=== PATIENT | female | born 1950 | race Caucasian/White ===

== ENCOUNTER 2017-02-16 19:56 | Inpatient (IN) | payer MEDICARE, OTHER, SELFPAY ==
[2017-02-16] MEDS ORDERED: Sodium Chloride 0.9% 10 ML Syringe FLUSH PRN (20:03)
[2017-02-16] MEDS ORDERED: Furosemide 40 MG/4 ML VIAL IVPUSH ONE (20:03)
[2017-02-16] MEDS ORDERED: Sodium Chloride 0.9% 2.5 ML Syringe FLUSH PRN (20:03)
[2017-02-16] MEDS ORDERED: Enoxaparin 100 MG/1 ML Syringe SUBCUT ONE (20:03)
[2017-02-16] MEDS ORDERED: Nitroglycerin 2% Oint 1 GM UD Packet TOP ONE (20:03)
[2017-02-16] MEDS ORDERED: Aspirin 81 MG Tab.Chew PO ONE (20:03)
--- NOTE | 2017-02-16 20:09 | EDM.PDOC ---
ED HPI GENERAL MEDICAL PROBLEM - General Chief Complaint: Respiratory Problem Stated Complaint: GENERAL WEAKNESS Time Seen by Provider: 02/16/17 20:01 - History of Present Illness INITIAL COMMENTS - FREE TEXT/NARRATIVE: HISTORY AND PHYSICAL: History of present illness: Patient 66-year-old female with an extensive past medical history is presents with shortness of breath she also had a fall at home when her wheelchair broke she was found to be hypoxemic and transported by paramedics per nonrebreather she denies chest pain nausea vomiting she does acknowledge shortness of breath and states she has been noncompliant with all of her medications for months she does acknowledge history of CHF and she also states she has had a history of blood clots patient somewhat poor historian patient doesn't now is increasing peripheral edema and shortness of breath has been worsening over weeks to months Review of systems: As per history of present illness and below otherwise all systems reviewed and negative. Past medical history: As per history of present illness and as reviewed below otherwise noncontributory. Surgical history: As per history of present illness and as reviewed below otherwise noncontributory. Social history: No reported history of drug or alcohol abuse. Family history: As per history of present illness and as reviewed below otherwise noncontributory. Physical exam: HEENT: Atraumatic, normocephalic, pupils reactive, negative for conjunctival pallor or scleral icterus, mucous membranes moist, throat clear, neck supple, nontender, trachea midline. Lungs: Coarse bilaterally diminished bibasilar crackles noted breath sounds equal bilaterally, chest nontender. Heart: S1S2, regular, negative for clicks, rubs, or JVD. Abdomen: Soft, nondistended, nontender. Negative for masses or hepatosplenomegaly. Negative for costovertebral tenderness. Pelvis: Stable nontender. Genitourinary: Deferred. Rectal: Deferred. Extremities: Atraumatic, negative for cords or calf pain. Neurovascular unremarkable. 3-4+ pitting edema inferior extremities Neuro: Awake, alert, oriented. Follows commands and moves all extremities limited grossly nonfocal exam Diagnostics: CBC CMP troponin PT/INR UA urine culture blood culture 2 lactic acid BNP chest x-ray EKG Therapeutics: IV O2 monitor Nitropaste 1 inch to chest wall Lasix 40 mg IV aspirin 324 mg by mouth Impression: #1 hypoxemia #2 congestive heart failure #3 medical noncompliance Definitive disposition and diagnosis as appropriate pending reevaluation and review of above. - Related Data Allergies Allergy/AdvReac Type Severity Reaction Status Date / Time aspartame Allergy Other Verified 02/16/17 20:20 [From Nutrasweet Aspartame] banana Allergy Other Verified 02/16/17 20:20 egg Allergy Other Verified 02/16/17 20:20 fluconazole Allergy Burning Verified 02/16/17 20:20 formaldehyde Allergy Other Verified 02/16/17 20:20 gluten Allergy Other Verified 02/16/17 20:20 latex Allergy Other Verified 02/16/17 20:20 levofloxacin [From Levaquin] Allergy Other Verified 02/16/17 20:20 lisinopril Allergy Other Verified 02/16/17 20:20 morphine Allergy Other Verified 02/16/17 20:20 perfume Allergy Cough Verified 02/16/17 20:20 petrolatum,white Allergy Other Verified 02/16/17 20:20 [From Petroleum Jelly] propoxyphene HCl Allergy Other Verified 02/16/17 20:20 [From Darvon] soy Allergy Other Verified 02/16/17 20:20 spironolactone Allergy Chest Verified 02/16/17 20:20 Presssure Sulfa (Sulfonamide Allergy Other Verified 02/16/17 20:20 Antibiotics) Home Meds: Home Meds Losartan [Cozaar] 100 mg PO DAILY #30 09/29/14 [Rx] Baclofen 20 mg PO TID 02/13/16 [History] oxyCODONE HCl [Oxycodone HCl] 10 mg PO BEDTIME 02/13/16 [History] Past Medical History Cardiovascular History: Reports: Heart Failure, Hypertension Respiratory History: Reports: Bronchitis, Recurrent [employer] 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[employer]IC History: Reports: Musculoskeletal History: Reports: Back Pain, Chronic Psychiatric History: Reports: Depression Endocrine/Metabolic History: Reports: Diabetes, Type II - Past Surgical History Female Surgical History: Reports: Section Musculoskeletal Surgical History: Reports: Other (See Below) Social & Family History - Family History Family Medical History: Noncontributory - Tobacco Use Smoking Status *Q: Current Every Day Smoker Years of Tobacco use: 40 Packs/Tins Daily: 1 Used Tobacco, but Quit: No Second Hand Smoke Exposure: Yes - Alcohol Use Days Per Week of Alcohol Use: 0 - Recreational Drug Use Recreational Drug Use: No ED ROS GENERAL - Review of Systems Review Of Systems: ROS reveals no pertinent complaints other than HPI. ED EXAM, GENERAL - Physical Exam Exam: See Below (See dictation) Course - Vital Signs Last Recorded V/S: Last Vital Signs Temp 36.1 C 02/16/17 20:00 Pulse 72 02/16/17 22:16 Resp 19 02/16/17 22:16 BP 143/76 H 02/16/17 22:16 Pulse Ox 93 L 02/16/17 22:18 - Orders/Labs/Meds Orders: Active Orders 24 hr Category Date Time Status Cardiac Monitoring [RC] . DIRECTED Care 02/16/17 20:02 Active EKG 12 Lead [EKG Documentation Completion] [RC] STAT Care 02/16/17 19:57 Active Oxygen Therapy, ED [RC] ASDIRECTED Care 02/16/17 20:02 Active Pulse Oximetry [RC] ASDIRECTED Care 02/16/17 20:02 Active Chest 1V Frontal [CR] Stat Exams 02/16/17 20:03 Taken Pelvis 1V or 2V [CR] Stat Exams 02/16/17 20:05 Taken CULTURE BLOOD [BC] Stat Lab 02/16/17 20:20 Received CULTURE BLOOD [BC] Stat Lab 02/16/17 20:37 Received CULTURE URINE [RM] Stat Lab 02/16/17 21:04 Received Sodium Chloride 0.9% [Saline Flush] Med 02/16/17 20:03 Active 10 ml FLUSH ASDIRECTED PRN Sodium Chloride 0.9% [Saline Flush] Med 02/16/17 20:03 Active 2.5 ml FLUSH ASDIRECTED PRN Blood Culture x2 Reflex Set [OM.PC] Stat Oth 02/16/17 20:03 Ordered Saline Lock Insert [OM.PC] Stat Oth 02/16/17 20:02 Ordered Medication Orders Sodium Chloride (Saline Flush) 10 ml FLUSH ASDIRECTED PRN PRN Reason: Keep Vein Open Last Admin: 02/16/17 20:29 Dose: 10 ml Sodium Chloride (Saline Flush) 2.5 ml FLUSH ASDIRECTED PRN PRN Reason: Keep Vein Open Last Admin: 02/16/17 20:28 Dose: 2.5 ml Labs: Laboratory Tests 10/18/17 10/18/17 10/18/17 Range/Units 20:20 20:20 20:20 WBC 7.21 (4.0-11.0) K/uL RBC 5.27 (4.30-5.90) M/uL Hgb 16.5 H (12.0-16.0) g/dL Hct 51.0 H (36.0-46.0) % MCV 96.8 (80.0-98.0) fL MCH 31.3 (27.0-32.0) pg MCHC 32.4 (31.0-37.0) g/dL RDW Std Deviation 52.5 (28.0-62.0) fl RDW Coeff of Robert 15 (11.0-15.0) % Plt Count 174 (150-400) K/uL MPV 10.20 (7.40-12.00) fL Neut % (Auto) 63.5 (48.0-80.0) % Lymph % (Auto) 20.9 (16.0-40.0) % [place] % (Auto) 14.0 (0.0-15.0) % Eos % (Auto) 1.2 (0.0-7.0) % Baso % (Auto) 0.4 (0.0-1.5) % Neut # (Auto) 4.6 (1.4-5.7) K/uL Lymph # (Auto) 1.5 (0.6-2.4) K/uL [place] # (Auto) 1.0 H (0.0-0.8) K/uL Eos # (Auto) 0.1 (0.0-0.7) K/uL Baso # (Auto) 0.0 (0.0-0.1) K/uL Nucleated RBC % 0.0 /100WBC Nucleated RBCs # 0 K/uL INR 1.26 H (0.86-1.11) Lactate 1.2 (0.20-2.00) mmol/L Sodium (136-146) mmol/L Potassium (3.5-5.1) mmol/L Chloride (98-110) mmol/L Carbon Dioxide (21-31) mmol/L BUN (6.0-23.0) mg/dL Creatinine (0.6-1.5) mg/dL Est Cr Clr Drug Dosing Estimated GFR (MDRD) ml/min Glucose (60-110) mg/dL Calcium (8.8-10.8) mg/dL Total Bilirubin (0.1-1.5) mg/dL AST (5-40) IU/L ALT (8-54) IU/L Alkaline Phosphatase (40-150) Ammonia (14-68) UG/DL Troponin I (0.0-0.29) NG/ML B-Natriuretic Peptide (<100) PG/ML Total Protein (6.0-8.0) g/dL Albumin (3.4-4.8) g/dL Globulin (2.0-3.5) g/dL Albumin/Globulin Ratio (1.3-2.8) Urine Color Urine Appearance Urine pH (5.0-8.0) Ur Specific [place] (1.001-1.035) Urine Protein (NEGATIVE) mg/dL Urine Glucose (UA) (NEGATIVE) mg/dL Urine Ketones (NEGATIVE) mg/dL Urine Occult Blood (NEGATIVE) Urine Nitrite (NEGATIVE) Urine Bilirubin (NEGATIVE) Urine Urobilinogen (<2.0) EU/dL Ur Leukocyte Esterase (NEGATIVE) Urine RBC (0-2/HPF) Urine WBC (0-5/HPF) Ur Epithelial Cells (NONE-FEW) Urine Bacteria (NEGATIVE) 02/16/17 02/16/17 02/16/17 Range/Units 20:20 20:20 20:20 WBC (4.0-11.0) K/uL RBC (4.30-5.90) M/uL Hgb (12.0-16.0) g/dL Hct (36.0-46.0) % MCV (80.0-98.0) fL MCH (27.0-32.0) pg MCHC (31.0-37.0) g/dL RDW Std Deviation (28.0-62.0) fl RDW Coeff of Robert (11.0-15.0) % Plt Count (150-400) K/uL MPV (7.40-12.00) fL Neut % (Auto) (48.0-80.0) % Lymph % (Auto) (16.0-40.0) % [place] % (Auto) (0.0-15.0) % Eos % (Auto) (0.0-7.0) % Baso % (Auto) (0.0-1.5) % Neut # (Auto) (1.4-5.7) K/uL Lymph # (Auto) (0.6-2.4) K/uL [place] # (Auto) (0.0-0.8) K/uL Eos # (Auto) (0.0-0.7) K/uL Baso # (Auto) (0.0-0.1) K/uL Nucleated RBC % /100WBC Nucleated RBCs # K/uL INR (0.86-1.11) Lactate (0.20-2.00) mmol/L Sodium 143 (136-146) mmol/L Potassium 3.8 (3.5-5.1) mmol/L Chloride 106 (98-110) mmol/L Carbon Dioxide 27 (21-31) mmol/L BUN 22 (6.0-23.0) mg/dL Creatinine 0.9 (0.6-1.5) mg/dL Est Cr Clr Drug Dosing TNP Estimated GFR (MDRD) > 60.0 ml/min Glucose 112 H (60-110) mg/dL Calcium 8.9 (8.8-10.8) mg/dL Total Bilirubin 0.8 (0.1-1.5) mg/dL AST 19 (5-40) IU/L ALT 18 (8-54) IU/L Alkaline Phosphatase 124 (40-150) Ammonia 53 (14-68) UG/DL Troponin I < 0.10 (0.0-0.29) NG/ML B-Natriuretic Peptide 2294 H (<100) PG/ML Total Protein 7.3 (6.0-8.0) g/dL Albumin 3.4 (3.4-4.8) g/dL Globulin 3.9 H (2.0-3.5) g/dL Albumin/Globulin Ratio 0.9 L (1.3-2.8) Urine Color Urine Appearance Urine pH (5.0-8.0) Ur Specific [place] (1.001-1.035) Urine Protein (NEGATIVE) mg/dL Urine Glucose (UA) (NEGATIVE) mg/dL Urine Ketones (NEGATIVE) mg/dL Urine Occult Blood (NEGATIVE) Urine Nitrite (NEGATIVE) Urine Bilirubin (NEGATIVE) Urine Urobilinogen (<2.0) EU/dL Ur Leukocyte Esterase (NEGATIVE) Urine RBC (0-2/HPF) Urine WBC (0-5/HPF) Ur Epithelial Cells (NONE-FEW) Urine Bacteria (NEGATIVE) 02/16/17 Range/Units 21:04 WBC (4.0-11.0) K/uL RBC (4.30-5.90) M/uL Hgb (12.0-16.0) g/dL Hct (36.0-46.0) % MCV (80.0-98.0) fL MCH (27.0-32.0) pg MCHC (31.0-37.0) g/dL RDW Std Deviation (28.0-62.0) fl RDW Coeff of Robert (11.0-15.0) % Plt Count (150-400) K/uL MPV (7.40-12.00) fL Neut % (Auto) (48.0-80.0) % Lymph % (Auto) (16.0-40.0) % [place] % (Auto) (0.0-15.0) % Eos % (Auto) (0.0-7.0) % Baso % (Auto) (0.0-1.5) % Neut # (Auto) (1.4-5.7) K/uL Lymph # (Auto) (0.6-2.4) K/uL [place] # (Auto) (0.0-0.8) K/uL Eos # (Auto) (0.0-0.7) K/uL Baso # (Auto) (0.0-0.1) K/uL Nucleated RBC % /100WBC Nucleated RBCs # K/uL INR (0.86-1.11) Lactate (0.20-2.00) mmol/L Sodium (136-146) mmol/L Potassium (3.5-5.1) mmol/L Chloride (98-110) mmol/L Carbon Dioxide (21-31) mmol/L BUN (6.0-23.0) mg/dL Creatinine (0.6-1.5) mg/dL Est Cr Clr Drug Dosing Estimated GFR (MDRD) ml/min Glucose (60-110) mg/dL Calcium (8.8-10.8) mg/dL Total Bilirubin (0.1-1.5) mg/dL AST (5-40) IU/L ALT (8-54) IU/L Alkaline Phosphatase (40-150) Ammonia (14-68) UG/DL Troponin I (0.0-0.29) NG/ML B-Natriuretic Peptide (<100) PG/ML Total Protein (6.0-8.0) g/dL Albumin (3.4-4.8) g/dL Globulin (2.0-3.5) g/dL Albumin/Globulin Ratio (1.3-2.8) Urine Color YELLOW Urine Appearance CLEAR Urine pH 5.5 (5.0-8.0) Ur Specific [place] 1.010 (1.001-1.035) Urine Protein 30 (NEGATIVE) mg/dL Urine Glucose (UA) NEGATIVE (NEGATIVE) mg/dL Urine Ketones NEGATIVE (NEGATIVE) mg/dL Urine Occult Blood TRACE-LYSED (NEGATIVE) Urine Nitrite NEGATIVE (NEGATIVE) Urine Bilirubin NEGATIVE (NEGATIVE) Urine Urobilinogen 0.2 (<2.0) EU/dL Ur Leukocyte Esterase NEGATIVE (NEGATIVE) Urine RBC 0-1 (0-2/HPF) Urine WBC 1-2 (0-5/HPF) Ur Epithelial Cells FEW (NONE-FEW) Urine Bacteria FEW (NEGATIVE) Meds: Medications Generic Name Dose Route Start Last Admin Trade Name Freq PRN Reason Stop Dose Admin Sodium Chloride 10 ml 02/16/17 20:03 02/16/17 20:29 Saline Flush FLUSH 10 ml ASDIRECTED PRN Administration Keep Vein Open Sodium Chloride 2.5 ml 02/16/17 20:03 02/16/17 20:28 Saline Flush FLUSH 2.5 ml ASDIRECTED PRN Administration Keep Vein Open Discontinued Medications Generic Name Dose Route Start Last Admin Trade Name Freq PRN Reason Stop Dose Admin Aspirin 324 mg 02/16/17 20:03 02/16/17 20:24 Aspirin PO 02/16/17 20:04 324 mg ONETIME ONE Administration Enoxaparin Sodium 120 mg 02/16/17 20:03 02/16/17 20:25 Lovenox SUBCUT 02/16/17 20:04 Not Given ONETIME ONE Furosemide 40 mg 02/16/17 20:03 02/16/17 20:29 Lasix IVPUSH 02/16/17 20:04 40 mg NOW ONE Administration Nitroglycerin 1 gm 02/16/17 20:03 02/16/17 20:26 Nitro-Bid 2% TOP 02/16/17 20:04 1 gm ONETIME ONE Administration Departure - Departure Time of Disposition: 22:20 Disposition: Admitted As Inpatient 68 Condition: Fair Clinical Impression: Hypoxemia, Congestive heart failure, Medical non-compliance - Discharge Information Forms: ED Department Discharge - My Orders Last 24 Hours: My Active Orders 02/16/17 19:57 EKG 12 Lead [EKG Documentation Completion] [RC] STAT 02/16/17 20:02 Cardiac Monitoring [RC] . DIRECTED Oxygen Therapy, ED [RC] ASDIRECTED Pulse Oximetry [RC] ASDIRECTED Saline Lock Insert [OM.PC] Stat 02/16/17 20:03 Chest 1V Frontal [CR] Stat Sodium Chloride 0.9% [Saline Flush] 10 ml FLUSH ASDIRECTED PRN Sodium Chloride 0.9% [Saline Flush] 2.5 ml FLUSH ASDIRECTED PRN Blood Culture x2 Reflex Set [OM.PC] Stat 02/16/17 20:05 Pelvis 1V or 2V [CR] Stat 02/16/17 20:20 CULTURE BLOOD [BC] Stat 02/16/17 20:37 CULTURE BLOOD [BC] Stat 02/16/17 21:04 CULTURE URINE [RM] Stat - Assessment/Plan Last 24 Hours: My Active Orders 02/16/17 19:57 EKG 12 Lead [EKG Documentation Completion] [RC] STAT 02/16/17 20:02 Cardiac Monitoring [RC] . DIRECTED Oxygen Therapy, ED [RC] ASDIRECTED Pulse Oximetry [RC] ASDIRECTED Saline Lock Insert [OM.PC] Stat 02/16/17 20:03 Chest 1V Frontal [CR] Stat Sodium Chloride 0.9% [Saline Flush] 10 ml FLUSH ASDIRECTED PRN Sodium Chloride 0.9% [Saline Flush] 2.5 ml FLUSH ASDIRECTED PRN Blood Culture x2 Reflex Set [OM.PC] Stat 02/16/17 20:05 Pelvis 1V or 2V [CR] Stat 02/16/17 20:20 CULTURE BLOOD [BC] Stat 02/16/17 20:37 CULTURE BLOOD [BC] Stat 02/16/17 21:04 CULTURE URINE [RM] Stat
[2017-02-16 20:51] LABS: CHLORIDE,CL 106 mmol/L (98-110); SODIUM,NA 143 mmol/L (136-146)
--- NOTE | 2017-02-16 23:25 | PCM.HP ---
H&P History of Present Illness - General Admit Problem/Dx: Admission Diagnosis/Problem Admission Diagnosis/Problem Congestive heart failure - History of Present Illness Initial Comments - Free Text/Narative: 66 yo female with pmh of CHF who presents with hypoxia. She was at home and fell while getting up from chair. She called the police to help her up from the floor. EMT noted her to be satting low 80s on RA and convinced her to come to the ED. She reports increased in shortness of breath and cough. She reports orthopnea and increase in lower leg swelling. She reports a gain in 20 lbs. In the ED she received lasix and nitro paste. She refused anticoagulation as she she said she is done with treating DVTs. She reports prolonged hospitalizations with surgical treatment of leg clots. She has stopped taking any medications except for garlic and states that has kept her out of the hospital for over a year. In her last hospitalization here in [place] according to chart it appears she refused to be treated for diabetes and denied the diagnosis. left hip Pain Score (Numeric/FACES): 5 - Related Data Allergies/Adverse Reactions: Allergies Allergy/AdvReac Type Severity Reaction Status Date / Time aspartame Allergy Other Verified 02/16/17 20:20 [From Nutrasweet Aspartame] banana Allergy Other Verified 02/16/17 20:20 egg Allergy Other Verified 02/16/17 20:20 fluconazole Allergy Burning Verified 02/16/17 20:20 formaldehyde Allergy Other Verified 02/16/17 20:20 gluten Allergy Other Verified 02/16/17 20:20 latex Allergy Other Verified 02/16/17 20:20 levofloxacin [From Levaquin] Allergy Other Verified 02/16/17 20:20 lisinopril Allergy Other Verified 02/16/17 20:20 morphine Allergy Other Verified 02/16/17 20:20 perfume Allergy Cough Verified 02/16/17 20:20 petrolatum,white Allergy Other Verified 02/16/17 20:20 [From Petroleum Jelly] propoxyphene HCl Allergy Other Verified 02/16/17 20:20 [From Darvon] soy Allergy Other Verified 02/16/17 20:20 spironolactone Allergy Chest Verified 02/16/17 20:20 Presssure Sulfa (Sulfonamide Allergy Other Verified 02/16/17 20:20 Antibiotics) Home Medications: Home Meds Losartan [Cozaar] 100 mg PO DAILY #30 09/29/14 [Rx] Baclofen 20 mg PO TID 02/13/16 [History] oxyCODONE HCl [Oxycodone HCl] 10 mg PO BEDTIME 02/13/16 [History] Past Medical History Cardiovascular History: Reports: Heart Failure, Hypertension Respiratory History: Reports: Bronchitis, Recurrent [employer] 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: Musculoskeletal History: Reports: Back Pain, Chronic Psychiatric History: Reports: Depression Endocrine/Metabolic History: Reports: Diabetes, Type II - Infectious Disease History Infectious Disease History: Reports: None - Past Surgical History Female Surgical History: Reports: Section Musculoskeletal Surgical History: Reports: Other (See Below) Social & Family History - Family History Family Medical History: Noncontributory - Tobacco Use Smoking Status *Q: Current Every Day Smoker Years of Tobacco use: 40 Packs/Tins Daily: 1 Used Tobacco, but Quit: No Second Hand Smoke Exposure: Yes - Caffeine Use Caffeine Use: Reports: Soda - Alcohol Use Days Per Week of Alcohol Use: 0 - Recreational Drug Use Recreational Drug Use: No H&P Review of Systems - Review of Systems: Review Of Systems: See Below General: Reports: No Symptoms HEENT: Reports: No Symptoms Pulmonary: Reports: No Symptoms Cardiovascular: Reports: No Symptoms Gastrointestinal: Reports: No Symptoms Genitourinary: Reports: No Symptoms Musculoskeletal: Reports: No Symptoms Skin: Reports: No Symptoms Psychiatric: Reports: No Symptoms Neurological: Reports: No Symptoms Hematologic/Lymphatic: Reports: No Symptoms Immunologic: Reports: No Symptoms Exam - Exam Exam: See Below - Vital Signs Vital Signs: Last Vital Signs Temp 36.1 C 02/16/17 20:00 Pulse 72 02/16/17 22:53 Resp 19 02/16/17 22:53 BP 163/84 H 02/16/17 22:53 Pulse Ox 94 L 02/16/17 22:53 Weight: 117.1 kg - Exam General: Alert, Oriented, Cooperative. No: Mild Distress Lungs: Normal Respiratory Effort, Decreased Breath Sounds, Crackles (at bases) Cardiovascular: Regular Rate, Regular Rhythm GI/Abdominal Exam: Soft, Non-Tender, No Distention Extremities: Pedal Edema (+3 leg edema) Skin: Warm, Dry, Intact Neurological: No: Focal Deficit - Patient Data Result Diagrams: 02/17/17 05:13 02/17/17 05:13 *Q Meaningful Use (ADM) - VTE *Q VTE Criteria *Q: - Stroke *Q Stroke Criteria *Q: - AMI *Q AMI Criteria *Q: Problem List Initiated/Reviewed/Updated: Yes Orders Last 24hrs: Active Orders 24 hr Category Date Time Status Antiembolic Devices [RC] PER UNIT ROUTINE Care 02/16/17 23:17 Ordered Oxygen Therapy [RC] PRN Care 02/16/17 23:16 Ordered VTE/DVT Education [RC] PER UNIT ROUTINE Care 02/16/17 23:16 Ordered Vital Signs [RC] Q4H Care 02/16/17 23:16 Ordered PT Evaluation and Treatment [CONS] Routine Cons 02/16/17 23:16 Ordered 2 Gram Sodium Diet [DIET] Diet 02/16/17 Breakfast Ordered Echo 2D wo Cont [US] Routine Exams 02/16/17 23:18 Ordered BASIC METABOLIC PANEL,BMP [CHEM] AM Lab 02/17/17 05:11 Ordered CBC WITH AUTO DIFF [HEME] AM Lab 02/17/17 05:11 Ordered INFLUENZA A+B AG SCREEN [RM] Routine Lab 02/16/17 23:19 Uncollected Enoxaparin [Lovenox] Med 02/17/17 09:00 Ordered 40 mg SUBCUT DAILY Furosemide [Lasix] Med 02/17/17 09:00 Ordered 40 mg IVPUSH BID Obtain Past Medical Record [OM.PC] Routine Oth 02/16/17 23:18 Ordered Sequential Compression Device [OM.PC] Per Unit Routine Oth 02/16/17 23:16 Ordered Resuscitation Status Routine Resus Stat 02/16/17 23:16 Ordered Medication Orders Enoxaparin Sodium (Lovenox) 40 mg SUBCUT DAILY JESSEE Furosemide (Lasix) 40 mg IVPUSH BID JESSEE Sodium Chloride (Saline Flush) 10 ml FLUSH ASDIRECTED PRN PRN Reason: Keep Vein Open Last Admin: 02/16/17 20:29 Dose: 10 ml Sodium Chloride (Saline Flush) 2.5 ml FLUSH ASDIRECTED PRN PRN Reason: Keep Vein Open Last Admin: 02/16/17 20:28 Dose: 2.5 ml Assessment/Plan Comment:: 66 yo female admitted for CHF exacerbation. We will treat with IV lasix. Will obtain echocardiogram. Will consider PAM or ARB. Will consult PT regarding fall. I spent time advising patient on starting pharmacological DVT prophylaxis considering her history but patient currently is refusing and believes she won't stay in the hospital for long.
[2017-02-17] MEDS ORDERED: guaiFENesin/Dextromethorphan 100-10 MG/5 ML Soln 10 ML Cup PO PRN (01:28)
[2017-02-17] MEDS: Benzocaine/Cetylpyridinium/Menthol Lozenge MUCMEM PRN ×2 (02:01→11:30)
[2017-02-17] MEDS ORDERED: oxyCODONE 5 MG Tab PO ONE (02:39)
[2017-02-17] MEDS: Furosemide 40 MG/4 ML VIAL IVPUSH SCH ×2 (06:11→12:59)
[2017-02-17 06:12] LABS: CHLORIDE,CL 106 mmol/L (98-110); SODIUM,NA 144 mmol/L (136-146)
[2017-02-17] MEDS: Losartan 50 MG Tab PO SCH (06:19)
[2017-02-17] MEDS: Enoxaparin 40 MG/0.4 ML Syringe SUBCUT SCH (08:54)
[2017-02-17] MEDS ORDERED: Acetaminophen 325 MG Tab PO PRN (08:57)
[2017-02-17] MEDS ORDERED: Furosemide 40 MG/4 ML VIAL IVPUSH SCH (09:00)
[2017-02-17] MEDS: Aspirin 81 MG Tab.Chew PO SCH (10:01)
--- NOTE | 2017-02-17 10:47 | CR ---
EXAM DATE: 02/16/17 PATIENT'S AGE: 66 Patient: ASHLEY YUAN Facility: [place], [place] Site . Site : 1950 Study: XRay Chest [id number] 9:36:24 PM Ordering Physician: Miles Wise Final Report: INDICATION: weakness TECHNIQUE: Chest 1 view. COMPARISON: 09/27/14 FINDINGS: Cardiovascular and mediastinum: Heart size and vasculature are normal in caliber and appearance. Mediastinum is within normal limits. Lungs and pleural space: Lungs are clear. No sign of infiltrate or mass. No sign of pleural effusion. No pneumothorax. Bones and soft tissues: No significant findings. IMPRESSION: Unremarkable chest. Dictated by: Danial Xie MD @ 02/16/2017 22:12:11 (Electronic Signature) Report Signed by Proxy. [facility]
--- NOTE | 2017-02-17 10:49 | CR ---
EXAM DATE: 02/16/17 PATIENT'S AGE: 66 Patient: ASHLEY YUAN Facility: [place], [place] Site . Site : 1950 Study: XRay Pelvis [id number]/[id number] 9:36:45 PM Ordering Physician: Miles Wise Final Report: INDICATION: left side hip pain INDICATION: Left-sided hip pain TECHNIQUE: AP pelvis COMPARISON: None FINDINGS: Bones: Alignment is normal. No fractures or bone lesions. Joint spaces: Unremarkable. Soft tissues: Unremarkable. IMPRESSION: No evidence of acute trauma. Dictated by Danial Xie MD @ 02/16/2017 10:10:34 PM Dictated by: Danial Xie MD @ 02/16/2017 22:10:50 (Electronic Signature) Report Signed by Proxy. [facility]
[2017-02-17] MEDS: oxyCODONE 5 MG Tab PO PRN (11:11)
--- NOTE | 2017-02-17 11:39 | PCM.PN ---
- Review of Systems Systems Review Comment:: breathing has improved. - Patient Data Vitals - Most Recent: Last Vital Signs Temp 36.7 C 02/17/17 08:00 Pulse 72 02/16/17 22:53 Resp 22 H 02/17/17 10:54 BP 171/120 H 02/17/17 10:54 Pulse Ox 92 L 02/17/17 10:54 Weight - Most Recent: 117.1 kg I&O - Last 24 Hours: Intake & Output 02/16/17 02/17/17 02/17/17 22:59 06:59 14:59 Intake Total 200 Output Total 900 Balance -700 Lab Results Last 24 Hours: Laboratory Results - last 24 hr 02/17/17 02/17/17 Range/Units 05:13 05:13 WBC 7.37 (4.0-11.0) K/uL RBC 4.90 (4.30-5.90) M/uL Hgb 15.1 (12.0-16.0) g/dL Hct 47.9 H (36.0-46.0) % MCV 97.8 (80.0-98.0) fL MCH 30.8 (27.0-32.0) pg MCHC 31.5 (31.0-37.0) g/dL RDW Std Deviation 53.8 (28.0-62.0) fl RDW Coeff of Robert 15 (11.0-15.0) % Plt Count 202 (150-400) K/uL MPV 10.20 (7.40-12.00) fL Neut % (Auto) 65.0 (48.0-80.0) % Lymph % (Auto) 19.3 (16.0-40.0) % [place] % (Auto) 13.8 (0.0-15.0) % Eos % (Auto) 1.6 (0.0-7.0) % Baso % (Auto) 0.3 (0.0-1.5) % Neut # (Auto) 4.8 (1.4-5.7) K/uL Lymph # (Auto) 1.4 (0.6-2.4) K/uL [place] # (Auto) 1.0 H (0.0-0.8) K/uL Eos # (Auto) 0.1 (0.0-0.7) K/uL Baso # (Auto) 0.0 (0.0-0.1) K/uL Nucleated RBC % 0.0 /100WBC Nucleated RBCs # 0 K/uL Sodium 144 (136-146) mmol/L Potassium 3.9 (3.5-5.1) mmol/L Chloride 106 (98-110) mmol/L Carbon Dioxide 30 (21-31) mmol/L BUN 19 (6.0-23.0) mg/dL Creatinine 0.8 (0.6-1.5) mg/dL Est Cr Clr Drug Dosing 69.09 mL/min Estimated GFR (MDRD) > 60.0 ml/min Glucose 110 (60-110) mg/dL Calcium 8.3 L (8.8-10.8) mg/dL Samuel Results Last 24 Hours: Microbiology 02/16/17 23:57 Influenza Type A Antigen Screen - Final Nasopharyngeal Swab - Nare, Left NEGATIVE INFLUENZA A VIRUS AG Influenza Type B Antigen Screen - Final NEGATIVE INFLUENZA B VIRUS AG Med Orders - Current: Current Medications Acetaminophen (Tylenol) 325 mg PO Q4H PRN PRN Reason: headache or other pain Aspirin (Aspirin) 81 mg PO DAILY [facility] Last Admin: 02/17/17 10:01 Dose: 81 mg Benzocaine/Menthol (Cepacol Sore Throat) 1 lozenge MUCMEM 6XDAY PRN PRN Reason: Cough Last Admin: 02/17/17 11:30 Dose: 1 lozenge Enoxaparin Sodium (Lovenox) 40 mg SUBCUT DAILY [facility] Last Admin: 02/17/17 08:54 Dose: Not Given Furosemide (Lasix) 40 mg IVPUSH 0600,1400 [facility] Last Admin: 02/17/17 06:11 Dose: 40 mg Guaifenesin/Dextromethorphan (Robitussin Dm) 10 ml PO Q4H PRN PRN Reason: Cough Last Admin: 02/17/17 11:10 Dose: 10 ml Losartan Potassium (Cozaar) 50 mg PO DAILY [facility] Last Admin: 02/17/17 06:19 Dose: 50 mg Oxycodone HCl (Oxycodone) 5 mg PO Q6H PRN PRN Reason: Pain Last Admin: 02/17/17 11:11 Dose: 5 mg Sodium Chloride (Saline Flush) 10 ml FLUSH ASDIRECTED PRN PRN Reason: Keep Vein Open Last Admin: 02/16/17 20:29 Dose: 10 ml Sodium Chloride (Saline Flush) 2.5 ml FLUSH ASDIRECTED PRN PRN Reason: Keep Vein Open Last Admin: 02/16/17 20:28 Dose: 2.5 ml Discontinued Medications Aspirin (Aspirin) 324 mg PO ONETIME ONE Stop: 02/16/17 20:04 Last Admin: 02/16/17 20:24 Dose: 324 mg Enoxaparin Sodium (Lovenox) 120 mg SUBCUT ONETIME ONE Stop: 02/16/17 20:04 Last Admin: 02/16/17 20:25 Dose: Not Given Furosemide (Lasix) 40 mg IVPUSH NOW ONE Stop: 02/16/17 20:04 Last Admin: 02/16/17 20:29 Dose: 40 mg Furosemide (Lasix) 40 mg IVPUSH BID [facility] Nitroglycerin (Nitro-Bid 2%) 1 gm TOP ONETIME ONE Stop: 02/16/17 20:04 Last Admin: 02/16/17 20:26 Dose: 1 gm Oxycodone HCl (Oxycodone) 5 mg PO ONETIME ONE Stop: 02/17/17 02:40 Last Admin: 02/17/17 02:56 Dose: 5 mg - Exam General: Alert, Oriented Lungs: Normal Respiratory Effort, Decreased Breath Sounds Cardiovascular: Regular Rate, Regular Rhythm Extremities: Other (+3 leg edema) Skin: Warm, Dry, Intact Neurological: No New Focal Deficit - Problem List Review Problem List Initiated/Reviewed/Updated: Yes - My Orders Last 24 Hours: My Active Orders 02/16/17 23:16 Oxygen Therapy [RC] PRN Vital Signs [RC] Q1H PT Evaluation and Treatment [CONS] Routine Sequential Compression Device [OM.PC] Per Unit Routine Resuscitation Status Routine 02/16/17 23:17 Antiembolic Devices [RC] Q12H 02/16/17 23:18 Obtain Past Medical Record [OM.PC] Routine 02/17/17 06:00 Furosemide [Lasix] 40 mg IVPUSH 0600,1400 02/17/17 09:00 Enoxaparin [Lovenox] 40 mg SUBCUT DAILY 02/17/17 09:45 Aspirin 81 mg PO DAILY 02/17/17 10:19 oxyCODONE 5 mg PO Q6H PRN 10/19/17 23:18 Echo Comp wo Cont [US] Routine - Plan Plan:: 66 yo female admitted for CHF exacerbation. Will continue lasix, echocardiogram pending PT consulted
[2017-02-17] MEDS ORDERED: hydrALAZINE 20 MG/ML SDV IVPUSH PRN (22:16)
[2017-02-18] MEDS: oxyCODONE 5 MG Tab PO PRN ×4 (02:42→22:07)
[2017-02-18] MEDS: Furosemide 40 MG/4 ML VIAL IVPUSH SCH ×2 (05:48→13:47)
[2017-02-18 08:54] LABS: CHLORIDE,CL 99 mmol/L (98-110); SODIUM,NA 145 mmol/L (136-146)
[2017-02-18] MEDS: cefTRIAXone 1 GM in Premix Bag 1 BAG IV SCH (08:54)
[2017-02-18] MEDS: Aspirin 81 MG Tab.Chew PO SCH (08:55)
[2017-02-18] MEDS: Nicotine 21 MG/24 Hr Patch TRDERM SCH (09:05)
[2017-02-18] MEDS: Enoxaparin 40 MG/0.4 ML Syringe SUBCUT SCH (09:16)
[2017-02-18] MEDS: Losartan 50 MG Tab PO SCH (09:17)
--- NOTE | 2017-02-18 11:57 | PCM.PN ---
- General Info Date of Service: 02/18/17 - Review of Systems Systems Review Comment:: shortness of breath improving. - Patient Data Vitals - Most Recent: Last Vital Signs Temp 37.6 C 02/18/17 08:00 Pulse 67 02/18/17 09:00 Resp 12 02/18/17 11:00 BP 138/41 L 02/18/17 11:00 Pulse Ox 87 L 02/18/17 11:00 Weight - Most Recent: 114 kg I&O - Last 24 Hours: Intake & Output 02/17/17 02/18/17 02/18/17 22:59 06:59 14:59 Intake Total 450 500 Output Total 2200 500 Balance -1750 0 Lab Results Last 24 Hours: Laboratory Results - last 24 hr 02/17/17 02/17/17 02/18/17 Range/Units 05:13 16:45 08:06 WBC 8.27 (4.0-11.0) K/uL RBC 4.93 (4.30-5.90) M/uL Hgb 15.1 (12.0-16.0) g/dL Hct 48.4 H (36.0-46.0) % MCV 98.2 H (80.0-98.0) fL MCH 30.6 (27.0-32.0) pg MCHC 31.2 (31.0-37.0) g/dL RDW Std Deviation 53.3 (28.0-62.0) fl RDW Coeff of Robert 15 (11.0-15.0) % Plt Count 207 (150-400) K/uL MPV 10.30 (7.40-12.00) fL Neut % (Auto) 61.1 (48.0-80.0) % Lymph % (Auto) 23.1 (16.0-40.0) % [place] % (Auto) 14.5 (0.0-15.0) % Eos % (Auto) 1.1 (0.0-7.0) % Baso % (Auto) 0.2 (0.0-1.5) % Neut # (Auto) 5.1 (1.4-5.7) K/uL Lymph # (Auto) 1.9 (0.6-2.4) K/uL [place] # (Auto) 1.2 H (0.0-0.8) K/uL Eos # (Auto) 0.1 (0.0-0.7) K/uL Baso # (Auto) 0.0 (0.0-0.1) K/uL Nucleated RBC % 0.0 /100WBC Nucleated RBCs # 0 K/uL Sodium (136-146) mmol/L Potassium (3.5-5.1) mmol/L Chloride (98-110) mmol/L Carbon Dioxide (21-31) mmol/L BUN (6.0-23.0) mg/dL Creatinine (0.6-1.5) mg/dL Est Cr Clr Drug Dosing mL/min Estimated GFR (MDRD) ml/min Glucose (60-110) mg/dL Calcium (8.8-10.8) mg/dL Magnesium 1.4 L 1.3 L (1.5-2.3) mEq/L 02/18/17 Range/Units 08:06 WBC (4.0-11.0) K/uL RBC (4.30-5.90) M/uL Hgb (12.0-16.0) g/dL Hct (36.0-46.0) % MCV (80.0-98.0) fL MCH (27.0-32.0) pg MCHC (31.0-37.0) g/dL RDW Std Deviation (28.0-62.0) fl RDW Coeff of Robert (11.0-15.0) % Plt Count (150-400) K/uL MPV (7.40-12.00) fL Neut % (Auto) (48.0-80.0) % Lymph % (Auto) (16.0-40.0) % [place] % (Auto) (0.0-15.0) % Eos % (Auto) (0.0-7.0) % Baso % (Auto) (0.0-1.5) % Neut # (Auto) (1.4-5.7) K/uL Lymph # (Auto) (0.6-2.4) K/uL [place] # (Auto) (0.0-0.8) K/uL Eos # (Auto) (0.0-0.7) K/uL Baso # (Auto) (0.0-0.1) K/uL Nucleated RBC % /100WBC Nucleated RBCs # K/uL Sodium 145 (136-146) mmol/L Potassium 3.9 (3.5-5.1) mmol/L Chloride 99 (98-110) mmol/L Carbon Dioxide 36 H (21-31) mmol/L BUN 18 (6.0-23.0) mg/dL Creatinine 0.9 (0.6-1.5) mg/dL Est Cr Clr Drug Dosing 61.25 mL/min Estimated GFR (MDRD) > 60.0 ml/min Glucose 83 (60-110) mg/dL Calcium 8.6 L (8.8-10.8) mg/dL Magnesium (1.5-2.3) mEq/L Med Orders - Current: Current Medications Acetaminophen (Tylenol) 325 mg PO Q4H PRN PRN Reason: headache or other pain Aspirin (Aspirin) 81 mg PO DAILY [facility] Last Admin: 02/18/17 08:55 Dose: 81 mg Benzocaine/Menthol (Cepacol Sore Throat) 1 lozenge MUCMEM 6XDAY PRN PRN Reason: Cough Last Admin: 02/17/17 11:30 Dose: 1 lozenge Enoxaparin Sodium (Lovenox) 40 mg SUBCUT DAILY [facility] Last Admin: 02/18/17 09:16 Dose: Not Given Furosemide (Lasix) 40 mg IVPUSH 0600,1400 [facility] Last Admin: 02/18/17 05:48 Dose: 40 mg Guaifenesin/Dextromethorphan (Robitussin Dm) 10 ml PO Q4H PRN PRN Reason: Cough Last Admin: 02/17/17 11:10 Dose: 10 ml Hydralazine HCl (Apresoline) 10 mg IVPUSH Q6H PRN PRN Reason: SBP > 170 or DBP > 105 Ceftriaxone Sodium/Dextrose 1 (gm/ Premix) 50 mls @ 100 mls/hr IV Q24H [facility] Last Admin: 02/18/17 08:54 Dose: 100 mls/hr Losartan Potassium (Cozaar) 50 mg PO DAILY [facility] Last Admin: 02/18/17 09:17 Dose: Not Given Nicotine (Habitrol) 21 mg TRDERM Q24H [facility] Last Admin: 02/18/17 09:05 Dose: Not Given Oxycodone HCl (Oxycodone) 5 mg PO Q6H PRN PRN Reason: Pain Last Admin: 02/18/17 09:03 Dose: 5 mg Sodium Chloride (Saline Flush) 10 ml FLUSH ASDIRECTED PRN PRN Reason: Keep Vein Open Last Admin: 02/16/17 20:29 Dose: 10 ml Sodium Chloride (Saline Flush) 2.5 ml FLUSH ASDIRECTED PRN PRN Reason: Keep Vein Open Last Admin: 02/16/17 20:28 Dose: 2.5 ml Discontinued Medications Aspirin (Aspirin) 324 mg PO ONETIME ONE Stop: 02/16/17 20:04 Last Admin: 02/16/17 20:24 Dose: 324 mg Enoxaparin Sodium (Lovenox) 120 mg SUBCUT ONETIME ONE Stop: 02/16/17 20:04 Last Admin: 02/16/17 20:25 Dose: Not Given Furosemide (Lasix) 40 mg IVPUSH NOW ONE Stop: 02/16/17 20:04 Last Admin: 02/16/17 20:29 Dose: 40 mg Furosemide (Lasix) 40 mg IVPUSH BID [facility] Nitroglycerin (Nitro-Bid 2%) 1 gm TOP ONETIME ONE Stop: 02/16/17 20:04 Last Admin: 02/16/17 20:26 Dose: 1 gm Oxycodone HCl (Oxycodone) 5 mg PO ONETIME ONE Stop: 02/17/17 02:40 Last Admin: 02/17/17 02:56 Dose: 5 mg - Exam General: Alert, Oriented Lungs: Normal Respiratory Effort, Decreased Breath Sounds Cardiovascular: Regular Rate, Regular Rhythm Extremities: Pedal Edema (+3 edema) Skin: Warm, Dry, Intact - Problem List Review Problem List Initiated/Reviewed/Updated: Yes - My Orders Last 24 Hours: My Active Orders 02/17/17 23:18 Echo Comp wo Cont [US] Routine - Plan Plan:: 66 yo female admitted for CHF exacerbation. We will continue lasix, echocardiogram report pending PT consulted, patient able to climb 8 steps dispo: will likely need several more days of diuresis but patient may not agree to stay that long.
[2017-02-18] MEDS ORDERED: Ibuprofen 400 MG Tab PO PRN (13:05)
[2017-02-18] MEDS: Benzocaine/Cetylpyridinium/Menthol Lozenge MUCMEM PRN ×2 (22:31→22:52)
[2017-02-19] MEDS: oxyCODONE 5 MG Tab PO PRN ×3 (05:43→19:28)
[2017-02-19] MEDS: Furosemide 40 MG/4 ML VIAL IVPUSH SCH ×2 (05:44→14:02)
--- NOTE | 2017-02-19 06:19 | PCM.PN ---
- Review of Systems Systems Review Comment:: breathing is improved. - Patient Data Vitals - Most Recent: Last Vital Signs Temp 36.7 C 02/19/17 04:00 Pulse 72 02/16/17 22:53 Resp 19 02/19/17 05:00 BP 154/75 H 02/19/17 05:00 Pulse Ox 90 L 02/19/17 05:00 Weight - Most Recent: 114 kg I&O - Last 24 Hours: Intake & Output 02/18/17 02/18/17 02/19/17 14:59 22:59 06:59 Intake Total 50 650 350 Output Total 1300 250 Balance 50 -650 100 Lab Results Last 24 Hours: Laboratory Results - last 24 hr 02/18/17 02/18/17 Range/Units 08:06 08:06 WBC 8.27 (4.0-11.0) K/uL RBC 4.93 (4.30-5.90) M/uL Hgb 15.1 (12.0-16.0) g/dL Hct 48.4 H (36.0-46.0) % MCV 98.2 H (80.0-98.0) fL MCH 30.6 (27.0-32.0) pg MCHC 31.2 (31.0-37.0) g/dL RDW Std Deviation 53.3 (28.0-62.0) fl RDW Coeff of Robert 15 (11.0-15.0) % Plt Count 207 (150-400) K/uL MPV 10.30 (7.40-12.00) fL Neut % (Auto) 61.1 (48.0-80.0) % Lymph % (Auto) 23.1 (16.0-40.0) % [place] % (Auto) 14.5 (0.0-15.0) % Eos % (Auto) 1.1 (0.0-7.0) % Baso % (Auto) 0.2 (0.0-1.5) % Neut # (Auto) 5.1 (1.4-5.7) K/uL Lymph # (Auto) 1.9 (0.6-2.4) K/uL [place] # (Auto) 1.2 H (0.0-0.8) K/uL Eos # (Auto) 0.1 (0.0-0.7) K/uL Baso # (Auto) 0.0 (0.0-0.1) K/uL Nucleated RBC % 0.0 /100WBC Nucleated RBCs # 0 K/uL Sodium 145 (136-146) mmol/L Potassium 3.9 (3.5-5.1) mmol/L Chloride 99 (98-110) mmol/L Carbon Dioxide 36 H (21-31) mmol/L BUN 18 (6.0-23.0) mg/dL Creatinine 0.9 (0.6-1.5) mg/dL Est Cr Clr Drug Dosing 61.25 mL/min Estimated GFR (MDRD) > 60.0 ml/min Glucose 83 (60-110) mg/dL Calcium 8.6 L (8.8-10.8) mg/dL Med Orders - Current: Current Medications Acetaminophen (Tylenol) 325 mg PO Q4H PRN PRN Reason: headache or other pain Aspirin (Aspirin) 81 mg PO DAILY [facility] Last Admin: 02/18/17 08:55 Dose: 81 mg Benzocaine/Menthol (Cepacol Sore Throat) 1 lozenge MUCMEM 6XDAY PRN PRN Reason: Cough Last Admin: 02/18/17 22:52 Dose: 1 lozenge Enoxaparin Sodium (Lovenox) 40 mg SUBCUT DAILY [facility] Last Admin: 02/18/17 09:16 Dose: Not Given Furosemide (Lasix) 40 mg IVPUSH 0600,1400 [facility] Last Admin: 02/19/17 05:44 Dose: 40 mg Guaifenesin/Dextromethorphan (Robitussin Dm) 10 ml PO Q4H PRN PRN Reason: Cough Last Admin: 02/17/17 11:10 Dose: 10 ml Hydralazine HCl (Apresoline) 10 mg IVPUSH Q6H PRN PRN Reason: SBP > 170 or DBP > 105 Ceftriaxone Sodium/Dextrose 1 (gm/ Premix) 50 mls @ 100 mls/hr IV Q24H [facility] Last Admin: 02/18/17 08:54 Dose: 100 mls/hr Ibuprofen (Motrin) 400 mg PO Q6H PRN PRN Reason: Pain Last Admin: 02/18/17 13:30 Dose: 400 mg Losartan Potassium (Cozaar) 50 mg PO DAILY [facility] Last Admin: 02/18/17 09:17 Dose: Not Given Nicotine (Habitrol) 21 mg TRDERM Q24H [facility] Last Admin: 02/18/17 09:05 Dose: Not Given Oxycodone HCl (Oxycodone) 5 mg PO Q6H PRN PRN Reason: Pain Last Admin: 02/19/17 05:43 Dose: 5 mg Sodium Chloride (Saline Flush) 10 ml FLUSH ASDIRECTED PRN PRN Reason: Keep Vein Open Last Admin: 02/16/17 20:29 Dose: 10 ml Sodium Chloride (Saline Flush) 2.5 ml FLUSH ASDIRECTED PRN PRN Reason: Keep Vein Open Last Admin: 02/16/17 20:28 Dose: 2.5 ml Discontinued Medications Aspirin (Aspirin) 324 mg PO ONETIME ONE Stop: 02/16/17 20:04 Last Admin: 02/16/17 20:24 Dose: 324 mg Enoxaparin Sodium (Lovenox) 120 mg SUBCUT ONETIME ONE Stop: 02/16/17 20:04 Last Admin: 02/16/17 20:25 Dose: Not Given Furosemide (Lasix) 40 mg IVPUSH NOW ONE Stop: 02/16/17 20:04 Last Admin: 02/16/17 20:29 Dose: 40 mg Furosemide (Lasix) 40 mg IVPUSH BID [facility] Nitroglycerin (Nitro-Bid 2%) 1 gm TOP ONETIME ONE Stop: 02/16/17 20:04 Last Admin: 02/16/17 20:26 Dose: 1 gm Oxycodone HCl (Oxycodone) 5 mg PO ONETIME ONE Stop: 02/17/17 02:40 Last Admin: 02/17/17 02:56 Dose: 5 mg - Exam General: Alert, Oriented Lungs: Normal Respiratory Effort, Decreased Breath Sounds Cardiovascular: Regular Rate, Regular Rhythm GI/Abdominal Exam: Soft, Non-Tender, No Distention Extremities: Pedal Edema (+3 edema) Skin: Warm, Dry, Intact - Problem List Review Problem List Initiated/Reviewed/Updated: Yes - My Orders Last 24 Hours: My Active Orders 02/19/17 05:11 BASIC METABOLIC PANEL,BMP [CHEM] AM CBC WITH AUTO DIFF [HEME] AM 02/20/17 05:11 BASIC METABOLIC PANEL,BMP [CHEM] AM CBC WITH AUTO DIFF [HEME] AM 02/21/17 05:11 BASIC METABOLIC PANEL,BMP [CHEM] AM CBC WITH AUTO DIFF [HEME] AM - Plan Plan:: 66 yo female admitted for CHF exacerbation. We will continue IV lasix, echocardiogram report pending [place] UTI: on rocephin PT consulted dispo: will likely need several more days of diuresis especially considering patient will likely be noncompliant with follow up once discharged.
[2017-02-19] MEDS: cefTRIAXone 1 GM in Premix Bag 1 BAG IV SCH (07:02)
[2017-02-19] MEDS: Enoxaparin 40 MG/0.4 ML Syringe SUBCUT SCH (08:29)
[2017-02-19] MEDS: Nicotine 21 MG/24 Hr Patch TRDERM SCH (08:29)
[2017-02-19] MEDS: Losartan 50 MG Tab PO SCH (08:35)
[2017-02-19] MEDS: Aspirin 81 MG Tab.Chew PO SCH (08:35)
[2017-02-20] MEDS: oxyCODONE 5 MG Tab PO PRN ×4 (02:05→20:40)
[2017-02-20 06:27] LABS: CHLORIDE,CL 95 mmol/L (98-110); SODIUM,NA 140 mmol/L (136-146)
[2017-02-20] MEDS: Furosemide 40 MG/4 ML VIAL IVPUSH SCH ×2 (06:33→14:06)
[2017-02-20] MEDS: cefTRIAXone 1 GM in Premix Bag 1 BAG IV SCH (06:44)
[2017-02-20] MEDS: Aspirin 81 MG Tab.Chew PO SCH (08:10)
[2017-02-20] MEDS: Nicotine 21 MG/24 Hr Patch TRDERM SCH (08:10)
--- NOTE | 2017-02-20 08:15 | PCM.PN ---
- Review of Systems Systems Review Comment:: breathing is improving, - Patient Data Vitals - Most Recent: Last Vital Signs Temp 36.2 C 02/20/17 04:00 Pulse 72 02/16/17 22:53 Resp 17 02/20/17 07:00 BP 148/73 H 02/20/17 07:00 Pulse Ox 95 02/20/17 07:00 Weight - Most Recent: 108 kg I&O - Last 24 Hours: Intake & Output 02/19/17 02/20/17 02/20/17 22:59 06:59 14:59 Intake Total 240 400 Output Total 950 450 Balance -710 -50 Lab Results Last 24 Hours: Laboratory Results - last 24 hr 02/20/17 02/20/17 Range/Units 05:35 05:35 WBC 8.10 (4.0-11.0) K/uL RBC 4.53 (4.30-5.90) M/uL Hgb 14.0 (12.0-16.0) g/dL Hct 44.5 (36.0-46.0) % MCV 98.2 H (80.0-98.0) fL MCH 30.9 (27.0-32.0) pg MCHC 31.5 (31.0-37.0) g/dL RDW Std Deviation 52.0 (28.0-62.0) fl RDW Coeff of Robert 14 (11.0-15.0) % Plt Count 185 (150-400) K/uL MPV 10.10 (7.40-12.00) fL Neut % (Auto) 61.6 (48.0-80.0) % Lymph % (Auto) 22.3 (16.0-40.0) % [place] % (Auto) 14.4 (0.0-15.0) % Eos % (Auto) 1.5 (0.0-7.0) % Baso % (Auto) 0.2 (0.0-1.5) % Neut # (Auto) 5.0 (1.4-5.7) K/uL Lymph # (Auto) 1.8 (0.6-2.4) K/uL [place] # (Auto) 1.2 H (0.0-0.8) K/uL Eos # (Auto) 0.1 (0.0-0.7) K/uL Baso # (Auto) 0.0 (0.0-0.1) K/uL Nucleated RBC % 0.0 /100WBC Nucleated RBCs # 0 K/uL Sodium 140 (136-146) mmol/L Potassium 3.6 (3.5-5.1) mmol/L Chloride 95 L (98-110) mmol/L Carbon Dioxide 37 H (21-31) mmol/L BUN 21 (6.0-23.0) mg/dL Creatinine 0.8 (0.6-1.5) mg/dL Est Cr Clr Drug Dosing 68.90 mL/min Estimated GFR (MDRD) > 60.0 ml/min Glucose 87 (60-110) mg/dL Calcium 8.2 L (8.8-10.8) mg/dL Med Orders - Current: Current Medications Acetaminophen (Tylenol) 325 mg PO Q4H PRN PRN Reason: headache or other pain Aspirin (Aspirin) 81 mg PO DAILY [facility] Last Admin: 02/19/17 08:35 Dose: 81 mg Benzocaine/Menthol (Cepacol Sore Throat) 1 lozenge MUCMEM 6XDAY PRN PRN Reason: Cough Last Admin: 02/18/17 22:52 Dose: 1 lozenge Enoxaparin Sodium (Lovenox) 40 mg SUBCUT DAILY [facility] Last Admin: 02/19/17 08:29 Dose: Not Given Furosemide (Lasix) 40 mg IVPUSH 0600,1400 [facility] Last Admin: 02/20/17 06:33 Dose: 40 mg Guaifenesin/Dextromethorphan (Robitussin Dm) 10 ml PO Q4H PRN PRN Reason: Cough Last Admin: 02/17/17 11:10 Dose: 10 ml Hydralazine HCl (Apresoline) 10 mg IVPUSH Q6H PRN PRN Reason: SBP > 170 or DBP > 105 Ceftriaxone Sodium/Dextrose 1 (gm/ Premix) 50 mls @ 100 mls/hr IV Q24H [facility] Last Admin: 02/20/17 06:44 Dose: 100 mls/hr Pantoprazole Sodium 40 mg/ (Sodium Chloride) 10 mls @ 300 mls/hr IVPUSH DAILY [facility] Ibuprofen (Motrin) 400 mg PO Q6H PRN PRN Reason: Pain Last Admin: 02/18/17 13:30 Dose: 400 mg Losartan Potassium (Cozaar) 50 mg PO DAILY [facility] Last Admin: 02/19/17 08:35 Dose: Not Given Nicotine (Habitrol) 21 mg TRDERM Q24H [facility] Last Admin: 02/19/17 08:29 Dose: Not Given Oxycodone HCl (Oxycodone) 5 mg PO Q6H PRN PRN Reason: Pain Last Admin: 02/20/17 02:05 Dose: 5 mg Sodium Chloride (Saline Flush) 10 ml FLUSH ASDIRECTED PRN PRN Reason: Keep Vein Open Last Admin: 02/16/17 20:29 Dose: 10 ml Sodium Chloride (Saline Flush) 2.5 ml FLUSH ASDIRECTED PRN PRN Reason: Keep Vein Open Last Admin: 02/16/17 20:28 Dose: 2.5 ml Discontinued Medications Aspirin (Aspirin) 324 mg PO ONETIME ONE Stop: 02/16/17 20:04 Last Admin: 02/16/17 20:24 Dose: 324 mg Enoxaparin Sodium (Lovenox) 120 mg SUBCUT ONETIME ONE Stop: 02/16/17 20:04 Last Admin: 02/16/17 20:25 Dose: Not Given Furosemide (Lasix) 40 mg IVPUSH NOW ONE Stop: 02/16/17 20:04 Last Admin: 02/16/17 20:29 Dose: 40 mg Furosemide (Lasix) 40 mg IVPUSH BID [facility] Nitroglycerin (Nitro-Bid 2%) 1 gm TOP ONETIME ONE Stop: 02/16/17 20:04 Last Admin: 02/16/17 20:26 Dose: 1 gm Oxycodone HCl (Oxycodone) 5 mg PO ONETIME ONE Stop: 02/17/17 02:40 Last Admin: 02/17/17 02:56 Dose: 5 mg - Exam Lungs: Clear to Auscultation, Normal Respiratory Effort Cardiovascular: Regular Rate, Regular Rhythm GI/Abdominal Exam: Soft, Non-Tender, No Distention Extremities: Pedal Edema (+3) Skin: Warm, Dry, Intact - Problem List Review Problem List Initiated/Reviewed/Updated: Yes - My Orders Last 24 Hours: My Active Orders 02/20/17 08:15 acetaZOLAMIDE [Diamox] 250 mg PO DAILY 02/21/17 05:11 BASIC METABOLIC PANEL,BMP [CHEM] AM CBC WITH AUTO DIFF [HEME] AM - Plan Plan:: 66 yo female admitted for CHF exacerbation. We will continue IV lasix, echocardiogram reports EF of 35%. losartan and acetazolamide have been ordered but patient is refusing medications except for lasix. [place] UTI: on rocephin PT consulted dispo: will likely need several more days of diuresis especially considering patient will likely be noncompliant with follow up once discharged.
[2017-02-20] MEDS: acetaZOLAMIDE 250 MG Tab PO SCH (08:21)
[2017-02-20] MEDS: Enoxaparin 40 MG/0.4 ML Syringe SUBCUT SCH (09:12)
[2017-02-20] MEDS: Losartan 50 MG Tab PO SCH (09:13)
[2017-02-20] MEDS: Pantoprazole 40 MG in Sodium Chloride 0.9% 10 ML IVPUSH SCH (09:13)
[2017-02-21] MEDS: oxyCODONE 5 MG Tab PO PRN ×3 (01:11→13:04)
[2017-02-21] MEDS: Furosemide 40 MG/4 ML VIAL IVPUSH SCH ×2 (05:36→13:32)
[2017-02-21 06:38] LABS: CHLORIDE,CL 97 mmol/L (98-110); SODIUM,NA 139 mmol/L (136-146)
[2017-02-21] MEDS: cefTRIAXone 1 GM in Premix Bag 1 BAG IV SCH (06:53)
[2017-02-21] MEDS: Aspirin 81 MG Tab.Chew PO SCH (08:21)
[2017-02-21] MEDS: acetaZOLAMIDE 250 MG Tab PO SCH (08:21)
[2017-02-21] MEDS: Pantoprazole 40 MG in Sodium Chloride 0.9% 10 ML IVPUSH SCH (08:25)
[2017-02-21] MEDS: Nicotine 21 MG/24 Hr Patch TRDERM SCH (09:19)
[2017-02-21] MEDS: Losartan 50 MG Tab PO SCH (09:19)
[2017-02-21] MEDS: Enoxaparin 40 MG/0.4 ML Syringe SUBCUT SCH (09:20)
--- NOTE | 2017-02-21 12:30 | PCM.PN ---
- General Info Date of Service: 02/21/17 Subjective Update: 66F hx of CHF, HTN admitted to the service now day 6 for CHF exacerabation. Patient continues to complain of shortness of breath which she says however is improving. Also complains of bilateral leg pain that has been persistent. Denies chest pain, nausea, vomiting. Has been able to ambulate with PT around her room. Has been able to urinate. Has no other complaints. - Review of Systems General: Denies: Fever, Weakness, Fatigue Pulmonary: Reports: Shortness of Breath. Denies: Pleuritic Chest Pain, Cough Cardiovascular: Reports: Dyspnea on Exertion, Edema. Denies: Chest Pain, Palpitations Gastrointestinal: Reports: Constipation. Denies: Abdominal Pain Musculoskeletal: Reports: Leg Pain Neurological: Denies: Confusion, Dizziness, Headache - Patient Data Vitals - Most Recent: Last Vital Signs Temp 35.7 C 02/21/17 11:56 Pulse 52 L 02/21/17 11:56 Resp 22 H 02/21/17 11:56 BP 142/64 H 02/21/17 11:56 Pulse Ox 100 02/21/17 11:56 Weight - Most Recent: 109.633 kg I&O - Last 24 Hours: Intake & Output 02/20/17 02/21/17 02/21/17 22:59 06:59 14:59 Intake Total 690 300 50 Output Total 650 650 Balance 40 -350 50 Lab Results Last 24 Hours: Laboratory Results - last 24 hr 02/21/17 02/21/17 Range/Units 05:35 05:35 WBC 8.47 (4.0-11.0) K/uL RBC 4.57 (4.30-5.90) M/uL Hgb 14.0 (12.0-16.0) g/dL Hct 45.0 (36.0-46.0) % MCV 98.5 H (80.0-98.0) fL MCH 30.6 (27.0-32.0) pg MCHC 31.1 (31.0-37.0) g/dL RDW Std Deviation 51.3 (28.0-62.0) fl RDW Coeff of Robetr 14 (11.0-15.0) % Plt Count 202 (150-400) K/uL MPV 10.00 (7.40-12.00) fL Neut % (Auto) 57.0 (48.0-80.0) % Lymph % (Auto) 24.7 (16.0-40.0) % Saunders % (Auto) 15.5 H (0.0-15.0) % Eos % (Auto) 2.6 (0.0-7.0) % Baso % (Auto) 0.2 (0.0-1.5) % Neut # (Auto) 4.8 (1.4-5.7) K/uL Lymph # (Auto) 2.1 (0.6-2.4) K/uL Saunders # (Auto) 1.3 H (0.0-0.8) K/uL Eos # (Auto) 0.2 (0.0-0.7) K/uL Baso # (Auto) 0.0 (0.0-0.1) K/uL Nucleated RBC % 0.0 /100WBC Nucleated RBCs # 0 K/uL Sodium 139 (136-146) mmol/L Potassium 3.6 (3.5-5.1) mmol/L Chloride 97 L (98-110) mmol/L Carbon Dioxide 35 H (21-31) mmol/L BUN 21 (6.0-23.0) mg/dL Creatinine 0.8 (0.6-1.5) mg/dL Est Cr Clr Drug Dosing 68.90 mL/min Estimated GFR (MDRD) > 60.0 ml/min Glucose 91 (60-110) mg/dL Calcium 8.3 L (8.8-10.8) mg/dL Med Orders - Current: Current Medications Acetaminophen (Tylenol) 325 mg PO Q4H PRN PRN Reason: headache or other pain Acetazolamide (Diamox) 250 mg PO DAILY [facility] Last Admin: 02/21/17 08:21 Dose: 250 mg Aspirin (Aspirin) 81 mg PO DAILY [facility] Last Admin: 02/21/17 08:21 Dose: 81 mg Benzocaine/Menthol (Cepacol Sore Throat) 1 lozenge MUCMEM 6XDAY PRN PRN Reason: Cough Last Admin: 02/18/17 22:52 Dose: 1 lozenge Enoxaparin Sodium (Lovenox) 40 mg SUBCUT DAILY [facility] Last Admin: 02/21/17 09:20 Dose: Not Given Furosemide (Lasix) 40 mg IVPUSH 0600,1400 [facility] Last Admin: 02/21/17 05:36 Dose: 40 mg Guaifenesin/Dextromethorphan (Robitussin Dm) 10 ml PO Q4H PRN PRN Reason: Cough Last Admin: 02/17/17 11:10 Dose: 10 ml Hydralazine HCl (Apresoline) 10 mg IVPUSH Q6H PRN PRN Reason: SBP > 170 or DBP > 105 Ceftriaxone Sodium/Dextrose 1 (gm/ Premix) 50 mls @ 100 mls/hr IV Q24H [facility] Last Admin: 02/21/17 06:53 Dose: 100 mls/hr Pantoprazole Sodium 40 mg/ (Sodium Chloride) 10 mls @ 300 mls/hr IVPUSH DAILY [facility] Last Admin: 02/21/17 08:25 Dose: 300 mls/hr Ibuprofen (Motrin) 400 mg PO Q6H PRN PRN Reason: Pain Last Admin: 02/18/17 13:30 Dose: 400 mg Lisinopril (Prinivil) 20 mg PO DAILY [facility] Nicotine (Habitrol) 21 mg TRDERM Q24H [facility] Last Admin: 02/21/17 09:19 Dose: Not Given Oxycodone HCl (Oxycodone) 5 mg PO Q4H PRN PRN Reason: Pain Last Admin: 02/21/17 05:35 Dose: 5 mg Polyethylene Glycol (Miralax) 17 gm PO BID [facility] Sodium Chloride (Saline Flush) 10 ml FLUSH ASDIRECTED PRN PRN Reason: Keep Vein Open Last Admin: 02/16/17 20:29 Dose: 10 ml Sodium Chloride (Saline Flush) 2.5 ml FLUSH ASDIRECTED PRN PRN Reason: Keep Vein Open Last Admin: 02/16/17 20:28 Dose: 2.5 ml Discontinued Medications Aspirin (Aspirin) 324 mg PO ONETIME ONE Stop: 02/16/17 20:04 Last Admin: 02/16/17 20:24 Dose: 324 mg Enoxaparin Sodium (Lovenox) 120 mg SUBCUT ONETIME ONE Stop: 02/16/17 20:04 Last Admin: 02/16/17 20:25 Dose: Not Given Furosemide (Lasix) 40 mg IVPUSH NOW ONE Stop: 02/16/17 20:04 Last Admin: 02/16/17 20:29 Dose: 40 mg Furosemide (Lasix) 40 mg IVPUSH BID [facility] Losartan Potassium (Cozaar) 50 mg PO DAILY [facility] Last Admin: 02/21/17 09:19 Dose: Not Given Nitroglycerin (Nitro-Bid 2%) 1 gm TOP ONETIME ONE Stop: 02/16/17 20:04 Last Admin: 02/16/17 20:26 Dose: 1 gm Oxycodone HCl (Oxycodone) 5 mg PO ONETIME ONE Stop: 02/17/17 02:40 Last Admin: 02/17/17 02:56 Dose: 5 mg Oxycodone HCl (Oxycodone) 5 mg PO Q6H PRN PRN Reason: Pain Last Admin: 02/20/17 20:40 Dose: 5 mg - Exam Quality Assessment: Supplemental Oxygen (6L via NC) General: Alert, Oriented, Cooperative, No Acute Distress HEENT: Pupils Equal, Pupils Reactive, EOMI Neck: Supple Lungs: Other (Decreased breath sounds over the left lung. R lung CTA, no crackles. ) Cardiovascular: Regular Rate, Regular Rhythm, No Murmurs GI/Abdominal Exam: Normal Bowel Sounds, Soft, Non-Tender Back Exam: Normal Inspection Extremities: Pedal Edema (+3 pedal edema), Other Skin: Warm, Dry, Intact - Problem List Review Problem List Initiated/Reviewed/Updated: Yes - My Orders Last 24 Hours: My Active Orders 02/21/17 12:30 Polyethylene Glycol 3350 [MiraLAX] 17 gm PO BID 02/22/17 05:11 BASIC METABOLIC PANEL,BMP [CHEM] AM CBC WITH AUTO DIFF [HEME] AM MAGNESIUM [CHEM] AM 02/23/17 05:11 BASIC METABOLIC PANEL,BMP [CHEM] AM CBC WITH AUTO DIFF [HEME] AM - Assessment Assessment:: 1. CHF exacerbation 2. Shortness of breath +hypoxia resulting in requiring O2 via nasal cannula secondary to #1 3. Bilateral pedal edema secondary to #1 4. UTI with culture + for Klebsiella 5. Constipation 6. Hx of HTN - Plan Plan:: Patient encouraged to participate with PT. Patient encouraged to continue taking medications. CBC, BMP, Magnesium level ordered for AM. Miralax for constipation Lisinopril 20mg PO daily started. Will continue on Rocephin for UTI.
[2017-02-21] MEDS: Lisinopril 10 MG Tab PO SCH (12:56)
[2017-02-21] MEDS: Polyethylene Glycol 3350 Powder 17 GM Packet PO SCH ×2 (12:56→20:11)
--- NOTE | 2017-02-21 20:10 | ECHO ---
The echocardiogram report can be seen in this patient's EMR (electronic medical records) in the Report section . This report has also been scanned into PACS. MELODY
[2017-02-21] MEDS: Nystatin Crm 30 GM Tube TOP SCH (22:37)
[2017-02-22] MEDS: Nystatin Crm 30 GM Tube TOP SCH ×3 (03:09→20:32)
[2017-02-22] MEDS: oxyCODONE 5 MG Tab PO PRN ×5 (03:10→20:34)
[2017-02-22] MEDS: Benzocaine/Cetylpyridinium/Menthol Lozenge MUCMEM PRN (03:37)
[2017-02-22 06:10] LABS: CHLORIDE,CL 96 mmol/L (98-110); SODIUM,NA 140 mmol/L (136-146)
[2017-02-22] MEDS: Furosemide 40 MG/4 ML VIAL IVPUSH SCH (06:41)
[2017-02-22] MEDS: cefTRIAXone 1 GM in Premix Bag 1 BAG IV SCH (06:45)
[2017-02-22] MEDS: Nicotine 21 MG/24 Hr Patch TRDERM SCH (11:20)
[2017-02-22] MEDS: acetaZOLAMIDE 250 MG Tab PO SCH (11:21)
[2017-02-22] MEDS: Aspirin 81 MG Tab.Chew PO SCH (11:21)
[2017-02-22] MEDS: Polyethylene Glycol 3350 Powder 17 GM Packet PO SCH ×2 (11:24→20:31)
[2017-02-22] MEDS: Enoxaparin 40 MG/0.4 ML Syringe SUBCUT SCH (11:24)
[2017-02-22] MEDS: Lisinopril 10 MG Tab PO SCH (11:25)
[2017-02-22] MEDS ORDERED: Magnesium Citrate Solution 296 ML Bottle PO ONE (11:26)
--- NOTE | 2017-02-22 11:42 | PCM.PN ---
- General Info Date of Service: 02/22/17 Subjective Update: she complains of no BM since admission. - Patient Data Vitals - Most Recent: Last Vital Signs Temp 98.5 F 02/22/17 10:45 Pulse 52 L 02/22/17 10:45 Resp 20 02/22/17 10:45 BP 128/72 02/22/17 11:25 Pulse Ox 90 L 02/22/17 10:45 Weight - Most Recent: 112.037 kg I&O - Last 24 Hours: Intake & Output 02/21/17 02/22/17 02/22/17 22:59 06:59 14:59 Intake Total 660 300 Output Total 900 500 Balance -240 -200 Lab Results Last 24 Hours: Laboratory Results - last 24 hr 02/22/17 02/22/17 Range/Units 04:49 04:49 WBC 7.67 (4.0-11.0) K/uL RBC 4.66 (4.30-5.90) M/uL Hgb 14.0 (12.0-16.0) g/dL Hct 45.4 (36.0-46.0) % MCV 97.4 (80.0-98.0) fL MCH 30.0 (27.0-32.0) pg MCHC 30.8 L (31.0-37.0) g/dL RDW Std Deviation 51.1 (28.0-62.0) fl RDW Coeff of Robert 14 (11.0-15.0) % Plt Count 217 (150-400) K/uL MPV 10.40 (7.40-12.00) fL Neut % (Auto) 65.0 (48.0-80.0) % Lymph % (Auto) 18.4 (16.0-40.0) % Warrick % (Auto) 14.5 (0.0-15.0) % Eos % (Auto) 2.0 (0.0-7.0) % Baso % (Auto) 0.1 (0.0-1.5) % Neut # (Auto) 5.0 (1.4-5.7) K/uL Lymph # (Auto) 1.4 (0.6-2.4) K/uL Warrick # (Auto) 1.1 H (0.0-0.8) K/uL Eos # (Auto) 0.2 (0.0-0.7) K/uL Baso # (Auto) 0.0 (0.0-0.1) K/uL Nucleated RBC % 0.0 /100WBC Nucleated RBCs # 0 K/uL Sodium 140 (136-146) mmol/L Potassium 3.7 (3.5-5.1) mmol/L Chloride 96 L (98-110) mmol/L Carbon Dioxide 36 H (21-31) mmol/L BUN 24 H (6.0-23.0) mg/dL Creatinine 0.8 (0.6-1.5) mg/dL Est Cr Clr Drug Dosing 68.90 mL/min Estimated GFR (MDRD) > 60.0 ml/min Glucose 103 (60-110) mg/dL Calcium 8.3 L (8.8-10.8) mg/dL Magnesium 1.5 (1.5-2.3) mEq/L Med Orders - Current: Current Medications Acetaminophen (Tylenol) 325 mg PO Q4H PRN PRN Reason: headache or other pain Acetazolamide (Diamox) 250 mg PO DAILY [facility] Last Admin: 02/22/17 11:21 Dose: 250 mg Aspirin (Aspirin) 81 mg PO DAILY [facility] Last Admin: 02/22/17 11:21 Dose: 81 mg Benzocaine/Menthol (Cepacol Sore Throat) 1 lozenge MUCMEM 6XDAY PRN PRN Reason: Cough Last Admin: 02/22/17 03:37 Dose: 1 lozenge Cephalexin (Keflex) 500 mg PO Q6HR [facility] Enoxaparin Sodium (Lovenox) 40 mg SUBCUT DAILY [facility] Last Admin: 02/22/17 11:24 Dose: Not Given Furosemide (Lasix) 40 mg PO BIDDIURETIC [facility] Guaifenesin/Dextromethorphan (Robitussin Dm) 10 ml PO Q4H PRN PRN Reason: Cough Last Admin: 02/17/17 11:10 Dose: 10 ml Hydralazine HCl (Apresoline) 10 mg IVPUSH Q6H PRN PRN Reason: SBP > 170 or DBP > 105 Lisinopril (Prinivil) 20 mg PO DAILY [facility] Last Admin: 02/22/17 11:25 Dose: 20 mg Nicotine (Habitrol) 21 mg TRDERM Q24H [facility] Last Admin: 02/22/17 11:20 Dose: Not Given Nystatin (Nystatin Crm) 1 gm TOP BID [facility] Last Admin: 02/22/17 03:09 Dose: 1 applic Oxycodone HCl (Oxycodone) 5 mg PO Q4H PRN PRN Reason: Pain Last Admin: 02/22/17 07:12 Dose: 5 mg Polyethylene Glycol (Miralax) 17 gm PO BID [facility] Last Admin: 02/22/17 11:24 Dose: 17 gm Potassium Chloride (Klor-Con M20) 20 meq PO DAILY [facility] Sodium Chloride (Saline Flush) 10 ml FLUSH ASDIRECTED PRN PRN Reason: Keep Vein Open Last Admin: 02/16/17 20:29 Dose: 10 ml Sodium Chloride (Saline Flush) 2.5 ml FLUSH ASDIRECTED PRN PRN Reason: Keep Vein Open Last Admin: 02/16/17 20:28 Dose: 2.5 ml Discontinued Medications Aspirin (Aspirin) 324 mg PO ONETIME ONE Stop: 02/16/17 20:04 Last Admin: 02/16/17 20:24 Dose: 324 mg Enoxaparin Sodium (Lovenox) 120 mg SUBCUT ONETIME ONE Stop: 02/16/17 20:04 Last Admin: 02/16/17 20:25 Dose: Not Given Furosemide (Lasix) 40 mg IVPUSH NOW ONE Stop: 02/16/17 20:04 Last Admin: 02/16/17 20:29 Dose: 40 mg Furosemide (Lasix) 40 mg IVPUSH BID [facility] Furosemide (Lasix) 40 mg IVPUSH 0600,1400 [facility] Last Admin: 02/22/17 06:41 Dose: 40 mg Ceftriaxone Sodium/Dextrose 1 (gm/ Premix) 50 mls @ 100 mls/hr IV Q24H [facility] Last Admin: 02/22/17 06:45 Dose: 100 mls/hr Pantoprazole Sodium 40 mg/ (Sodium Chloride) 10 mls @ 300 mls/hr IVPUSH DAILY [facility] Last Admin: 02/21/17 08:25 Dose: 300 mls/hr Ibuprofen (Motrin) 400 mg PO Q6H PRN PRN Reason: Pain Last Admin: 02/18/17 13:30 Dose: 400 mg Losartan Potassium (Cozaar) 50 mg PO DAILY [facility] Last Admin: 02/21/17 09:19 Dose: Not Given Magnesium Citrate (Citrate Of Magnesia) 296 ml PO ONETIME ONE Stop: 02/22/17 11:27 Nitroglycerin (Nitro-Bid 2%) 1 gm TOP ONETIME ONE Stop: 02/16/17 20:04 Last Admin: 02/16/17 20:26 Dose: 1 gm Oxycodone HCl (Oxycodone) 5 mg PO ONETIME ONE Stop: 02/17/17 02:40 Last Admin: 02/17/17 02:56 Dose: 5 mg Oxycodone HCl (Oxycodone) 5 mg PO Q6H PRN PRN Reason: Pain Last Admin: 02/20/17 20:40 Dose: 5 mg - Exam General: Alert, Oriented, Cooperative Lungs: Clear to Auscultation Cardiovascular: Regular Rate, Regular Rhythm GI/Abdominal Exam: Soft, Non-Tender Extremities: Other (2-3 plus pedal edema) Neurological: Normal Speech - Problem List & Annotations (1) CHF (congestive heart failure) SNOMED Code(s): 27745354 Code(s): I50.9 - HEART FAILURE, UNSPECIFIED Status: Acute Current Visit: Yes (2) Hypoxemia SNOMED Code(s): 052089931 Code(s): R09.02 - HYPOXEMIA Status: Acute Current Visit: Yes (3) Medical non-compliance SNOMED Code(s): 478322313 Code(s): Z91.19 - PATIENT'S NONCOMPLIANCE W OTH MEDICAL TREATMENT AND REGIMEN Status: Acute Current Visit: Yes (4) Hypertension SNOMED Code(s): 33835236 Code(s): I10 - ESSENTIAL (PRIMARY) HYPERTENSION Status: Acute Current Visit: No Qualifiers: Hypertension type: unspecified secondary hypertension Qualified Code(s): I15.9 - Secondary hypertension, unspecified; I15 - Secondary hypertension (5) Refuses treatment SNOMED Code(s): 046365424 Code(s): Z53.20 - PROC/TRTMT NOT CRD OUT BEC PT DECISION FOR UNSP REASONS Status: Acute Current Visit: No - Problem List Review Problem List Initiated/Reviewed/Updated: Yes - My Orders Last 24 Hours: My Active Orders 02/22/17 11:30 Furosemide [Lasix] 40 mg PO BIDDIURETIC 02/22/17 12:00 Cephalexin [Keflex] 500 mg PO Q6HR 02/23/17 05:11 B-TYPE NATRIURETIC PEPTIDE,BNP [CHEM] AM MAGNESIUM [CHEM] AM 02/23/17 07:00 CXR [Chest 1V Frontal] [CR] Routine 02/23/17 09:00 Potassium Chloride [Klor-Con M20] 20 meq PO DAILY - Assessment Assessment:: 1. CHF exacerbation 2. Shortness of breath +hypoxia resulting in requiring O2 via nasal cannula secondary to #1 3. Bilateral pedal edema secondary to #1 4. UTI with culture + for Klebsiella 5. Constipation 6. Hx of HTN - Plan Plan:: Patient encouraged to participate with PT. Patient encouraged to continue taking medications. CBC, BMP, Magnesium level ordered for AM. Miralax for constipation Lisinopril 20mg PO daily started. Will continue on Rocephin for UTI. 02/22/2017 I advised that she would need home oxygen. She expresses disbelief stating that she was fine before she came to the hospital. magnesium citrate change to po antibiotics change to po lasix has refused medications intermittently CXR in am BNP in am Mg in am Nolan Balderas MD
[2017-02-22] MEDS: Cephalexin 500 MG Cap PO SCH ×2 (12:10→18:15)
[2017-02-22] MEDS: Furosemide 40 MG Tab PO SCH ×2 (12:10→14:20)
[2017-02-22] MEDS: Pantoprazole 40 MG in Sodium Chloride 0.9% 10 ML IVPUSH SCH (12:13)
[2017-02-23] MEDS: Cephalexin 500 MG Cap PO SCH ×3 (00:38→12:46)
[2017-02-23] MEDS: oxyCODONE 5 MG Tab PO PRN ×4 (00:45→21:12)
[2017-02-23 05:29] LABS: CHLORIDE,CL 96 mmol/L (98-110); SODIUM,NA 137 mmol/L (136-146)
[2017-02-23] MEDS ORDERED: oxyCODONE 5 MG Tab PO PRN (07:47)
--- NOTE | 2017-02-23 09:26 | PCM.PN ---
- General Info Date of Service: 02/23/17 Subjective Update: Complains of leg spasm after walking to the bathroom last night. She tells me that she needs oxycodone for the leg pain in order to fall asleep. Otherwise says she'll be up all night. Denies SOB/nausea/fever. Continues to be on lasix for diuresis. Nurses state that she had an episode of incontinence. Denies any other issues. No shortness of breath/chest pain. - Review of Systems General: Denies: Fever, Fatigue, Chills, Appetite Pulmonary: Denies: Shortness of Breath, Pleuritic Chest Pain, Cough Cardiovascular: Reports: Dyspnea on Exertion. Denies: Chest Pain, Palpitations Genitourinary: Reports: No Symptoms Skin: Reports: Rash Neurological: Reports: No Symptoms Psychiatric: Reports: No Symptoms - Patient Data Vitals - Most Recent: Last Vital Signs Temp 36.7 C 02/23/17 08:00 Pulse 58 L 02/23/17 08:00 Resp 20 02/23/17 08:00 BP 126/52 L 02/23/17 08:00 Pulse Ox 90 L 02/23/17 08:00 Weight - Most Recent: 112.491 kg I&O - Last 24 Hours: Intake & Output 02/22/17 02/23/17 02/23/17 22:59 06:59 14:59 Intake Total 700 300 Output Total 370 650 Balance 330 -350 Lab Results Last 24 Hours: Laboratory Results - last 24 hr 02/23/17 02/23/17 02/23/17 Range/Units 04:45 04:45 04:45 WBC 7.00 (4.0-11.0) K/uL RBC 4.59 (4.30-5.90) M/uL Hgb 13.8 (12.0-16.0) g/dL Hct 44.6 (36.0-46.0) % MCV 97.2 (80.0-98.0) fL MCH 30.1 (27.0-32.0) pg MCHC 30.9 L (31.0-37.0) g/dL RDW Std Deviation 50.6 (28.0-62.0) fl RDW Coeff of Robert 14 (11.0-15.0) % Plt Count 217 (150-400) K/uL MPV 10.00 (7.40-12.00) fL Add Manual Diff YES Neutrophils % (Manual) 60 (48.0-80.0) % Lymphocytes % (Manual) 34 (16.0-40.0) % Monocytes % (Manual) 6 (0.0-15.0) % Nucleated RBC % 0.0 /100WBC Absolute Seg Neuts 4.2 (1.4-5.7) Lymphocytes # (Manual) 2.4 (0.6-2.4) Monocytes # (Manual) 0.4 (0.0-0.8) Nucleated RBCs # 0 K/uL Sodium 137 (136-146) mmol/L Potassium 3.9 (3.5-5.1) mmol/L Chloride 96 L (98-110) mmol/L Carbon Dioxide 35 H (21-31) mmol/L BUN 22 (6.0-23.0) mg/dL Creatinine 0.9 (0.6-1.5) mg/dL Est Cr Clr Drug Dosing 61.25 mL/min Estimated GFR (MDRD) > 60.0 ml/min Glucose 115 H (60-110) mg/dL Calcium 8.6 L (8.8-10.8) mg/dL Magnesium 1.7 (1.5-2.3) mEq/L B-Natriuretic Peptide 712 H (<100) PG/ML Med Orders - Current: Current Medications Acetaminophen (Tylenol) 325 mg PO Q4H PRN PRN Reason: headache or other pain Acetazolamide (Diamox) 250 mg PO DAILY [facility] Last Admin: 02/22/17 11:21 Dose: 250 mg Aspirin (Aspirin) 81 mg PO DAILY [facility] Last Admin: 02/22/17 11:21 Dose: 81 mg Benzocaine/Menthol (Cepacol Sore Throat) 1 lozenge MUCMEM 6XDAY PRN PRN Reason: Cough Last Admin: 02/22/17 03:37 Dose: 1 lozenge Cephalexin (Keflex) 500 mg PO Q6HR [facility] Last Admin: 02/23/17 05:32 Dose: 500 mg Enoxaparin Sodium (Lovenox) 40 mg SUBCUT DAILY [facility] Last Admin: 02/22/17 11:24 Dose: Not Given Furosemide (Lasix) 40 mg PO BIDDIURETIC [facility] Last Admin: 02/22/17 14:20 Dose: Not Given Guaifenesin/Dextromethorphan (Robitussin Dm) 10 ml PO Q4H PRN PRN Reason: Cough Last Admin: 02/17/17 11:10 Dose: 10 ml Hydralazine HCl (Apresoline) 10 mg IVPUSH Q6H PRN PRN Reason: SBP > 170 or DBP > 105 Lisinopril (Prinivil) 20 mg PO DAILY [facility] Last Admin: 02/22/17 11:25 Dose: 20 mg Nicotine (Habitrol) 21 mg TRDERM Q24H [facility] Last Admin: 02/22/17 11:20 Dose: Not Given Nystatin (Nystatin Crm) 1 gm TOP BID [facility] Last Admin: 02/22/17 20:32 Dose: 1 applic Oxycodone HCl (Oxycodone) 5 mg PO Q6H PRN PRN Reason: Pain Polyethylene Glycol (Miralax) 17 gm PO BID [facility] Last Admin: 02/22/17 20:31 Dose: 17 gm Potassium Chloride (Klor-Con M20) 20 meq PO DAILY [facility] Sodium Chloride (Saline Flush) 10 ml FLUSH ASDIRECTED PRN PRN Reason: Keep Vein Open Last Admin: 02/16/17 20:29 Dose: 10 ml Sodium Chloride (Saline Flush) 2.5 ml FLUSH ASDIRECTED PRN PRN Reason: Keep Vein Open Last Admin: 02/16/17 20:28 Dose: 2.5 ml Discontinued Medications Aspirin (Aspirin) 324 mg PO ONETIME ONE Stop: 02/16/17 20:04 Last Admin: 02/16/17 20:24 Dose: 324 mg Enoxaparin Sodium (Lovenox) 120 mg SUBCUT ONETIME ONE Stop: 02/16/17 20:04 Last Admin: 02/16/17 20:25 Dose: Not Given Furosemide (Lasix) 40 mg IVPUSH NOW ONE Stop: 02/16/17 20:04 Last Admin: 02/16/17 20:29 Dose: 40 mg Furosemide (Lasix) 40 mg IVPUSH BID [facility] Furosemide (Lasix) 40 mg IVPUSH 0600,1400 [facility] Last Admin: 02/22/17 06:41 Dose: 40 mg Ceftriaxone Sodium/Dextrose 1 (gm/ Premix) 50 mls @ 100 mls/hr IV Q24H [facility] Last Admin: 02/22/17 06:45 Dose: 100 mls/hr Pantoprazole Sodium 40 mg/ (Sodium Chloride) 10 mls @ 300 mls/hr IVPUSH DAILY [facility] Last Admin: 02/22/17 12:13 Dose: Not Given Ibuprofen (Motrin) 400 mg PO Q6H PRN PRN Reason: Pain Last Admin: 02/18/17 13:30 Dose: 400 mg Losartan Potassium (Cozaar) 50 mg PO DAILY [facility] Last Admin: 02/21/17 09:19 Dose: Not Given Magnesium Citrate (Citrate Of Magnesia) 296 ml PO ONETIME ONE Stop: 02/22/17 11:27 Last Admin: 02/22/17 12:10 Dose: 296 ml Nitroglycerin (Nitro-Bid 2%) 1 gm TOP ONETIME ONE Stop: 02/16/17 20:04 Last Admin: 02/16/17 20:26 Dose: 1 gm Oxycodone HCl (Oxycodone) 5 mg PO ONETIME ONE Stop: 02/17/17 02:40 Last Admin: 02/17/17 02:56 Dose: 5 mg Oxycodone HCl (Oxycodone) 5 mg PO Q6H PRN PRN Reason: Pain Last Admin: 02/20/17 20:40 Dose: 5 mg Oxycodone HCl (Oxycodone) 5 mg PO Q4H PRN PRN Reason: Pain Last Admin: 02/23/17 05:31 Dose: 5 mg - Exam General: Alert, Oriented, No Acute Distress Lungs: Clear to Auscultation, Normal Respiratory Effort Cardiovascular: Regular Rate, Regular Rhythm GI/Abdominal Exam: Normal Bowel Sounds Back Exam: Normal Inspection Extremities: Non-Tender, Pedal Edema Skin: Warm, Intact, Moist Neurological: No New Focal Deficit Psy/Mental Status: Alert, Normal Affect, Normal Mood - Problem List Review Problem List Initiated/Reviewed/Updated: Yes - My Orders Last 24 Hours: My Active Orders 02/23/17 07:47 oxyCODONE 5 mg PO Q6H PRN - Assessment Assessment:: 1. CHF exacerbation 2. CXR indicates a R lower lobe pneumonia. 3. Shortness of breath +hypoxia resulting in requiring O2 via nasal cannula secondary to #1 4. Bilateral pedal edema secondary to #1 5. UTI with culture + for Klebsiella 6. Constipation 7. Hx of HTN - Plan Plan:: 1. Hospital acquired pneumonia - begin Vancomycin, levaquin, zosyn 2. CHF - continue lasix, diamox. Continue to work with PT. Strict I's and O's. 3. Constipation - PRN milk of magnesia, miralax ordered 4. Leg pain - likely secondary to deconditioning and fluid retention. Patient had been requested oxycodone 10mg PO q4hrs PRN essentially as if it was scheduled, so I spaced this out to q6hrs PRN. Counselled patient to get out of bed as much as possible.
[2017-02-23] MEDS ORDERED: Magnesium Hydroxide 400 MG/5 ML Susp 30 ML Cup PO PRN (09:34)
[2017-02-23] MEDS: acetaZOLAMIDE 250 MG Tab PO SCH ×2 (09:39→12:54)
[2017-02-23] MEDS: Aspirin 81 MG Tab.Chew PO SCH (09:39)
[2017-02-23] MEDS: Furosemide 40 MG Tab PO SCH ×2 (09:39→14:52)
[2017-02-23] MEDS: Potassium Chloride 20 MEQ Tab.ER PO SCH ×2 (09:39→12:57)
[2017-02-23] MEDS: Lisinopril 10 MG Tab PO SCH ×2 (09:40→12:54)
[2017-02-23] MEDS: Polyethylene Glycol 3350 Powder 17 GM Packet PO SCH ×3 (09:46→21:11)
[2017-02-23] MEDS: Nicotine 21 MG/24 Hr Patch TRDERM SCH (09:46)
[2017-02-23] MEDS: Enoxaparin 40 MG/0.4 ML Syringe SUBCUT SCH (09:46)
[2017-02-23] MEDS: Nystatin Crm 30 GM Tube TOP SCH ×2 (09:51→21:20)
[2017-02-23] MEDS ORDERED: Levofloxacin/Dextrose 5%-Water 250 MG in Premix Bag 1 BAG IV SCH ×2 (11:00→12:30)
--- NOTE | 2017-02-23 11:29 | CR ---
EXAMINATION: Portable chest radiograph. HISTORY: CHF. FINDINGS: The trachea is midline. The heart is borderline in size. The cardiomediastinal silhouette is within n ormal limits. Mild bibasilar atelectasis and/or infiltrate. No pleural effusion or pneumothorax. Osseous structures appear unremarkable. IMPRESSION: 1. Cardiomegaly with mild bibasilar prominence, correlate for heart failure.
[2017-02-23] MEDS ORDERED: Piperacillin/Tazobactam 4.5 GM in Sodium Chloride 0.9% 100 ML IV SCH (12:00)
[2017-02-23] MEDS ORDERED: Levofloxacin/Dextrose 5%-Water 750 MG in Premix Bag 1 BAG IV SCH (12:30)
--- NOTE | 2017-02-23 13:31 | US ---
ULTRASOUND EXAMINATION OF the left lower extremity WITH DOPPLER HISTORY: Pain FINDINGS: Examination of the left leg was performed from the groin to the calf region. All visualized segments including common femoral, proximal greater saphenous, superficial femoral, popliteal and calf veins appear patent with good compressibility and augmentation. There is no evidence of deep vein thrombos is. IMPRESSION: No evidence of a DVT.
[2017-02-23] MEDS: Piperacillin/Tazobactam 4.5 GM in Sodium Chloride 0.9% 100 ML IV SCH ×2 (14:53→21:12)
[2017-02-23] MEDS: Doxycycline 100 MG in Sodium Chloride 0.9% 100 ML IV SCH (15:54)
[2017-02-24] MEDS: oxyCODONE 5 MG Tab PO PRN ×4 (01:39→19:47)
[2017-02-24] MEDS: Piperacillin/Tazobactam 4.5 GM in Sodium Chloride 0.9% 100 ML IV SCH ×4 (01:41→22:01)
[2017-02-24] MEDS: Doxycycline 100 MG in Sodium Chloride 0.9% 100 ML IV SCH (03:37)
[2017-02-24 05:56] LABS: CHLORIDE,CL 101 mmol/L (98-110); SODIUM,NA 140 mmol/L (136-146)
[2017-02-24] MEDS: Polyethylene Glycol 3350 Powder 17 GM Packet PO SCH ×2 (10:20→22:19)
[2017-02-24] MEDS: Furosemide 40 MG Tab PO SCH ×2 (10:21→13:55)
[2017-02-24] MEDS: Nicotine 21 MG/24 Hr Patch TRDERM SCH (10:21)
[2017-02-24] MEDS: Potassium Chloride 20 MEQ Tab.ER PO SCH (10:22)
[2017-02-24] MEDS: Aspirin 81 MG Tab.Chew PO SCH (10:22)
[2017-02-24] MEDS: Nystatin Crm 30 GM Tube TOP SCH ×2 (10:23→21:58)
[2017-02-24] MEDS: Enoxaparin 40 MG/0.4 ML Syringe SUBCUT SCH (10:23)
[2017-02-24] MEDS: acetaZOLAMIDE 250 MG Tab PO SCH ×2 (10:26→10:35)
--- NOTE | 2017-02-24 10:55 | PCM.PN ---
- General Info Date of Service: 02/24/17 Admission Dx/Problem (Free Text): Admission Diagnosis/Problem Admission Diagnosis/Problem Congestive heart failure Subjective Update: 66F with CHF exacerbation found to have a hospital acquired pneumonia started on Vancomycin, Zosyn, Levofloxacin yesterday. Patient appears to be doing well today as she has no complaints. No longer complaining of leg pain which we did a US for that showed no DVT. Also denies any worsening SOB, no chest pain, or fevers/nausea. She had a sore throat yesterday which she says has resolved. - Review of Systems General: Reports: No Symptoms HEENT: Reports: No Symptoms Pulmonary: Reports: No Symptoms Cardiovascular: Reports: No Symptoms Gastrointestinal: Reports: No Symptoms Genitourinary: Reports: No Symptoms Musculoskeletal: Reports: No Symptoms Skin: Reports: No Symptoms Neurological: Reports: No Symptoms Psychiatric: Reports: No Symptoms - Patient Data Vitals - Most Recent: Last Vital Signs Temp 36.6 C 02/24/17 07:59 Pulse 54 L 02/24/17 07:59 Resp 20 02/24/17 07:59 BP 159/50 H 02/24/17 07:59 Pulse Ox 93 L 02/24/17 07:59 Weight - Most Recent: 110.268 kg I&O - Last 24 Hours: Intake & Output 02/23/17 02/24/17 02/24/17 22:59 06:59 14:59 Intake Total 1120 1100 Output Total 600 800 Balance 520 300 Lab Results Last 24 Hours: Laboratory Results - last 24 hr 02/24/17 02/24/17 Range/Units 04:57 04:57 WBC 5.24 (4.0-11.0) K/uL RBC 4.54 (4.30-5.90) M/uL Hgb 13.8 (12.0-16.0) g/dL Hct 43.7 (36.0-46.0) % MCV 96.3 (80.0-98.0) fL MCH 30.4 (27.0-32.0) pg MCHC 31.6 (31.0-37.0) g/dL RDW Std Deviation 50.5 (28.0-62.0) fl RDW Coeff of Robert 14 (11.0-15.0) % Plt Count 205 (150-400) K/uL MPV 10.10 (7.40-12.00) fL Add Manual Diff YES Neutrophils % (Manual) 58 (48.0-80.0) % Band Neutrophils % 2 % Lymphocytes % (Manual) 21 (16.0-40.0) % Monocytes % (Manual) 17 H (0.0-15.0) % Eosinophils % (Manual) 2 (0.0-7.0) % Nucleated RBC % 0.0 /100WBC Absolute Seg Neuts 3.0 (1.4-5.7) Band Neutrophils # 0.1 Lymphocytes # (Manual) 1.1 (0.6-2.4) Monocytes # (Manual) 0.9 H (0.0-0.8) Eosinophils # (Manual) 0.1 (0.0-0.7) Nucleated RBCs # 0 K/uL Sodium 140 (136-146) mmol/L Potassium 3.7 (3.5-5.1) mmol/L Chloride 101 (98-110) mmol/L Carbon Dioxide 32 H (21-31) mmol/L BUN 19 (6.0-23.0) mg/dL Creatinine 0.8 (0.6-1.5) mg/dL Est Cr Clr Drug Dosing 68.90 mL/min Estimated GFR (MDRD) > 60.0 ml/min Glucose 85 (60-110) mg/dL Calcium 8.2 L (8.8-10.8) mg/dL Med Orders - Current: Current Medications Acetaminophen (Tylenol) 325 mg PO Q4H PRN PRN Reason: headache or other pain Acetazolamide (Diamox) 250 mg PO DAILY [facility] Last Admin: 02/24/17 10:35 Dose: Not Given Aspirin (Aspirin) 81 mg PO DAILY [facility] Last Admin: 02/24/17 10:22 Dose: 81 mg Benzocaine/Menthol (Cepacol Sore Throat) 1 lozenge MUCMEM 6XDAY PRN PRN Reason: Cough Last Admin: 02/22/17 03:37 Dose: 1 lozenge Enoxaparin Sodium (Lovenox) 40 mg SUBCUT DAILY [facility] Last Admin: 02/24/17 10:23 Dose: Not Given Furosemide (Lasix) 40 mg PO BIDDIURETIC [facility] Last Admin: 02/24/17 10:21 Dose: 40 mg Guaifenesin/Dextromethorphan (Robitussin Dm) 10 ml PO Q4H PRN PRN Reason: Cough Last Admin: 02/17/17 11:10 Dose: 10 ml Hydralazine HCl (Apresoline) 10 mg IVPUSH Q6H PRN PRN Reason: SBP > 170 or DBP > 105 Vancomycin HCl 1,500 mg/ (Sodium Chloride) 500 mls @ 250 mls/hr IV Q12H [facility] Last Admin: 02/23/17 23:37 Dose: 250 mls/hr Piperacillin Sod/Tazobactam (Sod 4.5 gm/ Sodium Chloride) 100 mls @ 200 mls/hr IV Q6H [facility] Last Admin: 02/24/17 10:21 Dose: 200 mls/hr Doxycycline Hyclate 100 mg/ (Sodium Chloride) 100 mls @ 100 mls/hr IV Q12H [facility] Last Admin: 02/24/17 03:37 Dose: 100 mls/hr Magnesium Hydroxide (Milk Of Magnesia) 30 ml PO DAILY PRN PRN Reason: Constipation Nicotine (Habitrol) 21 mg TRDERM Q24H [facility] Last Admin: 02/24/17 10:21 Dose: Not Given Nystatin (Nystatin Crm) 1 gm TOP BID [facility] Last Admin: 02/24/17 10:23 Dose: 1 applic Oxycodone HCl (Oxycodone) 5 mg PO Q4H PRN PRN Reason: Pain Last Admin: 02/24/17 06:43 Dose: 5 mg Polyethylene Glycol (Miralax) 17 gm PO BID [facility] Last Admin: 02/24/17 10:20 Dose: 17 gm Potassium Chloride (Klor-Con M20) 20 meq PO DAILY [facility] Last Admin: 02/24/17 10:22 Dose: 20 meq Sodium Chloride (Saline Flush) 10 ml FLUSH ASDIRECTED PRN PRN Reason: Keep Vein Open Last Admin: 02/16/17 20:29 Dose: 10 ml Sodium Chloride (Saline Flush) 2.5 ml FLUSH ASDIRECTED PRN PRN Reason: Keep Vein Open Last Admin: 02/16/17 20:28 Dose: 2.5 ml Vancomycin HCl (Pharmacy To Dose - Vancomycin) 1 dose .XX ASDIRECTED [facility] Discontinued Medications Aspirin (Aspirin) 324 mg PO ONETIME ONE Stop: 02/16/17 20:04 Last Admin: 02/16/17 20:24 Dose: 324 mg Cephalexin (Keflex) 500 mg PO Q6HR [facility] Last Admin: 02/23/17 12:46 Dose: 500 mg Enoxaparin Sodium (Lovenox) 120 mg SUBCUT ONETIME ONE Stop: 02/16/17 20:04 Last Admin: 02/16/17 20:25 Dose: Not Given Furosemide (Lasix) 40 mg IVPUSH NOW ONE Stop: 02/16/17 20:04 Last Admin: 02/16/17 20:29 Dose: 40 mg Furosemide (Lasix) 40 mg IVPUSH BID [facility] Furosemide (Lasix) 40 mg IVPUSH 0600,1400 [facility] Last Admin: 02/22/17 06:41 Dose: 40 mg Ceftriaxone Sodium/Dextrose 1 (gm/ Premix) 50 mls @ 100 mls/hr IV Q24H [facility] Last Admin: 02/22/17 06:45 Dose: 100 mls/hr Pantoprazole Sodium 40 mg/ (Sodium Chloride) 10 mls @ 300 mls/hr IVPUSH DAILY [facility] Last Admin: 02/22/17 12:13 Dose: Not Given Levofloxacin/Dextrose 250 mg/ (Premix) 50 mls @ 50 mls/hr IV Q24H [facility] Stop: 03/01/17 11:59 Last Admin: 02/23/17 16:00 Dose: Not Given Piperacillin Sod/Tazobactam (Sod 4.5 gm/ Sodium Chloride) 100 mls @ 200 mls/hr IV Q6H [facility] Last Admin: 02/23/17 16:01 Dose: Not Given Levofloxacin/Dextrose 250 mg/ (Premix) 50 mls @ 50 mls/hr IV Q24H [facility] Stop: 03/01/17 13:29 Levofloxacin/Dextrose 750 mg/ (Premix) 150 mls @ 150 mls/hr IV Q24H [facility] Stop: 03/01/17 13:29 Last Admin: 02/23/17 12:38 Dose: 150 mls/hr Ibuprofen (Motrin) 400 mg PO Q6H PRN PRN Reason: Pain Last Admin: 02/18/17 13:30 Dose: 400 mg Lisinopril (Prinivil) 20 mg PO DAILY [facility] Last Admin: 02/23/17 12:54 Dose: Not Given Losartan Potassium (Cozaar) 50 mg PO DAILY [facility] Last Admin: 02/21/17 09:19 Dose: Not Given Magnesium Citrate (Citrate Of Magnesia) 296 ml PO ONETIME ONE Stop: 02/22/17 11:27 Last Admin: 02/22/17 12:10 Dose: 296 ml Nitroglycerin (Nitro-Bid 2%) 1 gm TOP ONETIME ONE Stop: 02/16/17 20:04 Last Admin: 02/16/17 20:26 Dose: 1 gm Oxycodone HCl (Oxycodone) 5 mg PO ONETIME ONE Stop: 02/17/17 02:40 Last Admin: 02/17/17 02:56 Dose: 5 mg Oxycodone HCl (Oxycodone) 5 mg PO Q6H PRN PRN Reason: Pain Last Admin: 02/20/17 20:40 Dose: 5 mg Oxycodone HCl (Oxycodone) 5 mg PO Q4H PRN PRN Reason: Pain Last Admin: 02/23/17 05:31 Dose: 5 mg Oxycodone HCl (Oxycodone) 5 mg PO Q6H PRN PRN Reason: Pain Last Admin: 02/23/17 12:46 Dose: 5 mg - Exam Quality Assessment: Supplemental Oxygen General: Alert, Oriented, Cooperative HEENT: Pupils Equal Neck: Supple Lungs: Clear to Auscultation, Normal Respiratory Effort Cardiovascular: Regular Rate, Regular Rhythm, No Murmurs GI/Abdominal Exam: Normal Bowel Sounds, Soft, Non-Tender Back Exam: Normal Inspection Extremities: Pedal Edema Skin: Warm, Intact Psy/Mental Status: Alert, Labile Mood - Problem List Review Problem List Initiated/Reviewed/Updated: Yes - My Orders Last 24 Hours: My Active Orders 02/23/17 11:30 Vancomycin Pharmacy to Dose [Pharmacy to Dose - Vancomycin] 1 dose .XX ASDIRECTED 02/23/17 12:30 Vancomycin 1,500 mg Sodium Chloride 0.9% [Normal Saline] 500 ml IV Q12H 02/23/17 14:30 Piperacillin/Tazobactam [Piperacil-Tazobact] 4.5 gm Sodium Chloride 0.9% [ Normal Saline] 100 ml IV Q6H - Assessment Assessment:: 1. CHF exacerbation 2. CXR indicates a R lower lobe pneumonia. 3. Shortness of breath +hypoxia resulting in requiring O2 via nasal cannula secondary to #1 4. Bilateral pedal edema secondary to #1 6. Constipation - had a bowel movement - Plan Plan:: 1. Hospital acquired pneumonia - begin Vancomycin, levaquin, zosyn. Will continue to monitor the response to this. Will try to wean off the oxygen as she wasn't on oxygen on admission and she doesn't want to go home on it. 2. CHF - continue lasix, diamox. Continue to work with PT. Strict I's and O's. 3. Constipation - PRN milk of magnesia, miralax ordered. She has had a bowel movement. 4. Leg pain -resolved 5. HTN - continue to manage as is.
[2017-02-24] MEDS ORDERED: Levofloxacin/Dextrose 5%-Water 750 MG in Premix Bag 1 BAG IV SCH (14:15)
[2017-02-24] MEDS: Levofloxacin/Dextrose 5%-Water 750 MG in Premix Bag 1 BAG IV SCH (16:56)
[2017-02-25] MEDS: Piperacillin/Tazobactam 4.5 GM in Sodium Chloride 0.9% 100 ML IV SCH ×4 (02:27→20:14)
[2017-02-25 05:38] LABS: CHLORIDE,CL 104 mmol/L (98-110); SODIUM,NA 141 mmol/L (136-146)
[2017-02-25] MEDS: Aspirin 81 MG Tab.Chew PO SCH (08:08)
[2017-02-25] MEDS: Furosemide 40 MG Tab PO SCH ×2 (08:08→13:52)
[2017-02-25] MEDS: Potassium Chloride 20 MEQ Tab.ER PO SCH (08:08)
[2017-02-25] MEDS: Polyethylene Glycol 3350 Powder 17 GM Packet PO SCH ×2 (08:09→20:23)
[2017-02-25] MEDS: Nystatin Crm 30 GM Tube TOP SCH ×2 (08:12→20:24)
[2017-02-25] MEDS: acetaZOLAMIDE 250 MG Tab PO SCH (08:20)
[2017-02-25] MEDS: Enoxaparin 40 MG/0.4 ML Syringe SUBCUT SCH (08:20)
[2017-02-25] MEDS: Nicotine 21 MG/24 Hr Patch TRDERM SCH (08:20)
[2017-02-25] MEDS ORDERED: Furosemide 40 MG/4 ML VIAL IVPUSH ONE (11:26)
--- NOTE | 2017-02-25 13:22 | PCM.PN ---
- General Info Date of Service: 02/25/17 Subjective Update: 66F currently on service with a CHF exacerbation complicated by hospital- acquired pneumonia. Patient was attempted to wean off the oxygen yesterday but that didn't work. She fell into the 70s on oxygen saturation while walking to the bathroom and was thereby placed back onto oxygen. Talking to her this morning, he tells me that her shortness of breath appears to be worsening. Specifically, she tells me that she is unable to lie down. However denies any fevers, chills nausea or vomiting. Denies any cough. - Review of Systems General: Reports: Other (History of present illness) - Patient Data Vitals - Most Recent: Last Vital Signs Temp 36.1 C 02/25/17 11:46 Pulse 57 L 02/25/17 11:46 Resp 20 02/25/17 11:46 BP 148/83 H 02/25/17 11:46 Pulse Ox 95 02/25/17 11:46 Weight - Most Recent: 111.357 kg I&O - Last 24 Hours: Intake & Output 02/24/17 02/25/17 02/25/17 22:59 06:59 14:59 Intake Total 1210 750 100 Output Total 1200 600 Balance 10 150 100 Lab Results Last 24 Hours: Laboratory Results - last 24 hr 02/25/17 02/25/17 Range/Units 04:44 04:44 WBC 6.29 (4.0-11.0) K/uL RBC 4.56 (4.30-5.90) M/uL Hgb 13.8 (12.0-16.0) g/dL Hct 43.8 (36.0-46.0) % MCV 96.1 (80.0-98.0) fL MCH 30.3 (27.0-32.0) pg MCHC 31.5 (31.0-37.0) g/dL RDW Std Deviation 50.0 (28.0-62.0) fl RDW Coeff of Robert 14 (11.0-15.0) % Plt Count 196 (150-400) K/uL MPV 10.10 (7.40-12.00) fL Add Manual Diff YES Neutrophils % (Manual) 59 (48.0-80.0) % Band Neutrophils % 1 % Lymphocytes % (Manual) 30 (16.0-40.0) % Monocytes % (Manual) 7 (0.0-15.0) % Eosinophils % (Manual) 3 (0.0-7.0) % Nucleated RBC % 0.0 /100WBC Absolute Seg Neuts 3.7 (1.4-5.7) Band Neutrophils # 0.1 Lymphocytes # (Manual) 1.9 (0.6-2.4) Monocytes # (Manual) 0.4 (0.0-0.8) Eosinophils # (Manual) 0.2 (0.0-0.7) Nucleated RBCs # 0 K/uL Sodium 141 (136-146) mmol/L Potassium 3.9 (3.5-5.1) mmol/L Chloride 104 (98-110) mmol/L Carbon Dioxide 28 (21-31) mmol/L BUN 14 (6.0-23.0) mg/dL Creatinine 0.8 (0.6-1.5) mg/dL Est Cr Clr Drug Dosing 68.90 mL/min Estimated GFR (MDRD) > 60.0 ml/min Glucose 92 (60-110) mg/dL Calcium 8.3 L (8.8-10.8) mg/dL Med Orders - Current: Current Medications Acetaminophen (Tylenol) 325 mg PO Q4H PRN PRN Reason: headache or other pain Acetazolamide (Diamox) 250 mg PO DAILY [facility] Last Admin: 02/25/17 08:20 Dose: Not Given Aspirin (Aspirin) 81 mg PO DAILY [facility] Last Admin: 02/25/17 08:08 Dose: 81 mg Benzocaine/Menthol (Cepacol Sore Throat) 1 lozenge MUCMEM 6XDAY PRN PRN Reason: Cough Last Admin: 02/22/17 03:37 Dose: 1 lozenge Enoxaparin Sodium (Lovenox) 40 mg SUBCUT DAILY [facility] Last Admin: 02/25/17 08:20 Dose: Not Given Furosemide (Lasix) 40 mg PO BIDDIURETIC [facility] Last Admin: 02/25/17 08:08 Dose: 40 mg Guaifenesin/Dextromethorphan (Robitussin Dm) 10 ml PO Q4H PRN PRN Reason: Cough Last Admin: 02/17/17 11:10 Dose: 10 ml Hydralazine HCl (Apresoline) 10 mg IVPUSH Q6H PRN PRN Reason: SBP > 170 or DBP > 105 Vancomycin HCl 1,500 mg/ (Sodium Chloride) 500 mls @ 250 mls/hr IV Q12H [facility] Last Admin: 02/25/17 00:21 Dose: 250 mls/hr Piperacillin Sod/Tazobactam (Sod 4.5 gm/ Sodium Chloride) 100 mls @ 200 mls/hr IV Q6H [facility] Last Admin: 02/25/17 07:55 Dose: 200 mls/hr Levofloxacin/Dextrose 750 mg/ (Premix) 150 mls @ 100 mls/hr IV Q24H [facility] Last Admin: 02/24/17 16:56 Dose: 100 mls/hr Magnesium Hydroxide (Milk Of Magnesia) 30 ml PO DAILY PRN PRN Reason: Constipation Nicotine (Habitrol) 21 mg TRDERM Q24H [facility] Last Admin: 02/25/17 08:20 Dose: Not Given Nystatin (Nystatin Crm) 1 gm TOP BID [facility] Last Admin: 02/25/17 08:12 Dose: 1 applic Oxycodone HCl (Oxycodone) 5 mg PO Q4H PRN PRN Reason: Pain Last Admin: 02/24/17 19:47 Dose: 5 mg Polyethylene Glycol (Miralax) 17 gm PO BID [facility] Last Admin: 02/25/17 08:09 Dose: 17 gm Potassium Chloride (Klor-Con M20) 20 meq PO DAILY [facility] Last Admin: 02/25/17 08:08 Dose: 20 meq Sodium Chloride (Saline Flush) 10 ml FLUSH ASDIRECTED PRN PRN Reason: Keep Vein Open Last Admin: 02/16/17 20:29 Dose: 10 ml Sodium Chloride (Saline Flush) 2.5 ml FLUSH ASDIRECTED PRN PRN Reason: Keep Vein Open Last Admin: 02/16/17 20:28 Dose: 2.5 ml Vancomycin HCl (Pharmacy To Dose - Vancomycin) 1 dose .XX ASDIRECTED [facility] Discontinued Medications Aspirin (Aspirin) 324 mg PO ONETIME ONE Stop: 02/16/17 20:04 Last Admin: 02/16/17 20:24 Dose: 324 mg Cephalexin (Keflex) 500 mg PO Q6HR [facility] Last Admin: 02/23/17 12:46 Dose: 500 mg Enoxaparin Sodium (Lovenox) 120 mg SUBCUT ONETIME ONE Stop: 02/16/17 20:04 Last Admin: 02/16/17 20:25 Dose: Not Given Furosemide (Lasix) 40 mg IVPUSH NOW ONE Stop: 02/16/17 20:04 Last Admin: 02/16/17 20:29 Dose: 40 mg Furosemide (Lasix) 40 mg IVPUSH BID [facility] Furosemide (Lasix) 40 mg IVPUSH 0600,1400 [facility] Last Admin: 02/22/17 06:41 Dose: 40 mg Furosemide (Lasix) 60 mg IVPUSH NOW ONE Stop: 02/25/17 11:27 Last Admin: 02/25/17 11:58 Dose: 60 mg Ceftriaxone Sodium/Dextrose 1 (gm/ Premix) 50 mls @ 100 mls/hr IV Q24H [facility] Last Admin: 02/22/17 06:45 Dose: 100 mls/hr Pantoprazole Sodium 40 mg/ (Sodium Chloride) 10 mls @ 300 mls/hr IVPUSH DAILY [facility] Last Admin: 02/22/17 12:13 Dose: Not Given Levofloxacin/Dextrose 250 mg/ (Premix) 50 mls @ 50 mls/hr IV Q24H [facility] Stop: 03/01/17 11:59 Last Admin: 02/23/17 16:00 Dose: Not Given Piperacillin Sod/Tazobactam (Sod 4.5 gm/ Sodium Chloride) 100 mls @ 200 mls/hr IV Q6H [facility] Last Admin: 02/23/17 16:01 Dose: Not Given Levofloxacin/Dextrose 250 mg/ (Premix) 50 mls @ 50 mls/hr IV Q24H [facility] Stop: 03/01/17 13:29 Levofloxacin/Dextrose 750 mg/ (Premix) 150 mls @ 150 mls/hr IV Q24H [facility] Stop: 03/01/17 13:29 Last Admin: 02/23/17 12:38 Dose: 150 mls/hr Doxycycline Hyclate 100 mg/ (Sodium Chloride) 100 mls @ 100 mls/hr IV Q12H [facility] Last Admin: 02/24/17 03:37 Dose: 100 mls/hr Levofloxacin/Dextrose 750 mg/ (Premix) 150 mls @ 100 mls/hr IV Q24H [facility] Last Admin: 02/24/17 16:23 Dose: Not Given Ibuprofen (Motrin) 400 mg PO Q6H PRN PRN Reason: Pain Last Admin: 02/18/17 13:30 Dose: 400 mg Lisinopril (Prinivil) 20 mg PO DAILY [facility] Last Admin: 02/23/17 12:54 Dose: Not Given Losartan Potassium (Cozaar) 50 mg PO DAILY [facility] Last Admin: 02/21/17 09:19 Dose: Not Given Magnesium Citrate (Citrate Of Magnesia) 296 ml PO ONETIME ONE Stop: 02/22/17 11:27 Last Admin: 02/22/17 12:10 Dose: 296 ml Nitroglycerin (Nitro-Bid 2%) 1 gm TOP ONETIME ONE Stop: 02/16/17 20:04 Last Admin: 02/16/17 20:26 Dose: 1 gm Oxycodone HCl (Oxycodone) 5 mg PO ONETIME ONE Stop: 02/17/17 02:40 Last Admin: 02/17/17 02:56 Dose: 5 mg Oxycodone HCl (Oxycodone) 5 mg PO Q6H PRN PRN Reason: Pain Last Admin: 02/20/17 20:40 Dose: 5 mg Oxycodone HCl (Oxycodone) 5 mg PO Q4H PRN PRN Reason: Pain Last Admin: 02/23/17 05:31 Dose: 5 mg Oxycodone HCl (Oxycodone) 5 mg PO Q6H PRN PRN Reason: Pain Last Admin: 02/23/17 12:46 Dose: 5 mg - Exam Quality Assessment: Supplemental Oxygen General: Alert, Oriented, No Acute Distress HEENT: Pupils Equal, Pupils Reactive Neck: Supple, Trachea Midline, No JVD Lungs: Other (Crackles appreciated over the right lower lobe. Good air entry bilaterally without any wheezing.) Cardiovascular: Regular Rate, Regular Rhythm, No Murmurs GI/Abdominal Exam: Normal Bowel Sounds, Soft Extremities: Pedal Edema Skin: Warm, Intact Neurological: No New Focal Deficit Psy/Mental Status: Alert, Labile Mood - Problem List Review Problem List Initiated/Reviewed/Updated: Yes - My Orders Last 24 Hours: My Active Orders 02/24/17 16:00 Levofloxacin/Dextrose 5%-Water [Levaquin in D5W 750 MG/150 ML] 750 mg Premix Bag 1 bag IV Q24H 02/26/17 05:11 Chest 1V Frontal [CR] AM BASIC METABOLIC PANEL,BMP [CHEM] AM 02/27/17 05:11 Chest 1V Frontal [CR] AM - Assessment Assessment:: 1. CHF exacerbation with worsening orthopnea 2. CXR indicates a R lower lobe pneumonia. 3. Shortness of breath +hypoxia resulting in requiring O2 via nasal cannula secondary to #1 4. Bilateral pedal edema secondary to #1 - Plan Plan:: Regards to her hospital-acquired pneumonia, we'll continue to treat with IV antibiotics as is. For her worsening orthopnea, give her a one-time dose of 60 mg IV Lasix which she will take on top of her 40 mg by mouth twice a day that she has been taking. We'll see how she responds to this. We'll keep her over the weekend and see if we're able to get her off of the oxygen. Given the pneumonia, and ongoing hypoxia, we'll continue to monitor her respiratory status. Encouraged to get out of bed and work with PT. Patient is adamant that she will does not want to go home on oxygen.
[2017-02-25] MEDS: Levofloxacin/Dextrose 5%-Water 750 MG in Premix Bag 1 BAG IV SCH (17:01)
[2017-02-25] MEDS: oxyCODONE 5 MG Tab PO PRN (18:53)
[2017-02-26] MEDS: Piperacillin/Tazobactam 4.5 GM in Sodium Chloride 0.9% 100 ML IV SCH ×3 (02:38→19:28)
[2017-02-26] MEDS: oxyCODONE 5 MG Tab PO PRN ×2 (03:07→22:31)
[2017-02-26] MEDS: Furosemide 40 MG Tab PO SCH ×2 (08:38→14:42)
[2017-02-26] MEDS: Potassium Chloride 20 MEQ Tab.ER PO SCH (08:38)
[2017-02-26] MEDS: Aspirin 81 MG Tab.Chew PO SCH (08:38)
[2017-02-26] MEDS: acetaZOLAMIDE 250 MG Tab PO SCH (08:43)
[2017-02-26] MEDS: Nicotine 21 MG/24 Hr Patch TRDERM SCH (08:43)
[2017-02-26] MEDS: Polyethylene Glycol 3350 Powder 17 GM Packet PO SCH ×2 (08:43→21:17)
[2017-02-26] MEDS: Enoxaparin 40 MG/0.4 ML Syringe SUBCUT SCH (08:43)
[2017-02-26] MEDS: Nystatin Crm 30 GM Tube TOP SCH ×2 (08:44→21:19)
--- NOTE | 2017-02-26 14:47 | PCM.PN ---
- General Info Date of Service: 02/26/17 Subjective Update: she if feeling improvement. - Patient Data Vitals - Most Recent: Last Vital Signs Temp 97.2 F 02/26/17 12:00 Pulse 51 L 02/26/17 12:00 Resp 20 02/26/17 12:00 BP 150/63 H 02/26/17 12:00 Pulse Ox 97 02/26/17 12:00 Weight - Most Recent: 110 kg I&O - Last 24 Hours: Intake & Output 02/25/17 02/26/17 02/26/17 22:59 06:59 14:59 Intake Total 912 1100 Output Total 2550 1800 Balance -1638 -700 Lab Results Last 24 Hours: Laboratory Results - last 24 hr 02/26/17 Range/Units 05:53 Sodium 141 (136-146) mmol/L Potassium 3.6 (3.5-5.1) mmol/L Chloride 104 (98-110) mmol/L Carbon Dioxide 28 (21-31) mmol/L BUN 14 (6.0-23.0) mg/dL Creatinine 1.0 (0.6-1.5) mg/dL Est Cr Clr Drug Dosing 55.12 mL/min Estimated GFR (MDRD) 55.8 ml/min Glucose 123 H (60-110) mg/dL Calcium 8.7 L (8.8-10.8) mg/dL Med Orders - Current: Current Medications Acetaminophen (Tylenol) 325 mg PO Q4H PRN PRN Reason: headache or other pain Acetazolamide (Diamox) 250 mg PO DAILY [facility] Last Admin: 02/26/17 08:43 Dose: Not Given Aspirin (Aspirin) 81 mg PO DAILY [facility] Last Admin: 02/26/17 08:38 Dose: 81 mg Benzocaine/Menthol (Cepacol Sore Throat) 1 lozenge MUCMEM 6XDAY PRN PRN Reason: Cough Last Admin: 02/22/17 03:37 Dose: 1 lozenge Enoxaparin Sodium (Lovenox) 40 mg SUBCUT DAILY [facility] Last Admin: 02/26/17 08:43 Dose: Not Given Furosemide (Lasix) 40 mg PO BIDDIURETIC [facility] Last Admin: 02/26/17 08:38 Dose: 40 mg Guaifenesin/Dextromethorphan (Robitussin Dm) 10 ml PO Q4H PRN PRN Reason: Cough Last Admin: 02/17/17 11:10 Dose: 10 ml Hydralazine HCl (Apresoline) 10 mg IVPUSH Q6H PRN PRN Reason: SBP > 170 or DBP > 105 Vancomycin HCl 1,500 mg/ (Sodium Chloride) 500 mls @ 250 mls/hr IV Q12H [facility] Last Admin: 02/26/17 12:56 Dose: 250 mls/hr Piperacillin Sod/Tazobactam (Sod 4.5 gm/ Sodium Chloride) 100 mls @ 200 mls/hr IV Q6H [facility] Last Admin: 02/26/17 08:38 Dose: 200 mls/hr Levofloxacin/Dextrose 750 mg/ (Premix) 150 mls @ 100 mls/hr IV Q24H [facility] Last Admin: 02/25/17 17:01 Dose: 100 mls/hr Magnesium Hydroxide (Milk Of Magnesia) 30 ml PO DAILY PRN PRN Reason: Constipation Nicotine (Habitrol) 21 mg TRDERM Q24H [facility] Last Admin: 02/26/17 08:43 Dose: Not Given Nystatin (Nystatin Crm) 1 gm TOP BID [facility] Last Admin: 02/26/17 08:44 Dose: 1 applic Oxycodone HCl (Oxycodone) 5 mg PO Q4H PRN PRN Reason: Pain Last Admin: 02/26/17 03:07 Dose: 5 mg Polyethylene Glycol (Miralax) 17 gm PO BID [facility] Last Admin: 02/26/17 08:43 Dose: Not Given Potassium Chloride (Klor-Con M20) 20 meq PO DAILY [facility] Last Admin: 02/26/17 08:38 Dose: 20 meq Sodium Chloride (Saline Flush) 10 ml FLUSH ASDIRECTED PRN PRN Reason: Keep Vein Open Last Admin: 02/16/17 20:29 Dose: 10 ml Sodium Chloride (Saline Flush) 2.5 ml FLUSH ASDIRECTED PRN PRN Reason: Keep Vein Open Last Admin: 02/16/17 20:28 Dose: 2.5 ml Vancomycin HCl (Pharmacy To Dose - Vancomycin) 1 dose .XX ASDIRECTED [facility] Discontinued Medications Aspirin (Aspirin) 324 mg PO ONETIME ONE Stop: 02/16/17 20:04 Last Admin: 02/16/17 20:24 Dose: 324 mg Cephalexin (Keflex) 500 mg PO Q6HR [facility] Last Admin: 02/23/17 12:46 Dose: 500 mg Enoxaparin Sodium (Lovenox) 120 mg SUBCUT ONETIME ONE Stop: 02/16/17 20:04 Last Admin: 02/16/17 20:25 Dose: Not Given Furosemide (Lasix) 40 mg IVPUSH NOW ONE Stop: 02/16/17 20:04 Last Admin: 02/16/17 20:29 Dose: 40 mg Furosemide (Lasix) 40 mg IVPUSH BID [facility] Furosemide (Lasix) 40 mg IVPUSH 0600,1400 [facility] Last Admin: 02/22/17 06:41 Dose: 40 mg Furosemide (Lasix) 60 mg IVPUSH NOW ONE Stop: 02/25/17 11:27 Last Admin: 02/25/17 11:58 Dose: 60 mg Ceftriaxone Sodium/Dextrose 1 (gm/ Premix) 50 mls @ 100 mls/hr IV Q24H [facility] Last Admin: 02/22/17 06:45 Dose: 100 mls/hr Pantoprazole Sodium 40 mg/ (Sodium Chloride) 10 mls @ 300 mls/hr IVPUSH DAILY [facility] Last Admin: 02/22/17 12:13 Dose: Not Given Levofloxacin/Dextrose 250 mg/ (Premix) 50 mls @ 50 mls/hr IV Q24H [facility] Stop: 03/01/17 11:59 Last Admin: 02/23/17 16:00 Dose: Not Given Piperacillin Sod/Tazobactam (Sod 4.5 gm/ Sodium Chloride) 100 mls @ 200 mls/hr IV Q6H [facility] Last Admin: 02/23/17 16:01 Dose: Not Given Levofloxacin/Dextrose 250 mg/ (Premix) 50 mls @ 50 mls/hr IV Q24H [facility] Stop: 03/01/17 13:29 Levofloxacin/Dextrose 750 mg/ (Premix) 150 mls @ 150 mls/hr IV Q24H [facility] Stop: 03/01/17 13:29 Last Admin: 02/23/17 12:38 Dose: 150 mls/hr Doxycycline Hyclate 100 mg/ (Sodium Chloride) 100 mls @ 100 mls/hr IV Q12H [facility] Last Admin: 02/24/17 03:37 Dose: 100 mls/hr Levofloxacin/Dextrose 750 mg/ (Premix) 150 mls @ 100 mls/hr IV Q24H [facility] Last Admin: 02/24/17 16:23 Dose: Not Given Ibuprofen (Motrin) 400 mg PO Q6H PRN PRN Reason: Pain Last Admin: 02/18/17 13:30 Dose: 400 mg Lisinopril (Prinivil) 20 mg PO DAILY [facility] Last Admin: 02/23/17 12:54 Dose: Not Given Losartan Potassium (Cozaar) 50 mg PO DAILY [facility] Last Admin: 02/21/17 09:19 Dose: Not Given Magnesium Citrate (Citrate Of Magnesia) 296 ml PO ONETIME ONE Stop: 02/22/17 11:27 Last Admin: 02/22/17 12:10 Dose: 296 ml Nitroglycerin (Nitro-Bid 2%) 1 gm TOP ONETIME ONE Stop: 02/16/17 20:04 Last Admin: 02/16/17 20:26 Dose: 1 gm Oxycodone HCl (Oxycodone) 5 mg PO ONETIME ONE Stop: 02/17/17 02:40 Last Admin: 02/17/17 02:56 Dose: 5 mg Oxycodone HCl (Oxycodone) 5 mg PO Q6H PRN PRN Reason: Pain Last Admin: 02/20/17 20:40 Dose: 5 mg Oxycodone HCl (Oxycodone) 5 mg PO Q4H PRN PRN Reason: Pain Last Admin: 02/23/17 05:31 Dose: 5 mg Oxycodone HCl (Oxycodone) 5 mg PO Q6H PRN PRN Reason: Pain Last Admin: 02/23/17 12:46 Dose: 5 mg - Exam General: Alert, Oriented, Cooperative Neck: Supple, Trachea Midline Lungs: Clear to Auscultation, Normal Respiratory Effort Cardiovascular: Regular Rate, Regular Rhythm. No: Murmurs GI/Abdominal Exam: Non-Tender - Problem List & Annotations (1) CHF (congestive heart failure) SNOMED Code(s): 98733847 Code(s): I50.9 - HEART FAILURE, UNSPECIFIED Status: Acute Current Visit: Yes (2) Hypoxemia SNOMED Code(s): 924474665 Code(s): R09.02 - HYPOXEMIA Status: Acute Current Visit: Yes (3) Medical non-compliance SNOMED Code(s): 458311481 Code(s): Z91.19 - PATIENT'S NONCOMPLIANCE W OTH MEDICAL TREATMENT AND REGIMEN Status: Acute Current Visit: Yes (4) Hypertension SNOMED Code(s): 70176950 Code(s): I10 - ESSENTIAL (PRIMARY) HYPERTENSION Status: Acute Current Visit: No Qualifiers: Hypertension type: unspecified secondary hypertension Qualified Code(s): I15.9 - Secondary hypertension, unspecified; I15 - Secondary hypertension (5) Refuses treatment SNOMED Code(s): 717599724 Code(s): Z53.20 - PROC/TRTMT NOT CRD OUT BEC PT DECISION FOR UNSP REASONS Status: Acute Current Visit: No (6) Ejection fraction < 50% SNOMED Code(s): 13970187 Code(s): R09.89 - OTH SYMPTOMS AND SIGNS INVOLVING THE CIRC AND RESP SYSTEMS Status: Acute Current Visit: Yes (7) Moderate aortic stenosis SNOMED Code(s): 21851178 Code(s): I35.0 - NONRHEUMATIC AORTIC (VALVE) STENOSIS Status: Acute Current Visit: Yes (8) Hospital-acquired pneumonia SNOMED Code(s): 695300224 Code(s): J18.9 - PNEUMONIA, UNSPECIFIED ORGANISM Status: Acute Current Visit: Yes (9) Diabetes mellitus SNOMED Code(s): 29947393 Code(s): E11.9 - TYPE 2 DIABETES MELLITUS WITHOUT COMPLICATIONS Status: Acute Current Visit: No - Problem List Review Problem List Initiated/Reviewed/Updated: Yes - Plan Plan:: will continue to monitor I/O's adjust vancomycin dosing possible discharge on Tuesday discontinue telemetry CXR am on Tuesday hypoxia is improved Nolan Balderas MD
[2017-02-26] MEDS: Piperacillin/Tazobactam 3.375 GM in Sodium Chloride 0.9% 50 ML IV SCH ×2 (16:16→21:18)
[2017-02-26] MEDS: Levofloxacin/Dextrose 5%-Water 750 MG in Premix Bag 1 BAG IV SCH (16:50)
[2017-02-27] MEDS: Piperacillin/Tazobactam 3.375 GM in Sodium Chloride 0.9% 50 ML IV SCH ×4 (03:23→20:28)
[2017-02-27] MEDS: Potassium Chloride 20 MEQ Tab.ER PO SCH (08:52)
[2017-02-27] MEDS: Furosemide 40 MG Tab PO SCH ×2 (08:52→14:52)
[2017-02-27] MEDS: Aspirin 81 MG Tab.Chew PO SCH (08:52)
[2017-02-27] MEDS: oxyCODONE 5 MG Tab PO PRN (09:11)
[2017-02-27] MEDS: acetaZOLAMIDE 250 MG Tab PO SCH (09:27)
[2017-02-27] MEDS: Polyethylene Glycol 3350 Powder 17 GM Packet PO SCH ×2 (09:27→20:27)
[2017-02-27] MEDS: Enoxaparin 40 MG/0.4 ML Syringe SUBCUT SCH (09:27)
[2017-02-27] MEDS: Nicotine 21 MG/24 Hr Patch TRDERM SCH (09:27)
[2017-02-27] MEDS: Nystatin Crm 30 GM Tube TOP SCH ×2 (09:30→20:29)
[2017-02-27] MEDS ORDERED: Magnesium Sulfate/Water 2 GM in Premix Bag 1 BAG IV ONE (14:34)
--- NOTE | 2017-02-27 15:47 | PCM.PN ---
- General Info Date of Service: 02/27/17 Subjective Update: she is feeling much better. - Patient Data Vitals - Most Recent: Last Vital Signs Temp 98.5 F 02/27/17 03:20 Pulse 56 L 02/27/17 03:20 Resp 18 02/27/17 03:20 BP 180/89 H 02/27/17 03:20 Pulse Ox 98 02/27/17 03:20 Weight - Most Recent: 110 kg I&O - Last 24 Hours: Intake & Output 02/27/17 02/27/17 02/27/17 06:59 14:59 22:59 Intake Total 650 550 Output Total 1200 Balance -550 550 Lab Results Last 24 Hours: Laboratory Results - last 24 hr 02/27/17 02/27/17 02/27/17 Range/Units 05:51 05:51 05:51 WBC 7.59 (4.0-11.0) K/uL RBC 4.69 (4.30-5.90) M/uL Hgb 14.2 (12.0-16.0) g/dL Hct 44.5 (36.0-46.0) % MCV 94.9 (80.0-98.0) fL MCH 30.3 (27.0-32.0) pg MCHC 31.9 (31.0-37.0) g/dL RDW Std Deviation 50.0 (28.0-62.0) fl RDW Coeff of Robert 14 (11.0-15.0) % Plt Count 212 (150-400) K/uL MPV 9.90 (7.40-12.00) fL Neut % (Auto) 61.8 (48.0-80.0) % Lymph % (Auto) 21.3 (16.0-40.0) % [place] % (Auto) 14.4 (0.0-15.0) % Eos % (Auto) 2.1 (0.0-7.0) % Baso % (Auto) 0.4 (0.0-1.5) % Neut # (Auto) 4.7 (1.4-5.7) K/uL Lymph # (Auto) 1.6 (0.6-2.4) K/uL [place] # (Auto) 1.1 H (0.0-0.8) K/uL Eos # (Auto) 0.2 (0.0-0.7) K/uL Baso # (Auto) 0.0 (0.0-0.1) K/uL Nucleated RBC % 0.0 /100WBC Nucleated RBCs # 0 K/uL Magnesium 1.4 L (1.5-2.3) mEq/L B-Natriuretic Peptide > 3306 H (<100) PG/ML Vancomycin Trough (5-15) ug/mL 02/27/17 Range/Units 11:38 WBC (4.0-11.0) K/uL RBC (4.30-5.90) M/uL Hgb (12.0-16.0) g/dL Hct (36.0-46.0) % MCV (80.0-98.0) fL MCH (27.0-32.0) pg MCHC (31.0-37.0) g/dL RDW Std Deviation (28.0-62.0) fl RDW Coeff of Robert (11.0-15.0) % Plt Count (150-400) K/uL MPV (7.40-12.00) fL Neut % (Auto) (48.0-80.0) % Lymph % (Auto) (16.0-40.0) % [place] % (Auto) (0.0-15.0) % Eos % (Auto) (0.0-7.0) % Baso % (Auto) (0.0-1.5) % Neut # (Auto) (1.4-5.7) K/uL Lymph # (Auto) (0.6-2.4) K/uL [place] # (Auto) (0.0-0.8) K/uL Eos # (Auto) (0.0-0.7) K/uL Baso # (Auto) (0.0-0.1) K/uL Nucleated RBC % /100WBC Nucleated RBCs # K/uL Magnesium (1.5-2.3) mEq/L B-Natriuretic Peptide (<100) PG/ML Vancomycin Trough 18.1 H (5-15) ug/mL Med Orders - Current: Current Medications Acetaminophen (Tylenol) 325 mg PO Q4H PRN PRN Reason: headache or other pain Acetazolamide (Diamox) 250 mg PO DAILY [facility] Last Admin: 02/27/17 09:27 Dose: Not Given Aspirin (Aspirin) 81 mg PO DAILY [facility] Last Admin: 02/27/17 08:52 Dose: 81 mg Benzocaine/Menthol (Cepacol Sore Throat) 1 lozenge MUCMEM 6XDAY PRN PRN Reason: Cough Last Admin: 02/22/17 03:37 Dose: 1 lozenge Enoxaparin Sodium (Lovenox) 40 mg SUBCUT DAILY [facility] Last Admin: 02/27/17 09:27 Dose: Not Given Furosemide (Lasix) 40 mg PO BIDDIURETIC [facility] Last Admin: 02/27/17 14:52 Dose: 40 mg Guaifenesin/Dextromethorphan (Robitussin Dm) 10 ml PO Q4H PRN PRN Reason: Cough Last Admin: 02/17/17 11:10 Dose: 10 ml Hydralazine HCl (Apresoline) 10 mg IVPUSH Q6H PRN PRN Reason: SBP > 170 or DBP > 105 Levofloxacin/Dextrose 750 mg/ (Premix) 150 mls @ 100 mls/hr IV Q24H [facility] Last Admin: 02/26/17 16:50 Dose: 100 mls/hr Vancomycin HCl 1,500 mg/ (Sodium Chloride) 500 mls @ 250 mls/hr IV Q24H [facility] Last Admin: 02/27/17 12:39 Dose: 250 mls/hr Piperacillin Sod/Tazobactam (Sod 3.375 gm/ Sodium Chloride) 50 mls @ 100 mls/ hr IV Q6H [facility] Last Admin: 02/27/17 15:40 Dose: 100 mls/hr Magnesium Hydroxide (Milk Of Magnesia) 30 ml PO DAILY PRN PRN Reason: Constipation Nicotine (Habitrol) 21 mg TRDERM Q24H [facility] Last Admin: 02/27/17 09:27 Dose: Not Given Nystatin (Nystatin Crm) 1 gm TOP BID [facility] Last Admin: 02/27/17 09:30 Dose: 1 applic Oxycodone HCl (Oxycodone) 5 mg PO Q4H PRN PRN Reason: Pain Last Admin: 02/27/17 09:11 Dose: 5 mg Polyethylene Glycol (Miralax) 17 gm PO BID [facility] Last Admin: 02/27/17 09:27 Dose: Not Given Potassium Chloride (Klor-Con M20) 20 meq PO DAILY [facility] Last Admin: 02/27/17 08:52 Dose: 20 meq Sodium Chloride (Saline Flush) 10 ml FLUSH ASDIRECTED PRN PRN Reason: Keep Vein Open Last Admin: 02/16/17 20:29 Dose: 10 ml Sodium Chloride (Saline Flush) 2.5 ml FLUSH ASDIRECTED PRN PRN Reason: Keep Vein Open Last Admin: 02/16/17 20:28 Dose: 2.5 ml Vancomycin HCl (Pharmacy To Dose - Vancomycin) 1 dose .XX ASDIRECTED [facility] Discontinued Medications Aspirin (Aspirin) 324 mg PO ONETIME ONE Stop: 02/16/17 20:04 Last Admin: 02/16/17 20:24 Dose: 324 mg Cephalexin (Keflex) 500 mg PO Q6HR [facility] Last Admin: 02/23/17 12:46 Dose: 500 mg Enoxaparin Sodium (Lovenox) 120 mg SUBCUT ONETIME ONE Stop: 02/16/17 20:04 Last Admin: 02/16/17 20:25 Dose: Not Given Furosemide (Lasix) 40 mg IVPUSH NOW ONE Stop: 02/16/17 20:04 Last Admin: 02/16/17 20:29 Dose: 40 mg Furosemide (Lasix) 40 mg IVPUSH BID [facility] Furosemide (Lasix) 40 mg IVPUSH 0600,1400 [facility] Last Admin: 02/22/17 06:41 Dose: 40 mg Furosemide (Lasix) 60 mg IVPUSH NOW ONE Stop: 02/25/17 11:27 Last Admin: 02/25/17 11:58 Dose: 60 mg Ceftriaxone Sodium/Dextrose 1 (gm/ Premix) 50 mls @ 100 mls/hr IV Q24H [facility] Last Admin: 02/22/17 06:45 Dose: 100 mls/hr Pantoprazole Sodium 40 mg/ (Sodium Chloride) 10 mls @ 300 mls/hr IVPUSH DAILY [facility] Last Admin: 02/22/17 12:13 Dose: Not Given Levofloxacin/Dextrose 250 mg/ (Premix) 50 mls @ 50 mls/hr IV Q24H [facility] Stop: 03/01/17 11:59 Last Admin: 02/23/17 16:00 Dose: Not Given Piperacillin Sod/Tazobactam (Sod 4.5 gm/ Sodium Chloride) 100 mls @ 200 mls/hr IV Q6H [facility] Last Admin: 02/23/17 16:01 Dose: Not Given Vancomycin HCl 1,500 mg/ (Sodium Chloride) 500 mls @ 250 mls/hr IV Q12H [facility] Last Admin: 02/26/17 12:56 Dose: 250 mls/hr Levofloxacin/Dextrose 250 mg/ (Premix) 50 mls @ 50 mls/hr IV Q24H [facility] Stop: 03/01/17 13:29 Piperacillin Sod/Tazobactam (Sod 4.5 gm/ Sodium Chloride) 100 mls @ 200 mls/hr IV Q6H [facility] Last Admin: 02/26/17 19:28 Dose: Not Given Levofloxacin/Dextrose 750 mg/ (Premix) 150 mls @ 150 mls/hr IV Q24H [facility] Stop: 03/01/17 13:29 Last Admin: 02/23/17 12:38 Dose: 150 mls/hr Doxycycline Hyclate 100 mg/ (Sodium Chloride) 100 mls @ 100 mls/hr IV Q12H [facility] Last Admin: 02/24/17 03:37 Dose: 100 mls/hr Levofloxacin/Dextrose 750 mg/ (Premix) 150 mls @ 100 mls/hr IV Q24H [facility] Last Admin: 02/24/17 16:23 Dose: Not Given Magnesium Sulfate 2 gm/ Premix 50 mls @ 50 mls/hr IV ONETIME ONE Stop: 02/27/17 15:33 Ibuprofen (Motrin) 400 mg PO Q6H PRN PRN Reason: Pain Last Admin: 02/18/17 13:30 Dose: 400 mg Lisinopril (Prinivil) 20 mg PO DAILY [facility] Last Admin: 02/23/17 12:54 Dose: Not Given Losartan Potassium (Cozaar) 50 mg PO DAILY [facility] Last Admin: 02/21/17 09:19 Dose: Not Given Magnesium Citrate (Citrate Of Magnesia) 296 ml PO ONETIME ONE Stop: 02/22/17 11:27 Last Admin: 02/22/17 12:10 Dose: 296 ml Nitroglycerin (Nitro-Bid 2%) 1 gm TOP ONETIME ONE Stop: 02/16/17 20:04 Last Admin: 02/16/17 20:26 Dose: 1 gm Oxycodone HCl (Oxycodone) 5 mg PO ONETIME ONE Stop: 02/17/17 02:40 Last Admin: 02/17/17 02:56 Dose: 5 mg Oxycodone HCl (Oxycodone) 5 mg PO Q6H PRN PRN Reason: Pain Last Admin: 02/20/17 20:40 Dose: 5 mg Oxycodone HCl (Oxycodone) 5 mg PO Q4H PRN PRN Reason: Pain Last Admin: 02/23/17 05:31 Dose: 5 mg Oxycodone HCl (Oxycodone) 5 mg PO Q6H PRN PRN Reason: Pain Last Admin: 02/23/17 12:46 Dose: 5 mg - Exam General: Alert, Oriented, Cooperative Neck: Supple, Trachea Midline Lungs: Clear to Auscultation, Normal Respiratory Effort Cardiovascular: Regular Rate, Regular Rhythm Extremities: Other (trace to one plus distal LE edema) - Problem List & Annotations (1) CHF (congestive heart failure) SNOMED Code(s): 11119197 Code(s): I50.9 - HEART FAILURE, UNSPECIFIED Status: Acute Current Visit: Yes (2) Hypoxemia SNOMED Code(s): 412060895 Code(s): R09.02 - HYPOXEMIA Status: Acute Current Visit: Yes (3) Medical non-compliance SNOMED Code(s): 450376934 Code(s): Z91.19 - PATIENT'S NONCOMPLIANCE W OTH MEDICAL TREATMENT AND REGIMEN Status: Acute Current Visit: Yes (4) Hypertension SNOMED Code(s): 12008046 Code(s): I10 - ESSENTIAL (PRIMARY) HYPERTENSION Status: Acute Current Visit: No Qualifiers: Hypertension type: unspecified secondary hypertension Qualified Code(s): I15.9 - Secondary hypertension, unspecified; I15 - Secondary hypertension (5) Refuses treatment SNOMED Code(s): 202297320 Code(s): Z53.20 - PROC/TRTMT NOT CRD OUT BEC PT DECISION FOR UNSP REASONS Status: Acute Current Visit: No (6) Ejection fraction < 50% SNOMED Code(s): 81599105 Code(s): R09.89 - OTH SYMPTOMS AND SIGNS INVOLVING THE CIRC AND RESP SYSTEMS Status: Acute Current Visit: Yes (7) Moderate aortic stenosis SNOMED Code(s): 74399961 Code(s): I35.0 - NONRHEUMATIC AORTIC (VALVE) STENOSIS Status: Acute Current Visit: Yes (8) Hospital-acquired pneumonia SNOMED Code(s): 596741494 Code(s): J18.9 - PNEUMONIA, UNSPECIFIED ORGANISM Status: Acute Current Visit: Yes (9) Diabetes mellitus SNOMED Code(s): 41990743 Code(s): E11.9 - TYPE 2 DIABETES MELLITUS WITHOUT COMPLICATIONS Status: Acute Current Visit: No - Problem List Review Problem List Initiated/Reviewed/Updated: Yes - My Orders Last 24 Hours: My Active Orders 02/26/17 15:00 Piperacillin/Tazobactam [Piperacil-Tazobact] 3.375 gm Sodium Chloride 0.9% [ Normal Saline] 50 ml IV Q6H 02/26/17 18:00 Discontinue Telemetry Monitoring [Cardiac Monitoring Discontinue] [RC] Click to Edit 02/27/17 12:00 Vancomycin 1,500 mg Sodium Chloride 0.9% [Normal Saline] 500 ml IV Q24H 02/28/17 05:11 B-TYPE NATRIURETIC PEPTIDE,BNP [CHEM] AM BASIC METABOLIC PANEL,BMP [CHEM] AM CBC WITH AUTO DIFF [HEME] AM MAGNESIUM [CHEM] AM 03/01/17 05:11 BASIC METABOLIC PANEL,BMP [CHEM] AM 03/01/17 07:00 CXR [Chest 2V] [CR] 0700 - Assessment Assessment:: 1. CHF exacerbation with worsening orthopnea 2. CXR indicates a R lower lobe pneumonia. 3. Shortness of breath +hypoxia resulting in requiring O2 via nasal cannula secondary to #1 4. Bilateral pedal edema secondary to #1 - Plan Plan:: will continue to monitor I/O's adjust vancomycin dosing possible discharge on Tuesday discontinue telemetry CXR am on Tuesday hypoxia is improved Nolan Balderas MD 02/27/2017 CXR in am possible discharge in am on po antibiotics. check room air oxygen saturation before discharge. It is likely she will not need home oxygen. Her oxygen saturation on room air today went to a low of 88% after walking. Nolan Balderas MD
--- NOTE | 2017-02-27 16:07 | PCM.SN ---
- Free Text/Narrative Note: We discussed further pharmacologic antihypertensive interventions. She is very resistent to trying any other medicines in an attempt to improve her blood pressure. She specifically declines lisinopril and losartin stating that she had a bad reaction to these medicines although she cannot remember what the reaction was.
[2017-02-27] MEDS: Levofloxacin/Dextrose 5%-Water 750 MG in Premix Bag 1 BAG IV SCH (17:19)
[2017-02-28] MEDS: oxyCODONE 5 MG Tab PO PRN ×2 (00:44→13:02)
[2017-02-28] MEDS: Piperacillin/Tazobactam 3.375 GM in Sodium Chloride 0.9% 50 ML IV SCH ×2 (03:15→08:15)
[2017-02-28] MEDS: Aspirin 81 MG Tab.Chew PO SCH (08:02)
[2017-02-28] MEDS: Potassium Chloride 20 MEQ Tab.ER PO SCH (08:02)
[2017-02-28] MEDS: Furosemide 40 MG Tab PO SCH (08:02)
[2017-02-28] MEDS: acetaZOLAMIDE 250 MG Tab PO SCH (08:02)
[2017-02-28] MEDS: Polyethylene Glycol 3350 Powder 17 GM Packet PO SCH (08:05)
[2017-02-28] MEDS: Nystatin Crm 30 GM Tube TOP SCH (08:06)
[2017-02-28] MEDS: Enoxaparin 40 MG/0.4 ML Syringe SUBCUT SCH (08:06)
[2017-02-28] MEDS: Nicotine 21 MG/24 Hr Patch TRDERM SCH (08:06)
--- NOTE | 2017-02-28 13:14 | CR ---
EXAM DATE: 02/16/17 PATIENT'S AGE: 66 Patient: ASHLEY YUAN Facility: [place], [place] Site . Site : 1950 Study: XRay Chest [id number]/28/2017 9:15:08 AM Ordering Physician: Abhi Pope Final Report: Pain shortness of breath Portable chest Comparison: chest x-ray 02/23/2017 Findings: Stable enlargement of the cardiac silhouette. Lungs are clear of an acute airspace or interstitial process. No effusion or pneumothorax. Impression: 1. Stable cardiomegaly. Dictated by Fang Mabry MD @ Feb 26 2017 9:20AM (Electronic Signature) Report Signed by Proxy. MELODY
[2017-02-28 13:41] VITALS: BP 181/79
--- NOTE | 2017-02-28 17:04 | PCM.DCSUM1 ---
<Faisal Ramirez - Last Filed: 02/28/17 16:56> Discharge Summary - Hospital Course Free Text/Narrative:: Admission date: February 16, 2017 Discharge date February 28, 2017 Admission diagnosis: #1. CHF exacerbation #2. History of CHF #3. Shortness of breath secondary to #1 #4. Hypoxia secondary to #1 #5. History of type 2 diabetes Discharge diagnosis: #1. CHF exacerbation that has improved #2. Hypoxia that has resolved and saturating on room air back to baseline #3. Shortness of breath that has resolved #4. Hospital-acquired pneumonia - clinically improving #5. Urinary tract infection -resolved Hospital course: This is a 66-year-old female with a past medical history significant for CHF that was brought in to the ER secondary to shortness of breath and hypoxia. Patient was admitted for observation and CHF exacerbation management. Her stay was complicated with a hospital-acquired pneumonia resulting in the need for IV antibiotics. She also had an episode of UTI, the Klebsiella. This patient was adamant about refusing medication secondary to belief of allergic reaction. For example, the patient was initially declining to take any sort of lisinopril secondary to believing it causes blood clots. She also had episodes where she denied Lovenox secondary to believing that it caused blood clots. Patient also had an episode of leg pain which an ultrasound was completed and ruled out a DVT. Patient was then ultimately treated for her CHF with Lasix, treated her pneumonia with vancomycin, Zosyn and Levaquin. She responded well to. The patient's hypoxia also improved, as she was able to be weaned down to room air. At the time of discharge, this patient denied having any sort of chest pain, shortness of breath, fevers or chills. She had no complaints. Patient also will be followed up with home health care as she lives alone. Patient is homebound secondary to her CHF resulting in ambulatory dysfunction. Follow-up instructions: Patient is advised to follow-up with her new primary care provider, Dr. Ramirez, within 1 week. She is also counseled on the importance of taking her medications as prescribed below. Return precautions: Patient is advised to return to seek further medical attention if she really experiences similar symptoms or anything new that including shortness of breath, chest pain, worsening leg swelling, nausea or vomiting or fevers or cough. - Discharge Data Discharge Date: 02/28/17 Discharge Disposition: Home, W Home Health Agency 06 Condition: Fair - Patient Summary/Data Consults: Consultations 02/16/17 23:16 PT Evaluation and Treatment [CONS] Routine - Patient Instructions Diet: Heart Healthy Diet Fluid Restriction: 1500 mL Driving: [address] Drive Today Showering/Bathing: August Shower Notify Provider of: Fever, Increased Pain, Swelling and Redness, Nausea and/or Vomiting - Discharge Plan Prescriptions/Med Rec: Furosemide [Lasix] 40 mg PO BIDDIURETIC 30 Days #60 tablet Levofloxacin [Levaquin] 750 mg PO DAILY 3 Days #3 tablet Lisinopril 10 mg PO DAILY 30 Days #30 tablet Potassium Chloride [Klor-Con M20] 20 meq PO DAILY 30 Days #30 tab.er Home Medications: Home Meds Furosemide [Lasix] 40 mg PO BIDDIURETIC 30 Days #60 tablet 02/28/17 [Rx] Levofloxacin [Levaquin] 750 mg PO DAILY 3 Days #3 tablet 02/28/17 [Rx] Lisinopril 10 mg PO DAILY 30 Days #30 tablet 02/28/17 [Rx] Potassium Chloride [Klor-Con M20] 20 meq PO DAILY 30 Days #30 tab.er 02/28/17 [ Rx] Patient Handouts: Furosemide tablets, Lisinopril tablets, Levofloxacin tablets , Heart Failure, [id number] Referrals: Faisal Ramirez MD [Resident] - 03/04/17 3:15 pm - Discharge Summary/Plan Comment DC Time >30 min.: No Discharge Summary/Plan Comment: Admission date: February 16, 2017 Discharge date February 28, 2017 Admission diagnosis: #1. CHF exacerbation #2. History of CHF #3. Shortness of breath secondary to #1 #4. Hypoxia secondary to #1 #5. History of type 2 diabetes Discharge diagnosis: #1. CHF exacerbation that has improved #2. Hypoxia that has resolved and saturating on room air back to baseline #3. Shortness of breath that has resolved #4. Hospital-acquired pneumonia - clinically improving #5. Urinary tract infection -resolved Hospital course: This is a 66-year-old female with a past medical history significant for CHF that was brought in to the ER secondary to shortness of breath and hypoxia. Patient was admitted for observation and CHF exacerbation management. Her stay was complicated with a hospital-acquired pneumonia resulting in the need for IV antibiotics. She also had an episode of UTI, the Klebsiella. This patient was adamant about refusing medication secondary to belief of allergic reaction. For example, the patient was initially declining to take any sort of lisinopril secondary to believing it causes blood clots. She also had episodes where she denied Lovenox secondary to believing that it caused blood clots. Patient also had an episode of leg pain which an ultrasound was completed and ruled out a DVT. Patient was then ultimately treated for her CHF with Lasix, treated her pneumonia with vancomycin, Zosyn and Levaquin. She responded well to. The patient's hypoxia also improved, as she was able to be weaned down to room air. At the time of discharge, this patient denied having any sort of chest pain, shortness of breath, fevers or chills. She had no complaints. Patient also will be followed up with home health care as she lives alone. Patient is homebound secondary to her CHF resulting in ambulatory dysfunction. Follow-up instructions: Patient is advised to follow-up with her new primary care provider, Dr. Ramirez, within 1 week. She is also counseled on the importance of taking her medications as prescribed below. Return precautions: Patient is advised to return to seek further medical attention if she really experiences similar symptoms or anything new that including shortness of breath, chest pain, worsening leg swelling, nausea or vomiting or fevers or cough. - Patient Data Vitals - Most Recent: Last Vital Signs Temp 36.6 C 02/28/17 12:00 Pulse 46 L 02/28/17 12:00 Resp 20 02/28/17 12:00 BP 181/79 H 02/28/17 12:00 Pulse Ox 96 02/28/17 12:00 Weight - Most Recent: 110 kg I&O - Last 24 hours: Intake & Output 02/28/17 02/28/17 02/28/17 06:59 14:59 22:59 Intake Total 450 1250 Output Total 780 1600 Balance -330 -350 Lab Results - Last 24 hrs: Laboratory Results - last 24 hr 02/28/17 02/28/17 02/28/17 Range/Units 05:50 05:50 05:50 WBC 8.13 (4.0-11.0) K/uL RBC 4.72 (4.30-5.90) M/uL Hgb 14.3 (12.0-16.0) g/dL Hct 44.5 (36.0-46.0) % MCV 94.3 (80.0-98.0) fL MCH 30.3 (27.0-32.0) pg MCHC 32.1 (31.0-37.0) g/dL RDW Std Deviation 49.2 (28.0-62.0) fl RDW Coeff of Robert 14 (11.0-15.0) % Plt Count 204 (150-400) K/uL MPV 10.30 (7.40-12.00) fL Neut % (Auto) 63.6 (48.0-80.0) % Lymph % (Auto) 18.6 (16.0-40.0) % [place] % (Auto) 15.6 H (0.0-15.0) % Eos % (Auto) 2.0 (0.0-7.0) % Baso % (Auto) 0.2 (0.0-1.5) % Neut # (Auto) 5.2 (1.4-5.7) K/uL Lymph # (Auto) 1.5 (0.6-2.4) K/uL [place] # (Auto) 1.3 H (0.0-0.8) K/uL Eos # (Auto) 0.2 (0.0-0.7) K/uL Baso # (Auto) 0.0 (0.0-0.1) K/uL Nucleated RBC % 0.0 /100WBC Nucleated RBCs # 0 K/uL Sodium 141 (136-146) mmol/L Potassium 3.7 (3.5-5.1) mmol/L Chloride 103 (98-110) mmol/L Carbon Dioxide 28 (21-31) mmol/L BUN 19 (6.0-23.0) mg/dL Creatinine 1.2 (0.6-1.5) mg/dL Est Cr Clr Drug Dosing 45.93 mL/min Estimated GFR (MDRD) 45.2 ml/min Glucose 120 H (60-110) mg/dL Calcium 8.4 L (8.8-10.8) mg/dL Magnesium 1.5 (1.5-2.3) mEq/L B-Natriuretic Peptide > 3306 H (<100) PG/ML Med Orders - Current: Current Medications Discontinued Medications Acetaminophen (Tylenol) 325 mg PO Q4H PRN PRN Reason: headache or other pain Acetazolamide (Diamox) 250 mg PO DAILY [facility] Last Admin: 02/28/17 08:02 Dose: 250 mg Aspirin (Aspirin) 324 mg PO ONETIME ONE Stop: 02/16/17 20:04 Last Admin: 02/16/17 20:24 Dose: 324 mg Aspirin (Aspirin) 81 mg PO DAILY [facility] Last Admin: 02/28/17 08:02 Dose: 81 mg Benzocaine/Menthol (Cepacol Sore Throat) 1 lozenge MUCMEM 6XDAY PRN PRN Reason: Cough Last Admin: 02/22/17 03:37 Dose: 1 lozenge Cephalexin (Keflex) 500 mg PO Q6HR [facility] Last Admin: 02/23/17 12:46 Dose: 500 mg Enoxaparin Sodium (Lovenox) 120 mg SUBCUT ONETIME ONE Stop: 02/16/17 20:04 Last Admin: 02/16/17 20:25 Dose: Not Given Enoxaparin Sodium (Lovenox) 40 mg SUBCUT DAILY [facility] Last Admin: 02/28/17 08:06 Dose: Not Given Furosemide (Lasix) 40 mg IVPUSH NOW ONE Stop: 02/16/17 20:04 Last Admin: 02/16/17 20:29 Dose: 40 mg Furosemide (Lasix) 40 mg IVPUSH BID JESSEE Furosemide (Lasix) 40 mg IVPUSH 0600,1400 [facility] Last Admin: 02/22/17 06:41 Dose: 40 mg Furosemide (Lasix) 40 mg PO BIDDIURETIC JESSEE Last Admin: 02/28/17 08:02 Dose: 40 mg Furosemide (Lasix) 60 mg IVPUSH NOW ONE Stop: 02/25/17 11:27 Last Admin: 02/25/17 11:58 Dose: 60 mg Guaifenesin/Dextromethorphan (Robitussin Dm) 10 ml PO Q4H PRN PRN Reason: Cough Last Admin: 02/17/17 11:10 Dose: 10 ml Hydralazine HCl (Apresoline) 10 mg IVPUSH Q6H PRN PRN Reason: SBP > 170 or DBP > 105 Ceftriaxone Sodium/Dextrose 1 (gm/ Premix) 50 mls @ 100 mls/hr IV Q24H [facility] Last Admin: 02/22/17 06:45 Dose: 100 mls/hr Pantoprazole Sodium 40 mg/ (Sodium Chloride) 10 mls @ 300 mls/hr IVPUSH DAILY [facility] Last Admin: 02/22/17 12:13 Dose: Not Given Levofloxacin/Dextrose 250 mg/ (Premix) 50 mls @ 50 mls/hr IV Q24H [facility] Stop: 03/01/17 11:59 Last Admin: 02/23/17 16:00 Dose: Not Given Piperacillin Sod/Tazobactam (Sod 4.5 gm/ Sodium Chloride) 100 mls @ 200 mls/hr IV Q6H [facility] Last Admin: 02/23/17 16:01 Dose: Not Given Vancomycin HCl 1,500 mg/ (Sodium Chloride) 500 mls @ 250 mls/hr IV Q12H [facility] Last Admin: 02/26/17 12:56 Dose: 250 mls/hr Levofloxacin/Dextrose 250 mg/ (Premix) 50 mls @ 50 mls/hr IV Q24H [facility] Stop: 03/01/17 13:29 Piperacillin Sod/Tazobactam (Sod 4.5 gm/ Sodium Chloride) 100 mls @ 200 mls/hr IV Q6H [facility] Last Admin: 02/26/17 19:28 Dose: Not Given Levofloxacin/Dextrose 750 mg/ (Premix) 150 mls @ 150 mls/hr IV Q24H [facility] Stop: 03/01/17 13:29 Last Admin: 02/23/17 12:38 Dose: 150 mls/hr Doxycycline Hyclate 100 mg/ (Sodium Chloride) 100 mls @ 100 mls/hr IV Q12H [facility] Last Admin: 02/24/17 03:37 Dose: 100 mls/hr Levofloxacin/Dextrose 750 mg/ (Premix) 150 mls @ 100 mls/hr IV Q24H [facility] Last Admin: 02/24/17 16:23 Dose: Not Given Levofloxacin/Dextrose 750 mg/ (Premix) 150 mls @ 100 mls/hr IV Q24H [facility] Last Admin: 02/27/17 17:19 Dose: 100 mls/hr Vancomycin HCl 1,500 mg/ (Sodium Chloride) 500 mls @ 250 mls/hr IV Q24H [facility] Last Admin: 02/28/17 11:31 Dose: 250 mls/hr Piperacillin Sod/Tazobactam (Sod 3.375 gm/ Sodium Chloride) 50 mls @ 100 mls/ hr IV Q6H [facility] Last Admin: 02/28/17 08:15 Dose: 100 mls/hr Magnesium Sulfate 2 gm/ Premix 50 mls @ 50 mls/hr IV ONETIME ONE Stop: 02/27/17 15:33 Last Admin: 02/27/17 16:02 Dose: 50 mls/hr Ibuprofen (Motrin) 400 mg PO Q6H PRN PRN Reason: Pain Last Admin: 02/18/17 13:30 Dose: 400 mg Lisinopril (Prinivil) 20 mg PO DAILY [facility] Last Admin: 02/23/17 12:54 Dose: Not Given Losartan Potassium (Cozaar) 50 mg PO DAILY [facility] Last Admin: 02/21/17 09:19 Dose: Not Given Magnesium Citrate (Citrate Of Magnesia) 296 ml PO ONETIME ONE Stop: 02/22/17 11:27 Last Admin: 02/22/17 12:10 Dose: 296 ml Magnesium Hydroxide (Milk Of Magnesia) 30 ml PO DAILY PRN PRN Reason: Constipation Nicotine (Habitrol) 21 mg TRDERM Q24H [facility] Last Admin: 02/28/17 08:06 Dose: Not Given Nitroglycerin (Nitro-Bid 2%) 1 gm TOP ONETIME ONE Stop: 02/16/17 20:04 Last Admin: 02/16/17 20:26 Dose: 1 gm Nystatin (Nystatin Crm) 1 gm TOP BID [facility] Last Admin: 02/28/17 08:06 Dose: 1 applic Oxycodone HCl (Oxycodone) 5 mg PO ONETIME ONE Stop: 02/17/17 02:40 Last Admin: 02/17/17 02:56 Dose: 5 mg Oxycodone HCl (Oxycodone) 5 mg PO Q6H PRN PRN Reason: Pain Last Admin: 02/20/17 20:40 Dose: 5 mg Oxycodone HCl (Oxycodone) 5 mg PO Q4H PRN PRN Reason: Pain Last Admin: 02/23/17 05:31 Dose: 5 mg Oxycodone HCl (Oxycodone) 5 mg PO Q6H PRN PRN Reason: Pain Last Admin: 02/23/17 12:46 Dose: 5 mg Oxycodone HCl (Oxycodone) 5 mg PO Q4H PRN PRN Reason: Pain Last Admin: 02/28/17 13:02 Dose: 5 mg Polyethylene Glycol (Miralax) 17 gm PO BID JESSEE Last Admin: 02/28/17 08:05 Dose: Not Given Potassium Chloride (Klor-Con M20) 20 meq PO DAILY JESSEE Last Admin: 02/28/17 08:02 Dose: 20 meq Sodium Chloride (Saline Flush) 10 ml FLUSH ASDIRECTED PRN PRN Reason: Keep Vein Open Last Admin: 02/16/17 20:29 Dose: 10 ml Sodium Chloride (Saline Flush) 2.5 ml FLUSH ASDIRECTED PRN PRN Reason: Keep Vein Open Last Admin: 02/16/17 20:28 Dose: 2.5 ml Vancomycin HCl (Pharmacy To Dose - Vancomycin) 1 dose .XX ASDIRECTED JESSEE *Q Meaningful Use (DIS) - VTE *Q VTE Criteria *Q: - Stroke *Q Stroke Criteria *Q: - AMI *Q AMI Criteria *Q: <Niko Moe - Last Filed: 02/28/17 19:30> Discharge Summary - Patient Summary/Data Consults: Consultations 02/16/17 23:16 PT Evaluation and Treatment [CONS] Routine - Patient Data Vitals - Most Recent: Last Vital Signs Temp 36.6 C 02/28/17 12:00 Pulse 46 L 02/28/17 12:00 Resp 20 02/28/17 12:00 BP 181/79 H 02/28/17 12:00 Pulse Ox 96 02/28/17 12:00 I&O - Last 24 hours: Intake & Output 02/28/17 02/28/17 02/28/17 06:59 14:59 22:59 Intake Total 450 1250 Output Total 780 1600 Balance -330 -350 Lab Results - Last 24 hrs: Laboratory Results - last 24 hr 02/28/17 02/28/17 02/28/17 Range/Units 05:50 05:50 05:50 WBC 8.13 (4.0-11.0) K/uL RBC 4.72 (4.30-5.90) M/uL Hgb 14.3 (12.0-16.0) g/dL Hct 44.5 (36.0-46.0) % MCV 94.3 (80.0-98.0) fL MCH 30.3 (27.0-32.0) pg MCHC 32.1 (31.0-37.0) g/dL RDW Std Deviation 49.2 (28.0-62.0) fl RDW Coeff of Robert 14 (11.0-15.0) % Plt Count 204 (150-400) K/uL MPV 10.30 (7.40-12.00) fL Neut % (Auto) 63.6 (48.0-80.0) % Lymph % (Auto) 18.6 (16.0-40.0) % [place] % (Auto) 15.6 H (0.0-15.0) % Eos % (Auto) 2.0 (0.0-7.0) % Baso % (Auto) 0.2 (0.0-1.5) % Neut # (Auto) 5.2 (1.4-5.7) K/uL Lymph # (Auto) 1.5 (0.6-2.4) K/uL [place] # (Auto) 1.3 H (0.0-0.8) K/uL Eos # (Auto) 0.2 (0.0-0.7) K/uL Baso # (Auto) 0.0 (0.0-0.1) K/uL Nucleated RBC % 0.0 /100WBC Nucleated RBCs # 0 K/uL Sodium 141 (136-146) mmol/L Potassium 3.7 (3.5-5.1) mmol/L Chloride 103 (98-110) mmol/L Carbon Dioxide 28 (21-31) mmol/L BUN 19 (6.0-23.0) mg/dL Creatinine 1.2 (0.6-1.5) mg/dL Est Cr Clr Drug Dosing 45.93 mL/min Estimated GFR (MDRD) 45.2 ml/min Glucose 120 H (60-110) mg/dL Calcium 8.4 L (8.8-10.8) mg/dL Magnesium 1.5 (1.5-2.3) mEq/L B-Natriuretic Peptide > 3306 H (<100) PG/ML Med Orders - Current: Current Medications Discontinued Medications Acetaminophen (Tylenol) 325 mg PO Q4H PRN PRN Reason: headache or other pain Acetazolamide (Diamox) 250 mg PO DAILY [facility] Last Admin: 02/28/17 08:02 Dose: 250 mg Aspirin (Aspirin) 324 mg PO ONETIME ONE Stop: 02/16/17 20:04 Last Admin: 02/16/17 20:24 Dose: 324 mg Aspirin (Aspirin) 81 mg PO DAILY [facility] Last Admin: 02/28/17 08:02 Dose: 81 mg Benzocaine/Menthol (Cepacol Sore Throat) 1 lozenge MUCMEM 6XDAY PRN PRN Reason: Cough Last Admin: 02/22/17 03:37 Dose: 1 lozenge Cephalexin (Keflex) 500 mg PO Q6HR [facility] Last Admin: 02/23/17 12:46 Dose: 500 mg Enoxaparin Sodium (Lovenox) 120 mg SUBCUT ONETIME ONE Stop: 02/16/17 20:04 Last Admin: 02/16/17 20:25 Dose: Not Given Enoxaparin Sodium (Lovenox) 40 mg SUBCUT DAILY [facility] Last Admin: 02/28/17 08:06 Dose: Not Given Furosemide (Lasix) 40 mg IVPUSH NOW ONE Stop: 02/16/17 20:04 Last Admin: 02/16/17 20:29 Dose: 40 mg Furosemide (Lasix) 40 mg IVPUSH BID JESSEE Furosemide (Lasix) 40 mg IVPUSH 0600,1400 [facility] Last Admin: 02/22/17 06:41 Dose: 40 mg Furosemide (Lasix) 40 mg PO BIDDIURETIC [facility] Last Admin: 02/28/17 08:02 Dose: 40 mg Furosemide (Lasix) 60 mg IVPUSH NOW ONE Stop: 02/25/17 11:27 Last Admin: 02/25/17 11:58 Dose: 60 mg Guaifenesin/Dextromethorphan (Robitussin Dm) 10 ml PO Q4H PRN PRN Reason: Cough Last Admin: 02/17/17 11:10 Dose: 10 ml Hydralazine HCl (Apresoline) 10 mg IVPUSH Q6H PRN PRN Reason: SBP > 170 or DBP > 105 Ceftriaxone Sodium/Dextrose 1 (gm/ Premix) 50 mls @ 100 mls/hr IV Q24H [facility] Last Admin: 02/22/17 06:45 Dose: 100 mls/hr Pantoprazole Sodium 40 mg/ (Sodium Chloride) 10 mls @ 300 mls/hr IVPUSH DAILY [facility] Last Admin: 02/22/17 12:13 Dose: Not Given Levofloxacin/Dextrose 250 mg/ (Premix) 50 mls @ 50 mls/hr IV Q24H [facility] Stop: 03/01/17 11:59 Last Admin: 02/23/17 16:00 Dose: Not Given Piperacillin Sod/Tazobactam (Sod 4.5 gm/ Sodium Chloride) 100 mls @ 200 mls/hr IV Q6H [facility] Last Admin: 02/23/17 16:01 Dose: Not Given Vancomycin HCl 1,500 mg/ (Sodium Chloride) 500 mls @ 250 mls/hr IV Q12H [facility] Last Admin: 02/26/17 12:56 Dose: 250 mls/hr Levofloxacin/Dextrose 250 mg/ (Premix) 50 mls @ 50 mls/hr IV Q24H [facility] Stop: 03/01/17 13:29 Piperacillin Sod/Tazobactam (Sod 4.5 gm/ Sodium Chloride) 100 mls @ 200 mls/hr IV Q6H [facility] Last Admin: 02/26/17 19:28 Dose: Not Given Levofloxacin/Dextrose 750 mg/ (Premix) 150 mls @ 150 mls/hr IV Q24H [facility] Stop: 03/01/17 13:29 Last Admin: 02/23/17 12:38 Dose: 150 mls/hr Doxycycline Hyclate 100 mg/ (Sodium Chloride) 100 mls @ 100 mls/hr IV Q12H [facility] Last Admin: 02/24/17 03:37 Dose: 100 mls/hr Levofloxacin/Dextrose 750 mg/ (Premix) 150 mls @ 100 mls/hr IV Q24H [facility] Last Admin: 02/24/17 16:23 Dose: Not Given Levofloxacin/Dextrose 750 mg/ (Premix) 150 mls @ 100 mls/hr IV Q24H [facility] Last Admin: 02/27/17 17:19 Dose: 100 mls/hr Vancomycin HCl 1,500 mg/ (Sodium Chloride) 500 mls @ 250 mls/hr IV Q24H [facility] Last Admin: 02/28/17 11:31 Dose: 250 mls/hr Piperacillin Sod/Tazobactam (Sod 3.375 gm/ Sodium Chloride) 50 mls @ 100 mls/ hr IV Q6H [facility] Last Admin: 02/28/17 08:15 Dose: 100 mls/hr Magnesium Sulfate 2 gm/ Premix 50 mls @ 50 mls/hr IV ONETIME ONE Stop: 02/27/17 15:33 Last Admin: 02/27/17 16:02 Dose: 50 mls/hr Ibuprofen (Motrin) 400 mg PO Q6H PRN PRN Reason: Pain Last Admin: 02/18/17 13:30 Dose: 400 mg Lisinopril (Prinivil) 20 mg PO DAILY [facility] Last Admin: 02/23/17 12:54 Dose: Not Given Losartan Potassium (Cozaar) 50 mg PO DAILY [facility] Last Admin: 02/21/17 09:19 Dose: Not Given Magnesium Citrate (Citrate Of Magnesia) 296 ml PO ONETIME ONE Stop: 02/22/17 11:27 Last Admin: 02/22/17 12:10 Dose: 296 ml Magnesium Hydroxide (Milk Of Magnesia) 30 ml PO DAILY PRN PRN Reason: Constipation Nicotine (Habitrol) 21 mg TRDERM Q24H [facility] Last Admin: 02/28/17 08:06 Dose: Not Given Nitroglycerin (Nitro-Bid 2%) 1 gm TOP ONETIME ONE Stop: 02/16/17 20:04 Last Admin: 02/16/17 20:26 Dose: 1 gm Nystatin (Nystatin Crm) 1 gm TOP BID [facility] Last Admin: 02/28/17 08:06 Dose: 1 applic Oxycodone HCl (Oxycodone) 5 mg PO ONETIME ONE Stop: 02/17/17 02:40 Last Admin: 02/17/17 02:56 Dose: 5 mg Oxycodone HCl (Oxycodone) 5 mg PO Q6H PRN PRN Reason: Pain Last Admin: 02/20/17 20:40 Dose: 5 mg Oxycodone HCl (Oxycodone) 5 mg PO Q4H PRN PRN Reason: Pain Last Admin: 02/23/17 05:31 Dose: 5 mg Oxycodone HCl (Oxycodone) 5 mg PO Q6H PRN PRN Reason: Pain Last Admin: 02/23/17 12:46 Dose: 5 mg Oxycodone HCl (Oxycodone) 5 mg PO Q4H PRN PRN Reason: Pain Last Admin: 02/28/17 13:02 Dose: 5 mg Polyethylene Glycol (Miralax) 17 gm PO BID JESSEE Last Admin: 02/28/17 08:05 Dose: Not Given Potassium Chloride (Klor-Con M20) 20 meq PO DAILY JESSEE Last Admin: 02/28/17 08:02 Dose: 20 meq Sodium Chloride (Saline Flush) 10 ml FLUSH ASDIRECTED PRN PRN Reason: Keep Vein Open Last Admin: 02/16/17 20:29 Dose: 10 ml Sodium Chloride (Saline Flush) 2.5 ml FLUSH ASDIRECTED PRN PRN Reason: Keep Vein Open Last Admin: 02/16/17 20:28 Dose: 2.5 ml Vancomycin HCl (Pharmacy To Dose - Vancomycin) 1 dose .XX ASDIRECTED JESSEE *Q Meaningful Use (DIS) - VTE *Q VTE Criteria *Q: - Stroke *Q Stroke Criteria *Q: - AMI *Q AMI Criteria *Q: - Free Text/Narrative Note: I have examined the patient. I have discussed findings and treatment plan with resident. I agree with the assessment and plan outlined in the following resident's note.
--- NOTE | 2017-03-01 10:45 | PCM.SN ---
- Free Text/Narrative Note: This is an addendum to the discharge summary dictated by myself for Kristin Watson This patient requires home health care secondary to being homebound as she is able to ambulate less than 20 feet before becoming short of breath and needing to stop for a rest break. She is unsteady when walking and a fall risk, needing to utilize a walker/cane to ambulate safely. She is also in need for a skilled service. Should monitor medication compliance secondary to new/changed medications and assessment of effectiveness. The patient also requested physical therapy due to weakness from her recent hospitalization, deconditioning secondary to the disease process. She also requires an occupational therapy evaluation for functional safety at home, assess/initiate plan for improvement of cognition issues. Dr. Ramirez will be the primary M.D. who will continue to follow the patient once discharged from the hospital.
== END 2017-02-28 14:15 | disposition home health service (06) | DRG 291 ==
LOC: MW.ED 19:56 → MW.ICU 22:21 → MW.MS 02-20 10:01
PROVIDERS: ADMIT Internal Medicine; ATTEND Internal Medicine
DX: I50.20 Unspecified systolic (congestive) heart failure (principal); I50.9 Heart failure, unspecified; J18.9 Pneumonia, unspecified organism; N39.0 Urinary tract infection, site not specified; Y95 Nosocomial condition; B96.1 Klebsiella pneumoniae [K. pneumoniae] as the cause of diseases classified elsewhere; Z91.14 Patient's other noncompliance with medication regimen; R09.02 Hypoxemia; E11.9 Type 2 diabetes mellitus without complications; I10 Essential (primary) hypertension; M79.606 Pain in leg, unspecified; W05.0XXA Fall from non-moving wheelchair, initial encounter; Y92.019 Unspecified place in single-family (private) house as the place of occurrence of the external cause; F32.9 Major depressive disorder, single episode, unspecified; F17.200 Nicotine dependence, unspecified, uncomplicated; Z79.899 Other long term (current) drug therapy; Z88.8 Allergy status to other drugs, medicaments and biological substances; R51 Headache; Z91.81 History of falling; R26.81 Unsteadiness on feet; R53.1 Weakness; Z53.20 Procedure and treatment not carried out because of patient's decision for unspecified reasons; I35.0 Nonrheumatic aortic (valve) stenosis; R60.9 Edema, unspecified; K59.00 Constipation, unspecified
CPT/HCPCS: 36415; 71010; 72170; 80053; 81001; 82140; 83605; 83880; 84484; 85025; 85610; 87040 ×2; 87086; 87186; 93005; 96374; 99285; A9270 ×2; J1940; 80048; 80202; 83735; 87804; 93306; 93971-26-LT; 93971-LT; 97161-GP; 97530-GP; 99283; C9113; J0696; J1956; J2543; J3370; J3475; J7030; J7040; J7050

== ENCOUNTER 2019-06-11 14:30 | Inpatient (IN) | payer MEDICARE ==
--- NOTE | 2019-06-11 14:33 | EDM.PDOC ---
ED HPI GENERAL MEDICAL PROBLEM - General Stated Complaint: SOB Time Seen by Provider: 06/11/19 14:33 Source of Information: Reports: Patient History Limitations: Reports: No Limitations - History of Present Illness INITIAL COMMENTS - FREE TEXT/NARRATIVE: Patient is a 68-year-old female who is complaining of having severe dyspnea on exertion that is been ongoing for the last 4 weeks and worse for the last 2 weeks. Patient states she is not able to get out of bed without severe dyspnea and hypoxia. She does have a cough that is occasionally productive of sputum. Patient has a known history of COPD and CHF. Patient has been somewhat noncompliant with her medications recently. When I inquired why she did not come in 2 weeks ago she states she had no way to get here in her house was not ready for her to leave it at that time. Patient is complaining of having pain and swelling and redness to both lower extremities worse on the left than on the right. She denies any nausea or vomiting. She states she has had chronic pelvic infection for which she is on chronic antibiotics. Denies any dysuria. Duration: Getting Worse Location: Reports: Lower Extremity, Left, Lower Extremity, Right Quality: Reports: Ache Severity: Moderate Improves with: Reports: None Worsens with: Reports: Movement Associated Symptoms: Reports: cough w sputum. Denies: Chest Pain, Fever/Chills , Nausea/Vomiting Bilateral Leg Pain Score (Numeric/FACES): 8 - Related Data Allergies Allergy/AdvReac Type Severity Reaction Status Date / Time aspartame Allergy Other Verified 02/16/17 20:20 [From Nutrasweet Aspartame] banana Allergy Other Verified 02/19/17 12:02 egg Allergy Other Verified 02/16/17 20:20 fluconazole Allergy Burning Verified 02/16/17 20:20 formaldehyde Allergy Other Verified 02/16/17 20:20 latex Allergy Other Verified 02/16/17 20:20 levofloxacin [From Levaquin] Allergy Other Verified 02/16/17 20:20 lisinopril Allergy Other Verified 02/16/17 20:20 losartan Allergy Anaphylactic Verified 04/25/18 22:10 Shock morphine Allergy Other Verified 02/16/17 20:20 perfume Allergy Cough Verified 02/16/17 20:20 petrolatum,white Allergy Other Verified 02/16/17 20:20 [From Petroleum Jelly] petrolatum,white Allergy Other Verified 04/26/18 01:35 propoxyphene Allergy Other Verified 04/26/18 01:37 propoxyphene HCl Allergy Other Verified 02/16/17 20:20 [From Darvon] soy Allergy Other Verified 02/16/17 20:20 spironolactone Allergy Chest Verified 02/16/17 20:20 Presssure Sulfa (Sulfonamide Allergy Other Verified 02/16/17 20:20 Antibiotics) Home Meds: Home Meds Furosemide [Lasix] 40 mg PO BIDDIURETIC 30 Days #60 tablet 02/28/17 [Rx] Doxycycline [Vibramycin] 100 mg PO BID 04/25/18 [History] oxyCODONE 10 mg PO BID PRN 04/25/18 [History] Fexofenadine [Diamond] 180 mg PO DAILY 06/11/19 [History] Past Medical History HEENT History: Reports: None Cardiovascular History: Reports: Heart Failure, Hypertension Respiratory History: Reports: Bronchitis, Recurrent Gastrointestinal History: Reports: None Genitourinary History: Reports: Urinary Incontinence [employer] History: Reports: Musculoskeletal History: Reports: Back Pain, Chronic Other Musculoskeletal History: Had Lumbar surgery Neurological History: Reports: None Psychiatric History: Reports: Depression Endocrine/Metabolic History: Reports: Diabetes, Type II, Other (See Below) Other Endocrine/Metabolic History: per prior record has DM II, patient denies that she is diabetic - Infectious Disease History Infectious Disease History: Reports: None - Past Surgical History Cardiovascular Surgical History: Reports: Other (See Below), Vascular Surgery Female Surgical History: Reports: Section, Hysterectomy Social & Family History - Family History Family Medical History: Noncontributory - Caffeine Use Caffeine Use: Reports: None, Soda ED ROS GENERAL - Review of Systems Review Of Systems: Comprehensive ROS is negative, except as noted in HPI. ED EXAM, GENERAL - Physical Exam Exam: See Below Exam Limited By: No Limitations General Appearance: Moderate Distress Head: Atraumatic Neck: Normal Inspection, Supple Respiratory/Chest: Respiratory Distress, Decreased Breath Sounds. No: No Respiratory Distress, Rales, Wheezing Cardiovascular: Regular Rate, Rhythm, No Edema, No JVD GI/Abdominal: Soft, Non-Tender Back Exam: Normal Inspection Extremities: Leg Pain, Increased Warmth, Redness Neurological: Alert Psychiatric: Normal Affect Course - Vital Signs Text/Narrative:: Patient was given some vancomycin for her lower extremity infections. She is still struggling to breathe at rest. I feel she needs to be admitted to the hospital at this time for additional treatment. Patient will most likely need to go to rehab when she is ready for discharge. Last Recorded V/S: Last Vital Signs Temp 36.3 C 06/13/19 03:00 Pulse 76 06/13/19 03:00 Resp 21 H 06/13/19 03:00 BP 185/76 H 06/13/19 03:00 Pulse Ox 92 L 06/13/19 03:00 - Orders/Labs/Meds Orders: Medication Orders Acetaminophen (Tylenol) 650 mg PO Q4H PRN PRN Reason: Pain (Mild 1-3)/fever Albuterol/Ipratropium (Duoneb 3.0-0.5 Mg/3 Ml) 3 ml NEB Q4HRRT PRN PRN Reason: Shortness Of Breath/wheezing Last Admin: 06/13/19 04:45 Dose: 3 ml Admin: 06/12/19 21:34 Dose: 3 ml Admin: 06/12/19 12:54 Dose: 3 ml Doxycycline Hyclate (Vibramycin) 100 mg PO BID JESSEE Last Admin: 06/12/19 20:12 Dose: 100 mg Admin: 06/12/19 08:55 Dose: 100 mg Admin: 06/11/19 20:51 Dose: 100 mg Enoxaparin Sodium (Lovenox) 40 mg SUBCUT Q24H JESSEE Last Admin: 06/12/19 17:04 Dose: Not Given Admin: 06/11/19 18:18 Dose: Not Given Fexofenadine HCl (Diamond) 60 mg PO TID PRN PRN Reason: Allergies Last Admin: 06/13/19 04:49 Dose: 60 mg Admin: 06/12/19 19:42 Dose: 60 mg Furosemide (Lasix) 40 mg PO BIDDIURETIC JESSEE Last Admin: 06/12/19 13:51 Dose: 40 mg Vancomycin HCl 1.5 gm/ Premix 300 mls @ 150 mls/hr IV Q12H JESSEE Last Admin: 06/12/19 19:43 Dose: 150 mls/hr Insulin Aspart (Novolog) 0 unit SUBCUT TIDAC [facility]; Protocol Last Admin: 06/13/19 06:40 Dose: Not Given Admin: 06/12/19 17:21 Dose: Not Given Admin: 06/12/19 12:57 Dose: Not Given Admin: 06/12/19 08:38 Dose: Not Given Labetalol HCl (Normodyne) 10 mg IVPUSH Q6H PRN; Protocol PRN Reason: Hypertension Metoprolol Succinate (Toprol Xl) 50 mg PO DAILY JESSEE Last Admin: 06/13/19 00:45 Dose: Not Given Ondansetron HCl (Zofran Odt) 4 mg PO Q4H PRN PRN Reason: nausea, able to take PO Ondansetron HCl (Zofran) 4 mg IVPUSH Q4H PRN PRN Reason: Nausea Oxycodone HCl (Oxycodone) 5 mg PO Q4H PRN PRN Reason: Pain Last Admin: 06/13/19 04:19 Dose: 5 mg Admin: 06/13/19 00:12 Dose: 5 mg Admin: 06/12/19 19:44 Dose: 5 mg Admin: 06/12/19 13:51 Dose: 5 mg Admin: 06/12/19 08:53 Dose: 5 mg Admin: 06/12/19 03:24 Dose: 5 mg Polyethylene Glycol (Miralax) 17 gm PO DAILY PRN PRN Reason: Constipation Labs: Laboratory Tests 06/11/19 06/11/19 06/11/19 Range/Units 14:30 14:30 14:30 WBC 10.27 (4.0-11.0) K/uL RBC 4.66 (4.30-5.90) M/uL Hgb 14.7 (12.0-16.0) g/dL Hct 46.3 H (36.0-46.0) % MCV 99.4 H (80.0-98.0) fL MCH 31.5 (27.0-32.0) pg MCHC 31.7 (31.0-37.0) g/dL RDW Std Deviation 50.3 (28.0-62.0) fl RDW Coeff of Robert 14 (11.0-15.0) % Plt Count 239 (150-400) K/uL MPV 10.70 (7.40-12.00) fL Neut % (Auto) 70.3 (48.0-80.0) % Lymph % (Auto) 20.2 (16.0-40.0) % [place] % (Auto) 8.3 (0.0-15.0) % Eos % (Auto) 1.0 (0.0-7.0) % Baso % (Auto) 0.2 (0.0-1.5) % Neut # (Auto) 7.2 H (1.4-5.7) K/uL Lymph # (Auto) 2.1 (0.6-2.4) K/uL [place] # (Auto) 0.9 H (0.0-0.8) K/uL Eos # (Auto) 0.1 (0.0-0.7) K/uL Baso # (Auto) 0.0 (0.0-0.1) K/uL Nucleated RBC % 0.0 /100WBC Nucleated RBCs # 0 K/uL Lactate 0.9 (0.20-2.00) mmol/L Sodium 141 (136-145) mmol/L Potassium 4.0 (3.5-5.1) mmol/L Chloride 102 (98-107) mmol/L Carbon Dioxide 35.6 H (21.0-32.0) mmol/L BUN 17 (7.0-18.0) mg/dL Creatinine 1.0 (0.6-1.0) mg/dL Est Cr Clr Drug Dosing 53.81 mL/min Estimated GFR (MDRD) 55.5 ml/min Glucose 152 H (74-106) mg/dL Calcium 8.9 (8.5-10.1) mg/dL Total Bilirubin 0.5 (0.2-1.0) mg/dL AST 14 L (15-37) IU/L ALT 16 (14-63) IU/L Alkaline Phosphatase 105 (46-116) U/L Troponin I (0.000-0.056) ng/mL B-Natriuretic Peptide (<100) PG/ML Total Protein 7.5 (6.4-8.2) g/dL Albumin 3.1 L (3.4-5.0) g/dL Globulin 4.4 H (2.6-4.0) g/dL Albumin/Globulin Ratio 0.7 L (0.9-1.6) TSH 3rd Generation (0.36-3.74) uIU/mL Urine Color Urine Appearance Urine pH (5.0-8.0) Ur Specific [place] (1.001-1.035) Urine Protein (NEGATIVE) mg/dL Urine Glucose (UA) (NEGATIVE) mg/dL Urine Ketones (NEGATIVE) mg/dL Urine Occult Blood (NEGATIVE) Urine Nitrite (NEGATIVE) Urine Bilirubin (NEGATIVE) Urine Urobilinogen (<2.0) EU/dL Ur Leukocyte Esterase (NEGATIVE) Urine RBC (0-2/HPF) Urine WBC (0-5/HPF) Ur Epithelial Cells (NONE-FEW) Urine Bacteria (NEGATIVE) Urine Yeast 06/11/19 06/11/19 06/11/19 Range/Units 14:30 14:30 16:13 WBC (4.0-11.0) K/uL RBC (4.30-5.90) M/uL Hgb (12.0-16.0) g/dL Hct (36.0-46.0) % MCV (80.0-98.0) fL MCH (27.0-32.0) pg MCHC (31.0-37.0) g/dL RDW Std Deviation (28.0-62.0) fl RDW Coeff of Robert (11.0-15.0) % Plt Count (150-400) K/uL MPV (7.40-12.00) fL Neut % (Auto) (48.0-80.0) % Lymph % (Auto) (16.0-40.0) % [place] % (Auto) (0.0-15.0) % Eos % (Auto) (0.0-7.0) % Baso % (Auto) (0.0-1.5) % Neut # (Auto) (1.4-5.7) K/uL Lymph # (Auto) (0.6-2.4) K/uL [place] # (Auto) (0.0-0.8) K/uL Eos # (Auto) (0.0-0.7) K/uL Baso # (Auto) (0.0-0.1) K/uL Nucleated RBC % /100WBC Nucleated RBCs # K/uL Lactate (0.20-2.00) mmol/L Sodium (136-145) mmol/L Potassium (3.5-5.1) mmol/L Chloride (98-107) mmol/L Carbon Dioxide (21.0-32.0) mmol/L BUN (7.0-18.0) mg/dL Creatinine (0.6-1.0) mg/dL Est Cr Clr Drug Dosing mL/min Estimated GFR (MDRD) ml/min Glucose (74-106) mg/dL Calcium (8.5-10.1) mg/dL Total Bilirubin (0.2-1.0) mg/dL AST (15-37) IU/L ALT (14-63) IU/L Alkaline Phosphatase (46-116) U/L Troponin I < 0.050 (0.000-0.056) ng/mL B-Natriuretic Peptide 447 H (<100) PG/ML Total Protein (6.4-8.2) g/dL Albumin (3.4-5.0) g/dL Globulin (2.6-4.0) g/dL Albumin/Globulin Ratio (0.9-1.6) TSH 3rd Generation 1.05 (0.36-3.74) uIU/mL Urine Color YELLOW Urine Appearance CLEAR Urine pH 5.0 (5.0-8.0) Ur Specific [place] >= 1.030 (1.001-1.035) Urine Protein 100 H (NEGATIVE) mg/dL Urine Glucose (UA) NEGATIVE (NEGATIVE) mg/dL Urine Ketones NEGATIVE (NEGATIVE) mg/dL Urine Occult Blood TRACE-INTACT H (NEGATIVE) Urine Nitrite NEGATIVE (NEGATIVE) Urine Bilirubin NEGATIVE (NEGATIVE) Urine Urobilinogen 1.0 (<2.0) EU/dL Ur Leukocyte Esterase NEGATIVE (NEGATIVE) Urine RBC 0-2 (0-2/HPF) Urine WBC 1-3 (0-5/HPF) Ur Epithelial Cells FEW (NONE-FEW) Urine Bacteria FEW (NEGATIVE) Urine Yeast FEW Meds: Medications Generic Name Dose Route Start Last Admin Trade Name Freq PRN Reason Stop Dose Admin Acetaminophen 650 mg 06/11/19 16:46 Tylenol PO Q4H PRN Pain (Mild 1-3)/fever Albuterol/Ipratropium 3 ml 06/11/19 16:46 06/13/19 04:45 Duoneb 3.0-0.5 Mg/3 Ml NEB 3 ml Q4HRRT PRN Administration Shortness Of Breath/wheezing Doxycycline Hyclate 100 mg 06/11/19 21:00 06/12/19 20:12 Vibramycin PO 100 mg BID JESSEE Administration Enoxaparin Sodium 40 mg 06/11/19 17:00 06/12/19 17:04 Lovenox SUBCUT Not Given Q24H JESSEE Fexofenadine HCl 60 mg 06/12/19 09:23 06/13/19 04:49 Diamond PO 60 mg TID PRN Administration Allergies Furosemide 40 mg 06/12/19 14:00 06/12/19 13:51 Lasix PO 40 mg BIDDIURETIC JESSEE Administration Vancomycin HCl 1.5 gm/ Premix 300 mls @ 150 mls/hr 06/12/19 20:00 06/12/19 19 :43 IV 150 mls/hr Q12H JESSEE Administration Insulin Aspart 0 unit 06/12/19 07:30 06/13/19 06:40 Novolog SUBCUT Not Given TIDAC JESSEE Protocol Labetalol HCl 10 mg 06/11/19 22:29 Normodyne IVPUSH Q6H PRN Hypertension Protocol Metoprolol Succinate 50 mg 06/12/19 23:15 06/13/19 00:45 Toprol Xl PO Not Given DAILY JESSEE Ondansetron HCl 4 mg 06/11/19 16:46 Zofran Odt PO Q4H PRN nausea, able to take PO Ondansetron HCl 4 mg 06/11/19 16:46 Zofran IVPUSH Q4H PRN Nausea Oxycodone HCl 5 mg 06/12/19 04:00 06/13/19 04:19 Oxycodone PO 5 mg Q4H PRN Administration Pain Polyethylene Glycol 17 gm 06/11/19 16:46 Miralax PO DAILY PRN Constipation Discontinued Medications Generic Name Dose Route Start Last Admin Trade Name Freq PRN Reason Stop Dose Admin Albuterol/Ipratropium 3 ml 06/11/19 14:37 06/11/19 14:43 Duoneb 3.0-0.5 Mg/3 Ml NEB 06/11/19 14:38 3 ml ONETIME ONE Administration Albuterol/Ipratropium 3 ml 06/11/19 14:45 06/11/19 14:50 Duoneb 3.0-0.5 Mg/3 Ml NEB 06/11/19 14:46 Not Given ONETIME ONE Fentanyl 50 mcg 06/11/19 15:44 06/11/19 15:52 Fentanyl IVPUSH 06/11/19 15:45 Not Given ONETIME ONE Fentanyl Confirm 06/11/19 15:48 06/11/19 15:52 Sublimaze Administered 06/11/19 15:49 50 mcg Dose Administration 100 mcg .ROUTE .STK-MED ONE Fexofenadine HCl 180 mg 06/12/19 09:00 06/12/19 08:55 Diamond PO 180 mg DAILY JESSEE Administration Furosemide 40 mg 06/11/19 17:25 06/11/19 18:13 Lasix IVPUSH 06/11/19 17:26 40 mg NOW ONE Administration Vancomycin HCl 1 gm/ Sodium 250 mls @ 166 mls/hr 06/11/19 16:08 06/11/19 16: 42 Chloride IV 06/11/19 17:38 166 mls/hr ONETIME ONE Administration Vancomycin HCl 1 gm/ Sodium 250 mls @ 166.667 mls/hr 06/12/19 05:00 06/12/19 04:41 Chloride IV 166.667 mls/hr Q12H JESSEE Administration Vancomycin HCl 1 gm/ Sodium 250 mls @ 250 mls/hr 06/12/19 08:00 06/12/19 08: 49 Chloride IV 06/12/19 08:59 250 mls/hr 06/12/19@0800 JESSEE Administration Magnesium Sulfate 2 gm/ Premix 50 mls @ 50 mls/hr 06/13/19 00:46 06/13/19 01: 24 IV 06/13/19 01:45 50 mls/hr ONETIME ONE Administration Ibuprofen 600 mg 06/11/19 16:46 Motrin PO Q6H PRN Pain (mild 1-3) Labetalol HCl 100 mg 06/11/19 18:53 06/11/19 22:46 Normodyne PO 06/11/19 18:54 Not Given ONETIME ONE Lisinopril 10 mg 06/11/19 19:00 Prinivil PO DAILY JESSEE Methylprednisolone Sodium Succinate 125 mg 06/11/19 15:00 06/11/19 15:08 Solu-Medrol IV 06/11/19 15:01 125 mg ONETIME ONE Administration Oxycodone HCl 10 mg 06/11/19 17:26 Oxycodone PO BID PRN Pain Oxycodone HCl 10 mg 06/11/19 18:10 06/11/19 20:46 Oxycodone PO 10 mg Q8H PRN Administration Pain Departure - Departure Time of Disposition: 16:26 Disposition: Refer to Observation Condition: Good Clinical Impression: Cellulitis of lower leg, Dyspnea on minimal exertion - Discharge Information Sepsis Event Note - Focused Exam Date Exam was Performed: 06/13/19 Time Exam was Performed: 08:00
[2019-06-11] MEDS ORDERED: Albuterol/Ipratropium 3.0-0.5 MG/3 ML Neb Soln NEB ONE ×2 (14:37→14:45)
[2019-06-11] MEDS ORDERED: methylPREDNISolone Sodium Succinate 125 MG/2 ML SDV IV ONE (15:00)
[2019-06-11 15:10] LABS: CARBON DIOXIDE,CO2 35.6 mmol/L (21.0-32.0)
[2019-06-11] MEDS ORDERED: fentaNYL 50 MCG/ML SDV IVPUSH ONE (15:44)
[2019-06-11] MEDS ORDERED: fentaNYL 100 MCG/2 ML SDV ONE (15:48)
[2019-06-11] MEDS ORDERED: Ondansetron 4 MG/2 ML SDV IVPUSH PRN (16:46)
[2019-06-11] MEDS ORDERED: Acetaminophen 325 MG Tab PO PRN (16:46)
[2019-06-11] MEDS ORDERED: Ondansetron 4 MG Tab.DIS PO PRN (16:46)
[2019-06-11] MEDS ORDERED: Polyethylene Glycol 3350 Powder 17 GM Packet PO PRN (16:46)
[2019-06-11] MEDS ORDERED: Ibuprofen 600 MG Tab PO PRN (16:46)
--- NOTE | 2019-06-11 16:55 | CR ---
Chest: Portable view of the chest was obtained. Comparison: Previous chest x-ray of 04/29/18. Heart is enlarged. Pulmonary vessels are congested. Uncertain if findings are acute or represent chronic CHF. There is slight density within the right lung base. Bony structures are grossly intact. Impression: 1. Findings compatible with CHF. Uncertain if findings are chronic or acute on chronic. 2. Mild right basilar atelectasis or small area of pneumonia Diagnostic code #3 This report was dictated in [place] Standard Time
--- NOTE | 2019-06-11 17:22 | PCM.HP.2 ---
<Michele Hammer - Last Filed: 06/11/19 18:14> H&P History of Present Illness - General Date of Service: 06/11/19 Admit Problem/Dx: Admission Diagnosis/Problem Admission Diagnosis/Problem Dyspnea on exertion - History of Present Illness Initial Comments - Free Text/Narative: 68 y/o female with complex medical history which includes CHF, COPD, DM2, Hypertension, Morbid obesity presenting today to the ER complaining of bilateral lower leg swelling, pain, worse on left leg. Patient states that for the past 1 month her lower legs have been getting more swollen, red and tender. Have started weeping and some depended superficial ulceration since she has not been able to get out of bed and walk around due to pain. Has not been compliant with her medications at home. She has home O2 at 4 L which is her baseline. States she has white sputum. No fever. No chest pain. Endorses dyspnea with exertion. No abdominal pain, dysuria, diarrhea. - Related Data Allergies/Adverse Reactions: Allergies Allergy/AdvReac Type Severity Reaction Status Date / Time aspartame Allergy Other Verified 02/16/17 20:20 [From Nutrasweet Aspartame] banana Allergy Other Verified 02/19/17 12:02 egg Allergy Other Verified 02/16/17 20:20 fluconazole Allergy Burning Verified 02/16/17 20:20 formaldehyde Allergy Other Verified 02/16/17 20:20 latex Allergy Other Verified 02/16/17 20:20 levofloxacin [From Levaquin] Allergy Other Verified 02/16/17 20:20 lisinopril Allergy Other Verified 02/16/17 20:20 losartan Allergy Anaphylactic Verified 04/25/18 22:10 Shock morphine Allergy Other Verified 02/16/17 20:20 perfume Allergy Cough Verified 02/16/17 20:20 petrolatum,white Allergy Other Verified 02/16/17 20:20 [From Petroleum Jelly] petrolatum,white Allergy Other Verified 04/26/18 01:35 propoxyphene Allergy Other Verified 04/26/18 01:37 propoxyphene HCl Allergy Other Verified 02/16/17 20:20 [From Darvon] soy Allergy Other Verified 02/16/17 20:20 spironolactone Allergy Chest Verified 02/16/17 20:20 Presssure Sulfa (Sulfonamide Allergy Other Verified 02/16/17 20:20 Antibiotics) Home Medications: Home Meds RX: Furosemide [Lasix] 40 mg PO BIDDIURETIC 30 Days #60 tablet 02/28/17 [Rx] RX: Doxycycline [Vibramycin] 100 mg PO BID 04/25/18 [History] RX: oxyCODONE 10 mg PO BID PRN 04/25/18 [History] RX: Fexofenadine [Diamond] 180 mg PO DAILY 06/11/19 [History] Past Medical History HEENT History: Reports: None Cardiovascular History: Reports: Heart Failure, Hypertension Respiratory History: Reports: Bronchitis, Recurrent Gastrointestinal History: Reports: None Genitourinary History: Reports: Urinary Incontinence 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: Musculoskeletal History: Reports: Back Pain, Chronic Other Musculoskeletal History: Had Lumbar surgery Neurological History: Reports: None Psychiatric History: Reports: Depression Endocrine/Metabolic History: Reports: Diabetes, Type II, Other (See Below) Other Endocrine/Metabolic History: per prior record has DM II, patient denies that she is diabetic - Infectious Disease History Infectious Disease History: Reports: None - Past Surgical History Cardiovascular Surgical History: Reports: Other (See Below), Vascular Surgery Female Surgical History: Reports: Section, Hysterectomy Social & Family History - Family History Family Medical History: Noncontributory - Tobacco Use Smoking Status *Q: Current Every Day Smoker Years of Tobacco use: 50 Packs/Tins Daily: 0.3 - Caffeine Use Caffeine Use: Reports: None, Soda - Recreational Drug Use Recreational Drug Use: No H&P Review of Systems - Review of Systems: Review Of Systems: Comprehensive ROS is negative, except as noted in HPI. Exam - Exam Exam: See Below - Vital Signs Vital Signs: Last Vital Signs Temp 36.3 C 06/11/19 14:33 Pulse 81 06/11/19 16:14 Resp 28 H 06/11/19 16:14 BP 184/79 H 06/11/19 16:14 Pulse Ox 91 L 06/11/19 16:14 Weight: 136.078 kg - Exam Quality Assessment: Supplemental Oxygen General: Alert, Oriented, Cooperative HEENT: Conjunctiva Clear, Pupils Equal, Pupils Reactive. No: Mucosa Moist & [place] Lungs: Clear to Auscultation. No: Crackles, Rhonchi, Wheezing Cardiovascular: Regular Rate, Regular Rhythm, Systolic Murmur GI/Abdominal Exam: Normal Bowel Sounds, Soft, Non-Tender, Other (large habitus) Extremities: Other (2+ pitting edema up to knees. Erythema, warm and ternde bilaterally up to knees with some dependent ulceration on left leg with serous drainage.) Skin: Warm Neuro Extensive - Mental Status: Alert, Oriented x3 - Patient Data Lab Results Last 24 hrs: Laboratory Results - last 24 hr 06/11/19 06/11/19 06/11/19 Range/Units 14:30 14:30 14:30 WBC 10.27 (4.0-11.0) K/uL RBC 4.66 (4.30-5.90) M/uL Hgb 14.7 (12.0-16.0) g/dL Hct 46.3 H (36.0-46.0) % MCV 99.4 H (80.0-98.0) fL MCH 31.5 (27.0-32.0) pg MCHC 31.7 (31.0-37.0) g/dL RDW Std Deviation 50.3 (28.0-62.0) fl RDW Coeff of Robert 14 (11.0-15.0) % Plt Count 239 (150-400) K/uL MPV 10.70 (7.40-12.00) fL Neut % (Auto) 70.3 (48.0-80.0) % Lymph % (Auto) 20.2 (16.0-40.0) % [place] % (Auto) 8.3 (0.0-15.0) % Eos % (Auto) 1.0 (0.0-7.0) % Baso % (Auto) 0.2 (0.0-1.5) % Neut # (Auto) 7.2 H (1.4-5.7) K/uL Lymph # (Auto) 2.1 (0.6-2.4) K/uL [place] # (Auto) 0.9 H (0.0-0.8) K/uL Eos # (Auto) 0.1 (0.0-0.7) K/uL Baso # (Auto) 0.0 (0.0-0.1) K/uL Nucleated RBC % 0.0 /100WBC Nucleated RBCs # 0 K/uL Lactate 0.9 (0.20-2.00) mmol/L Sodium 141 (136-145) mmol/L Potassium 4.0 (3.5-5.1) mmol/L Chloride 102 (98-107) mmol/L Carbon Dioxide 35.6 H (21.0-32.0) mmol/L BUN 17 (7.0-18.0) mg/dL Creatinine 1.0 (0.6-1.0) mg/dL Est Cr Clr Drug Dosing 53.81 mL/min Estimated GFR (MDRD) 55.5 ml/min Glucose 152 H (74-106) mg/dL Calcium 8.9 (8.5-10.1) mg/dL Total Bilirubin 0.5 (0.2-1.0) mg/dL AST 14 L (15-37) IU/L ALT 16 (14-63) IU/L Alkaline Phosphatase 105 (46-116) U/L B-Natriuretic Peptide (<100) PG/ML Total Protein 7.5 (6.4-8.2) g/dL Albumin 3.1 L (3.4-5.0) g/dL Globulin 4.4 H (2.6-4.0) g/dL Albumin/Globulin Ratio 0.7 L (0.9-1.6) Urine Color Urine Appearance Urine pH (5.0-8.0) Ur Specific [place] (1.001-1.035) Urine Protein (NEGATIVE) mg/dL Urine Glucose (UA) (NEGATIVE) mg/dL Urine Ketones (NEGATIVE) mg/dL Urine Occult Blood (NEGATIVE) Urine Nitrite (NEGATIVE) Urine Bilirubin (NEGATIVE) Urine Urobilinogen (<2.0) EU/dL Ur Leukocyte Esterase (NEGATIVE) Urine RBC (0-2/HPF) Urine WBC (0-5/HPF) Ur Epithelial Cells (NONE-FEW) Urine Bacteria (NEGATIVE) Urine Yeast 06/11/19 06/11/19 Range/Units 14:30 16:13 WBC (4.0-11.0) K/uL RBC (4.30-5.90) M/uL Hgb (12.0-16.0) g/dL Hct (36.0-46.0) % MCV (80.0-98.0) fL MCH (27.0-32.0) pg MCHC (31.0-37.0) g/dL RDW Std Deviation (28.0-62.0) fl RDW Coeff of Robert (11.0-15.0) % Plt Count (150-400) K/uL MPV (7.40-12.00) fL Neut % (Auto) (48.0-80.0) % Lymph % (Auto) (16.0-40.0) % [place] % (Auto) (0.0-15.0) % Eos % (Auto) (0.0-7.0) % Baso % (Auto) (0.0-1.5) % Neut # (Auto) (1.4-5.7) K/uL Lymph # (Auto) (0.6-2.4) K/uL [place] # (Auto) (0.0-0.8) K/uL Eos # (Auto) (0.0-0.7) K/uL Baso # (Auto) (0.0-0.1) K/uL Nucleated RBC % /100WBC Nucleated RBCs # K/uL Lactate (0.20-2.00) mmol/L Sodium (136-145) mmol/L Potassium (3.5-5.1) mmol/L Chloride (98-107) mmol/L Carbon Dioxide (21.0-32.0) mmol/L BUN (7.0-18.0) mg/dL Creatinine (0.6-1.0) mg/dL Est Cr Clr Drug Dosing mL/min Estimated GFR (MDRD) ml/min Glucose (74-106) mg/dL Calcium (8.5-10.1) mg/dL Total Bilirubin (0.2-1.0) mg/dL AST (15-37) IU/L ALT (14-63) IU/L Alkaline Phosphatase (46-116) U/L B-Natriuretic Peptide 447 H (<100) PG/ML Total Protein (6.4-8.2) g/dL Albumin (3.4-5.0) g/dL Globulin (2.6-4.0) g/dL Albumin/Globulin Ratio (0.9-1.6) Urine Color YELLOW Urine Appearance CLEAR Urine pH 5.0 (5.0-8.0) Ur Specific [place] >= 1.030 (1.001-1.035) Urine Protein 100 H (NEGATIVE) mg/dL Urine Glucose (UA) NEGATIVE (NEGATIVE) mg/dL Urine Ketones NEGATIVE (NEGATIVE) mg/dL Urine Occult Blood TRACE-INTACT H (NEGATIVE) Urine Nitrite NEGATIVE (NEGATIVE) Urine Bilirubin NEGATIVE (NEGATIVE) Urine Urobilinogen 1.0 (<2.0) EU/dL Ur Leukocyte Esterase NEGATIVE (NEGATIVE) Urine RBC 0-2 (0-2/HPF) Urine WBC 1-3 (0-5/HPF) Ur Epithelial Cells FEW (NONE-FEW) Urine Bacteria FEW (NEGATIVE) Urine Yeast FEW Result Diagrams: 06/11/19 14:30 06/11/19 14:30 Samuel Results Last 24 hrs: Microbiology 06/11/19 15:12 Influenza Type A Antigen Screen - Final Nasopharyngeal Swab NEGATIVE INFLUENZA A VIRUS AG REFERENCE RANGE: NEGATIVE Influenza Type B Antigen Screen - Final NEGATIVE INFLUENZA B VIRUS AG REFERENCE RANGE: NEGATIVE Sepsis Event Note - Evaluation Sepsis Screening Result: No Definite Risk - Focused Exam Vital Signs: Vital Signs Temp Pulse Resp BP Pulse Ox 06/11/19 16:14 81 28 H 184/79 H 91 L 06/11/19 14:33 36.3 C 81 20 227/88 H 96 Date Exam was Performed: 06/11/19 Time Exam was Performed: 18:14 Problem List Initiated/Reviewed/Updated: Yes Orders Last 24hrs: Active Orders 24 hr Category Date Time Status Patient Status [ADT] Routine ADT 06/11/19 16:46 Active Blood Glucose Check, Bedside [RC] QIDACANDBED Care 06/11/19 16:46 Active Cardiac Monitoring [RC] CONTINUOUS Care 06/11/19 16:48 Active Daily Weight [Height and Weight] [RC] DAILY Care 06/11/19 17:10 Active EKG 12 Lead [EKG Documentation Completion] [RC] STAT Care 06/11/19 15:43 Active Intake and Output Strict [RC] ASDIRECTED Care 06/11/19 17:09 Active Intake and Output [RC] QSHIFT Care 06/11/19 16:48 Active Oxygen Therapy [RC] PRN Care 06/11/19 16:46 Active RT Aerosol Therapy [RC] ASDIRECTED Care 06/11/19 14:38 Active RT Aerosol Therapy [RC] ASDIRECTED Care 06/11/19 14:46 Active RT Aerosol Therapy [RC] ASDIRECTED Care 06/11/19 16:50 Active Up With Assistance [RC] ASDIRECTED Care 06/11/19 16:46 Active VTE/DVT Education [RC] PER UNIT ROUTINE Care 06/11/19 16:46 Active Vital Signs [RC] Q4H Care 06/11/19 16:46 Active Consult to Wound Care Services [CONS] Stat Cons 06/11/19 16:52 Active PT Evaluation and Treatment [CONS] Routine Cons 06/11/19 16:46 Active [employer] Diet [DIET] Diet 06/11/19 Dinner Active Fluid Restriction [DIET] Diet 06/11/19 Breakfast Active Echo Comp wo Cont [US] Stat Exams 06/11/19 17:02 Ordered CBC WITH AUTO DIFF [HEME] AM Lab 06/12/19 05:11 Ordered CBC WITH AUTO DIFF [HEME] AM Lab 06/13/19 05:11 Ordered CBC WITH AUTO DIFF [HEME] AM Lab 06/14/19 05:11 Ordered COMPREHENSIVE METABOLIC PN,CMP [CHEM] AM Lab 06/12/19 05:11 Ordered COMPREHENSIVE METABOLIC PN,CMP [CHEM] AM Lab 06/13/19 05:11 Ordered COMPREHENSIVE METABOLIC PN,CMP [CHEM] AM Lab 06/14/19 05:11 Ordered CULTURE BLOOD [BC] Stat Lab 06/11/19 14:30 Received CULTURE BLOOD [BC] Stat Lab 06/11/19 14:52 Received GLYCOSYLATED HEMOGLOBIN,HGBA1C [CHEM] Stat Lab 06/11/19 16:58 Ordered LIPID PANEL [CHEM] AM Lab 06/12/19 05:11 Ordered TROPONIN I [CHEM] Q8H Lab 06/11/19 14:30 Received TROPONIN I [CHEM] Q8H Lab 06/12/19 00:55 Ordered TROPONIN I [CHEM] Q8H Lab 06/12/19 08:55 Ordered TSH [CHEM] Stat Lab 06/11/19 14:30 Received Acetaminophen [Tylenol] Med 06/11/19 16:46 Active 650 mg PO Q4H PRN Albuterol/Ipratropium [DuoNeb 3.0-0.5 MG/3 ML] Med 06/11/19 16:46 Active 3 ml NEB Q4HRRT PRN Enoxaparin [Lovenox] Med 06/11/19 17:00 Active 40 mg SUBCUT Q24H Ibuprofen [Motrin] Med 06/11/19 16:46 Active 600 mg PO Q6H PRN Insulin Aspart [NovoLOG] Med 06/12/19 07:30 Active See Protocol SUBCUT TIDAC Ondansetron [Zofran ODT] Med 06/11/19 16:46 Active 4 mg PO Q4H PRN Ondansetron [Zofran] Med 06/11/19 16:46 Active 4 mg IVPUSH Q4H PRN Vancomycin 1 gm Med 06/11/19 17:15 Ordered Sodium Chloride 0.9% [Normal Saline (AdvBag)] 250 ml IV Q12H polyethylene glycoL 3350 [MiraLAX] Med 06/11/19 16:46 Active 17 gm PO DAILY PRN Blood Culture x2 Reflex Set [OM.PC] Stat Oth 06/11/19 14:45 Ordered Resuscitation Status Routine Resus Stat 06/11/19 16:46 Ordered Medication Orders Acetaminophen (Tylenol) 650 mg PO Q4H PRN PRN Reason: Pain (Mild 1-3)/fever Albuterol/Ipratropium (Duoneb 3.0-0.5 Mg/3 Ml) 3 ml NEB Q4HRRT PRN PRN Reason: Shortness Of Breath/wheezing Enoxaparin Sodium (Lovenox) 40 mg SUBCUT Q24H JESSEE Vancomycin HCl 1 gm/ Sodium (Chloride) 250 mls @ 166 mls/hr IV Q12H JESSEE Ibuprofen (Motrin) 600 mg PO Q6H PRN PRN Reason: Pain (mild 1-3) Insulin Aspart (Novolog) 0 unit SUBCUT TIDAC JESSEE; Protocol Ondansetron HCl (Zofran Odt) 4 mg PO Q4H PRN PRN Reason: nausea, able to take PO Ondansetron HCl (Zofran) 4 mg IVPUSH Q4H PRN PRN Reason: Nausea Polyethylene Glycol (Miralax) 17 gm PO DAILY PRN PRN Reason: Constipation Assessment/Plan Comment:: A: 1. Acute on chronic CHF exacerbation 2. Cellulitis lower extremities 3. COPD 4. DM2 5. Hypertension 6. Morbid obesity 7. Tobacco abuse 8. Medical non-compliance P: 1. Acute on chronic CHF exacerbation. Will give lasix 40 mg IV once. Monitor I/ O. Fluid restriction 2 L/day. Daily weights. Ordered Echo. Patient refused CT Angio Chest since she states she is allergic to contrast. Will hold off on CT chest for now. Placed on Telemetry. 2. Cellulitis- mixed component with some venous insufficiency and cellulitis with depended ulceration. Will start Vancomycin 1 g IV Q12H. Monitor renal function. In addition, placed consult to PT and wound care. 3. DM2- ISS, diabetic diet. Recheck A1c. Resume home medications. 4. COPD- Duoneb PRN, resume home medications. Dispo: 2-3 days. <Irineo Hemphill - Last Filed: 06/12/19 20:14> H&P History of Present Illness - General Admit Problem/Dx: Admission Diagnosis/Problem Admission Diagnosis/Problem Dyspnea on exertion Exam - Vital Signs Vital Signs: Last Vital Signs Temp 36.6 C 06/12/19 16:00 Pulse 72 06/12/19 16:00 Resp 16 06/12/19 16:00 BP 171/66 H 06/12/19 16:00 Pulse Ox 91 L 06/12/19 17:00 - Patient Data Lab Results Last 24 hrs: Laboratory Results - last 24 hr 06/11/19 06/12/19 06/12/19 Range/Units 20:52 05:33 05:33 WBC (4.0-11.0) K/uL RBC (4.30-5.90) M/uL Hgb (12.0-16.0) g/dL Hct (36.0-46.0) % MCV (80.0-98.0) fL MCH (27.0-32.0) pg MCHC (31.0-37.0) g/dL RDW Std Deviation (28.0-62.0) fl RDW Coeff of Robert (11.0-15.0) % Plt Count (150-400) K/uL MPV (7.40-12.00) fL Neut % (Auto) (48.0-80.0) % Lymph % (Auto) (16.0-40.0) % [place] % (Auto) (0.0-15.0) % Eos % (Auto) (0.0-7.0) % Baso % (Auto) (0.0-1.5) % Neut # (Auto) (1.4-5.7) K/uL Lymph # (Auto) (0.6-2.4) K/uL [place] # (Auto) (0.0-0.8) K/uL Eos # (Auto) (0.0-0.7) K/uL Baso # (Auto) (0.0-0.1) K/uL Nucleated RBC % /100WBC Nucleated RBCs # K/uL Sodium 146 H (136-145) mmol/L Potassium 4.8 (3.5-5.1) mmol/L Chloride 106 (98-107) mmol/L Carbon Dioxide 33.6 H (21.0-32.0) mmol/L BUN 24 H (7.0-18.0) mg/dL Creatinine 1.2 H (0.6-1.0) mg/dL Est Cr Clr Drug Dosing 44.85 mL/min Estimated GFR (MDRD) 44.9 ml/min Glucose 187 H (74-106) mg/dL POC Glucose 240 H (60-110) mg/dL Hemoglobin A1c 6.8 H (4.5-6.2) % Calcium 8.7 (8.5-10.1) mg/dL Total Bilirubin 0.5 (0.2-1.0) mg/dL AST 12 L (15-37) IU/L ALT 16 (14-63) IU/L Alkaline Phosphatase 93 (46-116) U/L Total Protein 7.1 (6.4-8.2) g/dL Albumin 2.8 L (3.4-5.0) g/dL Globulin 4.3 H (2.6-4.0) g/dL Albumin/Globulin Ratio 0.7 L (0.9-1.6) Triglycerides 42 (0-200) mg/dL Cholesterol 194 (50-200) mg/dL LDL Cholesterol, Calc 122 (60-180) mg/dL VLDL Cholesterol 8 (5-55) mg/dL HDL Cholesterol 64 H (40-60) mg/dL Cholesterol/HDL Ratio 3.0 L (3.3-6.0) 06/12/19 06/12/19 06/12/19 Range/Units 05:33 08:35 12:44 WBC 10.35 (4.0-11.0) K/uL RBC 4.65 (4.30-5.90) M/uL Hgb 14.5 (12.0-16.0) g/dL Hct 45.2 (36.0-46.0) % MCV 97.2 (80.0-98.0) fL MCH 31.2 (27.0-32.0) pg MCHC 32.1 (31.0-37.0) g/dL RDW Std Deviation 48.6 (28.0-62.0) fl RDW Coeff of Robert 14 (11.0-15.0) % Plt Count 244 (150-400) K/uL MPV 10.40 (7.40-12.00) fL Neut % (Auto) 88.8 H (48.0-80.0) % Lymph % (Auto) 7.8 L (16.0-40.0) % [place] % (Auto) 3.4 (0.0-15.0) % Eos % (Auto) 0.0 (0.0-7.0) % Baso % (Auto) 0.0 (0.0-1.5) % Neut # (Auto) 9.2 H (1.4-5.7) K/uL Lymph # (Auto) 0.8 (0.6-2.4) K/uL [place] # (Auto) 0.4 (0.0-0.8) K/uL Eos # (Auto) 0.0 (0.0-0.7) K/uL Baso # (Auto) 0.0 (0.0-0.1) K/uL Nucleated RBC % 0.0 /100WBC Nucleated RBCs # 0 K/uL Sodium (136-145) mmol/L Potassium (3.5-5.1) mmol/L Chloride (98-107) mmol/L Carbon Dioxide (21.0-32.0) mmol/L BUN (7.0-18.0) mg/dL Creatinine (0.6-1.0) mg/dL Est Cr Clr Drug Dosing mL/min Estimated GFR (MDRD) ml/min Glucose (74-106) mg/dL POC Glucose 136 H 155 H (60-110) mg/dL Hemoglobin A1c (4.5-6.2) % Calcium (8.5-10.1) mg/dL Total Bilirubin (0.2-1.0) mg/dL AST (15-37) IU/L ALT (14-63) IU/L Alkaline Phosphatase (46-116) U/L Total Protein (6.4-8.2) g/dL Albumin (3.4-5.0) g/dL Globulin (2.6-4.0) g/dL Albumin/Globulin Ratio (0.9-1.6) Triglycerides (0-200) mg/dL Cholesterol (50-200) mg/dL LDL Cholesterol, Calc (60-180) mg/dL VLDL Cholesterol (5-55) mg/dL HDL Cholesterol (40-60) mg/dL Cholesterol/HDL Ratio (3.3-6.0) 06/12/19 Range/Units 17:09 WBC (4.0-11.0) K/uL RBC (4.30-5.90) M/uL Hgb (12.0-16.0) g/dL Hct (36.0-46.0) % MCV (80.0-98.0) fL MCH (27.0-32.0) pg MCHC (31.0-37.0) g/dL RDW Std Deviation (28.0-62.0) fl RDW Coeff of Robert (11.0-15.0) % Plt Count (150-400) K/uL MPV (7.40-12.00) fL Neut % (Auto) (48.0-80.0) % Lymph % (Auto) (16.0-40.0) % [place] % (Auto) (0.0-15.0) % Eos % (Auto) (0.0-7.0) % Baso % (Auto) (0.0-1.5) % Neut # (Auto) (1.4-5.7) K/uL Lymph # (Auto) (0.6-2.4) K/uL [place] # (Auto) (0.0-0.8) K/uL Eos # (Auto) (0.0-0.7) K/uL Baso # (Auto) (0.0-0.1) K/uL Nucleated RBC % /100WBC Nucleated RBCs # K/uL Sodium (136-145) mmol/L Potassium (3.5-5.1) mmol/L Chloride (98-107) mmol/L Carbon Dioxide (21.0-32.0) mmol/L BUN (7.0-18.0) mg/dL Creatinine (0.6-1.0) mg/dL Est Cr Clr Drug Dosing mL/min Estimated GFR (MDRD) ml/min Glucose (74-106) mg/dL POC Glucose 187 H (60-110) mg/dL Hemoglobin A1c (4.5-6.2) % Calcium (8.5-10.1) mg/dL Total Bilirubin (0.2-1.0) mg/dL AST (15-37) IU/L ALT (14-63) IU/L Alkaline Phosphatase (46-116) U/L Total Protein (6.4-8.2) g/dL Albumin (3.4-5.0) g/dL Globulin (2.6-4.0) g/dL Albumin/Globulin Ratio (0.9-1.6) Triglycerides (0-200) mg/dL Cholesterol (50-200) mg/dL LDL Cholesterol, Calc (60-180) mg/dL VLDL Cholesterol (5-55) mg/dL HDL Cholesterol (40-60) mg/dL Cholesterol/HDL Ratio (3.3-6.0) Result Diagrams: 06/12/19 05:33 06/12/19 05:33 Samuel Results Last 24 hrs: Microbiology 06/11/19 14:52 Aerobic Blood Culture - Preliminary Blood - Venous - Lab Draw NO GROWTH AFTER 1 DAY Anaerobic Blood Culture - Preliminary NO GROWTH AFTER 1 DAY 06/11/19 14:30 Aerobic Blood Culture - Preliminary Blood - Venous NO GROWTH AFTER 1 DAY Anaerobic Blood Culture - Preliminary NO GROWTH AFTER 1 DAY 06/11/19 15:12 Influenza Type A Antigen Screen - Final Nasopharyngeal Swab NEGATIVE INFLUENZA A VIRUS AG REFERENCE RANGE: NEGATIVE Influenza Type B Antigen Screen - Final NEGATIVE INFLUENZA B VIRUS AG REFERENCE RANGE: NEGATIVE Sepsis Event Note - Focused Exam Vital Signs: Vital Signs Temp Pulse Resp BP BP Pulse Ox Pulse Ox 06/12/19 17:00 91 L 06/12/19 16:00 36.6 C 72 16 171/66 H 91 L 06/12/19 12:00 36.6 C 79 16 181/81 H 91 L 06/12/19 08:30 36.8 C 92 17 183/81 H 93 L Date Exam was Performed: 06/12/19 Time Exam was Performed: 20:13 Orders Last 24hrs: Active Orders 24 hr Category Date Time Status Echo Comp wo Cont [US] Stat Exams 06/12/19 17:02 Taken CBC WITH AUTO DIFF [HEME] AM Lab 06/13/19 05:11 Ordered CBC WITH AUTO DIFF [HEME] AM Lab 06/14/19 05:11 Ordered COMPREHENSIVE METABOLIC PN,CMP [CHEM] AM Lab 06/13/19 05:11 Ordered COMPREHENSIVE METABOLIC PN,CMP [CHEM] AM Lab 06/14/19 05:11 Ordered VANCOMYCIN TROUGH [CHEM] Timed Lab 06/14/19 07:30 Ordered Doxycycline [Vibramycin] Med 06/11/19 21:00 Active 100 mg PO BID Fexofenadine [Diamond] Med 06/12/19 09:23 Active 60 mg PO TID PRN Furosemide [Lasix] Med 06/12/19 14:00 Active 40 mg PO BIDDIURETIC Insulin Aspart [NovoLOG] Med 06/12/19 07:30 Active See Protocol SUBCUT TIDAC Labetalol [Normodyne] Med 06/11/19 22:29 Active 10 mg IVPUSH Q6H PRN VANCOmycin/Water for INJ (PEG) [VANCOmycin 1.5 GM/300 Med 06/12/19 20:00 Active ML Premix] 1.5 gm Premix Bag 1 bag IV Q12H oxyCODONE Med 06/12/19 04:00 Active 5 mg PO Q4H PRN Medication Orders Acetaminophen (Tylenol) 650 mg PO Q4H PRN PRN Reason: Pain (Mild 1-3)/fever Albuterol/Ipratropium (Duoneb 3.0-0.5 Mg/3 Ml) 3 ml NEB Q4HRRT PRN PRN Reason: Shortness Of Breath/wheezing Last Admin: 06/12/19 12:54 Dose: 3 ml Doxycycline Hyclate (Vibramycin) 100 mg PO BID [facility] Last Admin: 06/12/19 08:55 Dose: 100 mg Admin: 06/11/19 20:51 Dose: 100 mg Enoxaparin Sodium (Lovenox) 40 mg SUBCUT Q24H JESSEE Last Admin: 06/12/19 17:04 Dose: Not Given Admin: 06/11/19 18:18 Dose: Not Given Fexofenadine HCl (Diamond) 60 mg PO TID PRN PRN Reason: Allergies Last Admin: 02/11/20 19:42 Dose: 60 mg Furosemide (Lasix) 40 mg PO BIDDIURETIC JESSEE Last Admin: 06/12/19 13:51 Dose: 40 mg Vancomycin HCl 1.5 gm/ Premix 300 mls @ 150 mls/hr IV Q12H JESSEE Last Admin: 06/12/19 19:43 Dose: 150 mls/hr Insulin Aspart (Novolog) 0 unit SUBCUT TIDAC JESSEE; Protocol Last Admin: 06/12/19 17:21 Dose: Not Given Admin: 06/12/19 12:57 Dose: Not Given Admin: 06/12/19 08:38 Dose: Not Given Labetalol HCl (Normodyne) 10 mg IVPUSH Q6H PRN; Protocol PRN Reason: Hypertension Ondansetron HCl (Zofran Odt) 4 mg PO Q4H PRN PRN Reason: nausea, able to take PO Ondansetron HCl (Zofran) 4 mg IVPUSH Q4H PRN PRN Reason: Nausea Oxycodone HCl (Oxycodone) 5 mg PO Q4H PRN PRN Reason: Pain Last Admin: 06/12/19 19:44 Dose: 5 mg Admin: 06/12/19 13:51 Dose: 5 mg Admin: 06/12/19 08:53 Dose: 5 mg Admin: 06/12/19 03:24 Dose: 5 mg Polyethylene Glycol (Miralax) 17 gm PO DAILY PRN PRN Reason: Constipation Assessment/Plan Comment:: I have performed history and physical of this patient, physical exam was limited due to patient being non-cooperative during encounter. I agree with the residents note unless specified in my note
[2019-06-11] MEDS ORDERED: Furosemide 40 MG/4 ML VIAL IVPUSH ONE (17:25)
[2019-06-11] MEDS ORDERED: oxyCODONE 5 MG Tab PO PRN ×2 (17:26→18:10)
[2019-06-11] MEDS: Enoxaparin 40 MG/0.4 ML Syringe SUBCUT SCH ×2 (18:12→18:18)
[2019-06-11] MEDS ORDERED: Labetalol 100 MG Tab PO ONE (18:53)
[2019-06-11] MEDS ORDERED: Lisinopril 10 MG Tab PO SCH (19:00)
[2019-06-11] MEDS: Doxycycline 100 MG Cap PO SCH (20:51)
[2019-06-11] MEDS ORDERED: Labetalol 100 MG/20 ML MDV IVPUSH PRN (22:29)
[2019-06-12] MEDS: oxyCODONE 5 MG Tab PO PRN ×4 (03:24→19:44)
[2019-06-12 05:53] LABS: HEMOGLOBIN A1C 6.8 % (4.5-6.2)
[2019-06-12 06:00] LABS: CARBON DIOXIDE,CO2 33.6 mmol/L (21.0-32.0); POTASSIUM,K 4.8 mmol/L (3.5-5.1)
[2019-06-12] MEDS: Insulin Aspart 100 Units/ML 3 ML Pen SUBCUT SCH ×3 (08:38→17:21)
--- NOTE | 2019-06-12 08:38 | PCM.PN ---
<Michele Hammer - Last Filed: 06/12/19 11:07> - General Info Date of Service: 06/12/19 Subjective Update: Doing well this morning. Patient apologized about yesterday when she was irritable. States she can lift her legs now. took a shower and feels better. No chest pain, dyspnea, abdominal pain. No diarrhea. Pain in lower extremities is better now. - Patient Data Vitals - Most Recent: Last Vital Signs Temp 36.8 C 06/12/19 03:26 Pulse 91 06/12/19 03:26 Resp 19 06/12/19 03:26 BP 189/77 H 06/12/19 03:26 Pulse Ox 91 L 06/12/19 03:26 Weight - Most Recent: 129.6 kg I&O - Last 24 Hours: Intake & Output 06/11/19 06/12/19 06/12/19 22:59 06:59 14:59 Intake Total 1240 Output Total 1100 Balance 140 Lab Results Last 24 Hours: Laboratory Results - last 24 hr 06/11/19 06/11/19 06/11/19 Range/Units 14:30 14:30 14:30 WBC 10.27 (4.0-11.0) K/uL RBC 4.66 (4.30-5.90) M/uL Hgb 14.7 (12.0-16.0) g/dL Hct 46.3 H (36.0-46.0) % MCV 99.4 H (80.0-98.0) fL MCH 31.5 (27.0-32.0) pg MCHC 31.7 (31.0-37.0) g/dL RDW Std Deviation 50.3 (28.0-62.0) fl RDW Coeff of Robert 14 (11.0-15.0) % Plt Count 239 (150-400) K/uL MPV 10.70 (7.40-12.00) fL Neut % (Auto) 70.3 (48.0-80.0) % Lymph % (Auto) 20.2 (16.0-40.0) % [place] % (Auto) 8.3 (0.0-15.0) % Eos % (Auto) 1.0 (0.0-7.0) % Baso % (Auto) 0.2 (0.0-1.5) % Neut # (Auto) 7.2 H (1.4-5.7) K/uL Lymph # (Auto) 2.1 (0.6-2.4) K/uL [place] # (Auto) 0.9 H (0.0-0.8) K/uL Eos # (Auto) 0.1 (0.0-0.7) K/uL Baso # (Auto) 0.0 (0.0-0.1) K/uL Nucleated RBC % 0.0 /100WBC Nucleated RBCs # 0 K/uL Lactate 0.9 (0.20-2.00) mmol/L Sodium 141 (136-145) mmol/L Potassium 4.0 (3.5-5.1) mmol/L Chloride 102 (98-107) mmol/L Carbon Dioxide 35.6 H (21.0-32.0) mmol/L BUN 17 (7.0-18.0) mg/dL Creatinine 1.0 (0.6-1.0) mg/dL Est Cr Clr Drug Dosing 53.81 mL/min Estimated GFR (MDRD) 55.5 ml/min Glucose 152 H (74-106) mg/dL POC Glucose (60-110) mg/dL Hemoglobin A1c (4.5-6.2) % Calcium 8.9 (8.5-10.1) mg/dL Total Bilirubin 0.5 (0.2-1.0) mg/dL AST 14 L (15-37) IU/L ALT 16 (14-63) IU/L Alkaline Phosphatase 105 (46-116) U/L Troponin I (0.000-0.056) ng/mL B-Natriuretic Peptide (<100) PG/ML Total Protein 7.5 (6.4-8.2) g/dL Albumin 3.1 L (3.4-5.0) g/dL Globulin 4.4 H (2.6-4.0) g/dL Albumin/Globulin Ratio 0.7 L (0.9-1.6) Triglycerides (0-200) mg/dL Cholesterol (50-200) mg/dL LDL Cholesterol, Calc (60-180) mg/dL VLDL Cholesterol (5-55) mg/dL HDL Cholesterol (40-60) mg/dL Cholesterol/HDL Ratio (3.3-6.0) TSH 3rd Generation (0.36-3.74) uIU/mL Urine Color Urine Appearance Urine pH (5.0-8.0) Ur Specific [place] (1.001-1.035) Urine Protein (NEGATIVE) mg/dL Urine Glucose (UA) (NEGATIVE) mg/dL Urine Ketones (NEGATIVE) mg/dL Urine Occult Blood (NEGATIVE) Urine Nitrite (NEGATIVE) Urine Bilirubin (NEGATIVE) Urine Urobilinogen (<2.0) EU/dL Ur Leukocyte Esterase (NEGATIVE) Urine RBC (0-2/HPF) Urine WBC (0-5/HPF) Ur Epithelial Cells (NONE-FEW) Urine Bacteria (NEGATIVE) Urine Yeast 06/11/19 06/11/19 06/11/19 Range/Units 14:30 14:30 16:13 WBC (4.0-11.0) K/uL RBC (4.30-5.90) M/uL Hgb (12.0-16.0) g/dL Hct (36.0-46.0) % MCV (80.0-98.0) fL MCH (27.0-32.0) pg MCHC (31.0-37.0) g/dL RDW Std Deviation (28.0-62.0) fl RDW Coeff of Robert (11.0-15.0) % Plt Count (150-400) K/uL MPV (7.40-12.00) fL Neut % (Auto) (48.0-80.0) % Lymph % (Auto) (16.0-40.0) % [place] % (Auto) (0.0-15.0) % Eos % (Auto) (0.0-7.0) % Baso % (Auto) (0.0-1.5) % Neut # (Auto) (1.4-5.7) K/uL Lymph # (Auto) (0.6-2.4) K/uL [place] # (Auto) (0.0-0.8) K/uL Eos # (Auto) (0.0-0.7) K/uL Baso # (Auto) (0.0-0.1) K/uL Nucleated RBC % /100WBC Nucleated RBCs # K/uL Lactate (0.20-2.00) mmol/L Sodium (136-145) mmol/L Potassium (3.5-5.1) mmol/L Chloride (98-107) mmol/L Carbon Dioxide (21.0-32.0) mmol/L BUN (7.0-18.0) mg/dL Creatinine (0.6-1.0) mg/dL Est Cr Clr Drug Dosing mL/min Estimated GFR (MDRD) ml/min Glucose (74-106) mg/dL POC Glucose (60-110) mg/dL Hemoglobin A1c (4.5-6.2) % Calcium (8.5-10.1) mg/dL Total Bilirubin (0.2-1.0) mg/dL AST (15-37) IU/L ALT (14-63) IU/L Alkaline Phosphatase (46-116) U/L Troponin I < 0.050 (0.000-0.056) ng/mL B-Natriuretic Peptide 447 H (<100) PG/ML Total Protein (6.4-8.2) g/dL Albumin (3.4-5.0) g/dL Globulin (2.6-4.0) g/dL Albumin/Globulin Ratio (0.9-1.6) Triglycerides (0-200) mg/dL Cholesterol (50-200) mg/dL LDL Cholesterol, Calc (60-180) mg/dL VLDL Cholesterol (5-55) mg/dL HDL Cholesterol (40-60) mg/dL Cholesterol/HDL Ratio (3.3-6.0) TSH 3rd Generation 1.05 (0.36-3.74) uIU/mL Urine Color YELLOW Urine Appearance CLEAR Urine pH 5.0 (5.0-8.0) Ur Specific [place] >= 1.030 (1.001-1.035) Urine Protein 100 H (NEGATIVE) mg/dL Urine Glucose (UA) NEGATIVE (NEGATIVE) mg/dL Urine Ketones NEGATIVE (NEGATIVE) mg/dL Urine Occult Blood TRACE-INTACT H (NEGATIVE) Urine Nitrite NEGATIVE (NEGATIVE) Urine Bilirubin NEGATIVE (NEGATIVE) Urine Urobilinogen 1.0 (<2.0) EU/dL Ur Leukocyte Esterase NEGATIVE (NEGATIVE) Urine RBC 0-2 (0-2/HPF) Urine WBC 1-3 (0-5/HPF) Ur Epithelial Cells FEW (NONE-FEW) Urine Bacteria FEW (NEGATIVE) Urine Yeast FEW 02/10/20 02/10/20 02/11/20 Range/Units 18:01 20:52 05:33 WBC (4.0-11.0) K/uL RBC (4.30-5.90) M/uL Hgb (12.0-16.0) g/dL Hct (36.0-46.0) % MCV (80.0-98.0) fL MCH (27.0-32.0) pg MCHC (31.0-37.0) g/dL RDW Std Deviation (28.0-62.0) fl RDW Coeff of Robert (11.0-15.0) % Plt Count (150-400) K/uL MPV (7.40-12.00) fL Neut % (Auto) (48.0-80.0) % Lymph % (Auto) (16.0-40.0) % [place] % (Auto) (0.0-15.0) % Eos % (Auto) (0.0-7.0) % Baso % (Auto) (0.0-1.5) % Neut # (Auto) (1.4-5.7) K/uL Lymph # (Auto) (0.6-2.4) K/uL [place] # (Auto) (0.0-0.8) K/uL Eos # (Auto) (0.0-0.7) K/uL Baso # (Auto) (0.0-0.1) K/uL Nucleated RBC % /100WBC Nucleated RBCs # K/uL Lactate (0.20-2.00) mmol/L Sodium (136-145) mmol/L Potassium (3.5-5.1) mmol/L Chloride (98-107) mmol/L Carbon Dioxide (21.0-32.0) mmol/L BUN (7.0-18.0) mg/dL Creatinine (0.6-1.0) mg/dL Est Cr Clr Drug Dosing mL/min Estimated GFR (MDRD) ml/min Glucose (74-106) mg/dL POC Glucose 144 H 240 H (60-110) mg/dL Hemoglobin A1c 6.8 H (4.5-6.2) % Calcium (8.5-10.1) mg/dL Total Bilirubin (0.2-1.0) mg/dL AST (15-37) IU/L ALT (14-63) IU/L Alkaline Phosphatase (46-116) U/L Troponin I (0.000-0.056) ng/mL B-Natriuretic Peptide (<100) PG/ML Total Protein (6.4-8.2) g/dL Albumin (3.4-5.0) g/dL Globulin (2.6-4.0) g/dL Albumin/Globulin Ratio (0.9-1.6) Triglycerides (0-200) mg/dL Cholesterol (50-200) mg/dL LDL Cholesterol, Calc (60-180) mg/dL VLDL Cholesterol (5-55) mg/dL HDL Cholesterol (40-60) mg/dL Cholesterol/HDL Ratio (3.3-6.0) TSH 3rd Generation (0.36-3.74) uIU/mL Urine Color Urine Appearance Urine pH (5.0-8.0) Ur Specific [place] (1.001-1.035) Urine Protein (NEGATIVE) mg/dL Urine Glucose (UA) (NEGATIVE) mg/dL Urine Ketones (NEGATIVE) mg/dL Urine Occult Blood (NEGATIVE) Urine Nitrite (NEGATIVE) Urine Bilirubin (NEGATIVE) Urine Urobilinogen (<2.0) EU/dL Ur Leukocyte Esterase (NEGATIVE) Urine RBC (0-2/HPF) Urine WBC (0-5/HPF) Ur Epithelial Cells (NONE-FEW) Urine Bacteria (NEGATIVE) Urine Yeast 06/12/19 06/12/19 Range/Units 05:33 05:33 WBC 10.35 (4.0-11.0) K/uL RBC 4.65 (4.30-5.90) M/uL Hgb 14.5 (12.0-16.0) g/dL Hct 45.2 (36.0-46.0) % MCV 97.2 (80.0-98.0) fL MCH 31.2 (27.0-32.0) pg MCHC 32.1 (31.0-37.0) g/dL RDW Std Deviation 48.6 (28.0-62.0) fl RDW Coeff of Robert 14 (11.0-15.0) % Plt Count 244 (150-400) K/uL MPV 10.40 (7.40-12.00) fL Neut % (Auto) 88.8 H (48.0-80.0) % Lymph % (Auto) 7.8 L (16.0-40.0) % [place] % (Auto) 3.4 (0.0-15.0) % Eos % (Auto) 0.0 (0.0-7.0) % Baso % (Auto) 0.0 (0.0-1.5) % Neut # (Auto) 9.2 H (1.4-5.7) K/uL Lymph # (Auto) 0.8 (0.6-2.4) K/uL [place] # (Auto) 0.4 (0.0-0.8) K/uL Eos # (Auto) 0.0 (0.0-0.7) K/uL Baso # (Auto) 0.0 (0.0-0.1) K/uL Nucleated RBC % 0.0 /100WBC Nucleated RBCs # 0 K/uL Lactate (0.20-2.00) mmol/L Sodium 146 H (136-145) mmol/L Potassium 4.8 (3.5-5.1) mmol/L Chloride 106 (98-107) mmol/L Carbon Dioxide 33.6 H (21.0-32.0) mmol/L BUN 24 H (7.0-18.0) mg/dL Creatinine 1.2 H (0.6-1.0) mg/dL Est Cr Clr Drug Dosing 44.85 mL/min Estimated GFR (MDRD) 44.9 ml/min Glucose 187 H (74-106) mg/dL POC Glucose (60-110) mg/dL Hemoglobin A1c (4.5-6.2) % Calcium 8.7 (8.5-10.1) mg/dL Total Bilirubin 0.5 (0.2-1.0) mg/dL AST 12 L (15-37) IU/L ALT 16 (14-63) IU/L Alkaline Phosphatase 93 (46-116) U/L Troponin I (0.000-0.056) ng/mL B-Natriuretic Peptide (<100) PG/ML Total Protein 7.1 (6.4-8.2) g/dL Albumin 2.8 L (3.4-5.0) g/dL Globulin 4.3 H (2.6-4.0) g/dL Albumin/Globulin Ratio 0.7 L (0.9-1.6) Triglycerides 42 (0-200) mg/dL Cholesterol 194 (50-200) mg/dL LDL Cholesterol, Calc 122 (60-180) mg/dL VLDL Cholesterol 8 (5-55) mg/dL HDL Cholesterol 64 H (40-60) mg/dL Cholesterol/HDL Ratio 3.0 L (3.3-6.0) TSH 3rd Generation (0.36-3.74) uIU/mL Urine Color Urine Appearance Urine pH (5.0-8.0) Ur Specific [place] (1.001-1.035) Urine Protein (NEGATIVE) mg/dL Urine Glucose (UA) (NEGATIVE) mg/dL Urine Ketones (NEGATIVE) mg/dL Urine Occult Blood (NEGATIVE) Urine Nitrite (NEGATIVE) Urine Bilirubin (NEGATIVE) Urine Urobilinogen (<2.0) EU/dL Ur Leukocyte Esterase (NEGATIVE) Urine RBC (0-2/HPF) Urine WBC (0-5/HPF) Ur Epithelial Cells (NONE-FEW) Urine Bacteria (NEGATIVE) Urine Yeast Samuel Results Last 24 Hours: Microbiology 06/11/19 15:12 Influenza Type A Antigen Screen - Final Nasopharyngeal Swab NEGATIVE INFLUENZA A VIRUS AG REFERENCE RANGE: NEGATIVE Influenza Type B Antigen Screen - Final NEGATIVE INFLUENZA B VIRUS AG REFERENCE RANGE: NEGATIVE Med Orders - Current: Current Medications Acetaminophen (Tylenol) 650 mg PO Q4H PRN PRN Reason: Pain (Mild 1-3)/fever Albuterol/Ipratropium (Duoneb 3.0-0.5 Mg/3 Ml) 3 ml NEB Q4HRRT PRN PRN Reason: Shortness Of Breath/wheezing Doxycycline Hyclate (Vibramycin) 100 mg PO BID [facility] Last Admin: 06/11/19 20:51 Dose: 100 mg Enoxaparin Sodium (Lovenox) 40 mg SUBCUT Q24H [facility] Last Admin: 06/11/19 18:18 Dose: Not Given Fexofenadine HCl (Diamond) 180 mg PO DAILY [facility] Vancomycin HCl 1 gm/ Sodium (Chloride) 250 mls @ 250 mls/hr IV 06/12/19@0800 [facility] Stop: 06/12/19 08:59 Vancomycin HCl 1.5 gm/ Premix 300 mls @ 150 mls/hr IV Q12H [facility] Ibuprofen (Motrin) 600 mg PO Q6H PRN PRN Reason: Pain (mild 1-3) Insulin Aspart (Novolog) 0 unit SUBCUT TIDAC [facility]; Protocol Labetalol HCl (Normodyne) 10 mg IVPUSH Q6H PRN; Protocol PRN Reason: Hypertension Ondansetron HCl (Zofran Odt) 4 mg PO Q4H PRN PRN Reason: nausea, able to take PO Ondansetron HCl (Zofran) 4 mg IVPUSH Q4H PRN PRN Reason: Nausea Oxycodone HCl (Oxycodone) 5 mg PO Q4H PRN PRN Reason: Pain Last Admin: 06/12/19 03:24 Dose: 5 mg Polyethylene Glycol (Miralax) 17 gm PO DAILY PRN PRN Reason: Constipation Discontinued Medications Albuterol/Ipratropium (Duoneb 3.0-0.5 Mg/3 Ml) 3 ml NEB ONETIME ONE Stop: 06/11/19 14:38 Last Admin: 06/11/19 14:43 Dose: 3 ml Albuterol/Ipratropium (Duoneb 3.0-0.5 Mg/3 Ml) 3 ml NEB ONETIME ONE Stop: 06/11/19 14:46 Last Admin: 06/11/19 14:50 Dose: Not Given Fentanyl (Fentanyl) 50 mcg IVPUSH ONETIME ONE Stop: 06/11/19 15:45 Last Admin: 06/11/19 15:52 Dose: Not Given Fentanyl (Sublimaze) Confirm Administered Dose 100 mcg .ROUTE .STK-MED ONE Stop: 06/11/19 15:49 Last Admin: 06/11/19 15:52 Dose: 50 mcg Furosemide (Lasix) 40 mg IVPUSH NOW ONE Stop: 06/11/19 17:26 Last Admin: 06/11/19 18:13 Dose: 40 mg Vancomycin HCl 1 gm/ Sodium (Chloride) 250 mls @ 166 mls/hr IV ONETIME ONE Stop: 06/11/19 17:38 Last Admin: 06/11/19 16:42 Dose: 166 mls/hr Vancomycin HCl 1 gm/ Sodium (Chloride) 250 mls @ 166.667 mls/hr IV Q12H [facility] Last Admin: 06/12/19 04:41 Dose: 166.667 mls/hr Labetalol HCl (Normodyne) 100 mg PO ONETIME ONE Stop: 06/11/19 18:54 Last Admin: 06/11/19 22:46 Dose: Not Given Lisinopril (Prinivil) 10 mg PO DAILY [facility] Methylprednisolone Sodium Succinate (Solu-Medrol) 125 mg IV ONETIME ONE Stop: 06/11/19 15:01 Last Admin: 06/11/19 15:08 Dose: 125 mg Oxycodone HCl (Oxycodone) 10 mg PO BID PRN PRN Reason: Pain Oxycodone HCl (Oxycodone) 10 mg PO Q8H PRN PRN Reason: Pain Last Admin: 06/11/19 20:46 Dose: 10 mg - Exam General: Alert, Oriented, Cooperative, No Acute Distress Lungs: Clear to Auscultation. No: Crackles, Wheezing Cardiovascular: Regular Rate, Regular Rhythm GI/Abdominal Exam: Normal Bowel Sounds, Soft, Non-Tender Extremities: Other (severe pedal edema, venous insufficiency with some superficial ulcerations.) Skin: Warm Sepsis Event Note - Evaluation Sepsis Screening Result: No Definite Risk - Focused Exam Vital Signs: Vital Signs Temp Pulse Pulse Resp BP BP Pulse Ox 06/12/19 03:26 36.8 C 91 19 189/77 H 91 L 06/11/19 23:16 36.6 C 91 22 H 177/73 H 90 L 06/11/19 22:46 83 191/83 H 06/11/19 20:53 36.8 C 18 191/83 H 93 L Date Exam was Performed: 06/12/19 Time Exam was Performed: 11:07 - Problem List Review Problem List Initiated/Reviewed/Updated: Yes - My Orders Last 24 Hours: My Active Orders 06/11/19 16:46 Patient Status [ADT] Routine Blood Glucose Check, Bedside [RC] QIDACANDBED Oxygen Therapy [RC] PRN Up With Assistance [RC] ASDIRECTED VTE/DVT Education [RC] PER UNIT ROUTINE Vital Signs [RC] Q4H PT Evaluation and Treatment [CONS] Routine Acetaminophen [Tylenol] 650 mg PO Q4H PRN Albuterol/Ipratropium [DuoNeb 3.0-0.5 MG/3 ML] 3 ml NEB Q4HRRT PRN Ibuprofen [Motrin] 600 mg PO Q6H PRN Ondansetron [Zofran ODT] 4 mg PO Q4H PRN Ondansetron [Zofran] 4 mg IVPUSH Q4H PRN polyethylene glycoL 3350 [MiraLAX] 17 gm PO DAILY PRN Resuscitation Status Routine 06/11/19 16:48 Telemetry Monitoring [Cardiac Monitoring] [RC] Q8H 06/11/19 16:50 RT Aerosol Therapy [RC] ASDIRECTED 06/11/19 16:52 Consult to Wound Care Services [CONS] Stat 06/11/19 17:00 Enoxaparin [Lovenox] 40 mg SUBCUT Q24H 06/11/19 17:09 Intake and Output Strict [RC] ASDIRECTED 06/11/19 17:10 Daily Weight [Height and Weight] [] DAILY 06/11/19 21:00 Doxycycline [Vibramycin] 100 mg PO BID 06/11/19 Dinner [employer] Diet [DIET] 06/12/19 07:30 Insulin Aspart [NovoLOG] See Protocol SUBCUT TIDAC 06/12/19 09:00 Fexofenadine [Diamond] 180 mg PO DAILY 06/12/19 17:02 Echo Comp wo Cont [US] Stat 06/13/19 05:11 CBC WITH AUTO DIFF [HEME] AM COMPREHENSIVE METABOLIC PN,CMP [CHEM] AM 06/14/19 05:11 CBC WITH AUTO DIFF [HEME] AM COMPREHENSIVE METABOLIC PN,CMP [CHEM] AM - Plan Plan:: A: 1. Acute on chronic CHF exacerbation 2. Cellulitis lower extremities, improving 3. Acute kidney injury due to above 4. COPD 5. DM2 6. Hypertension 7. Morbid obesity 8. Tobacco abuse 9. Medical non-compliance P: Doing better this morning. Will switch to PO lasix and continue to monitor her I /O. Will keep fluid restriction today and see how she does. In regards to her lower extremity cellulitis. Her pain is much improved with pain medication and vancomycin. Will get wound care involved. Suspect that severe venous insufficiency, venous stasis due to limited mobility is a major reason for this. Patient has been refusing Lovenox and other medications since she states she has allergies, reactions to them. Will continue to monitor her kidney function. Will continue to monitor her BP. If increasing will consider starting oral medication like labetalol 100 mg PO BID. Suspect she will be ready for discharge in the next 1-2 days. Dispo: 1-2 days. <Irineo Hemphill - Last Filed: 06/12/19 20:13> - Patient Data Vitals - Most Recent: Last Vital Signs Temp 36.6 C 06/12/19 16:00 Pulse 72 06/12/19 16:00 Resp 16 06/12/19 16:00 BP 171/66 H 06/12/19 16:00 Pulse Ox 91 L 06/12/19 17:00 I&O - Last 24 Hours: Intake & Output 06/12/19 06/12/19 06/12/19 06:59 14:59 22:59 Intake Total 1240 483 Output Total 1100 200 Balance 140 283 Lab Results Last 24 Hours: Laboratory Results - last 24 hr 06/11/19 06/12/19 06/12/19 Range/Units 20:52 05:33 05:33 WBC (4.0-11.0) K/uL RBC (4.30-5.90) M/uL Hgb (12.0-16.0) g/dL Hct (36.0-46.0) % MCV (80.0-98.0) fL MCH (27.0-32.0) pg MCHC (31.0-37.0) g/dL RDW Std Deviation (28.0-62.0) fl RDW Coeff of Robert (11.0-15.0) % Plt Count (150-400) K/uL MPV (7.40-12.00) fL Neut % (Auto) (48.0-80.0) % Lymph % (Auto) (16.0-40.0) % [place] % (Auto) (0.0-15.0) % Eos % (Auto) (0.0-7.0) % Baso % (Auto) (0.0-1.5) % Neut # (Auto) (1.4-5.7) K/uL Lymph # (Auto) (0.6-2.4) K/uL [place] # (Auto) (0.0-0.8) K/uL Eos # (Auto) (0.0-0.7) K/uL Baso # (Auto) (0.0-0.1) K/uL Nucleated RBC % /100WBC Nucleated RBCs # K/uL Sodium 146 H (136-145) mmol/L Potassium 4.8 (3.5-5.1) mmol/L Chloride 106 (98-107) mmol/L Carbon Dioxide 33.6 H (21.0-32.0) mmol/L BUN 24 H (7.0-18.0) mg/dL Creatinine 1.2 H (0.6-1.0) mg/dL Est Cr Clr Drug Dosing 44.85 mL/min Estimated GFR (MDRD) 44.9 ml/min Glucose 187 H (74-106) mg/dL POC Glucose 240 H (60-110) mg/dL Hemoglobin A1c 6.8 H (4.5-6.2) % Calcium 8.7 (8.5-10.1) mg/dL Total Bilirubin 0.5 (0.2-1.0) mg/dL AST 12 L (15-37) IU/L ALT 16 (14-63) IU/L Alkaline Phosphatase 93 (46-116) U/L Total Protein 7.1 (6.4-8.2) g/dL Albumin 2.8 L (3.4-5.0) g/dL Globulin 4.3 H (2.6-4.0) g/dL Albumin/Globulin Ratio 0.7 L (0.9-1.6) Triglycerides 42 (0-200) mg/dL Cholesterol 194 (50-200) mg/dL LDL Cholesterol, Calc 122 (60-180) mg/dL VLDL Cholesterol 8 (5-55) mg/dL HDL Cholesterol 64 H (40-60) mg/dL Cholesterol/HDL Ratio 3.0 L (3.3-6.0) 06/12/19 06/12/19 06/12/19 Range/Units 05:33 08:35 12:44 WBC 10.35 (4.0-11.0) K/uL RBC 4.65 (4.30-5.90) M/uL Hgb 14.5 (12.0-16.0) g/dL Hct 45.2 (36.0-46.0) % MCV 97.2 (80.0-98.0) fL MCH 31.2 (27.0-32.0) pg MCHC 32.1 (31.0-37.0) g/dL RDW Std Deviation 48.6 (28.0-62.0) fl RDW Coeff of Robert 14 (11.0-15.0) % Plt Count 244 (150-400) K/uL MPV 10.40 (7.40-12.00) fL Neut % (Auto) 88.8 H (48.0-80.0) % Lymph % (Auto) 7.8 L (16.0-40.0) % [place] % (Auto) 3.4 (0.0-15.0) % Eos % (Auto) 0.0 (0.0-7.0) % Baso % (Auto) 0.0 (0.0-1.5) % Neut # (Auto) 9.2 H (1.4-5.7) K/uL Lymph # (Auto) 0.8 (0.6-2.4) K/uL [place] # (Auto) 0.4 (0.0-0.8) K/uL Eos # (Auto) 0.0 (0.0-0.7) K/uL Baso # (Auto) 0.0 (0.0-0.1) K/uL Nucleated RBC % 0.0 /100WBC Nucleated RBCs # 0 K/uL Sodium (136-145) mmol/L Potassium (3.5-5.1) mmol/L Chloride (98-107) mmol/L Carbon Dioxide (21.0-32.0) mmol/L BUN (7.0-18.0) mg/dL Creatinine (0.6-1.0) mg/dL Est Cr Clr Drug Dosing mL/min Estimated GFR (MDRD) ml/min Glucose (74-106) mg/dL POC Glucose 136 H 155 H (60-110) mg/dL Hemoglobin A1c (4.5-6.2) % Calcium (8.5-10.1) mg/dL Total Bilirubin (0.2-1.0) mg/dL AST (15-37) IU/L ALT (14-63) IU/L Alkaline Phosphatase (46-116) U/L Total Protein (6.4-8.2) g/dL Albumin (3.4-5.0) g/dL Globulin (2.6-4.0) g/dL Albumin/Globulin Ratio (0.9-1.6) Triglycerides (0-200) mg/dL Cholesterol (50-200) mg/dL LDL Cholesterol, Calc (60-180) mg/dL VLDL Cholesterol (5-55) mg/dL HDL Cholesterol (40-60) mg/dL Cholesterol/HDL Ratio (3.3-6.0) 06/12/19 Range/Units 17:09 WBC (4.0-11.0) K/uL RBC (4.30-5.90) M/uL Hgb (12.0-16.0) g/dL Hct (36.0-46.0) % MCV (80.0-98.0) fL MCH (27.0-32.0) pg MCHC (31.0-37.0) g/dL RDW Std Deviation (28.0-62.0) fl RDW Coeff of Robert (11.0-15.0) % Plt Count (150-400) K/uL MPV (7.40-12.00) fL Neut % (Auto) (48.0-80.0) % Lymph % (Auto) (16.0-40.0) % [place] % (Auto) (0.0-15.0) % Eos % (Auto) (0.0-7.0) % Baso % (Auto) (0.0-1.5) % Neut # (Auto) (1.4-5.7) K/uL Lymph # (Auto) (0.6-2.4) K/uL [place] # (Auto) (0.0-0.8) K/uL Eos # (Auto) (0.0-0.7) K/uL Baso # (Auto) (0.0-0.1) K/uL Nucleated RBC % /100WBC Nucleated RBCs # K/uL Sodium (136-145) mmol/L Potassium (3.5-5.1) mmol/L Chloride (98-107) mmol/L Carbon Dioxide (21.0-32.0) mmol/L BUN (7.0-18.0) mg/dL Creatinine (0.6-1.0) mg/dL Est Cr Clr Drug Dosing mL/min Estimated GFR (MDRD) ml/min Glucose (74-106) mg/dL POC Glucose 187 H (60-110) mg/dL Hemoglobin A1c (4.5-6.2) % Calcium (8.5-10.1) mg/dL Total Bilirubin (0.2-1.0) mg/dL AST (15-37) IU/L ALT (14-63) IU/L Alkaline Phosphatase (46-116) U/L Total Protein (6.4-8.2) g/dL Albumin (3.4-5.0) g/dL Globulin (2.6-4.0) g/dL Albumin/Globulin Ratio (0.9-1.6) Triglycerides (0-200) mg/dL Cholesterol (50-200) mg/dL LDL Cholesterol, Calc (60-180) mg/dL VLDL Cholesterol (5-55) mg/dL HDL Cholesterol (40-60) mg/dL Cholesterol/HDL Ratio (3.3-6.0) Samuel Results Last 24 Hours: Microbiology 06/11/19 14:52 Aerobic Blood Culture - Preliminary Blood - Venous - Lab Draw NO GROWTH AFTER 1 DAY Anaerobic Blood Culture - Preliminary NO GROWTH AFTER 1 DAY 06/11/19 14:30 Aerobic Blood Culture - Preliminary Blood - Venous NO GROWTH AFTER 1 DAY Anaerobic Blood Culture - Preliminary NO GROWTH AFTER 1 DAY 06/11/19 15:12 Influenza Type A Antigen Screen - Final Nasopharyngeal Swab NEGATIVE INFLUENZA A VIRUS AG REFERENCE RANGE: NEGATIVE Influenza Type B Antigen Screen - Final NEGATIVE INFLUENZA B VIRUS AG REFERENCE RANGE: NEGATIVE Med Orders - Current: Current Medications Acetaminophen (Tylenol) 650 mg PO Q4H PRN PRN Reason: Pain (Mild 1-3)/fever Albuterol/Ipratropium (Duoneb 3.0-0.5 Mg/3 Ml) 3 ml NEB Q4HRRT PRN PRN Reason: Shortness Of Breath/wheezing Last Admin: 06/12/19 12:54 Dose: 3 ml Doxycycline Hyclate (Vibramycin) 100 mg PO BID [facility] Last Admin: 06/12/19 08:55 Dose: 100 mg Enoxaparin Sodium (Lovenox) 40 mg SUBCUT Q24H [facility] Last Admin: 06/12/19 17:04 Dose: Not Given Fexofenadine HCl (Diamond) 60 mg PO TID PRN PRN Reason: Allergies Last Admin: 06/12/19 19:42 Dose: 60 mg Furosemide (Lasix) 40 mg PO BIDDIURETIC JESSEE Last Admin: 06/12/19 13:51 Dose: 40 mg Vancomycin HCl 1.5 gm/ Premix 300 mls @ 150 mls/hr IV Q12H JESSEE Last Admin: 06/12/19 19:43 Dose: 150 mls/hr Insulin Aspart (Novolog) 0 unit SUBCUT TIDAC JESSEE; Protocol Last Admin: 06/12/19 17:21 Dose: Not Given Labetalol HCl (Normodyne) 10 mg IVPUSH Q6H PRN; Protocol PRN Reason: Hypertension Ondansetron HCl (Zofran Odt) 4 mg PO Q4H PRN PRN Reason: nausea, able to take PO Ondansetron HCl (Zofran) 4 mg IVPUSH Q4H PRN PRN Reason: Nausea Oxycodone HCl (Oxycodone) 5 mg PO Q4H PRN PRN Reason: Pain Last Admin: 06/12/19 19:44 Dose: 5 mg Polyethylene Glycol (Miralax) 17 gm PO DAILY PRN PRN Reason: Constipation Discontinued Medications Albuterol/Ipratropium (Duoneb 3.0-0.5 Mg/3 Ml) 3 ml NEB ONETIME ONE Stop: 06/11/19 14:38 Last Admin: 06/11/19 14:43 Dose: 3 ml Albuterol/Ipratropium (Duoneb 3.0-0.5 Mg/3 Ml) 3 ml NEB ONETIME ONE Stop: 06/11/19 14:46 Last Admin: 06/11/19 14:50 Dose: Not Given Fentanyl (Fentanyl) 50 mcg IVPUSH ONETIME ONE Stop: 06/11/19 15:45 Last Admin: 06/11/19 15:52 Dose: Not Given Fentanyl (Sublimaze) Confirm Administered Dose 100 mcg .ROUTE .STK-MED ONE Stop: 06/11/19 15:49 Last Admin: 06/11/19 15:52 Dose: 50 mcg Fexofenadine HCl (Diamond) 180 mg PO DAILY [facility] Last Admin: 06/12/19 08:55 Dose: 180 mg Furosemide (Lasix) 40 mg IVPUSH NOW ONE Stop: 06/11/19 17:26 Last Admin: 06/11/19 18:13 Dose: 40 mg Vancomycin HCl 1 gm/ Sodium (Chloride) 250 mls @ 166 mls/hr IV ONETIME ONE Stop: 06/11/19 17:38 Last Admin: 06/11/19 16:42 Dose: 166 mls/hr Vancomycin HCl 1 gm/ Sodium (Chloride) 250 mls @ 166.667 mls/hr IV Q12H [facility] Last Admin: 06/12/19 04:41 Dose: 166.667 mls/hr Vancomycin HCl 1 gm/ Sodium (Chloride) 250 mls @ 250 mls/hr IV 06/12/19@0800 [facility] Stop: 06/12/19 08:59 Last Admin: 06/12/19 08:49 Dose: 250 mls/hr Ibuprofen (Motrin) 600 mg PO Q6H PRN PRN Reason: Pain (mild 1-3) Labetalol HCl (Normodyne) 100 mg PO ONETIME ONE Stop: 06/11/19 18:54 Last Admin: 06/11/19 22:46 Dose: Not Given Lisinopril (Prinivil) 10 mg PO DAILY [facility] Methylprednisolone Sodium Succinate (Solu-Medrol) 125 mg IV ONETIME ONE Stop: 06/11/19 15:01 Last Admin: 06/11/19 15:08 Dose: 125 mg Oxycodone HCl (Oxycodone) 10 mg PO BID PRN PRN Reason: Pain Oxycodone HCl (Oxycodone) 10 mg PO Q8H PRN PRN Reason: Pain Last Admin: 06/11/19 20:46 Dose: 10 mg Sepsis Event Note - Focused Exam Vital Signs: Vital Signs Temp Pulse Resp BP BP Pulse Ox Pulse Ox 06/12/19 17:00 91 L 06/12/19 16:00 36.6 C 72 16 171/66 H 91 L 06/12/19 12:00 36.6 C 79 16 181/81 H 91 L 06/12/19 08:30 36.8 C 92 17 183/81 H 93 L Date Exam was Performed: 06/12/19 Time Exam was Performed: 20:12 - My Orders Last 24 Hours: My Active Orders 06/11/19 22:29 Labetalol [Normodyne] 10 mg IVPUSH Q6H PRN 06/12/19 04:00 oxyCODONE 5 mg PO Q4H PRN 06/12/19 20:00 VANCOmycin/Water for INJ (PEG) [VANCOmycin 1.5 GM/300 ML Premix] 1.5 gm Premix Bag 1 bag IV Q12H 06/14/19 07:30 VANCOMYCIN TROUGH [CHEM] Timed - Plan Plan:: I have seen and evaluated the patient and agree with the residents note unless specified in my note
[2019-06-12] MEDS: Doxycycline 100 MG Cap PO SCH ×2 (08:55→20:12)
[2019-06-12] MEDS: Albuterol/Ipratropium 3.0-0.5 MG/3 ML Neb Soln NEB PRN ×2 (12:54→21:34)
[2019-06-12] MEDS: Furosemide 40 MG Tab PO SCH (13:51)
[2019-06-12] MEDS: Enoxaparin 40 MG/0.4 ML Syringe SUBCUT SCH (17:04)
[2019-06-12] MEDS: Metoprolol Succinate 50 MG Tab.ER PO SCH (23:37)
[2019-06-13] MEDS: oxyCODONE 5 MG Tab PO PRN ×5 (00:12→17:37)
[2019-06-13] MEDS: Metoprolol Succinate 50 MG Tab.ER PO SCH ×2 (00:45→10:44)
[2019-06-13] MEDS ORDERED: Magnesium Sulfate/Water 2 GM in Premix Bag 1 BAG IV ONE (00:46)
[2019-06-13] MEDS: Albuterol/Ipratropium 3.0-0.5 MG/3 ML Neb Soln NEB PRN ×2 (04:45→14:07)
[2019-06-13 06:39] LABS: CARBON DIOXIDE,CO2 32.9 mmol/L (21.0-32.0); POTASSIUM,K 3.9 mmol/L (3.5-5.1)
[2019-06-13] MEDS: Insulin Aspart 100 Units/ML 3 ML Pen SUBCUT SCH ×3 (06:40→20:30)
[2019-06-13] MEDS: Doxycycline 100 MG Cap PO SCH ×2 (08:23→20:35)
[2019-06-13] MEDS: Furosemide 40 MG Tab PO SCH ×2 (08:23→13:34)
--- NOTE | 2019-06-13 11:14 | PCM.PN ---
<Michele Hammer - Last Filed: 06/13/19 13:35> - General Info Date of Service: 06/13/19 Subjective Update: No acute events overnight. Patient feeling better. Lower extremity pain improving. No chest pain, dyspnea, abdominal pain. - Patient Data Vitals - Most Recent: Last Vital Signs Temp 36.2 C 06/13/19 07:45 Pulse 82 06/13/19 10:25 Resp 20 06/13/19 10:25 BP 142/63 H 06/13/19 07:45 Pulse Ox 93 L 06/13/19 10:25 Weight - Most Recent: 132.7 kg I&O - Last 24 Hours: Intake & Output 06/12/19 06/13/19 06/13/19 22:59 06:59 14:59 Intake Total 483 1087 300 Output Total 200 650 Balance 283 437 300 Lab Results Last 24 Hours: Laboratory Results - last 24 hr 06/12/19 06/12/19 06/12/19 Range/Units 05:58 12:44 17:09 WBC (4.0-11.0) K/uL RBC (4.30-5.90) M/uL Hgb (12.0-16.0) g/dL Hct (36.0-46.0) % MCV (80.0-98.0) fL MCH (27.0-32.0) pg MCHC (31.0-37.0) g/dL RDW Std Deviation (28.0-62.0) fl RDW Coeff of Robert (11.0-15.0) % Plt Count (150-400) K/uL MPV (7.40-12.00) fL Neut % (Auto) (48.0-80.0) % Lymph % (Auto) (16.0-40.0) % Motley % (Auto) (0.0-15.0) % Eos % (Auto) (0.0-7.0) % Baso % (Auto) (0.0-1.5) % Neut # (Auto) (1.4-5.7) K/uL Lymph # (Auto) (0.6-2.4) K/uL Motley # (Auto) (0.0-0.8) K/uL Eos # (Auto) (0.0-0.7) K/uL Baso # (Auto) (0.0-0.1) K/uL Nucleated RBC % /100WBC Nucleated RBCs # K/uL Sodium (136-145) mmol/L Potassium (3.5-5.1) mmol/L Chloride (98-107) mmol/L Carbon Dioxide (21.0-32.0) mmol/L BUN (7.0-18.0) mg/dL Creatinine (0.6-1.0) mg/dL Est Cr Clr Drug Dosing mL/min Estimated GFR (MDRD) ml/min Glucose (74-106) mg/dL POC Glucose 155 H 187 H (60-110) mg/dL Calcium (8.5-10.1) mg/dL Magnesium 1.7 L (1.8-2.4) mg/dL Total Bilirubin (0.2-1.0) mg/dL AST (15-37) IU/L ALT (14-63) IU/L Alkaline Phosphatase (46-116) U/L Total Protein (6.4-8.2) g/dL Albumin (3.4-5.0) g/dL Globulin (2.6-4.0) g/dL Albumin/Globulin Ratio (0.9-1.6) 06/12/19 06/13/19 06/13/19 Range/Units 20:56 06:08 06:08 WBC 10.55 (4.0-11.0) K/uL RBC 4.12 L (4.30-5.90) M/uL Hgb 12.8 (12.0-16.0) g/dL Hct 41.0 (36.0-46.0) % MCV 99.5 H (80.0-98.0) fL MCH 31.1 (27.0-32.0) pg MCHC 31.2 (31.0-37.0) g/dL RDW Std Deviation 50.5 (28.0-62.0) fl RDW Coeff of Robert 14 (11.0-15.0) % Plt Count 193 (150-400) K/uL MPV 10.70 (7.40-12.00) fL Neut % (Auto) 68.6 (48.0-80.0) % Lymph % (Auto) 18.0 (16.0-40.0) % Motley % (Auto) 11.8 (0.0-15.0) % Eos % (Auto) 1.4 (0.0-7.0) % Baso % (Auto) 0.2 (0.0-1.5) % Neut # (Auto) 7.2 H (1.4-5.7) K/uL Lymph # (Auto) 1.9 (0.6-2.4) K/uL Motley # (Auto) 1.3 H (0.0-0.8) K/uL Eos # (Auto) 0.2 (0.0-0.7) K/uL Baso # (Auto) 0.0 (0.0-0.1) K/uL Nucleated RBC % 0.0 /100WBC Nucleated RBCs # 0 K/uL Sodium 147 H (136-145) mmol/L Potassium 3.9 (3.5-5.1) mmol/L Chloride 109 H (98-107) mmol/L Carbon Dioxide 32.9 H (21.0-32.0) mmol/L BUN 29 H (7.0-18.0) mg/dL Creatinine 1.1 H (0.6-1.0) mg/dL Est Cr Clr Drug Dosing 48.92 mL/min Estimated GFR (MDRD) 49.7 ml/min Glucose 158 H (74-106) mg/dL POC Glucose 152 H (60-110) mg/dL Calcium 8.2 L (8.5-10.1) mg/dL Magnesium (1.8-2.4) mg/dL Total Bilirubin 0.4 (0.2-1.0) mg/dL AST 13 L (15-37) IU/L ALT 16 (14-63) IU/L Alkaline Phosphatase 71 (46-116) U/L Total Protein 6.1 L (6.4-8.2) g/dL Albumin 2.5 L (3.4-5.0) g/dL Globulin 3.6 (2.6-4.0) g/dL Albumin/Globulin Ratio 0.7 L (0.9-1.6) Samuel Results Last 24 Hours: Microbiology 06/11/19 14:52 Aerobic Blood Culture - Preliminary Blood - Venous - Lab Draw NO GROWTH AFTER 1 DAY Anaerobic Blood Culture - Preliminary NO GROWTH AFTER 1 DAY 02/10/20 14:30 Aerobic Blood Culture - Preliminary Blood - Venous NO GROWTH AFTER 1 DAY Anaerobic Blood Culture - Preliminary NO GROWTH AFTER 1 DAY Med Orders - Current: Current Medications Acetaminophen (Tylenol) 650 mg PO Q4H PRN PRN Reason: Pain (Mild 1-3)/fever Albuterol/Ipratropium (Duoneb 3.0-0.5 Mg/3 Ml) 3 ml NEB Q4HRRT PRN PRN Reason: Shortness Of Breath/wheezing Last Admin: 06/13/19 04:45 Dose: 3 ml Aspirin (Aspirin) 81 mg PO DAILY [facility] Doxycycline Hyclate (Vibramycin) 100 mg PO BID [facility] Last Admin: 06/13/19 08:23 Dose: 100 mg Enoxaparin Sodium (Lovenox) 40 mg SUBCUT Q24H [facility] Last Admin: 06/12/19 17:04 Dose: Not Given Fexofenadine HCl (Diamond) 60 mg PO TID PRN PRN Reason: Allergies Last Admin: 06/13/19 04:49 Dose: 60 mg Furosemide (Lasix) 40 mg PO BIDDIURETIC [facility] Last Admin: 06/13/19 08:23 Dose: 40 mg Vancomycin HCl 1.5 gm/ Premix 300 mls @ 150 mls/hr IV Q12H [facility] Last Admin: 06/13/19 08:27 Dose: 150 mls/hr Insulin Aspart (Novolog) 0 unit SUBCUT TIDAC [facility]; Protocol Last Admin: 06/13/19 06:40 Dose: Not Given Labetalol HCl (Normodyne) 10 mg IVPUSH Q6H PRN; Protocol PRN Reason: Hypertension Metoprolol Succinate (Toprol Xl) 50 mg PO DAILY [facility] Last Admin: 06/13/19 10:44 Dose: Not Given Ondansetron HCl (Zofran Odt) 4 mg PO Q4H PRN PRN Reason: nausea, able to take PO Ondansetron HCl (Zofran) 4 mg IVPUSH Q4H PRN PRN Reason: Nausea Oxycodone HCl (Oxycodone) 5 mg PO Q4H PRN PRN Reason: Pain Last Admin: 06/13/19 08:23 Dose: 5 mg Polyethylene Glycol (Miralax) 17 gm PO DAILY PRN PRN Reason: Constipation Discontinued Medications Albuterol/Ipratropium (Duoneb 3.0-0.5 Mg/3 Ml) 3 ml NEB ONETIME ONE Stop: 06/11/19 14:38 Last Admin: 06/11/19 14:43 Dose: 3 ml Albuterol/Ipratropium (Duoneb 3.0-0.5 Mg/3 Ml) 3 ml NEB ONETIME ONE Stop: 06/11/19 14:46 Last Admin: 06/11/19 14:50 Dose: Not Given Fentanyl (Fentanyl) 50 mcg IVPUSH ONETIME ONE Stop: 06/11/19 15:45 Last Admin: 06/11/19 15:52 Dose: Not Given Fentanyl (Sublimaze) Confirm Administered Dose 100 mcg .ROUTE .STK-MED ONE Stop: 06/11/19 15:49 Last Admin: 06/11/19 15:52 Dose: 50 mcg Fexofenadine HCl (Diamond) 180 mg PO DAILY [facility] Last Admin: 06/12/19 08:55 Dose: 180 mg Furosemide (Lasix) 40 mg IVPUSH NOW ONE Stop: 06/11/19 17:26 Last Admin: 06/11/19 18:13 Dose: 40 mg Vancomycin HCl 1 gm/ Sodium (Chloride) 250 mls @ 166 mls/hr IV ONETIME ONE Stop: 06/11/19 17:38 Last Admin: 06/11/19 16:42 Dose: 166 mls/hr Vancomycin HCl 1 gm/ Sodium (Chloride) 250 mls @ 166.667 mls/hr IV Q12H [facility] Last Admin: 06/12/19 04:41 Dose: 166.667 mls/hr Vancomycin HCl 1 gm/ Sodium (Chloride) 250 mls @ 250 mls/hr IV 06/12/19@0800 [facility] Stop: 06/12/19 08:59 Last Admin: 06/12/19 08:49 Dose: 250 mls/hr Magnesium Sulfate 2 gm/ Premix 50 mls @ 50 mls/hr IV ONETIME ONE Stop: 06/13/19 01:45 Last Admin: 06/13/19 01:24 Dose: 50 mls/hr Ibuprofen (Motrin) 600 mg PO Q6H PRN PRN Reason: Pain (mild 1-3) Labetalol HCl (Normodyne) 100 mg PO ONETIME ONE Stop: 06/11/19 18:54 Last Admin: 06/11/19 22:46 Dose: Not Given Lisinopril (Prinivil) 10 mg PO DAILY [facility] Methylprednisolone Sodium Succinate (Solu-Medrol) 125 mg IV ONETIME ONE Stop: 06/11/19 15:01 Last Admin: 06/11/19 15:08 Dose: 125 mg Oxycodone HCl (Oxycodone) 10 mg PO BID PRN PRN Reason: Pain Oxycodone HCl (Oxycodone) 10 mg PO Q8H PRN PRN Reason: Pain Last Admin: 06/11/19 20:46 Dose: 10 mg - Exam General: Alert, Oriented, Cooperative, No Acute Distress Lungs: Clear to Auscultation, Normal Respiratory Effort. No: Crackles, Wheezing Cardiovascular: Regular Rate, Regular Rhythm GI/Abdominal Exam: Normal Bowel Sounds, Soft, Non-Tender Extremities: Other (pedal edema with some superficial ulcers which seem to be healing.) Wound/Incisions: Healing Well, Erythema Improving Sepsis Event Note - Evaluation Sepsis Screening Result: No Definite Risk - Focused Exam Vital Signs: Vital Signs Temp Pulse Resp BP Pulse Ox 06/13/19 10:25 82 20 93 L 06/13/19 10:20 83 22 H 85 L 06/13/19 07:45 36.2 C 77 20 142/63 H 93 L 06/13/19 03:00 36.3 C 76 21 H 185/76 H 92 L Date Exam was Performed: 06/13/19 Time Exam was Performed: 13:35 - Problem List Review Problem List Initiated/Reviewed/Updated: Yes - My Orders Last 24 Hours: My Active Orders 06/12/19 14:00 Furosemide [Lasix] 40 mg PO BIDDIURETIC 06/12/19 17:02 Echo Comp wo Cont [US] Stat 06/13/19 08:18 Evaluate for Home Oxygen [RT Evaluate for Home Oxygen] [RC] Click to Edit 06/14/19 05:11 CBC WITH AUTO DIFF [HEME] AM COMPREHENSIVE METABOLIC PN,CMP [CHEM] AM - Plan Plan:: A: 1. Lower extremity cellulitis, improving 2. Hypertension 3. Morbid obesity 4. Medical non-compliance 5. PMH DM2, HTH, CHF, COPD, tobacco abuse P: 1. Clinically, improving. Will continue with vancomycin for cellulitis. Spoke with patient about importance of taking her medications as indicated. Will be working with PT and plan to discharge tomorrow. dispo: likel dc tomorrow. <Irineo Hemphill - Last Filed: 06/22/19 12:39> - Patient Data Vitals - Most Recent: Last Vital Signs Temp 36.4 C 06/15/19 03:00 Pulse 65 06/15/19 09:38 Resp 20 06/15/19 03:00 BP 145/45 H 06/15/19 09:38 Pulse Ox 92 L 06/15/19 03:00 Med Orders - Current: Current Medications Discontinued Medications Acetaminophen (Tylenol) 650 mg PO Q4H PRN PRN Reason: Pain (Mild 1-3)/fever Albuterol/Ipratropium (Duoneb 3.0-0.5 Mg/3 Ml) 3 ml NEB ONETIME ONE Stop: 06/11/19 14:38 Last Admin: 06/11/19 14:43 Dose: 3 ml Albuterol/Ipratropium (Duoneb 3.0-0.5 Mg/3 Ml) 3 ml NEB ONETIME ONE Stop: 06/11/19 14:46 Last Admin: 06/11/19 14:50 Dose: Not Given Albuterol/Ipratropium (Duoneb 3.0-0.5 Mg/3 Ml) 3 ml NEB Q4HRRT PRN PRN Reason: Shortness Of Breath/wheezing Last Admin: 06/14/19 23:43 Dose: 3 ml Aspirin (Aspirin) 81 mg PO DAILY [facility] Last Admin: 06/15/19 09:39 Dose: Not Given Atorvastatin Calcium (Lipitor) 40 mg PO BEDTIME [facility] Last Admin: 06/14/19 20:02 Dose: Not Given Doxycycline Hyclate (Vibramycin) 100 mg PO BID [facility] Last Admin: 06/15/19 09:39 Dose: 100 mg Enoxaparin Sodium (Lovenox) 40 mg SUBCUT Q24H [facility] Last Admin: 06/14/19 18:23 Dose: Not Given Fentanyl (Fentanyl) 50 mcg IVPUSH ONETIME ONE Stop: 06/11/19 15:45 Last Admin: 06/11/19 15:52 Dose: Not Given Fentanyl (Sublimaze) Confirm Administered Dose 100 mcg .ROUTE .STK-MED ONE Stop: 06/11/19 15:49 Last Admin: 06/11/19 15:52 Dose: 50 mcg Fexofenadine HCl (Diamond) 180 mg PO DAILY [facility] Last Admin: 06/12/19 08:55 Dose: 180 mg Fexofenadine HCl (Diamond) 60 mg PO TID PRN PRN Reason: Allergies Last Admin: 06/14/19 22:09 Dose: 60 mg Furosemide (Lasix) 40 mg IVPUSH NOW ONE Stop: 06/11/19 17:26 Last Admin: 06/11/19 18:13 Dose: 40 mg Furosemide (Lasix) 40 mg PO BIDDIURETIC [facility] Last Admin: 06/15/19 09:39 Dose: Not Given Vancomycin HCl 1 gm/ Sodium (Chloride) 250 mls @ 166 mls/hr IV ONETIME ONE Stop: 06/11/19 17:38 Last Admin: 06/11/19 16:42 Dose: 166 mls/hr Vancomycin HCl 1 gm/ Sodium (Chloride) 250 mls @ 166.667 mls/hr IV Q12H [facility] Last Admin: 06/12/19 04:41 Dose: 166.667 mls/hr Vancomycin HCl 1 gm/ Sodium (Chloride) 250 mls @ 250 mls/hr IV 06/12/19@0800 [facility] Stop: 06/12/19 08:59 Last Admin: 06/12/19 08:49 Dose: 250 mls/hr Vancomycin HCl 1.5 gm/ Premix 300 mls @ 150 mls/hr IV Q12H [facility] Last Admin: 06/14/19 10:04 Dose: Not Given Magnesium Sulfate 2 gm/ Premix 50 mls @ 50 mls/hr IV ONETIME ONE Stop: 06/13/19 01:45 Last Admin: 06/13/19 01:24 Dose: 50 mls/hr Vancomycin HCl 1.5 gm/ Premix 300 mls @ 150 mls/hr IV Q24H [facility] Last Admin: 06/14/19 19:55 Dose: 150 mls/hr Ibuprofen (Motrin) 600 mg PO Q6H PRN PRN Reason: Pain (mild 1-3) Insulin Aspart (Novolog) 0 unit SUBCUT TIDAC [facility]; Protocol Last Admin: 06/15/19 06:31 Dose: Not Given Labetalol HCl (Normodyne) 100 mg PO ONETIME ONE Stop: 06/11/19 18:54 Last Admin: 06/11/19 22:46 Dose: Not Given Labetalol HCl (Normodyne) 10 mg IVPUSH Q6H PRN; Protocol PRN Reason: Hypertension Lidocaine HCl (Lidocaine 5%) 1 gm TOP Q4H PRN PRN Reason: Pain Last Admin: 06/13/19 19:21 Dose: 1 gm Lisinopril (Prinivil) 10 mg PO DAILY [facility] Methylprednisolone Sodium Succinate (Solu-Medrol) 125 mg IV ONETIME ONE Stop: 06/11/19 15:01 Last Admin: 06/11/19 15:08 Dose: 125 mg Metoprolol Succinate (Toprol Xl) 50 mg PO DAILY [facility] Last Admin: 06/15/19 09:38 Dose: Not Given Ondansetron HCl (Zofran Odt) 4 mg PO Q4H PRN PRN Reason: nausea, able to take PO Ondansetron HCl (Zofran) 4 mg IVPUSH Q4H PRN PRN Reason: Nausea Oxycodone HCl (Oxycodone) 10 mg PO BID PRN PRN Reason: Pain Oxycodone HCl (Oxycodone) 10 mg PO Q8H PRN PRN Reason: Pain Last Admin: 06/11/19 20:46 Dose: 10 mg Oxycodone HCl (Oxycodone) 5 mg PO Q4H PRN PRN Reason: Pain Last Admin: 06/15/19 06:53 Dose: 5 mg Polyethylene Glycol (Miralax) 17 gm PO DAILY PRN PRN Reason: Constipation - Plan Plan:: I have seen and evaluated the patient and agree with the residents note unless specified in my note
[2019-06-13] MEDS: Aspirin 81 MG Tab.Chew PO SCH ×2 (12:40→13:29)
[2019-06-13] MEDS ORDERED: Lidocaine 5% Oint 35.44 GM Tube TOP PRN (16:35)
[2019-06-13] MEDS: Enoxaparin 40 MG/0.4 ML Syringe SUBCUT SCH (17:37)
[2019-06-13] MEDS: atorvaSTATin 40 MG Tab PO SCH ×2 (20:31→20:33)
--- NOTE | 2019-06-13 23:44 | PCM.SN ---
- Free Text/Narrative Note: patient has been pretty much refusing most of the care, states she doesn't trust doctors and health care providers. Some competent of paranoia and distrust but patient is competent and has insight. I will continue to try to help her through this process but at this point its very difficult to treat her if she keeps refusing care. Will reassess in AM and see what our options are.
[2019-06-14] MEDS: oxyCODONE 5 MG Tab PO PRN ×4 (00:43→23:43)
[2019-06-14] MEDS: Albuterol/Ipratropium 3.0-0.5 MG/3 ML Neb Soln NEB PRN ×2 (07:10→23:43)
[2019-06-14 08:32] LABS: BLOOD UREA NITROGEN,BUN 21 mg/dL (7.0-18.0); CARBON DIOXIDE,CO2 34.4 mmol/L (21.0-32.0); CHLORIDE,CL 106 mmol/L (98-107); GLUCOSE RANDOM 156 mg/dL (74-106); SODIUM,NA 146 mmol/L (136-145)
[2019-06-14] MEDS: Insulin Aspart 100 Units/ML 3 ML Pen SUBCUT SCH ×3 (08:33→21:06)
[2019-06-14] MEDS ORDERED: Spironolactone 25 MG Tab PO SCH (09:00)
[2019-06-14] MEDS: Furosemide 40 MG Tab PO SCH ×2 (09:56→13:38)
[2019-06-14] MEDS: Metoprolol Succinate 50 MG Tab.ER PO SCH (09:58)
[2019-06-14] MEDS: Doxycycline 100 MG Cap PO SCH ×2 (10:04→20:02)
[2019-06-14] MEDS: Aspirin 81 MG Tab.Chew PO SCH (10:16)
--- NOTE | 2019-06-14 12:27 | PCM.PN ---
<Michele Hammer - Last Filed: 06/14/19 18:11> - General Info Date of Service: 06/14/19 Subjective Update: No acute events overnight. Patient has been declining some medications and wound care dressing. - Patient Data Vitals - Most Recent: Last Vital Signs Temp 36.9 C 06/14/19 08:00 Pulse 82 06/14/19 09:58 Resp 22 H 06/14/19 08:00 BP 184/78 H 06/14/19 09:58 Pulse Ox 91 L 06/14/19 11:08 Weight - Most Recent: 132 kg I&O - Last 24 Hours: Intake & Output 06/13/19 06/14/19 06/14/19 22:59 06:59 14:59 Intake Total 954 840 Output Total 1050 400 Balance -96 440 Lab Results Last 24 Hours: Laboratory Results - last 24 hr 06/13/19 06/13/19 06/13/19 Range/Units 06:18 16:31 22:18 WBC (4.0-11.0) K/uL RBC (4.30-5.90) M/uL Hgb (12.0-16.0) g/dL Hct (36.0-46.0) % MCV (80.0-98.0) fL MCH (27.0-32.0) pg MCHC (31.0-37.0) g/dL RDW Std Deviation (28.0-62.0) fl RDW Coeff of Robert (11.0-15.0) % Plt Count (150-400) K/uL MPV (7.40-12.00) fL Neut % (Auto) (48.0-80.0) % Lymph % (Auto) (16.0-40.0) % [place] % (Auto) (0.0-15.0) % Eos % (Auto) (0.0-7.0) % Baso % (Auto) (0.0-1.5) % Neut # (Auto) (1.4-5.7) K/uL Lymph # (Auto) (0.6-2.4) K/uL [place] # (Auto) (0.0-0.8) K/uL Eos # (Auto) (0.0-0.7) K/uL Baso # (Auto) (0.0-0.1) K/uL Nucleated RBC % /100WBC Nucleated RBCs # K/uL Sodium (136-145) mmol/L Potassium (3.5-5.1) mmol/L Chloride (98-107) mmol/L Carbon Dioxide (21.0-32.0) mmol/L BUN (7.0-18.0) mg/dL Creatinine (0.6-1.0) mg/dL Est Cr Clr Drug Dosing mL/min Estimated GFR (MDRD) ml/min Glucose (74-106) mg/dL POC Glucose 148 H 147 H 133 H (60-110) mg/dL Calcium (8.5-10.1) mg/dL Total Bilirubin (0.2-1.0) mg/dL AST (15-37) IU/L ALT (14-63) IU/L Alkaline Phosphatase (46-116) U/L Total Protein (6.4-8.2) g/dL Albumin (3.4-5.0) g/dL Globulin (2.6-4.0) g/dL Albumin/Globulin Ratio (0.9-1.6) Vancomycin Trough (5.0-10.0) ug/mL 06/14/19 06/14/19 06/14/19 Range/Units 06:14 07:35 07:35 WBC 10.30 (4.0-11.0) K/uL RBC 4.25 L (4.30-5.90) M/uL Hgb 13.3 (12.0-16.0) g/dL Hct 42.0 (36.0-46.0) % MCV 98.8 H (80.0-98.0) fL MCH 31.3 (27.0-32.0) pg MCHC 31.7 (31.0-37.0) g/dL RDW Std Deviation 49.6 (28.0-62.0) fl RDW Coeff of Robert 14 (11.0-15.0) % Plt Count 194 (150-400) K/uL MPV 10.40 (7.40-12.00) fL Neut % (Auto) 72.6 (48.0-80.0) % Lymph % (Auto) 13.1 L (16.0-40.0) % [place] % (Auto) 12.1 (0.0-15.0) % Eos % (Auto) 2.0 (0.0-7.0) % Baso % (Auto) 0.2 (0.0-1.5) % Neut # (Auto) 7.5 H (1.4-5.7) K/uL Lymph # (Auto) 1.4 (0.6-2.4) K/uL [place] # (Auto) 1.3 H (0.0-0.8) K/uL Eos # (Auto) 0.2 (0.0-0.7) K/uL Baso # (Auto) 0.0 (0.0-0.1) K/uL Nucleated RBC % 0.0 /100WBC Nucleated RBCs # 0 K/uL Sodium 146 H (136-145) mmol/L Potassium 4.0 (3.5-5.1) mmol/L Chloride 106 (98-107) mmol/L Carbon Dioxide 34.4 H (21.0-32.0) mmol/L BUN 21 H (7.0-18.0) mg/dL Creatinine 0.9 (0.6-1.0) mg/dL Est Cr Clr Drug Dosing 59.79 mL/min Estimated GFR (MDRD) > 60.0 ml/min Glucose 156 H (74-106) mg/dL POC Glucose 156 H (60-110) mg/dL Calcium 8.5 (8.5-10.1) mg/dL Total Bilirubin 0.8 (0.2-1.0) mg/dL AST 15 (15-37) IU/L ALT 16 (14-63) IU/L Alkaline Phosphatase 79 (46-116) U/L Total Protein 6.8 (6.4-8.2) g/dL Albumin 2.8 L (3.4-5.0) g/dL Globulin 4.0 (2.6-4.0) g/dL Albumin/Globulin Ratio 0.7 L (0.9-1.6) Vancomycin Trough (5.0-10.0) ug/mL 06/14/19 06/14/19 Range/Units 07:35 11:44 WBC (4.0-11.0) K/uL RBC (4.30-5.90) M/uL Hgb (12.0-16.0) g/dL Hct (36.0-46.0) % MCV (80.0-98.0) fL MCH (27.0-32.0) pg MCHC (31.0-37.0) g/dL RDW Std Deviation (28.0-62.0) fl RDW Coeff of Robert (11.0-15.0) % Plt Count (150-400) K/uL MPV (7.40-12.00) fL Neut % (Auto) (48.0-80.0) % Lymph % (Auto) (16.0-40.0) % [place] % (Auto) (0.0-15.0) % Eos % (Auto) (0.0-7.0) % Baso % (Auto) (0.0-1.5) % Neut # (Auto) (1.4-5.7) K/uL Lymph # (Auto) (0.6-2.4) K/uL [place] # (Auto) (0.0-0.8) K/uL Eos # (Auto) (0.0-0.7) K/uL Baso # (Auto) (0.0-0.1) K/uL Nucleated RBC % /100WBC Nucleated RBCs # K/uL Sodium (136-145) mmol/L Potassium (3.5-5.1) mmol/L Chloride (98-107) mmol/L Carbon Dioxide (21.0-32.0) mmol/L BUN (7.0-18.0) mg/dL Creatinine (0.6-1.0) mg/dL Est Cr Clr Drug Dosing mL/min Estimated GFR (MDRD) ml/min Glucose (74-106) mg/dL POC Glucose 383 H (60-110) mg/dL Calcium (8.5-10.1) mg/dL Total Bilirubin (0.2-1.0) mg/dL AST (15-37) IU/L ALT (14-63) IU/L Alkaline Phosphatase (46-116) U/L Total Protein (6.4-8.2) g/dL Albumin (3.4-5.0) g/dL Globulin (2.6-4.0) g/dL Albumin/Globulin Ratio (0.9-1.6) Vancomycin Trough 20.5 H (5.0-10.0) ug/mL Samuel Results Last 24 Hours: Microbiology 06/11/19 14:30 Aerobic Blood Culture - Preliminary Blood - Venous Anaerobic Blood Culture - Preliminary NO GROWTH AFTER 2 DAYS 06/11/19 14:52 Aerobic Blood Culture - Preliminary Blood - Venous - Lab Draw NO GROWTH AFTER 2 DAYS Anaerobic Blood Culture - Preliminary NO GROWTH AFTER 2 DAYS Med Orders - Current: Current Medications Acetaminophen (Tylenol) 650 mg PO Q4H PRN PRN Reason: Pain (Mild 1-3)/fever Albuterol/Ipratropium (Duoneb 3.0-0.5 Mg/3 Ml) 3 ml NEB Q4HRRT PRN PRN Reason: Shortness Of Breath/wheezing Last Admin: 06/14/19 07:10 Dose: 3 ml Aspirin (Aspirin) 81 mg PO DAILY [facility] Last Admin: 06/14/19 10:16 Dose: Not Given Atorvastatin Calcium (Lipitor) 40 mg PO BEDTIME [facility] Last Admin: 06/13/19 20:33 Dose: Not Given Doxycycline Hyclate (Vibramycin) 100 mg PO BID [facility] Last Admin: 06/14/19 10:04 Dose: 100 mg Enoxaparin Sodium (Lovenox) 40 mg SUBCUT Q24H [facility] Last Admin: 06/13/19 17:37 Dose: Not Given Fexofenadine HCl (Diamond) 60 mg PO TID PRN PRN Reason: Allergies Last Admin: 06/13/19 20:47 Dose: 60 mg Furosemide (Lasix) 40 mg PO BIDDIURETIC JESSEE Last Admin: 06/14/19 09:56 Dose: 40 mg Vancomycin HCl 1.5 gm/ Premix 300 mls @ 150 mls/hr IV Q24H [facility] Insulin Aspart (Novolog) 0 unit SUBCUT TIDAC [facility]; Protocol Last Admin: 06/14/19 12:02 Dose: Not Given Labetalol HCl (Normodyne) 10 mg IVPUSH Q6H PRN; Protocol PRN Reason: Hypertension Lidocaine HCl (Lidocaine 5%) 1 gm TOP Q4H PRN PRN Reason: Pain Last Admin: 06/13/19 19:21 Dose: 1 gm Metoprolol Succinate (Toprol Xl) 50 mg PO DAILY [facility] Last Admin: 06/14/19 09:58 Dose: 50 mg Ondansetron HCl (Zofran Odt) 4 mg PO Q4H PRN PRN Reason: nausea, able to take PO Ondansetron HCl (Zofran) 4 mg IVPUSH Q4H PRN PRN Reason: Nausea Oxycodone HCl (Oxycodone) 5 mg PO Q4H PRN PRN Reason: Pain Last Admin: 06/14/19 05:52 Dose: 5 mg Polyethylene Glycol (Miralax) 17 gm PO DAILY PRN PRN Reason: Constipation Spironolactone (Aldactone) 25 mg PO DAILY [facility] Discontinued Medications Albuterol/Ipratropium (Duoneb 3.0-0.5 Mg/3 Ml) 3 ml NEB ONETIME ONE Stop: 06/11/19 14:38 Last Admin: 06/11/19 14:43 Dose: 3 ml Albuterol/Ipratropium (Duoneb 3.0-0.5 Mg/3 Ml) 3 ml NEB ONETIME ONE Stop: 06/11/19 14:46 Last Admin: 06/11/19 14:50 Dose: Not Given Fentanyl (Fentanyl) 50 mcg IVPUSH ONETIME ONE Stop: 06/11/19 15:45 Last Admin: 06/11/19 15:52 Dose: Not Given Fentanyl (Sublimaze) Confirm Administered Dose 100 mcg .ROUTE .STK-MED ONE Stop: 06/11/19 15:49 Last Admin: 06/11/19 15:52 Dose: 50 mcg Fexofenadine HCl (Diamond) 180 mg PO DAILY [facility] Last Admin: 06/12/19 08:55 Dose: 180 mg Furosemide (Lasix) 40 mg IVPUSH NOW ONE Stop: 06/11/19 17:26 Last Admin: 06/11/19 18:13 Dose: 40 mg Vancomycin HCl 1 gm/ Sodium (Chloride) 250 mls @ 166 mls/hr IV ONETIME ONE Stop: 06/11/19 17:38 Last Admin: 06/11/19 16:42 Dose: 166 mls/hr Vancomycin HCl 1 gm/ Sodium (Chloride) 250 mls @ 166.667 mls/hr IV Q12H [facility] Last Admin: 06/12/19 04:41 Dose: 166.667 mls/hr Vancomycin HCl 1 gm/ Sodium (Chloride) 250 mls @ 250 mls/hr IV 06/12/19@0800 [facility] Stop: 06/12/19 08:59 Last Admin: 06/12/19 08:49 Dose: 250 mls/hr Vancomycin HCl 1.5 gm/ Premix 300 mls @ 150 mls/hr IV Q12H [facility] Last Admin: 06/14/19 10:04 Dose: Not Given Magnesium Sulfate 2 gm/ Premix 50 mls @ 50 mls/hr IV ONETIME ONE Stop: 06/13/19 01:45 Last Admin: 06/13/19 01:24 Dose: 50 mls/hr Ibuprofen (Motrin) 600 mg PO Q6H PRN PRN Reason: Pain (mild 1-3) Labetalol HCl (Normodyne) 100 mg PO ONETIME ONE Stop: 06/11/19 18:54 Last Admin: 06/11/19 22:46 Dose: Not Given Lisinopril (Prinivil) 10 mg PO DAILY [facility] Methylprednisolone Sodium Succinate (Solu-Medrol) 125 mg IV ONETIME ONE Stop: 06/11/19 15:01 Last Admin: 06/11/19 15:08 Dose: 125 mg Oxycodone HCl (Oxycodone) 10 mg PO BID PRN PRN Reason: Pain Oxycodone HCl (Oxycodone) 10 mg PO Q8H PRN PRN Reason: Pain Last Admin: 06/11/19 20:46 Dose: 10 mg - Exam General: Alert, Oriented, Cooperative, No Acute Distress Lungs: Clear to Auscultation, Crackles. No: Wheezing Cardiovascular: Regular Rate, Regular Rhythm GI/Abdominal Exam: Normal Bowel Sounds, Soft, Non-Tender (Female) Exam: Other (large area of soft tissue. Non tender.) Extremities: Pedal Edema, Other (venous insufficiency with superficial ulcerations.) Sepsis Event Note - Evaluation Sepsis Screening Result: No Definite Risk - Focused Exam Vital Signs: Vital Signs Temp Pulse Pulse Resp BP BP BP 06/14/19 11:08 06/14/19 09:58 82 184/78 H 06/14/19 08:00 36.9 C 84 22 H 185/67 H 06/14/19 05:56 155/68 H 06/14/19 03:27 196/81 H 06/14/19 03:22 36.8 C 81 24 H 191/77 H Pulse Ox Pulse Ox 06/14/19 11:08 91 L 06/14/19 09:58 06/14/19 08:00 91 L 06/14/19 05:56 06/14/19 03:27 06/14/19 03:22 94 L Date Exam was Performed: 06/14/19 Time Exam was Performed: 18:11 - Problem List Review Problem List Initiated/Reviewed/Updated: Yes - My Orders Last 24 Hours: My Active Orders 06/13/19 15:36 Communication Order [RC] PRN 06/13/19 16:35 Lidocaine 5% 1 gm TOP Q4H PRN 06/13/19 21:00 atorvaSTATin [Lipitor] 40 mg PO BEDTIME 06/14/19 09:00 Spironolactone [Aldactone] 25 mg PO DAILY - Plan Plan:: A: 1. Lower extremity cellulitis, improving 2. Pelvic external mass 3. Heart failure with reduced EF of 30% 4. Hypertension, uncontrolled 5. Medical non-compliance 6. PMH DM2, COPD, tobacco abuse P: We had a long discussion with the patient that she needs to comply and take medications that he recommend and order during this hospitalization. However, patient has been declining some medications and wound care. She has an external pelvic mass that seems to be part of her pannus. She was not able to tolerate CT abdomen/pelvis, so an US was ordered which showed a mass and recommendation for a CT abdomen/pelvis. Patient can obtain this CT abdomen/ pelvis as outpatient. She will need to follow-up with cardiology in regards to her heart failure since she declines some medications or is either allergic to them. Only able to take metoprolol and lasix since she is allergic to Lucian-I, ARB, Spironolactone. Dispo: plan to DC tomorrow <Irineo Hemphill - Last Filed: 06/22/19 12:39> - Patient Data Vitals - Most Recent: Last Vital Signs Temp 36.4 C 06/15/19 03:00 Pulse 65 06/15/19 09:38 Resp 20 06/15/19 03:00 BP 145/45 H 06/15/19 09:38 Pulse Ox 92 L 06/15/19 03:00 Med Orders - Current: Current Medications Discontinued Medications Acetaminophen (Tylenol) 650 mg PO Q4H PRN PRN Reason: Pain (Mild 1-3)/fever Albuterol/Ipratropium (Duoneb 3.0-0.5 Mg/3 Ml) 3 ml NEB ONETIME ONE Stop: 06/11/19 14:38 Last Admin: 06/11/19 14:43 Dose: 3 ml Albuterol/Ipratropium (Duoneb 3.0-0.5 Mg/3 Ml) 3 ml NEB ONETIME ONE Stop: 06/11/19 14:46 Last Admin: 06/11/19 14:50 Dose: Not Given Albuterol/Ipratropium (Duoneb 3.0-0.5 Mg/3 Ml) 3 ml NEB Q4HRRT PRN PRN Reason: Shortness Of Breath/wheezing Last Admin: 06/14/19 23:43 Dose: 3 ml Aspirin (Aspirin) 81 mg PO DAILY [facility] Last Admin: 06/15/19 09:39 Dose: Not Given Atorvastatin Calcium (Lipitor) 40 mg PO BEDTIME [facility] Last Admin: 06/14/19 20:02 Dose: Not Given Doxycycline Hyclate (Vibramycin) 100 mg PO BID [facility] Last Admin: 06/15/19 09:39 Dose: 100 mg Enoxaparin Sodium (Lovenox) 40 mg SUBCUT Q24H [facility] Last Admin: 06/14/19 18:23 Dose: Not Given Fentanyl (Fentanyl) 50 mcg IVPUSH ONETIME ONE Stop: 06/11/19 15:45 Last Admin: 06/11/19 15:52 Dose: Not Given Fentanyl (Sublimaze) Confirm Administered Dose 100 mcg .ROUTE .STK-MED ONE Stop: 06/11/19 15:49 Last Admin: 06/11/19 15:52 Dose: 50 mcg Fexofenadine HCl (Diamond) 180 mg PO DAILY [facility] Last Admin: 06/12/19 08:55 Dose: 180 mg Fexofenadine HCl (Diamond) 60 mg PO TID PRN PRN Reason: Allergies Last Admin: 06/14/19 22:09 Dose: 60 mg Furosemide (Lasix) 40 mg IVPUSH NOW ONE Stop: 06/11/19 17:26 Last Admin: 06/11/19 18:13 Dose: 40 mg Furosemide (Lasix) 40 mg PO BIDDIURETIC JESSEE Last Admin: 06/15/19 09:39 Dose: Not Given Vancomycin HCl 1 gm/ Sodium (Chloride) 250 mls @ 166 mls/hr IV ONETIME ONE Stop: 06/11/19 17:38 Last Admin: 06/11/19 16:42 Dose: 166 mls/hr Vancomycin HCl 1 gm/ Sodium (Chloride) 250 mls @ 166.667 mls/hr IV Q12H [facility] Last Admin: 06/12/19 04:41 Dose: 166.667 mls/hr Vancomycin HCl 1 gm/ Sodium (Chloride) 250 mls @ 250 mls/hr IV 06/12/19@0800 [facility] Stop: 06/12/19 08:59 Last Admin: 06/12/19 08:49 Dose: 250 mls/hr Vancomycin HCl 1.5 gm/ Premix 300 mls @ 150 mls/hr IV Q12H [facility] Last Admin: 06/14/19 10:04 Dose: Not Given Magnesium Sulfate 2 gm/ Premix 50 mls @ 50 mls/hr IV ONETIME ONE Stop: 06/13/19 01:45 Last Admin: 06/13/19 01:24 Dose: 50 mls/hr Vancomycin HCl 1.5 gm/ Premix 300 mls @ 150 mls/hr IV Q24H [facility] Last Admin: 06/14/19 19:55 Dose: 150 mls/hr Ibuprofen (Motrin) 600 mg PO Q6H PRN PRN Reason: Pain (mild 1-3) Insulin Aspart (Novolog) 0 unit SUBCUT TIDAC [facility]; Protocol Last Admin: 06/15/19 06:31 Dose: Not Given Labetalol HCl (Normodyne) 100 mg PO ONETIME ONE Stop: 06/11/19 18:54 Last Admin: 06/11/19 22:46 Dose: Not Given Labetalol HCl (Normodyne) 10 mg IVPUSH Q6H PRN; Protocol PRN Reason: Hypertension Lidocaine HCl (Lidocaine 5%) 1 gm TOP Q4H PRN PRN Reason: Pain Last Admin: 06/13/19 19:21 Dose: 1 gm Lisinopril (Prinivil) 10 mg PO DAILY [facility] Methylprednisolone Sodium Succinate (Solu-Medrol) 125 mg IV ONETIME ONE Stop: 06/11/19 15:01 Last Admin: 06/11/19 15:08 Dose: 125 mg Metoprolol Succinate (Toprol Xl) 50 mg PO DAILY [facility] Last Admin: 06/15/19 09:38 Dose: Not Given Ondansetron HCl (Zofran Odt) 4 mg PO Q4H PRN PRN Reason: nausea, able to take PO Ondansetron HCl (Zofran) 4 mg IVPUSH Q4H PRN PRN Reason: Nausea Oxycodone HCl (Oxycodone) 10 mg PO BID PRN PRN Reason: Pain Oxycodone HCl (Oxycodone) 10 mg PO Q8H PRN PRN Reason: Pain Last Admin: 06/11/19 20:46 Dose: 10 mg Oxycodone HCl (Oxycodone) 5 mg PO Q4H PRN PRN Reason: Pain Last Admin: 06/15/19 06:53 Dose: 5 mg Polyethylene Glycol (Miralax) 17 gm PO DAILY PRN PRN Reason: Constipation - Plan Plan:: I have seen and evaluated the patient and agree with the residents note unless specified in my note
--- NOTE | 2019-06-14 13:37 | ECHO ---
EXAM DATE: 06/11/19 PATIENT'S AGE: 68 The echocardiogram report can be seen in this patient's EMR (Electronic Medical Record) in the REPORTS section. The report has also been scanned into PACs. MELODY
--- NOTE | 2019-06-14 14:48 | US ---
Pelvic ultrasound: Multiple real-time images were obtained of the pelvis. Large soft tissue abnormality seen superficially within the pelvis. Uncertain as to etiology. Recommend pelvic CT exam to further evaluate. Impression: 1. Large superficial pelvic abnormality. Contrast-enhanced CT pelvis recommended to further evaluate. Diagnostic code #9 This report was dictated in [place] [employer]
[2019-06-14] MEDS: Enoxaparin 40 MG/0.4 ML Syringe SUBCUT SCH (18:23)
[2019-06-14] MEDS: atorvaSTATin 40 MG Tab PO SCH (20:02)
[2019-06-15 06:01] LABS: CARBON DIOXIDE,CO2 34.1 mmol/L (21.0-32.0); POTASSIUM,K 4.1 mmol/L (3.5-5.1)
[2019-06-15] MEDS: Insulin Aspart 100 Units/ML 3 ML Pen SUBCUT SCH (06:31)
[2019-06-15] MEDS: oxyCODONE 5 MG Tab PO PRN (06:53)
--- NOTE | 2019-06-15 09:20 | PCM.DCSUM1 ---
<Michele Hammer - Last Filed: 06/16/19 16:18> Discharge Summary - Hospital Course Free Text/Narrative:: 68 y/o female with complex past medical history which includes CHF, COPD, DM2, Hypertension, Tobacco abuse, Morbid obesity and medical-noncompliance. Presented to the ER complaining of worsening lower extremity pain and edema. She was admitted for suspected bilateral lower extremity cellulitis with superficial ulcerations. She was started on Vancomycin and resumed on her home medications. Wound care was consulted and dressing applied to lower extremities but patient later took off dressings stating that it was hurting her. Her pain was controlled with oxycodone which the patient had ran out at home. However, during her hospitalization the patient continually declined medical care during this hospitalization. ECHO showed worsening heart failure with EF 30%. She was started on medical management for her heart failure, but patient continued to decline various medications. In addition, CT abdomen/ pelvic was attempted due to suspicious suprapubic exterior mass but patient was not able to tolerate CT. Ultrasound was performed which recommended further evaluation with CT. She was discharged home on Home oxygen due to her CHD, COPD and instructed to follow-up with her PCP for further medical management and possible CT abdomen/pelvis of her suprapubic external mass. - Discharge Data Discharge Date: 06/15/19 Discharge Disposition: Home, Self-Care 01 Condition: Fair - Referral to Home Health Primary Care Physician: PCP None - Patient Summary/Data Consults: Consultations 06/11/19 16:46 PT Evaluation and Treatment [CONS] Routine 06/11/19 16:52 Consult to Wound Care Services [CONS] Stat - Patient Instructions Diet: Heart Healthy Diet Activity: As Tolerated Notify Provider of: Fever, Increased Pain, Drainage - Discharge Plan Prescriptions/Med Rec: Aspirin 81 mg PO DAILY 90 Days #90 tab.chew atorvaSTATin [Lipitor] 40 mg PO BEDTIME 90 Days #90 tablet Metoprolol Succinate [Toprol XL 50mg] 50 mg PO DAILY 90 Days #90 tab.er Naloxone HCl [Narcan] 4 mg NS ONETIME PRN #1 spray PRN Reason: Oversedation oxyCODONE 5 mg PO Q4H PRN #60 tablet PRN Reason: Pain Home Medications: Home Meds Furosemide [Lasix] 40 mg PO BIDDIURETIC 30 Days #60 tablet 02/28/17 [Rx] Doxycycline [Vibramycin] 100 mg PO BID 04/25/18 [History] oxyCODONE 10 mg PO BID PRN 04/25/18 [History] Fexofenadine [Diamond] 180 mg PO DAILY 06/11/19 [History] Aspirin 81 mg PO DAILY 90 Days #90 tab.chew 06/15/19 [Rx] Metoprolol Succinate [Toprol XL 50mg] 50 mg PO DAILY 90 Days #90 tab.er [Rx] Naloxone HCl [Narcan] 4 mg NS ONETIME PRN #1 spray 06/15/19 [Rx] atorvaSTATin [Lipitor] 40 mg PO BEDTIME 90 Days #90 tablet 06/15/19 [Rx] oxyCODONE 5 mg PO Q4H PRN #60 tablet 06/15/19 [Rx] Patient Handouts: Shortness of Breath, Adult, [id number], Metoprolol tablets , Oxycodone tablets or capsules, Cellulitis, Adult, [id number], Atorvastatin tablets, Aspirin, ASA oral tablets Referrals: [facility] [Outside] Yojana Gtz MD [Ordering Only Provider] - 06/21/19 10:15 am (Arrive at 10 with photo ID and insurance card. You were not able to see Dr. Goldberg, due to him being out several weeks. ) - Discharge Summary/Plan Comment DC Time >30 min.: No - Patient Data Vitals - Most Recent: Last Vital Signs Temp 36.4 C 06/15/19 03:00 Pulse 67 06/15/19 03:00 Resp 20 06/15/19 03:00 BP 172/72 H 06/15/19 03:00 Pulse Ox 92 L 06/15/19 03:00 Weight - Most Recent: 132.041 kg I&O - Last 24 hours: Intake & Output 06/14/19 06/15/19 06/15/19 22:59 06:59 14:59 Intake Total 737 1073 Output Total 300 670 Balance 437 403 Lab Results - Last 24 hrs: Laboratory Results - last 24 hr 06/14/19 06/14/19 06/14/19 Range/Units 06:14 11:44 17:31 WBC (4.0-11.0) K/uL RBC (4.30-5.90) M/uL Hgb (12.0-16.0) g/dL Hct (36.0-46.0) % MCV (80.0-98.0) fL MCH (27.0-32.0) pg MCHC (31.0-37.0) g/dL RDW Std Deviation (28.0-62.0) fl RDW Coeff of Robert (11.0-15.0) % Plt Count (150-400) K/uL MPV (7.40-12.00) fL Neut % (Auto) (48.0-80.0) % Lymph % (Auto) (16.0-40.0) % Eagle % (Auto) (0.0-15.0) % Eos % (Auto) (0.0-7.0) % Baso % (Auto) (0.0-1.5) % Neut # (Auto) (1.4-5.7) K/uL Lymph # (Auto) (0.6-2.4) K/uL Eagle # (Auto) (0.0-0.8) K/uL Eos # (Auto) (0.0-0.7) K/uL Baso # (Auto) (0.0-0.1) K/uL Nucleated RBC % /100WBC Nucleated RBCs # K/uL Sodium (136-145) mmol/L Potassium (3.5-5.1) mmol/L Chloride (98-107) mmol/L Carbon Dioxide (21.0-32.0) mmol/L BUN (7.0-18.0) mg/dL Creatinine (0.6-1.0) mg/dL Est Cr Clr Drug Dosing mL/min Estimated GFR (MDRD) ml/min Glucose (74-106) mg/dL POC Glucose 156 H 383 H 128 H (60-110) mg/dL Calcium (8.5-10.1) mg/dL 06/15/19 06/15/19 06/15/19 Range/Units 05:35 05:35 05:52 WBC 9.10 (4.0-11.0) K/uL RBC 4.15 L (4.30-5.90) M/uL Hgb 12.8 (12.0-16.0) g/dL Hct 40.9 (36.0-46.0) % MCV 98.6 H (80.0-98.0) fL MCH 30.8 (27.0-32.0) pg MCHC 31.3 (31.0-37.0) g/dL RDW Std Deviation 49.5 (28.0-62.0) fl RDW Coeff of Robert 14 (11.0-15.0) % Plt Count 189 (150-400) K/uL MPV 10.40 (7.40-12.00) fL Neut % (Auto) 69.3 (48.0-80.0) % Lymph % (Auto) 15.2 L (16.0-40.0) % Eagle % (Auto) 13.3 (0.0-15.0) % Eos % (Auto) 2.0 (0.0-7.0) % Baso % (Auto) 0.2 (0.0-1.5) % Neut # (Auto) 6.3 H (1.4-5.7) K/uL Lymph # (Auto) 1.4 (0.6-2.4) K/uL Eagle # (Auto) 1.2 H (0.0-0.8) K/uL Eos # (Auto) 0.2 (0.0-0.7) K/uL Baso # (Auto) 0.0 (0.0-0.1) K/uL Nucleated RBC % 0.0 /100WBC Nucleated RBCs # 0 K/uL Sodium 145 (136-145) mmol/L Potassium 4.1 (3.5-5.1) mmol/L Chloride 108 H (98-107) mmol/L Carbon Dioxide 34.1 H (21.0-32.0) mmol/L BUN 19 H (7.0-18.0) mg/dL Creatinine 1.0 (0.6-1.0) mg/dL Est Cr Clr Drug Dosing 53.81 mL/min Estimated GFR (MDRD) 55.5 ml/min Glucose 158 H (74-106) mg/dL POC Glucose 137 H (60-110) mg/dL Calcium 8.4 L (8.5-10.1) mg/dL HALEY Results - Last 24 hrs: Microbiology 06/11/19 14:52 Aerobic Blood Culture - Preliminary Blood - Venous - Lab Draw NO GROWTH AFTER 3 DAYS Anaerobic Blood Culture - Preliminary NO GROWTH AFTER 3 DAYS 06/11/19 14:30 Aerobic Blood Culture - Preliminary Blood - Venous Anaerobic Blood Culture - Preliminary NO GROWTH AFTER 3 DAYS Med Orders - Current: Current Medications Acetaminophen (Tylenol) 650 mg PO Q4H PRN PRN Reason: Pain (Mild 1-3)/fever Albuterol/Ipratropium (Duoneb 3.0-0.5 Mg/3 Ml) 3 ml NEB Q4HRRT PRN PRN Reason: Shortness Of Breath/wheezing Last Admin: 06/14/19 23:43 Dose: 3 ml Aspirin (Aspirin) 81 mg PO DAILY [facility] Last Admin: 06/14/19 10:16 Dose: Not Given Atorvastatin Calcium (Lipitor) 40 mg PO BEDTIME [facility] Last Admin: 06/14/19 20:02 Dose: Not Given Doxycycline Hyclate (Vibramycin) 100 mg PO BID [facility] Last Admin: 06/14/19 20:02 Dose: 100 mg Enoxaparin Sodium (Lovenox) 40 mg SUBCUT Q24H [facility] Last Admin: 06/14/19 18:23 Dose: Not Given Fexofenadine HCl (Diamond) 60 mg PO TID PRN PRN Reason: Allergies Last Admin: 06/14/19 22:09 Dose: 60 mg Furosemide (Lasix) 40 mg PO BIDDIURETIC [facility] Last Admin: 06/14/19 13:38 Dose: 40 mg Vancomycin HCl 1.5 gm/ Premix 300 mls @ 150 mls/hr IV Q24H [facility] Last Admin: 06/14/19 19:55 Dose: 150 mls/hr Insulin Aspart (Novolog) 0 unit SUBCUT TIDAC [facility]; Protocol Last Admin: 06/15/19 06:31 Dose: Not Given Labetalol HCl (Normodyne) 10 mg IVPUSH Q6H PRN; Protocol PRN Reason: Hypertension Lidocaine HCl (Lidocaine 5%) 1 gm TOP Q4H PRN PRN Reason: Pain Last Admin: 06/13/19 19:21 Dose: 1 gm Metoprolol Succinate (Toprol Xl) 50 mg PO DAILY [facility] Last Admin: 06/14/19 09:58 Dose: 50 mg Ondansetron HCl (Zofran Odt) 4 mg PO Q4H PRN PRN Reason: nausea, able to take PO Ondansetron HCl (Zofran) 4 mg IVPUSH Q4H PRN PRN Reason: Nausea Oxycodone HCl (Oxycodone) 5 mg PO Q4H PRN PRN Reason: Pain Last Admin: 06/15/19 06:53 Dose: 5 mg Polyethylene Glycol (Miralax) 17 gm PO DAILY PRN PRN Reason: Constipation Discontinued Medications Albuterol/Ipratropium (Duoneb 3.0-0.5 Mg/3 Ml) 3 ml NEB ONETIME ONE Stop: 06/11/19 14:38 Last Admin: 06/11/19 14:43 Dose: 3 ml Albuterol/Ipratropium (Duoneb 3.0-0.5 Mg/3 Ml) 3 ml NEB ONETIME ONE Stop: 06/11/19 14:46 Last Admin: 06/11/19 14:50 Dose: Not Given Fentanyl (Fentanyl) 50 mcg IVPUSH ONETIME ONE Stop: 06/11/19 15:45 Last Admin: 06/11/19 15:52 Dose: Not Given Fentanyl (Sublimaze) Confirm Administered Dose 100 mcg .ROUTE .STK-MED ONE Stop: 06/11/19 15:49 Last Admin: 06/11/19 15:52 Dose: 50 mcg Fexofenadine HCl (Diamond) 180 mg PO DAILY [facility] Last Admin: 06/12/19 08:55 Dose: 180 mg Furosemide (Lasix) 40 mg IVPUSH NOW ONE Stop: 06/11/19 17:26 Last Admin: 06/11/19 18:13 Dose: 40 mg Vancomycin HCl 1 gm/ Sodium (Chloride) 250 mls @ 166 mls/hr IV ONETIME ONE Stop: 06/11/19 17:38 Last Admin: 06/11/19 16:42 Dose: 166 mls/hr Vancomycin HCl 1 gm/ Sodium (Chloride) 250 mls @ 166.667 mls/hr IV Q12H [facility] Last Admin: 06/12/19 04:41 Dose: 166.667 mls/hr Vancomycin HCl 1 gm/ Sodium (Chloride) 250 mls @ 250 mls/hr IV 06/12/19@0800 [facility] Stop: 06/12/19 08:59 Last Admin: 06/12/19 08:49 Dose: 250 mls/hr Vancomycin HCl 1.5 gm/ Premix 300 mls @ 150 mls/hr IV Q12H [facility] Last Admin: 06/14/19 10:04 Dose: Not Given Magnesium Sulfate 2 gm/ Premix 50 mls @ 50 mls/hr IV ONETIME ONE Stop: 06/13/19 01:45 Last Admin: 06/13/19 01:24 Dose: 50 mls/hr Ibuprofen (Motrin) 600 mg PO Q6H PRN PRN Reason: Pain (mild 1-3) Labetalol HCl (Normodyne) 100 mg PO ONETIME ONE Stop: 06/11/19 18:54 Last Admin: 06/11/19 22:46 Dose: Not Given Lisinopril (Prinivil) 10 mg PO DAILY [facility] Methylprednisolone Sodium Succinate (Solu-Medrol) 125 mg IV ONETIME ONE Stop: 06/11/19 15:01 Last Admin: 06/11/19 15:08 Dose: 125 mg Oxycodone HCl (Oxycodone) 10 mg PO BID PRN PRN Reason: Pain Oxycodone HCl (Oxycodone) 10 mg PO Q8H PRN PRN Reason: Pain Last Admin: 06/11/19 20:46 Dose: 10 mg <Irineo Hemphill - Last Filed: 06/22/19 12:39> Discharge Summary - Hospital Course Free Text/Narrative:: I have seen and evaluated the patient and agree with the residents note unless specified in my note - Referral to Home Health Primary Care Physician: PCP None - Patient Summary/Data Consults: Consultations 06/11/19 16:46 PT Evaluation and Treatment [CONS] Routine 06/11/19 16:52 Consult to Wound Care Services [CONS] Stat - Patient Data Vitals - Most Recent: Last Vital Signs Temp 36.4 C 06/15/19 03:00 Pulse 65 06/15/19 09:38 Resp 20 06/15/19 03:00 BP 145/45 H 06/15/19 09:38 Pulse Ox 92 L 06/15/19 03:00 Med Orders - Current: Current Medications Discontinued Medications Acetaminophen (Tylenol) 650 mg PO Q4H PRN PRN Reason: Pain (Mild 1-3)/fever Albuterol/Ipratropium (Duoneb 3.0-0.5 Mg/3 Ml) 3 ml NEB ONETIME ONE Stop: 06/11/19 14:38 Last Admin: 06/11/19 14:43 Dose: 3 ml Albuterol/Ipratropium (Duoneb 3.0-0.5 Mg/3 Ml) 3 ml NEB ONETIME ONE Stop: 06/11/19 14:46 Last Admin: 06/11/19 14:50 Dose: Not Given Albuterol/Ipratropium (Duoneb 3.0-0.5 Mg/3 Ml) 3 ml NEB Q4HRRT PRN PRN Reason: Shortness Of Breath/wheezing Last Admin: 06/14/19 23:43 Dose: 3 ml Aspirin (Aspirin) 81 mg PO DAILY [facility] Last Admin: 06/15/19 09:39 Dose: Not Given Atorvastatin Calcium (Lipitor) 40 mg PO BEDTIME [facility] Last Admin: 06/14/19 20:02 Dose: Not Given Doxycycline Hyclate (Vibramycin) 100 mg PO BID [facility] Last Admin: 06/15/19 09:39 Dose: 100 mg Enoxaparin Sodium (Lovenox) 40 mg SUBCUT Q24H [facility] Last Admin: 06/14/19 18:23 Dose: Not Given Fentanyl (Fentanyl) 50 mcg IVPUSH ONETIME ONE Stop: 06/11/19 15:45 Last Admin: 06/11/19 15:52 Dose: Not Given Fentanyl (Sublimaze) Confirm Administered Dose 100 mcg .ROUTE .STK-MED ONE Stop: 06/11/19 15:49 Last Admin: 06/11/19 15:52 Dose: 50 mcg Fexofenadine HCl (Diamond) 180 mg PO DAILY [facility] Last Admin: 06/12/19 08:55 Dose: 180 mg Fexofenadine HCl (Diamond) 60 mg PO TID PRN PRN Reason: Allergies Last Admin: 06/14/19 22:09 Dose: 60 mg Furosemide (Lasix) 40 mg IVPUSH NOW ONE Stop: 06/11/19 17:26 Last Admin: 06/11/19 18:13 Dose: 40 mg Furosemide (Lasix) 40 mg PO BIDDIURETIC [facility] Last Admin: 06/15/19 09:39 Dose: Not Given Vancomycin HCl 1 gm/ Sodium (Chloride) 250 mls @ 166 mls/hr IV ONETIME ONE Stop: 06/11/19 17:38 Last Admin: 06/11/19 16:42 Dose: 166 mls/hr Vancomycin HCl 1 gm/ Sodium (Chloride) 250 mls @ 166.667 mls/hr IV Q12H [facility] Last Admin: 06/12/19 04:41 Dose: 166.667 mls/hr Vancomycin HCl 1 gm/ Sodium (Chloride) 250 mls @ 250 mls/hr IV 06/12/19@0800 [facility] Stop: 06/12/19 08:59 Last Admin: 06/12/19 08:49 Dose: 250 mls/hr Vancomycin HCl 1.5 gm/ Premix 300 mls @ 150 mls/hr IV Q12H [facility] Last Admin: 06/14/19 10:04 Dose: Not Given Magnesium Sulfate 2 gm/ Premix 50 mls @ 50 mls/hr IV ONETIME ONE Stop: 06/13/19 01:45 Last Admin: 06/13/19 01:24 Dose: 50 mls/hr Vancomycin HCl 1.5 gm/ Premix 300 mls @ 150 mls/hr IV Q24H [facility] Last Admin: 06/14/19 19:55 Dose: 150 mls/hr Ibuprofen (Motrin) 600 mg PO Q6H PRN PRN Reason: Pain (mild 1-3) Insulin Aspart (Novolog) 0 unit SUBCUT TIDAC [facility]; Protocol Last Admin: 06/15/19 06:31 Dose: Not Given Labetalol HCl (Normodyne) 100 mg PO ONETIME ONE Stop: 06/11/19 18:54 Last Admin: 06/11/19 22:46 Dose: Not Given Labetalol HCl (Normodyne) 10 mg IVPUSH Q6H PRN; Protocol PRN Reason: Hypertension Lidocaine HCl (Lidocaine 5%) 1 gm TOP Q4H PRN PRN Reason: Pain Last Admin: 06/13/19 19:21 Dose: 1 gm Lisinopril (Prinivil) 10 mg PO DAILY [facility] Methylprednisolone Sodium Succinate (Solu-Medrol) 125 mg IV ONETIME ONE Stop: 06/11/19 15:01 Last Admin: 06/11/19 15:08 Dose: 125 mg Metoprolol Succinate (Toprol Xl) 50 mg PO DAILY [facility] Last Admin: 06/15/19 09:38 Dose: Not Given Ondansetron HCl (Zofran Odt) 4 mg PO Q4H PRN PRN Reason: nausea, able to take PO Ondansetron HCl (Zofran) 4 mg IVPUSH Q4H PRN PRN Reason: Nausea Oxycodone HCl (Oxycodone) 10 mg PO BID PRN PRN Reason: Pain Oxycodone HCl (Oxycodone) 10 mg PO Q8H PRN PRN Reason: Pain Last Admin: 06/11/19 20:46 Dose: 10 mg Oxycodone HCl (Oxycodone) 5 mg PO Q4H PRN PRN Reason: Pain Last Admin: 06/15/19 06:53 Dose: 5 mg Polyethylene Glycol (Miralax) 17 gm PO DAILY PRN PRN Reason: Constipation
[2019-06-15] MEDS: Metoprolol Succinate 50 MG Tab.ER PO SCH (09:38)
[2019-06-15] MEDS: Doxycycline 100 MG Cap PO SCH (09:39)
[2019-06-15] MEDS: Furosemide 40 MG Tab PO SCH (09:39)
[2019-06-15] MEDS: Aspirin 81 MG Tab.Chew PO SCH (09:39)
[2019-06-15 09:40] VITALS: BP 145/45; PULSE 65
== END 2019-06-15 10:15 | disposition home or self-care (01) | DRG 292 ==
LOC: MW.ED 14:30 → MW.MS 16:27 → OBSVTOIN 16:46
PROVIDERS: ADMIT Student in an Organized Health Care Education/Training Program; ATTEND Student in an Organized Health Care Education/Training Program
DX: I11.0 Hypertensive heart disease with heart failure (principal); N17.9 Acute kidney failure, unspecified; I50.9 Heart failure, unspecified; L03.116 Cellulitis of left lower limb; R32 Unspecified urinary incontinence; G89.29 Other chronic pain; M54.9 Dorsalgia, unspecified; F32.9 Major depressive disorder, single episode, unspecified; Z79.899 Other long term (current) drug therapy; L03.115 Cellulitis of right lower limb; Z68.42 Body mass index [BMI] 45.0-49.9, adult; E66.01 Morbid (severe) obesity due to excess calories; Z99.81 Dependence on supplemental oxygen; J44.9 Chronic obstructive pulmonary disease, unspecified; I50.23 Acute on chronic systolic (congestive) heart failure; F17.200 Nicotine dependence, unspecified, uncomplicated; Z88.5 Allergy status to narcotic agent; R19.00 Intra-abdominal and pelvic swelling, mass and lump, unspecified site; Z91.14 Patient's other noncompliance with medication regimen; Z91.012 Allergy to eggs; Z91.040 Latex allergy status; Z91.018 Allergy to other foods; Z88.8 Allergy status to other drugs, medicaments and biological substances; Z88.1 Allergy status to other antibiotic agents; Z88.2 Allergy status to sulfonamides
CPT/HCPCS: 71045; 80053; 81001; 83605; 83880; 84443; 84484; 85025; 87040 ×2; 87804 ×2; 94640; 96374; 99285; J2930; J3010; J3370; J7050; 36415; 76857; 76857-26; 80048; 80061; 80202; 82962; 83036; 83735; 93005; 93306; 97161-GP; 97530-GP; 99284; A9270-GY; J1650; J1940; J3475; J3490; J7620-GY

== ENCOUNTER 2020-02-21 19:41 | Inpatient (IN) | payer MEDICARE, OTHER ==
--- NOTE | 2020-02-21 20:23 | PCM.SN.2 ---
- Free Text/Narrative Note: Heart rate = 93 bpm, atrial fibrillation, normal sinus rhythm, normal QRS interval, T wave inversion I, AVL, no STEMI. EKG and rhythm strip interpreted by me at 2001
[2020-02-21] MEDS ORDERED: Sodium Chloride 0.9% 1,000 ML IV ONE (20:49)
[2020-02-21 21:23] LABS: BLOOD UREA NITROGEN,BUN 17 mg/dL (7.0-18.0); CARBON DIOXIDE,CO2 40.8 mmol/L (21.0-32.0); CHLORIDE,CL 99 mmol/L (98-107); GLUCOSE RANDOM 121 mg/dL (74-106); LIPASE 71 U/L (73-393); POTASSIUM,K 3.5 mmol/L (3.5-5.1); SODIUM,NA 142 mmol/L (136-145)
--- NOTE | 2020-02-21 21:32 | EDM.PDOC ---
ED HPI GENERAL MEDICAL PROBLEM - General Chief Complaint: Respiratory Problem Stated Complaint: brought in by ems sick Time Seen by Provider: 02/21/20 20:12 Source of Information: Reports: Patient History Limitations: Reports: No Limitations - History of Present Illness INITIAL COMMENTS - FREE TEXT/NARRATIVE: HISTORY AND PHYSICAL: History of present illness: Patient is a 69-year-old female with a history of congestive heart failure, hypertension, type 2 diabetes, morbid obesity, aortic stenosis, and is on 4 L nasal cannula chronically who presents to the ED today via EMS with multiple complaints but ultimately is unable to care for herself any longer at home. Patient lives by herself without anybody taking care of her and states that she has been unable to ambulate so has been sitting in a chair not able to get to the bathroom, feed herself, perform any ADLs, and is having increasing edema of her lower extremities, pain of her buttocks and perineal area from being unable to get pressure off of this area, coughing, and shortness of breath. Patient denies fever, chills, chest pain. Denies headache, neck stiff ness, change in vision, syncope, or near syncope. Denies nausea, vomiting, abdominal pain, diarrhea, constipation, or dysuria. Has not noted any blood in urine or stool. Review of systems: As per history of present illness and below otherwise all systems reviewed and negative. Past medical history: As per history of present illness and as reviewed below otherwise noncontributory. Surgical history: As per history of present illness and as reviewed below otherwise noncontributory. Social history: See social history for further information Family history: As per history of present illness and as reviewed below otherwise noncontributory. Physical exam: General: Patient is alert, oriented, and in no acute distress. Patient is extremely disheveled, sitting comfortably on exam table. HEENT: Hair is matted and unkept. Otherwise, atraumatic, normocephalic, pupils equal and reactive bilaterally, negative for conjunctival pallor or scleral icterus, mucous membranes dry and tachy, TMs normal bilaterally, throat clear, neck supple, nontender, trachea midline. No drooling or trismus noted. No meningeal signs. No hot potato voice noted. Lungs: On 4L NC per baseline, tachypneic but comfortable appearing. Non- productive wet cough on exam. Orthopnea is present. Patient speaking clearly without breathlessness, no wheezing or stridor, no accessory muscle use or respiratory distress. Auscultation deferred due to current COV-ID 19 outbreak. Heart: Auscultation deferred due to current COV-ID 19 outbreak. Abdomen: Morbidly obese. Exam of abdomen limited due to body habitus. Soft, nondistended, nontender. Negative for masses or hepatosplenomegaly. Negative for costovertebral tenderness. Pelvis: Stable nontender. Genitourinary: Lens Generator at bedside Nayely Roberto. Unkept with urine and fecal matter dried on skin. Patient has a rather large mons pubis which has a rubor appearance to it but non painful to palpation, not warm to touch. There is a 2cm ulcer on the inner left thigh with surrounding erythema. Rectal: Unkept with fecal matter dried on skin. After this area was cleaned, the skin of the buttock is erythematous, but not warm to the touch with diffuse tenderness which extends down into the bilateral inner thighs. Skin: Bilateral lower extremities exhibit moderate-severe lymphedema with diffuse crusting of bilateral lower extremities from the bilateral mid tibia to the toes with underlying elda appearance of the skin with erythema. There is matted clumps of hair between her toes, in her perineum, and stuck to her legs. Extremities: DP/PT intact with doppler. See skin. Patient is unable to move her self without assistance on the exam table and requires myself and 2 additional nursing staff to rotate, move her legs, and roll in the bed. Patient unable to ambulate or move herself which she states is a chronic issue. Otherwise, atraumatic, negative for cords or calf pain. Neurovascular unremarkable. Neuro: Awake, alert, oriented. Cranial nerves II through XII unremarkable. Cerebellum unremarkable. Motor and sensory unremarkable throughout. Exam nonfocal. Notes: Initial exam patient is extremely disheveled with evident self care deficit. She is currently on 4LNC, which is her baseline O2 at home, and breathing comfortably, speaking complete sentences. She has extremely limited mobility and requires 3 staff members to move throughout the bed to perform complete assessment. She does exhibit orthopnea on exam and does become SOB if the head of the bed is lowered. She also appears dehydrated and her mouth is severely dry. Reevaluation of patient shows slightly more labored breathing than initial exam. She is taking deeper breaths than prior and speaking 2-3 word sentences. 22:00: ABG shows respiratory acidosis with retaining CO2 with partial metabolic compensation. Patient states that this time she is unwilling to do BiPAP until she has received Ativan, then will do a trial of Bipap. Patient is also unsure about status of DNR/DNI at this time. 23:15: After multiple extensive long conversations with patient about her life- threatening impending airway concern, and thoroughly discussed all options, patient is now agreeable to bipap trial and admission to the hospital. Patient does agree that she wants to be a full code after extensive conversation regarding this. Patient is alert and oriented x4 and able to make this decision. 23:28: Dr. Moe consulted on patient and thoroughly discussed patients case. Will admit to inpatient ICU. Diagnostics: CBC, CMP, UA, Lactate, CPK, CXR, Trop, EKG, COVID19, bilateral tib/fib XR, bilateral foot XR, BNP, CXR, ABG Therapeutics: Saline @ maintenance only, Graf cath (patient declines graf cath), Ativan Impression: Hypercapnic respiratory failure Respiratory acidosis with partial metabolic compensation Congestive Heart Failure Total self-care deficit Non-compliance Chronic history at baseline Plan: Admission to Dr. Moe to ICU inpatient Definitive disposition and diagnosis as appropriate pending reevaluation and review of above. - Related Data Allergies Allergy/AdvReac Type Severity Reaction Status Date / Time acetaminophen [From Tylenol] Allergy Stomach Verified 02/21/20 19:48 Upset aspartame Allergy Other Verified 02/21/20 19:48 [From Nutrasweet Aspartame] banana Allergy Other Verified 02/21/20 19:48 egg Allergy Other Verified 02/21/20 19:48 fluconazole Allergy Burning Verified 02/21/20 19:48 formaldehyde Allergy Other Verified 02/21/20 19:48 latex Allergy Other Verified 02/21/20 19:48 levofloxacin [From Levaquin] Allergy Other Verified 02/21/20 19:48 lisinopril Allergy Other Verified 02/21/20 19:48 losartan Allergy Anaphylactic Verified 02/21/20 19:48 Shock morphine Allergy Other Verified 02/21/20 19:48 perfume Allergy Cough Verified 02/21/20 19:48 petrolatum,white Allergy Other Verified 02/21/20 19:48 [From Petroleum Jelly] petrolatum,white Allergy Other Verified 02/21/20 19:48 propoxyphene Allergy Other Verified 02/21/20 19:48 propoxyphene HCl Allergy Other Verified 02/21/20 19:48 [From Darvon] soy Allergy Other Verified 02/21/20 19:48 spironolactone Allergy Chest Verified 02/21/20 19:48 Presssure Sulfa (Sulfonamide Allergy Other Verified 02/21/20 19:48 Antibiotics) Home Meds: Home Meds Doxycycline [Vibramycin] 100 mg PO BID 04/25/18 [History] oxyCODONE 10 mg PO BID PRN 04/25/18 [History] Fexofenadine [Diamond] 180 mg PO DAILY 06/11/19 [History] Aspirin 81 mg PO DAILY 90 Days #90 tab.chew 06/15/19 [Rx] Metoprolol Succinate [Toprol XL 50mg] 50 mg PO DAILY 90 Days #90 tab.er 06/15/19 [Rx] Naloxone HCl [Narcan] 4 mg NS ONETIME PRN #1 spray 06/15/19 [Rx] atorvaSTATin [Lipitor] 40 mg PO BEDTIME 90 Days #90 tablet 06/15/19 [Rx] oxyCODONE 5 mg PO Q4H PRN #60 tablet 06/15/19 [Rx] Furosemide [Lasix] 80 mg PO BIDDIURETIC 02/22/20 [History] Ketoconazole 200 tab PO DAILY 02/22/20 [History] Past Medical History HEENT History: Reports: None Cardiovascular History: Reports: Heart Failure, Hypertension Respiratory History: Reports: Bronchitis, Recurrent Gastrointestinal History: Reports: None Genitourinary History: Reports: Urinary Incontinence 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: Musculoskeletal History: Reports: Back Pain, Chronic Other Musculoskeletal History: Had Lumbar surgery Neurological History: Reports: None Psychiatric History: Reports: Depression Endocrine/Metabolic History: Reports: Diabetes, Type II, Other (See Below) Other Endocrine/Metabolic History: per prior record has DM II, patient denies that she is diabetic - Infectious Disease History Infectious Disease History: Reports: None - Past Surgical History Head Surgeries/Procedures: Reports: None Cardiovascular Surgical History: Reports: Other (See Below), Vascular Surgery Female Surgical History: Reports: Section, Hysterectomy Other Oncologic Surgeries/Procedures: back surgery Social & Family History - Family History Family Medical History: Noncontributory - Tobacco Use Tobacco Use Status *Q: Current Every Day Tobacco User Years of Tobacco use: 50 Packs/Tins Daily: 1 - Caffeine Use Caffeine Use: Reports: None, Soda - Recreational Drug Use Recreational Drug Use: No ED ROS GENERAL - Review of Systems Review Of Systems: Comprehensive ROS is negative, except as noted in HPI. ED EXAM, GENERAL - Physical Exam Exam: See Below (see dictation) Course - Vital Signs Last Recorded V/S: Last Vital Signs Temp 96.8 F L 02/22/20 04:00 Pulse 95 02/21/20 23:00 Resp 20 02/22/20 07:00 BP 136/61 02/22/20 07:00 Pulse Ox 92 L 02/22/20 07:00 - Orders/Labs/Meds Orders: Active Orders 24 hr Category Date Time Status BIPAP Adult [RT BiPAP/CPAP] [RC] ASDIRECTED Care 02/21/20 22:17 Active Cardiac Monitoring [RC] Q8H Care 02/21/20 20:49 Active Communication Order [RC] STAT Care 02/21/20 22:06 Active EKG Documentation Completion [RC] STAT Care 02/21/20 20:49 Active Graf Catheter Insertion [Insert Urinary Catheter] [OM. Care 02/21/20 22:00 Ordered PC] Q24H Medication Orders Albuterol/Ipratropium (Duoneb 3.0-0.5 Mg/3 Ml) 3 ml NEB Q6H [facility] Last Admin: 02/22/20 06:26 Dose: 3 ml Documented by: VERONICA Dextrose/Water (Dextrose 50% In Water) 50 ml IV ASDIRECTED PRN PRN Reason: Hypoglycemia Glucagon (Glucagen) 1 mg IM ASDIRECTED PRN PRN Reason: Hypoglycemia Heparin Sodium (Porcine) (Heparin Sodium) 5,000 units SUBCUT Q8H [facility] Last Admin: 02/22/20 02:04 Dose: 5,000 units Documented by: ROMELIGLUC Ceftriaxone Sodium/Dextrose 1 (gm/ Premix) 50 mls @ 100 mls/hr IV Q24H [facility] Insulin Aspart (Novolog) 0 unit SUBCUT ACBREAKFASTANDBED [facility]; Protocol Last Admin: 02/22/20 09:04 Dose: Not Given Documented by: TRE Labs: Laboratory Tests 02/21/20 02/21/20 02/21/20 Range/Units 20:28 20:28 20:28 WBC 9.47 (4.0-11.0) K/uL RBC 4.75 (4.30-5.90) M/uL Hgb 14.3 (12.0-16.0) g/dL Hct 47.7 H (36.0-46.0) % MCV 100.4 H (80.0-98.0) fL MCH 30.1 (27.0-32.0) pg MCHC 30.0 L (31.0-37.0) g/dL RDW Std Deviation 54.2 (28.0-62.0) fl RDW Coeff of Robert 15 (11.0-15.0) % Plt Count 178 (150-400) K/uL MPV 11.30 (7.40-12.00) fL Neut % (Auto) 72.2 (48.0-80.0) % Lymph % (Auto) 14.3 L (16.0-40.0) % [place] % (Auto) 12.7 (0.0-15.0) % Eos % (Auto) 0.7 (0.0-7.0) % Baso % (Auto) 0.1 (0.0-1.5) % Neut # (Auto) 6.8 H (1.4-5.7) K/uL Lymph # (Auto) 1.4 (0.6-2.4) K/uL [place] # (Auto) 1.2 H (0.0-0.8) K/uL Eos # (Auto) 0.1 (0.0-0.7) K/uL Baso # (Auto) 0.0 (0.0-0.1) K/uL Nucleated RBC % 0.0 /100WBC Nucleated RBCs # 0 K/uL ABG pH (7.35-7.45) ABG pCO2 (35-45) mmHG ABG pO2 (75-100) mmHG ABG HCO3 (22-26) mEq/L ABG Total CO2 ABG Base Excess (-2.0-2.0) Lactate (0.20-2.00) mmol/L Sodium 142 (136-145) mmol/L Potassium 3.5 (3.5-5.1) mmol/L Chloride 99 (98-107) mmol/L Carbon Dioxide 40.8 H (21.0-32.0) mmol/L BUN 17 (7.0-18.0) mg/dL Creatinine 1.4 H (0.6-1.0) mg/dL Est Cr Clr Drug Dosing 33.67 mL/min Estimated GFR (MDRD) 37.5 ml/min Glucose 121 H (74-106) mg/dL Calcium 8.5 (8.5-10.1) mg/dL Total Bilirubin 0.6 (0.2-1.0) mg/dL AST 22 (15-37) IU/L ALT 16 (14-63) IU/L Alkaline Phosphatase 97 (46-116) U/L Creatine Kinase 78 (26-308) U/L Troponin I < 0.050 (0.000-0.056) ng/mL B-Natriuretic Peptide (<100) PG/ML Total Protein 6.9 (6.4-8.2) g/dL Albumin 3.2 L (3.4-5.0) g/dL Globulin 3.7 (2.6-4.0) g/dL Albumin/Globulin Ratio 0.9 (0.9-1.6) Lipase 71 L (73-393) U/L SARS-CoV-2 RNA (KIMBERLY) (NEGATIVE) 02/21/20 02/21/20 02/21/20 Range/Units 20:28 20:28 21:28 WBC (4.0-11.0) K/uL RBC (4.30-5.90) M/uL Hgb (12.0-16.0) g/dL Hct (36.0-46.0) % MCV (80.0-98.0) fL MCH (27.0-32.0) pg MCHC (31.0-37.0) g/dL RDW Std Deviation (28.0-62.0) fl RDW Coeff of Robert (11.0-15.0) % Plt Count (150-400) K/uL MPV (7.40-12.00) fL Neut % (Auto) (48.0-80.0) % Lymph % (Auto) (16.0-40.0) % [place] % (Auto) (0.0-15.0) % Eos % (Auto) (0.0-7.0) % Baso % (Auto) (0.0-1.5) % Neut # (Auto) (1.4-5.7) K/uL Lymph # (Auto) (0.6-2.4) K/uL [place] # (Auto) (0.0-0.8) K/uL Eos # (Auto) (0.0-0.7) K/uL Baso # (Auto) (0.0-0.1) K/uL Nucleated RBC % /100WBC Nucleated RBCs # K/uL ABG pH (7.35-7.45) ABG pCO2 (35-45) mmHG ABG pO2 (75-100) mmHG ABG HCO3 (22-26) mEq/L ABG Total CO2 ABG Base Excess (-2.0-2.0) Lactate 1.1 (0.20-2.00) mmol/L Sodium (136-145) mmol/L Potassium (3.5-5.1) mmol/L Chloride (98-107) mmol/L Carbon Dioxide (21.0-32.0) mmol/L BUN (7.0-18.0) mg/dL Creatinine (0.6-1.0) mg/dL Est Cr Clr Drug Dosing mL/min Estimated GFR (MDRD) ml/min Glucose (74-106) mg/dL Calcium (8.5-10.1) mg/dL Total Bilirubin (0.2-1.0) mg/dL AST (15-37) IU/L ALT (14-63) IU/L Alkaline Phosphatase (46-116) U/L Creatine Kinase (26-308) U/L Troponin I (0.000-0.056) ng/mL B-Natriuretic Peptide 251 H (<100) PG/ML Total Protein (6.4-8.2) g/dL Albumin (3.4-5.0) g/dL Globulin (2.6-4.0) g/dL Albumin/Globulin Ratio (0.9-1.6) Lipase (73-393) U/L SARS-CoV-2 RNA (KIMBERLY) NEGATIVE (NEGATIVE) 02/21/20 Range/Units 22:00 WBC (4.0-11.0) K/uL RBC (4.30-5.90) M/uL Hgb (12.0-16.0) g/dL Hct (36.0-46.0) % MCV (80.0-98.0) fL MCH (27.0-32.0) pg MCHC (31.0-37.0) g/dL RDW Std Deviation (28.0-62.0) fl RDW Coeff of Robert (11.0-15.0) % Plt Count (150-400) K/uL MPV (7.40-12.00) fL Neut % (Auto) (48.0-80.0) % Lymph % (Auto) (16.0-40.0) % [place] % (Auto) (0.0-15.0) % Eos % (Auto) (0.0-7.0) % Baso % (Auto) (0.0-1.5) % Neut # (Auto) (1.4-5.7) K/uL Lymph # (Auto) (0.6-2.4) K/uL [place] # (Auto) (0.0-0.8) K/uL Eos # (Auto) (0.0-0.7) K/uL Baso # (Auto) (0.0-0.1) K/uL Nucleated RBC % /100WBC Nucleated RBCs # K/uL ABG pH 7.294 L (7.35-7.45) ABG pCO2 92 H (35-45) mmHG ABG pO2 119 H (75-100) mmHG ABG HCO3 45 H (22-26) mEq/L ABG Total CO2 40.8 ABG Base Excess 13.7 H (-2.0-2.0) Lactate (0.20-2.00) mmol/L Sodium (136-145) mmol/L Potassium (3.5-5.1) mmol/L Chloride (98-107) mmol/L Carbon Dioxide (21.0-32.0) mmol/L BUN (7.0-18.0) mg/dL Creatinine (0.6-1.0) mg/dL Est Cr Clr Drug Dosing mL/min Estimated GFR (MDRD) ml/min Glucose (74-106) mg/dL Calcium (8.5-10.1) mg/dL Total Bilirubin (0.2-1.0) mg/dL AST (15-37) IU/L ALT (14-63) IU/L Alkaline Phosphatase (46-116) U/L Creatine Kinase (26-308) U/L Troponin I (0.000-0.056) ng/mL B-Natriuretic Peptide (<100) PG/ML Total Protein (6.4-8.2) g/dL Albumin (3.4-5.0) g/dL Globulin (2.6-4.0) g/dL Albumin/Globulin Ratio (0.9-1.6) Lipase (73-393) U/L SARS-CoV-2 RNA ([facility]IMBERLY) (NEGATIVE) Meds: Medications Generic Name Dose Route Start Last Admin Trade Name Freq PRN Reason Stop Dose Admin Albuterol/Ipratropium 3 ml 02/22/20 05:30 02/22/20 06:26 Duoneb 3.0-0.5 Mg/3 Ml NEB 3 ml Q6H [facility] Administration Dextrose/Water 50 ml 02/22/20 05:33 Dextrose 50% In Water IV ASDIRECTED PRN Hypoglycemia Glucagon 1 mg 02/22/20 05:33 Glucagen IM ASDIRECTED PRN Hypoglycemia Heparin Sodium (Porcine) 5,000 units 02/22/20 01:15 02/22/20 02:04 Heparin Sodium SUBCUT 5,000 units Q8H [facility] Administration Ceftriaxone Sodium/Dextrose 1 50 mls @ 100 mls/hr 02/22/20 09:45 gm/ Premix IV Q24H [facility] Insulin Aspart 0 unit 02/22/20 07:30 02/22/20 09:04 Novolog SUBCUT Not Given ACBREAKFASTANDBED [facility] Protocol Discontinued Medications Generic Name Dose Route Start Last Admin Trade Name Freq PRN Reason Stop Dose Admin Albuterol/Ipratropium 3 ml 02/22/20 01:06 02/22/20 01:53 Duoneb 3.0-0.5 Mg/3 Ml NEB 3 ml Q4HRRT PRN Administration Wheezing Furosemide 40 mg 02/22/20 01:05 02/22/20 02:11 Lasix IVPUSH 02/22/20 01:06 Not Given NOW ONE Furosemide Confirm 02/22/20 01:46 02/22/20 02:13 Lasix Administered 02/22/20 01:47 Not Given Dose 40 mg .ROUTE .STK-MED ONE Sodium Chloride 1,000 mls @ 999 mls/hr 02/21/20 20:49 02/21/20 21:23 Normal Saline IV 02/21/20 21:49 Not Given BOLUS ONE Sodium Chloride 1,000 mls @ 500 mls/hr 02/21/20 22:00 Normal Saline IV STAT [facility]ESSEE Lorazepam 0.5 mg 02/21/20 22:19 02/21/20 22:43 Ativan IVPUSH 02/21/20 22:20 0.5 mg ONETIME ONE Administration Lorazepam 0.5 mg 02/21/20 23:32 02/21/20 23:35 Ativan IVPUSH 02/21/20 23:33 0.5 mg ONETIME ONE Administration Methylprednisolone Sodium Succinate 125 mg 02/22/20 01:05 02/22/20 02:12 Solu-Medrol IM 02/22/20 01:06 Not Given ONETIME ONE Methylprednisolone Sodium Succinate 125 mg 02/22/20 02:07 02/22/20 02:48 Solu-Medrol IVPUSH 02/22/20 02:08 125 mg ONETIME ONE Administration Departure - Departure Time of Disposition: 23:18 Disposition: Admitted As Inpatient 68 Clinical Impression: Respiratory acidosis, Total self-care deficit Hypercapnic respiratory failure Qualifiers: Chronicity: acute on chronic Qualified Code(s): J96.22 - Acute and chronic respiratory failure with hypercapnia CHF (congestive heart failure) Qualifiers: Heart failure type: unspecified Heart failure chronicity: unspecified Qualified Code(s): I50.9 - Heart failure, unspecified - Discharge Information Critical Care Note - Critical Care Note Total Time (mins): 90 Comments: Critical care time is exclusive of billable procedures and the time to perform these procedures. Critical care time was used to prevent vital system organ failure and deterioration. Critical care time includes bedside management and high-complexity decision making requiring my highest level of mental preparedness and attention. This includes reviewing the patient's chart and prior medical records, ordering and reviewing interpreting laboratory studies and imaging results, interpretation of vital signs and EKG, pulse oximetry, and discussion with the admitting team along with EMS and nursing staff. Patient presented with multiple critical lab values that required immediate intervention, acute respiratory failure requiring Bipap and immediate transfer to the ICU for additional close monitoring and continuation of treatment CC Time: 90 minutes Sepsis Event Note (ED) - Evaluation Sepsis Screening Result: No Definite Risk - Focused Exam Vital Signs: Vital Signs Pulse BP Pulse Ox 02/21/20 23:00 95 136/82 98 - My Orders Last 24 Hours: My Active Orders 02/21/20 20:49 Cardiac Monitoring [RC] Q8H EKG Documentation Completion [RC] STAT 02/21/20 22:00 Graf Catheter Insertion [Insert Urinary Catheter] [OM.PC] Q24H 02/21/20 22:06 Communication Order [RC] STAT 02/21/20 22:17 BIPAP Adult [RT BiPAP/CPAP] [RC] ASDIRECTED - Assessment/Plan Last 24 Hours: My Active Orders 02/21/20 20:49 Cardiac Monitoring [RC] Q8H EKG Documentation Completion [RC] STAT 02/21/20 22:00 Graf Catheter Insertion [Insert Urinary Catheter] [OM.PC] Q24H 02/21/20 22:06 Communication Order [RC] STAT 02/21/20 22:17 BIPAP Adult [RT BiPAP/CPAP] [RC] ASDIRECTED
[2020-02-21] MEDS ORDERED: Sodium Chloride 0.9% 1,000 ML IV SCH (22:00)
--- NOTE | 2020-02-21 22:05 | CR ---
INDICATION: Shortness of breath, cough TECHNIQUE: Chest radiograph 1 view COMPARISON: 06/11/2019 FINDINGS: Severe degradation of image quality noted due to body habitus. Mediastinum: The central pulmonary arteries are enlarged and likely due to pulmonary hypertension. Severe cardiomegaly is present. Lung: Mild bibasilar subsegmental atelectasis is present. No sign of pleural effusion seen. No pneumothorax is identified. Bone and Soft tissue: Unremarkable for age. IMPRESSIONS: 1. Severe cardiomegaly is present. 2. The central pulmonary arteries are enlarged and likely due to pulmonary hypertension. 3. Mild bibasilar subsegmental atelectasis is present. Dictated by Maged Gutiérrez MD @ 02/21/2020 10:04:41 PM Dictated by: Maged Gutiérrez MD @ 02/21/2020 22:04:44 (Electronically Signed)
--- NOTE | 2020-02-21 22:07 | CR ---
INDICATION: Foot edema and erythema TECHNIQUE: Foot radiograph 2 views right COMPARISON: None FINDINGS: Bone: No acute fractures or aggressive bone lesions are identified. Joint: The visualized hindfoot, midfoot, and forefoot joints are unremarkable in appearance. No significant ankle effusion is seen. Soft tissue: Severe soft tissue edema and swelling is present in the distal calf and dorsum of the midfoot. Several soft tissue phleboliths are present within these regions. No radiopaque foreign bodies are seen. IMPRESSIONS: 1. No acute osseous injuries or abnormalities are noted. 2. Severe soft tissue edema and swelling is present in the distal calf and dorsum of the midfoot. Several soft tissue phleboliths are present within these regions. Dictated by Maged Gutiérrez MD @ 02/21/2020 10:06:29 PM Dictated by: Maged Gutiérrez MD @ 02/21/2020 22:06:34 (Electronically Signed)
--- NOTE | 2020-02-21 22:07 | CR ---
INDICATION: Foot Erythematous, edematous TECHNIQUE: Foot radiograph 2 views left COMPARISON: None FINDINGS: Bone: No acute fractures or aggressive bone lesions are identified. Joint: The visualized hindfoot, midfoot, and forefoot joints are unremarkable in appearance. No significant ankle effusion is seen. Soft tissue: Severe soft tissue swelling and edema is present along the dorsum of the midfoot with several soft tissue phleboliths noted. No radiopaque foreign bodies are seen. IMPRESSIONS: 1. No acute osseous injuries or abnormalities are noted. 2. Severe soft tissue swelling and edema is present along the dorsum of the midfoot with several soft tissue phleboliths noted. Dictated by Maged Gutiérrez MD @ 02/21/2020 10:05:30 PM Dictated by: Maged Gutiérrez MD @ 02/21/2020 22:05:39 (Electronically Signed)
--- NOTE | 2020-02-21 22:09 | CR ---
INDICATION: Tibia pain TECHNIQUE: Tibia-fibula radiograph 2 views right COMPARISON: None FINDINGS: Bone: No acute fractures or aggressive bone lesions are identified. Joint: The visualized knee and ankle joints are unremarkable. No significant joint effusion is seen. Soft tissue: A surgical clip is present in the soft tissues of the medial proximal calf. Severe diffuse subcutaneous edema and swelling is seen throughout the calf. No radiopaque foreign bodies are seen. IMPRESSION: 1. No acute osseous injuries or abnormalities are noted. Dictated by Maged Gutiérrez MD @ 02/21/2020 10:08:10 PM Dictated by: Maged Gutiérrez MD @ 02/21/2020 22:08:16 (Electronically Signed)
--- NOTE | 2020-02-21 22:09 | CR ---
INDICATION: Tibia pain TECHNIQUE: Tibia-fibula radiograph 2 views left on 3 films COMPARISON: None FINDINGS: Bone: No acute fractures or aggressive bone lesions are identified. Joint: The visualized knee and ankle joints are unremarkable. No significant joint effusion is seen. Soft tissue: Severe subcutaneous edema and swelling is seen throughout the calf. There is a linear 8 mm density in the soft tissues of the lateral distal calf which may represent a vascular calcification. IMPRESSION: 1. No acute osseous injuries or abnormalities are noted. Dictated by Maged Gutiérrez MD @ 02/21/2020 10:07:33 PM Dictated by: Maged Gutiérrez MD @ 02/21/2020 22:07:37 (Electronically Signed)
[2020-02-21] MEDS ORDERED: LORazepam 2 MG/ML SDV IVPUSH ONE ×2 (22:19→23:32)
[2020-02-22] MEDS ORDERED: methylPREDNISolone Sodium Succinate 125 MG/2 ML SDV IM ONE (01:05)
[2020-02-22] MEDS ORDERED: Furosemide 40 MG/4 ML VIAL IVPUSH ONE (01:05)
[2020-02-22] MEDS ORDERED: Albuterol/Ipratropium 3.0-0.5 MG/3 ML Neb Soln NEB PRN (01:06)
--- NOTE | 2020-02-22 01:22 | PCM.HP.2 ---
H&P History of Present Illness - General Date of Service: 02/22/20 Admit Problem/Dx: Admission Diagnosis/Problem Admission Diagnosis/Problem Respiratory failure - History of Present Illness Initial Comments - Free Text/Narative: 69 yo female with pmh of CHF with EF of 30%, COPD, DM, HTN, who presents to the ED with complaints of unable to take of herself. She was unable to due ADLS and was found to be deshelved with feces and urine caked on herself. She reported increase swelling. She was found to be hypercapnic on ABG. She refused BIPAP unless she was given ativan. She was transfered to the ICU. On my exam she is lethargic and difficult to arouse. - Related Data Allergies/Adverse Reactions: Allergies Allergy/AdvReac Type Severity Reaction Status Date / Time aspartame Allergy Other Verified 02/21/20 19:48 [From Nutrasweet Aspartame] banana Allergy Other Verified 02/21/20 19:48 egg Allergy Other Verified 02/21/20 19:48 fluconazole Allergy Burning Verified 02/21/20 19:48 formaldehyde Allergy Other Verified 02/21/20 19:48 latex Allergy Other Verified 02/21/20 19:48 levofloxacin [From Levaquin] Allergy Other Verified 02/21/20 19:48 lisinopril Allergy Other Verified 02/21/20 19:48 losartan Allergy Anaphylactic Verified 02/21/20 19:48 Shock morphine Allergy Other Verified 02/21/20 19:48 perfume Allergy Cough Verified 02/21/20 19:48 petrolatum,white Allergy Other Verified 02/21/20 19:48 [From Petroleum Jelly] petrolatum,white Allergy Other Verified 02/21/20 19:48 propoxyphene Allergy Other Verified 02/21/20 19:48 propoxyphene HCl Allergy Other Verified 02/21/20 19:48 [From Darvon] soy Allergy Other Verified 02/21/20 19:48 spironolactone Allergy Chest Verified 02/21/20 19:48 Presssure Sulfa (Sulfonamide Allergy Other Verified 02/21/20 19:48 Antibiotics) Home Medications: Home Meds Doxycycline [Vibramycin] 100 mg PO BID 04/25/18 [History] oxyCODONE 10 mg PO TID PRN 12/25/18 [History] Fexofenadine [Diamond] 180 mg PO DAILY 06/11/19 [History] Aspirin 81 mg PO DAILY 90 Days #90 tab.chew 06/15/19 [Rx] Metoprolol Succinate [Toprol XL 50mg] 50 mg PO DAILY 90 Days #90 tab.er 06/15/19 [Rx] Naloxone HCl [Narcan] 4 mg NS ONETIME PRN #1 spray 06/15/19 [Rx] atorvaSTATin [Lipitor] 40 mg PO BEDTIME 90 Days #90 tablet 06/15/19 [Rx] oxyCODONE 5 mg PO Q4H PRN #60 tablet 06/15/19 [Rx] Albuterol [Ventolin HFA] 2 puff .XX QID PRN 02/22/20 [History] Furosemide [Lasix] 80 mg PO BIDDIURETIC 02/22/20 [History] Ketoconazole 200 tab PO DAILY 02/22/20 [History] Lidocaine 5 gm TP TID PRN 02/22/20 [History] Ubidecarenone [Coq-10] 100 mg PO DAILY 02/23/20 [History] Past Medical History HEENT History: Reports: None Cardiovascular History: Reports: Heart Failure, Hypertension Respiratory History: Reports: Bronchitis, Recurrent Gastrointestinal History: Reports: None Genitourinary History: Reports: Urinary Incontinence 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: Musculoskeletal History: Reports: Back Pain, Chronic Other Musculoskeletal History: Had Lumbar surgery Neurological History: Reports: None Psychiatric History: Reports: Depression Endocrine/Metabolic History: Reports: Diabetes, Type II, Other (See Below) Other Endocrine/Metabolic History: per prior record has DM II, patient denies that she is diabetic - Infectious Disease History Infectious Disease History: Reports: None - Past Surgical History Head Surgeries/Procedures: Reports: None Cardiovascular Surgical History: Reports: Other (See Below), Vascular Surgery Female Surgical History: Reports: Section, Hysterectomy Other Oncologic Surgeries/Procedures: back surgery Social & Family History - Family History Family Medical History: Noncontributory - Tobacco Use Tobacco Use Status *Q: Current Every Day Tobacco User Years of Tobacco use: 50 Packs/Tins Daily: 1 - Caffeine Use Caffeine Use: Reports: None, Soda - Recreational Drug Use Recreational Drug Use: No H&P Review of Systems - Review of Systems: Review Of Systems: Unable To Obtain Reason Not Obtained: lethargic Exam - Exam Exam: See Below - Vital Signs Vital Signs: Last Vital Signs Temp 36.4 C 02/21/20 19:48 Pulse 110 H 02/21/20 19:48 Resp 26 H 02/21/20 19:48 BP 131/71 02/21/20 19:48 Pulse Ox 98 02/21/20 19:48 Weight: 136.078 kg - Exam General: Obtunded HEENT: Mucosa Moist & [place] Neck: Supple Lungs: Normal Respiratory Effort, Wheezing Cardiovascular: Regular Rate, Regular Rhythm GI/Abdominal Exam: Normal Bowel Sounds, Soft, Non-Tender, Other (large suprapubic mass) Extremities: Non-Tender, No Pedal Edema Skin: Warm, Dry, Intact - Patient Data Lab Results Last 24 hrs: Laboratory Results - last 24 hr 02/21/20 02/21/20 02/21/20 Range/Units 20:28 20:28 20:28 WBC 9.47 (4.0-11.0) K/uL RBC 4.75 (4.30-5.90) M/uL Hgb 14.3 (12.0-16.0) g/dL Hct 47.7 H (36.0-46.0) % MCV 100.4 H (80.0-98.0) fL MCH 30.1 (27.0-32.0) pg MCHC 30.0 L (31.0-37.0) g/dL RDW Std Deviation 54.2 (28.0-62.0) fl RDW Coeff of Robert 15 (11.0-15.0) % Plt Count 178 (150-400) K/uL MPV 11.30 (7.40-12.00) fL Neut % (Auto) 72.2 (48.0-80.0) % Lymph % (Auto) 14.3 L (16.0-40.0) % [place] % (Auto) 12.7 (0.0-15.0) % Eos % (Auto) 0.7 (0.0-7.0) % Baso % (Auto) 0.1 (0.0-1.5) % Neut # (Auto) 6.8 H (1.4-5.7) K/uL Lymph # (Auto) 1.4 (0.6-2.4) K/uL [place] # (Auto) 1.2 H (0.0-0.8) K/uL Eos # (Auto) 0.1 (0.0-0.7) K/uL Baso # (Auto) 0.0 (0.0-0.1) K/uL Nucleated RBC % 0.0 /100WBC Nucleated RBCs # 0 K/uL ABG pH (7.35-7.45) ABG pCO2 (35-45) mmHG ABG pO2 (75-100) mmHG ABG HCO3 (22-26) mEq/L ABG Total CO2 ABG Base Excess (-2.0-2.0) Lactate (0.20-2.00) mmol/L Sodium 142 (136-145) mmol/L Potassium 3.5 (3.5-5.1) mmol/L Chloride 99 (98-107) mmol/L Carbon Dioxide 40.8 H (21.0-32.0) mmol/L BUN 17 (7.0-18.0) mg/dL Creatinine 1.4 H (0.6-1.0) mg/dL Est Cr Clr Drug Dosing 33.67 mL/min Estimated GFR (MDRD) 37.5 ml/min Glucose 121 H (74-106) mg/dL Calcium 8.5 (8.5-10.1) mg/dL Total Bilirubin 0.6 (0.2-1.0) mg/dL AST 22 (15-37) IU/L ALT 16 (14-63) IU/L Alkaline Phosphatase 97 (46-116) U/L Creatine Kinase 78 (26-308) U/L Troponin I < 0.050 (0.000-0.056) ng/mL B-Natriuretic Peptide (<100) PG/ML Total Protein 6.9 (6.4-8.2) g/dL Albumin 3.2 L (3.4-5.0) g/dL Globulin 3.7 (2.6-4.0) g/dL Albumin/Globulin Ratio 0.9 (0.9-1.6) Lipase 71 L (73-393) U/L SARS-CoV-2 RNA (KIMBERLY) (NEGATIVE) 02/21/20 02/21/20 02/21/20 Range/Units 20:28 20:28 21:28 WBC (4.0-11.0) K/uL RBC (4.30-5.90) M/uL Hgb (12.0-16.0) g/dL Hct (36.0-46.0) % MCV (80.0-98.0) fL MCH (27.0-32.0) pg MCHC (31.0-37.0) g/dL RDW Std Deviation (28.0-62.0) fl RDW Coeff of Robert (11.0-15.0) % Plt Count (150-400) K/uL MPV (7.40-12.00) fL Neut % (Auto) (48.0-80.0) % Lymph % (Auto) (16.0-40.0) % [place] % (Auto) (0.0-15.0) % Eos % (Auto) (0.0-7.0) % Baso % (Auto) (0.0-1.5) % Neut # (Auto) (1.4-5.7) K/uL Lymph # (Auto) (0.6-2.4) K/uL [place] # (Auto) (0.0-0.8) K/uL Eos # (Auto) (0.0-0.7) K/uL Baso # (Auto) (0.0-0.1) K/uL Nucleated RBC % /100WBC Nucleated RBCs # K/uL ABG pH (7.35-7.45) ABG pCO2 (35-45) mmHG ABG pO2 (75-100) mmHG ABG HCO3 (22-26) mEq/L ABG Total CO2 ABG Base Excess (-2.0-2.0) Lactate 1.1 (0.20-2.00) mmol/L Sodium (136-145) mmol/L Potassium (3.5-5.1) mmol/L Chloride (98-107) mmol/L Carbon Dioxide (21.0-32.0) mmol/L BUN (7.0-18.0) mg/dL Creatinine (0.6-1.0) mg/dL Est Cr Clr Drug Dosing mL/min Estimated GFR (MDRD) ml/min Glucose (74-106) mg/dL Calcium (8.5-10.1) mg/dL Total Bilirubin (0.2-1.0) mg/dL AST (15-37) IU/L ALT (14-63) IU/L Alkaline Phosphatase (46-116) U/L Creatine Kinase (26-308) U/L Troponin I (0.000-0.056) ng/mL B-Natriuretic Peptide 251 H (<100) PG/ML Total Protein (6.4-8.2) g/dL Albumin (3.4-5.0) g/dL Globulin (2.6-4.0) g/dL Albumin/Globulin Ratio (0.9-1.6) Lipase (73-393) U/L SARS-CoV-2 RNA (KIMBERLY) NEGATIVE (NEGATIVE) 02/21/20 Range/Units 22:00 WBC (4.0-11.0) K/uL RBC (4.30-5.90) M/uL Hgb (12.0-16.0) g/dL Hct (36.0-46.0) % MCV (80.0-98.0) fL MCH (27.0-32.0) pg MCHC (31.0-37.0) g/dL RDW Std Deviation (28.0-62.0) fl RDW Coeff of Robert (11.0-15.0) % Plt Count (150-400) K/uL MPV (7.40-12.00) fL Neut % (Auto) (48.0-80.0) % Lymph % (Auto) (16.0-40.0) % [place] % (Auto) (0.0-15.0) % Eos % (Auto) (0.0-7.0) % Baso % (Auto) (0.0-1.5) % Neut # (Auto) (1.4-5.7) K/uL Lymph # (Auto) (0.6-2.4) K/uL [place] # (Auto) (0.0-0.8) K/uL Eos # (Auto) (0.0-0.7) K/uL Baso # (Auto) (0.0-0.1) K/uL Nucleated RBC % /100WBC Nucleated RBCs # K/uL ABG pH 7.294 L (7.35-7.45) ABG pCO2 92 H (35-45) mmHG ABG pO2 119 H (75-100) mmHG ABG HCO3 45 H (22-26) mEq/L ABG Total CO2 40.8 ABG Base Excess 13.7 H (-2.0-2.0) Lactate (0.20-2.00) mmol/L Sodium (136-145) mmol/L Potassium (3.5-5.1) mmol/L Chloride (98-107) mmol/L Carbon Dioxide (21.0-32.0) mmol/L BUN (7.0-18.0) mg/dL Creatinine (0.6-1.0) mg/dL Est Cr Clr Drug Dosing mL/min Estimated GFR (MDRD) ml/min Glucose (74-106) mg/dL Calcium (8.5-10.1) mg/dL Total Bilirubin (0.2-1.0) mg/dL AST (15-37) IU/L ALT (14-63) IU/L Alkaline Phosphatase (46-116) U/L Creatine Kinase (26-308) U/L Troponin I (0.000-0.056) ng/mL B-Natriuretic Peptide (<100) PG/ML Total Protein (6.4-8.2) g/dL Albumin (3.4-5.0) g/dL Globulin (2.6-4.0) g/dL Albumin/Globulin Ratio (0.9-1.6) Lipase (73-393) U/L SARS-CoV-2 RNA (KIMBERLY) (NEGATIVE) Result Diagrams: 02/23/20 06:00 02/23/20 06:00 Sepsis Event Note - Evaluation Sepsis Screening Result: No Definite Risk - Focused Exam Vital Signs: Vital Signs Temp Pulse Resp BP Pulse Ox 02/21/20 19:48 36.4 C 110 H 26 H 131/71 98 Problem List Initiated/Reviewed/Updated: Yes Orders Last 24hrs: Active Orders 24 hr Category Date Time Status Admission Status [Patient Status] [ADT] Stat ADT 02/21/20 23:28 Active Antiembolic Devices [RC] PER UNIT ROUTINE Care 02/22/20 01:09 Active BIPAP Adult [RT BiPAP/CPAP] [RC] ASDIRECTED Care 02/21/20 22:17 Active Cardiac Monitoring [RC] . DIRECTED Care 02/21/20 20:49 Active Communication Order [RC] STAT Care 02/21/20 22:06 Active EKG Documentation Completion [RC] STAT Care 02/21/20 20:49 Active Mcdaniel Catheter Insertion [Insert Urinary Catheter] [OM. Care 02/21/20 22:00 Ordered PC] Q24H Oxygen Therapy [RC] PRN Care 02/22/20 01:08 Active RT Aerosol Therapy [RC] ASDIRECTED Care 02/22/20 01:06 Active Up ad Carol [RC] ASDIRECTED Care 02/22/20 01:08 Active VTE/DVT Education [RC] PER UNIT ROUTINE Care 02/22/20 01:08 Active Vital Signs [RC] Q4H Care 02/22/20 01:08 Active ABG [BLOOD GAS ARTERIAL] [BG] Routine Lab 02/22/20 01:03 Ordered CBC WITH AUTO DIFF [HEME] AM Lab 02/22/20 05:11 Ordered COMPREHENSIVE METABOLIC PN,CMP [CHEM] AM Lab 02/22/20 05:11 Ordered Albuterol/Ipratropium [DuoNeb 3.0-0.5 MG/3 ML] Med 02/22/20 01:06 Ordered 3 ml NEB Q4HRRT PRN Heparin Sodium Med 02/22/20 01:15 Ordered 5,000 units SUBCUT Q8H methylPREDNISolone Sod Succ [Solu-MEDROL] Med 02/22/20 01:05 Once 125 mg IM ONETIME ONE Sequential Compression Device [OM.PC] Per Unit Routine Oth 02/22/20 01:08 Ordered Resuscitation Status Routine Resus Stat 02/22/20 01:08 Ordered Medication Orders Albuterol/Ipratropium (Duoneb 3.0-0.5 Mg/3 Ml) 3 ml NEB Q4HRRT PRN PRN Reason: Wheezing Heparin Sodium (Porcine) (Heparin Sodium) 5,000 units SUBCUT Q8H JESSEE Methylprednisolone Sodium Succinate (Solu-Medrol) 125 mg IM ONETIME ONE Stop: 02/22/20 01:06 Assessment/Plan Comment:: 69 yo female admitted with acute on chronic hypercapnic respiratory failure. Ativan likely has made patient more sedated. Will check ABG. Will continue BIPAP. Did hear wheezing on exam so will treat COPD exacerbation with solumedrol.
[2020-02-22] MEDS ORDERED: Furosemide 40 MG/4 ML VIAL ONE (01:46)
[2020-02-22] MEDS: Heparin Sodium 5,000 Units/ML Vial SUBCUT SCH ×3 (02:04→17:31)
[2020-02-22] MEDS ORDERED: methylPREDNISolone Sodium Succinate 125 MG/2 ML SDV IVPUSH ONE (02:07)
[2020-02-22] MEDS ORDERED: 50% Dextrose in Water 50 ML Syringe IV PRN ×2 (05:33→17:10)
[2020-02-22] MEDS ORDERED: Glucagon,Human Recombinant 1 MG Vial IM PRN ×2 (05:33→17:10)
--- NOTE | 2020-02-22 06:03 | PN ---
[facility] Physician - Brief Progress [id number]/23/2020 05:36[facility] Saritha Nolan, [place] - [facility] - MWN ASHLEY AGUILARDate of Service 02/22/2020 05:36HPI/Events of Note Chart reviewed. on camera, the patinet is asleep in bed, on BIPAP, in NAD. Mrs Watson is a 69 year old lady c/c unable to care of herself. Noted to be disheveled, with feces and urine. Also increased edema per patient. Labs in ED showed significant hypercapnia. Placed on BIPAP and recxd Ati van (refused BIPAP without). Had wheezing on exam.PMH: CHF x EF 30%, COPD, HTN, DM2.BIPAP 22, 498 on R6, 12/5. iT 1, R3, 50% sat 97%Investigations reviewed x pertinent: Hct 48, BUN 17/Cre 1.4, Alb 3.2LA 1.1, BNP 2517.29/92/119/45f/up 7.31/88/79/44CxR: cardiomegaly, b/l hilar enlargement likely due to p ulmonary artery enlargement. Mild pulmonary vascular congestion. A/P:1. Acute on chronic hypoxemic an d hypercapnic respiratory failure.Continuous BIPAP until pH corrects completely and patient is fully awake and alert.Avoid benzos and sedatives. If refusing BIPAP, can try haldol or Precedex.ABG ordered for this am to f/up on improvement.Erythrocytosis x likely related to chronic untreated hypoxemia.Ne eds counseling on compliance with treatment as she already has complications from LEONILA (i.e., now OHS and probable pulmonary hypertension, and it is also known that treating LEONILA helps in managing HTN and DM).Recommend social work consult and would also assess patient's ability to understand her medical conditions once she is fully awake.2. COPD x query exacerbationDuonebs q6h.Once improved, can switch to a chronic regimen of inhalers.If she is still wheezing, continue steroids with quick taper.3. Prob able pulmonary HTNLikely related to untreated LEONILA/OHS.Consider 2DEcho though might be difficult due t o body habitus. Will likely need contrast.Diuresis for probable right heart failure from OHS and pHTN .4. Mild GIOVANNY, has had episodes of mild elevation of Cre in the past.UA not suggestive of infection.Co uld be ATN related to acute critical illness.Control acute critical issues and monitor Cre and electr olytes.5. DM2- ordered moderate sliding scale Aspart Insulin.Goal blood glucose >1806. DVT prophylaxi s x is on Heparin SC. AMbulate.Interventions Major-Acute renal failure - evaluation and management, H yperglycemia - active titration of insulin therapy, Respiratory failure - evaluation and management, Other: COPD, OHS,
[2020-02-22] MEDS: Albuterol/Ipratropium 3.0-0.5 MG/3 ML Neb Soln NEB SCH ×4 (06:26→23:02)
[2020-02-22 06:36] LABS: CARBON DIOXIDE,CO2 40.2 mmol/L (21.0-32.0); POTASSIUM,K 3.8 mmol/L (3.5-5.1)
[2020-02-22] MEDS ORDERED: Insulin Aspart 100 Units/ML 3 ML Pen SUBCUT SCH (07:30)
[2020-02-22] MEDS: cefTRIAXone 1 GM in Premix Bag 1 BAG IV SCH (10:11)
--- NOTE | 2020-02-22 13:30 | US ---
INDICATION: Leg edema COMPARISON: None FINDINGS: Sonography of the bilateral lower extremity deep venous system was performed as per departmental technique. Grayscale, grayscale compression and Doppler technique was attempted. The study shows substantial technical limitations due to patient body habitus factors and edema and skin lesions associated with both legs. Venous flow was documented in the common femoral vein and popliteal vein bilaterally without evidence of deep venous thrombosis. We were unable to evaluate the venous system of either calf IMPRESSION: 1. There is no evidence of deep venous thrombosis of either leg from the inguinal ligament to the tibial plateau. 2. This study show substantial technical limitations. We were unable to evaluate either calf Dictated by Jame Hi MD @ Feb 22 2020 1:25PM Signed by Dr. Jame Hi @ Feb 22 2020 1:28PM
[2020-02-22] MEDS ORDERED: Nystatin Topical Powder 15 GM Bottle TOP SCH (14:00)
[2020-02-22] MEDS: Insulin Aspart 100 Units/ML 3 ML Pen SUBCUT SCH (17:55)
--- NOTE | 2020-02-22 19:33 | PCM.PN ---
- General Info Date of Service: 02/22/20 Subjective Update: Pt is a 69 y/o F w a PHMx of CHF with an EF of 30%, COPD, DM, and HTN unable to care for self with urine and feces on herself. Pt was admitted for swelling, AoC Hypercapnic respiratory failure, upon admission was lethargic and difficult to arouse therefore transferred to the ICU, placed on Bipap with Ativan as pt was refusing Bipap without ativan since she says, "it makes her feel bad." This morning, patient was more alert and oriented (Aox3)for a short period, but quite lethargic shortly after. At this time was kept on Bipab, with stable vitals. - Review of Systems General: Reports: Fatigue HEENT: Reports: No Symptoms Pulmonary: Reports: Shortness of Breath (on bipap). Denies: Pleuritic Chest Pain, Cough, Sputum, Hemoptysis Cardiovascular: Reports: No Symptoms, Orthopnea. Denies: Chest Pain, Palpitations Gastrointestinal: Reports: No Symptoms Genitourinary: Reports: No Symptoms Musculoskeletal: Reports: Leg Pain, Joint Swelling Skin: Reports: Dryness, Rash, Other (red, painful, warm lower extremities) Neurological: Reports: No Symptoms, Weakness Psychiatric: Reports: No Symptoms - Patient Data Vitals - Most Recent: Last Vital Signs Temp 97.4 F 02/22/20 16:40 Pulse 95 02/21/20 23:00 Resp 22 H 02/22/20 19:00 BP 101/56 L 02/22/20 19:00 Pulse Ox 92 L 02/22/20 19:00 Weight - Most Recent: 300 lb I&O - Last 24 Hours: Intake & Output 02/22/20 02/22/20 02/22/20 06:59 14:59 22:59 Intake Total 120 Balance 120 Lab Results Last 24 Hours: Laboratory Results - last 24 hr 02/21/20 02/21/20 02/21/20 Range/Units 20:28 20:28 20:28 WBC 9.47 (4.0-11.0) K/uL RBC 4.75 (4.30-5.90) M/uL Hgb 14.3 (12.0-16.0) g/dL Hct 47.7 H (36.0-46.0) % MCV 100.4 H (80.0-98.0) fL MCH 30.1 (27.0-32.0) pg MCHC 30.0 L (31.0-37.0) g/dL RDW Std Deviation 54.2 (28.0-62.0) fl RDW Coeff of Robert 15 (11.0-15.0) % Plt Count 178 (150-400) K/uL MPV 11.30 (7.40-12.00) fL Neut % (Auto) 72.2 (48.0-80.0) % Lymph % (Auto) 14.3 L (16.0-40.0) % Sandoval % (Auto) 12.7 (0.0-15.0) % Eos % (Auto) 0.7 (0.0-7.0) % Baso % (Auto) 0.1 (0.0-1.5) % Neut # (Auto) 6.8 H (1.4-5.7) K/uL Lymph # (Auto) 1.4 (0.6-2.4) K/uL Sandoval # (Auto) 1.2 H (0.0-0.8) K/uL Eos # (Auto) 0.1 (0.0-0.7) K/uL Baso # (Auto) 0.0 (0.0-0.1) K/uL Nucleated RBC % 0.0 /100WBC Nucleated RBCs # 0 K/uL ABG pH (7.35-7.45) ABG pCO2 (35-45) mmHG ABG pO2 (75-100) mmHG ABG HCO3 (22-26) mEq/L ABG Total CO2 ABG Base Excess (-2.0-2.0) Lactate (0.20-2.00) mmol/L Sodium 142 (136-145) mmol/L Potassium 3.5 (3.5-5.1) mmol/L Chloride 99 (98-107) mmol/L Carbon Dioxide 40.8 H (21.0-32.0) mmol/L BUN 17 (7.0-18.0) mg/dL Creatinine 1.4 H (0.6-1.0) mg/dL Est Cr Clr Drug Dosing 33.67 mL/min Estimated GFR (MDRD) 37.5 ml/min Glucose 121 H (74-106) mg/dL POC Glucose (60-110) mg/dL Calcium 8.5 (8.5-10.1) mg/dL Total Bilirubin 0.6 (0.2-1.0) mg/dL AST 22 (15-37) IU/L ALT 16 (14-63) IU/L Alkaline Phosphatase 97 (46-116) U/L Creatine Kinase 78 (26-308) U/L Troponin I < 0.050 (0.000-0.056) ng/mL B-Natriuretic Peptide (<100) PG/ML Total Protein 6.9 (6.4-8.2) g/dL Albumin 3.2 L (3.4-5.0) g/dL Globulin 3.7 (2.6-4.0) g/dL Albumin/Globulin Ratio 0.9 (0.9-1.6) Lipase 71 L (73-393) U/L SARS-CoV-2 RNA (KIMBERLY) (NEGATIVE) 02/21/20 02/21/20 02/21/20 Range/Units 20:28 20:28 21:28 WBC (4.0-11.0) K/uL RBC (4.30-5.90) M/uL Hgb (12.0-16.0) g/dL Hct (36.0-46.0) % MCV (80.0-98.0) fL MCH (27.0-32.0) pg MCHC (31.0-37.0) g/dL RDW Std Deviation (28.0-62.0) fl RDW Coeff of Robert (11.0-15.0) % Plt Count (150-400) K/uL MPV (7.40-12.00) fL Neut % (Auto) (48.0-80.0) % Lymph % (Auto) (16.0-40.0) % Sandoval % (Auto) (0.0-15.0) % Eos % (Auto) (0.0-7.0) % Baso % (Auto) (0.0-1.5) % Neut # (Auto) (1.4-5.7) K/uL Lymph # (Auto) (0.6-2.4) K/uL Sandoval # (Auto) (0.0-0.8) K/uL Eos # (Auto) (0.0-0.7) K/uL Baso # (Auto) (0.0-0.1) K/uL Nucleated RBC % /100WBC Nucleated RBCs # K/uL ABG pH (7.35-7.45) ABG pCO2 (35-45) mmHG ABG pO2 (75-100) mmHG ABG HCO3 (22-26) mEq/L ABG Total CO2 ABG Base Excess (-2.0-2.0) Lactate 1.1 (0.20-2.00) mmol/L Sodium (136-145) mmol/L Potassium (3.5-5.1) mmol/L Chloride (98-107) mmol/L Carbon Dioxide (21.0-32.0) mmol/L BUN (7.0-18.0) mg/dL Creatinine (0.6-1.0) mg/dL Est Cr Clr Drug Dosing mL/min Estimated GFR (MDRD) ml/min Glucose (74-106) mg/dL POC Glucose (60-110) mg/dL Calcium (8.5-10.1) mg/dL Total Bilirubin (0.2-1.0) mg/dL AST (15-37) IU/L ALT (14-63) IU/L Alkaline Phosphatase (46-116) U/L Creatine Kinase (26-308) U/L Troponin I (0.000-0.056) ng/mL B-Natriuretic Peptide 251 H (<100) PG/ML Total Protein (6.4-8.2) g/dL Albumin (3.4-5.0) g/dL Globulin (2.6-4.0) g/dL Albumin/Globulin Ratio (0.9-1.6) Lipase (73-393) U/L SARS-CoV-2 RNA (KIMBERLY) NEGATIVE (NEGATIVE) 02/21/20 02/22/20 02/22/20 Range/Units 22:00 01:30 05:45 WBC 8.37 (4.0-11.0) K/uL RBC 4.65 (4.30-5.90) M/uL Hgb 13.9 (12.0-16.0) g/dL Hct 47.3 H (36.0-46.0) % MCV 101.7 H (80.0-98.0) fL MCH 29.9 (27.0-32.0) pg MCHC 29.4 L (31.0-37.0) g/dL RDW Std Deviation 55.8 (28.0-62.0) fl RDW Coeff of Robert 15 (11.0-15.0) % Plt Count 172 (150-400) K/uL MPV 11.10 (7.40-12.00) fL Neut % (Auto) 84.1 H (48.0-80.0) % Lymph % (Auto) 8.5 L (16.0-40.0) % Sandoval % (Auto) 6.7 (0.0-15.0) % Eos % (Auto) 0.6 (0.0-7.0) % Baso % (Auto) 0.1 (0.0-1.5) % Neut # (Auto) 7.0 H (1.4-5.7) K/uL Lymph # (Auto) 0.7 (0.6-2.4) K/uL Sandoval # (Auto) 0.6 (0.0-0.8) K/uL Eos # (Auto) 0.1 (0.0-0.7) K/uL Baso # (Auto) 0.0 (0.0-0.1) K/uL Nucleated RBC % 0.0 /100WBC Nucleated RBCs # 0 K/uL ABG pH 7.294 L 7.312 L (7.35-7.45) ABG pCO2 92 H 88 H (35-45) mmHG ABG pO2 119 H 79 (75-100) mmHG ABG HCO3 45 H 44 H (22-26) mEq/L ABG Total CO2 40.8 40.6 ABG Base Excess 13.7 H 13.9 H (-2.0-2.0) Lactate (0.20-2.00) mmol/L Sodium (136-145) mmol/L Potassium (3.5-5.1) mmol/L Chloride (98-107) mmol/L Carbon Dioxide (21.0-32.0) mmol/L BUN (7.0-18.0) mg/dL Creatinine (0.6-1.0) mg/dL Est Cr Clr Drug Dosing mL/min Estimated GFR (MDRD) ml/min Glucose (74-106) mg/dL POC Glucose (60-110) mg/dL Calcium (8.5-10.1) mg/dL Total Bilirubin (0.2-1.0) mg/dL AST (15-37) IU/L ALT (14-63) IU/L Alkaline Phosphatase (46-116) U/L Creatine Kinase (26-308) U/L Troponin I (0.000-0.056) ng/mL B-Natriuretic Peptide (<100) PG/ML Total Protein (6.4-8.2) g/dL Albumin (3.4-5.0) g/dL Globulin (2.6-4.0) g/dL Albumin/Globulin Ratio (0.9-1.6) Lipase (73-393) U/L SARS-CoV-2 RNA (KIMBERLY) (NEGATIVE) 02/22/20 02/22/20 02/22/20 Range/Units 05:45 07:29 07:30 WBC (4.0-11.0) K/uL RBC (4.30-5.90) M/uL Hgb (12.0-16.0) g/dL Hct (36.0-46.0) % MCV (80.0-98.0) fL MCH (27.0-32.0) pg MCHC (31.0-37.0) g/dL RDW Std Deviation (28.0-62.0) fl RDW Coeff of Robert (11.0-15.0) % Plt Count (150-400) K/uL MPV (7.40-12.00) fL Neut % (Auto) (48.0-80.0) % Lymph % (Auto) (16.0-40.0) % Sandoval % (Auto) (0.0-15.0) % Eos % (Auto) (0.0-7.0) % Baso % (Auto) (0.0-1.5) % Neut # (Auto) (1.4-5.7) K/uL Lymph # (Auto) (0.6-2.4) K/uL Sandoval # (Auto) (0.0-0.8) K/uL Eos # (Auto) (0.0-0.7) K/uL Baso # (Auto) (0.0-0.1) K/uL Nucleated RBC % /100WBC Nucleated RBCs # K/uL ABG pH 7.330 L (7.35-7.45) ABG pCO2 82 H (35-45) mmHG ABG pO2 70 L (75-100) mmHG ABG HCO3 43 H (22-26) mEq/L ABG Total CO2 38.9 ABG Base Excess 13.0 H (-2.0-2.0) Lactate (0.20-2.00) mmol/L Sodium 141 (136-145) mmol/L Potassium 3.8 (3.5-5.1) mmol/L Chloride 100 (98-107) mmol/L Carbon Dioxide 40.2 H (21.0-32.0) mmol/L BUN 16 (7.0-18.0) mg/dL Creatinine 1.2 H (0.6-1.0) mg/dL Est Cr Clr Drug Dosing 39.28 mL/min Estimated GFR (MDRD) 44.8 ml/min Glucose 133 H (74-106) mg/dL POC Glucose 142 H (60-110) mg/dL Calcium 8.8 (8.5-10.1) mg/dL Total Bilirubin 0.7 (0.2-1.0) mg/dL AST 15 (15-37) IU/L ALT 13 L (14-63) IU/L Alkaline Phosphatase 87 (46-116) U/L Creatine Kinase (26-308) U/L Troponin I (0.000-0.056) ng/mL B-Natriuretic Peptide (<100) PG/ML Total Protein 7.0 (6.4-8.2) g/dL Albumin 2.6 L (3.4-5.0) g/dL Globulin 4.4 H (2.6-4.0) g/dL Albumin/Globulin Ratio 0.6 L (0.9-1.6) Lipase (73-393) U/L SARS-CoV-2 RNA ([facility]IMBERLY) (NEGATIVE) 02/22/20 02/22/20 Range/Units 12:32 16:55 WBC (4.0-11.0) K/uL RBC (4.30-5.90) M/uL Hgb (12.0-16.0) g/dL Hct (36.0-46.0) % MCV (80.0-98.0) fL MCH (27.0-32.0) pg MCHC (31.0-37.0) g/dL RDW Std Deviation (28.0-62.0) fl RDW Coeff of Robert (11.0-15.0) % Plt Count (150-400) K/uL MPV (7.40-12.00) fL Neut % (Auto) (48.0-80.0) % Lymph % (Auto) (16.0-40.0) % Sandoval % (Auto) (0.0-15.0) % Eos % (Auto) (0.0-7.0) % Baso % (Auto) (0.0-1.5) % Neut # (Auto) (1.4-5.7) K/uL Lymph # (Auto) (0.6-2.4) K/uL Sandoval # (Auto) (0.0-0.8) K/uL Eos # (Auto) (0.0-0.7) K/uL Baso # (Auto) (0.0-0.1) K/uL Nucleated RBC % /100WBC Nucleated RBCs # K/uL ABG pH (7.35-7.45) ABG pCO2 (35-45) mmHG ABG pO2 (75-100) mmHG ABG HCO3 (22-26) mEq/L ABG Total CO2 ABG Base Excess (-2.0-2.0) Lactate (0.20-2.00) mmol/L Sodium (136-145) mmol/L Potassium (3.5-5.1) mmol/L Chloride (98-107) mmol/L Carbon Dioxide (21.0-32.0) mmol/L BUN (7.0-18.0) mg/dL Creatinine (0.6-1.0) mg/dL Est Cr Clr Drug Dosing mL/min Estimated GFR (MDRD) ml/min Glucose (74-106) mg/dL POC Glucose 150 H 178 H (60-110) mg/dL Calcium (8.5-10.1) mg/dL Total Bilirubin (0.2-1.0) mg/dL AST (15-37) IU/L ALT (14-63) IU/L Alkaline Phosphatase (46-116) U/L Creatine Kinase (26-308) U/L Troponin I (0.000-0.056) ng/mL B-Natriuretic Peptide (<100) PG/ML Total Protein (6.4-8.2) g/dL Albumin (3.4-5.0) g/dL Globulin (2.6-4.0) g/dL Albumin/Globulin Ratio (0.9-1.6) Lipase (73-393) U/L SARS-CoV-2 RNA ([facility]) (NEGATIVE) Med Orders - Current: Current Medications Albuterol/Ipratropium (Duoneb 3.0-0.5 Mg/3 Ml) 3 ml NEB Q6HRRT JESSEE Last Admin: 02/22/20 17:59 Dose: 3 ml Documented by: Dextrose/Water (Dextrose 50% In Water) 50 ml IV ASDIRECTED PRN PRN Reason: Hypoglycemia Glucagon (Glucagen) 1 mg IM ASDIRECTED PRN PRN Reason: Hypoglycemia Heparin Sodium (Porcine) (Heparin Sodium) 5,000 units SUBCUT Q8H JESSEE Last Admin: 02/22/20 17:31 Dose: 5,000 units Documented by: Ceftriaxone Sodium/Dextrose 1 (gm/ Premix) 50 mls @ 100 mls/hr IV Q24H JESSEE Last Admin: 02/22/20 10:11 Dose: 100 mls/hr Documented by: Insulin Aspart (Novolog) 0 unit SUBCUT TIDAC JESSEE; Protocol Last Admin: 02/22/20 17:55 Dose: Not Given Documented by: Nystatin (Nystatin Crm) 1 gm TOP BID JESSEE Discontinued Medications Albuterol/Ipratropium (Duoneb 3.0-0.5 Mg/3 Ml) 3 ml NEB Q4HRRT PRN PRN Reason: Wheezing Last Admin: 02/22/20 01:53 Dose: 3 ml Documented by: Albuterol/Ipratropium (Duoneb 3.0-0.5 Mg/3 Ml) 3 ml NEB Q6H JESSEE Last Admin: 02/22/20 11:25 Dose: 3 ml Documented by: Furosemide (Lasix) 40 mg IVPUSH NOW ONE Stop: 02/22/20 01:06 Last Admin: 02/22/20 02:11 Dose: Not Given Documented by: Furosemide (Lasix) Confirm Administered Dose 40 mg .ROUTE .STK-MED ONE Stop: 02/22/20 01:47 Last Admin: 02/22/20 02:13 Dose: Not Given Documented by: Sodium Chloride (Normal Saline) 1,000 mls @ 999 mls/hr IV BOLUS ONE Stop: 02/21/20 21:49 Last Admin: 02/21/20 21:23 Dose: Not Given Documented by: Sodium Chloride (Normal Saline) 1,000 mls @ 500 mls/hr IV STAT JESSEE Insulin Aspart (Novolog) 0 unit SUBCUT ACBREAKFASTANDBED JESSEE; Protocol Last Admin: 02/22/20 09:04 Dose: Not Given Documented by: Lorazepam (Ativan) 0.5 mg IVPUSH ONETIME ONE Stop: 02/21/20 22:20 Last Admin: 02/21/20 22:43 Dose: 0.5 mg Documented by: Lorazepam (Ativan) 0.5 mg IVPUSH ONETIME ONE Stop: 02/21/20 23:33 Last Admin: 02/21/20 23:35 Dose: 0.5 mg Documented by: Methylprednisolone Sodium Succinate (Solu-Medrol) 125 mg IM ONETIME ONE Stop: 02/22/20 01:06 Last Admin: 02/22/20 02:12 Dose: Not Given Documented by: Methylprednisolone Sodium Succinate (Solu-Medrol) 125 mg IVPUSH ONETIME ONE Stop: 02/22/20 02:08 Last Admin: 02/22/20 02:48 Dose: 125 mg Documented by: Nystatin (Nystop) 1 gm TOP TID [facility] Last Admin: 02/22/20 15:10 Dose: Not Given Documented by: - Exam Quality Assessment: Supplemental Oxygen (on Bipap), DVT Prophylaxis (heparin) General: Alert, Oriented HEENT: Pupils Equal, Pupils Reactive, EOMI, Mucous Membr. Moist/[place] Neck: Supple, Trachea Midline, No JVD. No: Lymphadenopathy Lungs: Decreased Breath Sounds. No: Crackles, Rales, Rhonchi Cardiovascular: Regular Rate, Regular Rhythm, No Murmurs. No: Rubs GI/Abdominal Exam: Normal Bowel Sounds, Soft, Non-Tender, No Organomegaly. No: Guarding, Rebound (Female) Exam: Other (enlarged Mons Pubis, with some skin irritation in folds) Back Exam: Normal Inspection Extremities: Joint Swelling (both lower extremities and feet), Leg Pain, Limited Range of Motion, Increased Warmth, Redness. No: Libby's Sign Peripheral Pulses: 2+: Dorsalis Pedis (L), Dorsalis Pedis (R) Skin: Warm, Dry, Rash, Other (laci, urine and feces caked on) Neurological: No New Focal Deficit, Cranial Nerves Intact Psy/Mental Status: Alert, Normal Affect, Normal Mood Sepsis Event Note - Evaluation Sepsis Screening Result: No Definite Risk - Focused Exam Vital Signs: Vital Signs Temp Resp BP Pulse Ox 02/22/20 19:00 22 H 101/56 L 92 L 02/22/20 18:30 13 102/54 L 92 L 02/22/20 18:00 18 130/75 92 L 02/22/20 17:00 19 121/80 92 L 02/22/20 16:40 97.4 F 21 H 116/66 90 L 02/22/20 16:00 25 H 91/41 L 89 L 02/22/20 15:00 20 103/46 L 90 L 02/22/20 14:25 11 L 101/34 L 89 L 02/22/20 13:00 24 H 116/64 91 L 02/22/20 12:00 97.9 F 22 H 93 L 02/22/20 11:00 20 132/58 L 90 L 02/22/20 10:00 20 125/47 L 93 L 02/22/20 09:12 18 117/36 L 94 L 02/22/20 08:00 97.4 F 20 147/69 H 92 L - Problem List & Annotations (1) Hypercapnic respiratory failure SNOMED Code(s): 107750027 Code(s): J96.92 - RESPIRATORY FAILURE, UNSPECIFIED WITH HYPERCAPNIA Status: Acute Current Visit: Yes Qualifiers: Chronicity: acute on chronic Qualified Code(s): J96.22 - Acute and chronic respiratory failure with hypercapnia (2) Respiratory acidosis SNOMED Code(s): 91586113 Code(s): E87.2 - ACIDOSIS Status: Acute Current Visit: Yes (3) Total self-care deficit SNOMED Code(s): 93441534 Code(s): R68.89 - OTHER GENERAL SYMPTOMS AND SIGNS Status: Acute Current Visit: Yes (4) Cellulitis of lower leg SNOMED Code(s): 630798292 Code(s): L03.119 - CELLULITIS OF UNSPECIFIED PART OF LIMB Status: Acute Current Visit: No - Problem List Review Problem List Initiated/Reviewed/Updated: Yes - My Orders Last 24 Hours: My Active Orders 02/22/20 11:43 Consult to Case Management/Latexer [CONS] Routine - Plan Plan:: 69 yo female admitted with acute on chronic hypercapnic respiratory failure 2/2 COPD exacerbation on Bipap for respiratory support. 1. AoC Hypercapnic Respiratory Failure: -Continue on Bipap until Ph is corrected, and pt is more alert and awake, wean as tolerated, current setting 15/5 Fio2 50%. -Solumedrol for wheezing and COPD exacerbation -Duonebs Q6H, may consider Prednisone short taper -Respiratory Therapy consult to discuss eventual home need for Cpap /Bipap -Avoid ativan as it causes sedation, while in hospital may use Haldol or Precedex for Bipap discomfort 2.Respiratory Acidosis: -avoid all sedative medications -Bipap 3.Bilateral lower extremity cellulitis vs venous statis vs.DVT: -Venous doppler, r/o DVT -continue heparin for dvt ppx -skin is warm, tender, with stuck on urine and fecal mater. Treat with Rocephin IV 4.H/o DM: -Diabetic diet -SSI TIDAC 5. 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 PT saw patient, pt was unwilling to work with, they will try again tomorrow.
[2020-02-22] MEDS: Doxycycline 100 MG Cap PO SCH (21:26)
[2020-02-22] MEDS: Nystatin Crm 30 GM Tube TOP SCH (21:26)
[2020-02-22] MEDS: atorvaSTATin 40 MG Tab PO SCH ×2 (21:27→21:46)
[2020-02-23] MEDS: Acetaminophen 325 MG Tab PO PRN ×4 (00:43→20:34)
[2020-02-23] MEDS: Heparin Sodium 5,000 Units/ML Vial SUBCUT SCH ×3 (02:02→20:23)
[2020-02-23] MEDS: Albuterol/Ipratropium 3.0-0.5 MG/3 ML Neb Soln NEB SCH ×4 (06:12→23:10)
[2020-02-23 06:48] LABS: POTASSIUM,K 4.2 mmol/L (3.5-5.1)
[2020-02-23] MEDS: Insulin Aspart 100 Units/ML 3 ML Pen SUBCUT SCH ×3 (08:02→16:50)
[2020-02-23] MEDS: Aspirin 81 MG Tab.Chew PO SCH (08:12)
[2020-02-23] MEDS: Doxycycline 100 MG Cap PO SCH ×2 (08:12→20:36)
[2020-02-23] MEDS: Furosemide 40 MG Tab PO SCH ×2 (08:12→15:00)
[2020-02-23] MEDS: Nystatin Crm 30 GM Tube TOP SCH ×2 (08:14→20:37)
[2020-02-23] MEDS: Metoprolol Succinate 50 MG Tab.ER PO SCH (08:14)
[2020-02-23] MEDS: cefTRIAXone 1 GM in Premix Bag 1 BAG IV SCH (10:42)
[2020-02-23] MEDS ORDERED: Patient's Own Medication 1 Each PO SCH (13:30)
--- NOTE | 2020-02-23 15:28 | PCM.PN ---
- General Info Date of Service: 02/23/20 - Review of Systems Systems Review Comment:: reports pain all over legs especially bottoms of feet. Patient reports generalized weakness and inability to ambulate. Patient is asking to restart ketoconazole and her antibitoic ointment for her feet. Patient refuses to take insulin as her mother told her not to be used as a guinea pig. - Patient Data Vitals - Most Recent: Last Vital Signs Temp 36.8 C 02/23/20 12:00 Pulse 95 02/21/20 23:00 Resp 18 02/23/20 15:00 BP 104/59 L 02/23/20 15:00 Pulse Ox 96 02/23/20 15:00 Weight - Most Recent: 136.078 kg I&O - Last 24 Hours: Intake & Output 02/23/20 02/23/20 02/23/20 06:59 14:59 22:59 Intake Total 484 Balance 484 Lab Results Last 24 Hours: Laboratory Results - last 24 hr 02/22/20 02/23/20 02/23/20 Range/Units 16:55 06:00 06:00 WBC 10.37 (4.0-11.0) K/uL RBC 4.27 L (4.30-5.90) M/uL Hgb 12.8 (12.0-16.0) g/dL Hct 43.2 (36.0-46.0) % MCV 101.2 H (80.0-98.0) fL MCH 30.0 (27.0-32.0) pg MCHC 29.6 L (31.0-37.0) g/dL RDW Std Deviation 54.0 (28.0-62.0) fl RDW Coeff of Robert 15 (11.0-15.0) % Plt Count 199 (150-400) K/uL MPV 11.20 (7.40-12.00) fL Neut % (Auto) 85.8 H (48.0-80.0) % Lymph % (Auto) 7.2 L (16.0-40.0) % Harvey % (Auto) 7.0 (0.0-15.0) % Eos % (Auto) 0.0 (0.0-7.0) % Baso % (Auto) 0.0 (0.0-1.5) % Neut # (Auto) 8.9 H (1.4-5.7) K/uL Lymph # (Auto) 0.8 (0.6-2.4) K/uL Harvey # (Auto) 0.7 (0.0-0.8) K/uL Eos # (Auto) 0.0 (0.0-0.7) K/uL Baso # (Auto) 0.0 (0.0-0.1) K/uL Nucleated RBC % 0.0 /100WBC Nucleated RBCs # 0 K/uL Sodium 141 (136-145) mmol/L Potassium 4.2 (3.5-5.1) mmol/L Chloride 100 (98-107) mmol/L Carbon Dioxide 41.0 H (21.0-32.0) mmol/L BUN 27 H (7.0-18.0) mg/dL Creatinine 1.3 H (0.6-1.0) mg/dL Est Cr Clr Drug Dosing 36.26 mL/min Estimated GFR (MDRD) 40.9 ml/min Glucose 170 H (74-106) mg/dL POC Glucose 178 H (60-110) mg/dL Calcium 8.6 (8.5-10.1) mg/dL Total Bilirubin 0.4 (0.2-1.0) mg/dL AST 16 (15-37) IU/L ALT 13 L (14-63) IU/L Alkaline Phosphatase 74 (46-116) U/L Total Protein 6.5 (6.4-8.2) g/dL Albumin 2.6 L (3.4-5.0) g/dL Globulin 3.9 (2.6-4.0) g/dL Albumin/Globulin Ratio 0.7 L (0.9-1.6) 02/23/20 Range/Units 07:04 WBC (4.0-11.0) K/uL RBC (4.30-5.90) M/uL Hgb (12.0-16.0) g/dL Hct (36.0-46.0) % MCV (80.0-98.0) fL MCH (27.0-32.0) pg MCHC (31.0-37.0) g/dL RDW Std Deviation (28.0-62.0) fl RDW Coeff of Robert (11.0-15.0) % Plt Count (150-400) K/uL MPV (7.40-12.00) fL Neut % (Auto) (48.0-80.0) % Lymph % (Auto) (16.0-40.0) % Harvey % (Auto) (0.0-15.0) % Eos % (Auto) (0.0-7.0) % Baso % (Auto) (0.0-1.5) % Neut # (Auto) (1.4-5.7) K/uL Lymph # (Auto) (0.6-2.4) K/uL Harvey # (Auto) (0.0-0.8) K/uL Eos # (Auto) (0.0-0.7) K/uL Baso # (Auto) (0.0-0.1) K/uL Nucleated RBC % /100WBC Nucleated RBCs # K/uL Sodium (136-145) mmol/L Potassium (3.5-5.1) mmol/L Chloride (98-107) mmol/L Carbon Dioxide (21.0-32.0) mmol/L BUN (7.0-18.0) mg/dL Creatinine (0.6-1.0) mg/dL Est Cr Clr Drug Dosing mL/min Estimated GFR (MDRD) ml/min Glucose (74-106) mg/dL POC Glucose 147 H (60-110) mg/dL Calcium (8.5-10.1) mg/dL Total Bilirubin (0.2-1.0) mg/dL AST (15-37) IU/L ALT (14-63) IU/L Alkaline Phosphatase (46-116) U/L Total Protein (6.4-8.2) g/dL Albumin (3.4-5.0) g/dL Globulin (2.6-4.0) g/dL Albumin/Globulin Ratio (0.9-1.6) Med Orders - Current: Current Medications Acetaminophen (Tylenol) 650 mg PO Q6H PRN PRN Reason: Pain Last Admin: 02/23/20 13:40 Dose: 650 mg Documented by: Albuterol/Ipratropium (Duoneb 3.0-0.5 Mg/3 Ml) 3 ml NEB Q6HRRT [facility] Last Admin: 02/23/20 11:43 Dose: 3 ml Documented by: Aspirin (Aspirin) 81 mg PO DAILY [facility] Last Admin: 02/23/20 08:12 Dose: 81 mg Documented by: Atorvastatin Calcium (Lipitor) 40 mg PO BEDTIME [facility] Last Admin: 02/22/20 21:46 Dose: Not Given Documented by: Dextrose/Water (Dextrose 50% In Water) 50 ml IV ASDIRECTED PRN PRN Reason: Hypoglycemia Doxycycline Hyclate (Vibramycin) 100 mg PO BID [facility] Last Admin: 02/23/20 08:12 Dose: 100 mg Documented by: Furosemide (Lasix) 80 mg PO BIDDIURETIC [facility] Last Admin: 02/23/20 15:00 Dose: 80 mg Documented by: Glucagon (Glucagen) 1 mg IM ASDIRECTED PRN PRN Reason: Hypoglycemia Heparin Sodium (Porcine) (Heparin Sodium) 5,000 units SUBCUT Q8H [facility] Last Admin: 02/23/20 10:42 Dose: Not Given Documented by: Ceftriaxone Sodium/Dextrose 1 (gm/ Premix) 50 mls @ 100 mls/hr IV Q24H [facility] Last Admin: 02/23/20 10:42 Dose: 100 mls/hr Documented by: Insulin Aspart (Novolog) 0 unit SUBCUT TIDAC [facility]; Protocol Last Admin: 02/23/20 13:22 Dose: Not Given Documented by: Metoprolol Succinate (Toprol Xl) 50 mg PO DAILY [facility] Last Admin: 02/23/20 08:14 Dose: Not Given Documented by: Nystatin (Nystatin Crm) 1 gm TOP BID [facility] Last Admin: 02/23/20 08:14 Dose: 1 applic Documented by: Ketoconazole 200 Mg 1 each PO DAILY [facility] Last Admin: 02/23/20 14:23 Dose: 1 each Documented by: Ubidecarenone 100 Mg 1 each PO DAILY [facility] Last Admin: 02/23/20 14:23 Dose: 1 each Documented by: Discontinued Medications Albuterol/Ipratropium (Duoneb 3.0-0.5 Mg/3 Ml) 3 ml NEB Q4HRRT PRN PRN Reason: Wheezing Last Admin: 02/22/20 01:53 Dose: 3 ml Documented by: Albuterol/Ipratropium (Duoneb 3.0-0.5 Mg/3 Ml) 3 ml NEB Q6H [facility] Last Admin: 02/22/20 11:25 Dose: 3 ml Documented by: Furosemide (Lasix) 40 mg IVPUSH NOW ONE Stop: 02/22/20 01:06 Last Admin: 02/22/20 02:11 Dose: Not Given Documented by: Furosemide (Lasix) Confirm Administered Dose 40 mg .ROUTE .STK-MED ONE Stop: 02/22/20 01:47 Last Admin: 02/22/20 02:13 Dose: Not Given Documented by: Sodium Chloride (Normal Saline) 1,000 mls @ 999 mls/hr IV BOLUS ONE Stop: 02/21/20 21:49 Last Admin: 02/21/20 21:23 Dose: Not Given Documented by: Sodium Chloride (Normal Saline) 1,000 mls @ 500 mls/hr IV STAT [facility] Insulin Aspart (Novolog) 0 unit SUBCUT ACBREAKFASTANDBED [facility]; Protocol Last Admin: 02/22/20 09:04 Dose: Not Given Documented by: Lorazepam (Ativan) 0.5 mg IVPUSH ONETIME ONE Stop: 02/21/20 22:20 Last Admin: 02/21/20 22:43 Dose: 0.5 mg Documented by: Lorazepam (Ativan) 0.5 mg IVPUSH ONETIME ONE Stop: 02/21/20 23:33 Last Admin: 02/21/20 23:35 Dose: 0.5 mg Documented by: Methylprednisolone Sodium Succinate (Solu-Medrol) 125 mg IM ONETIME ONE Stop: 02/22/20 01:06 Last Admin: 02/22/20 02:12 Dose: Not Given Documented by: Methylprednisolone Sodium Succinate (Solu-Medrol) 125 mg IVPUSH ONETIME ONE Stop: 02/22/20 02:08 Last Admin: 02/22/20 02:48 Dose: 125 mg Documented by: Nystatin (Nystop) 1 gm TOP TID [facility] Last Admin: 02/22/20 15:10 Dose: Not Given Documented by: Patient Own Medication (Ptom) 100 each PO DAILY [facility] Last Admin: 02/23/20 14:24 Dose: Not Given Documented by: - Exam General: Alert, Oriented Neck: Supple Lungs: Clear to Auscultation, Normal Respiratory Effort Cardiovascular: Regular Rate, Regular Rhythm GI/Abdominal Exam: Soft, Non-Tender, No Distention Extremities: Non-Tender, Pedal Edema (+3 pedeal edema with multiple dried scabs and ulcers, bilateral erythema intermediate up calves) Skin: Warm, Dry, Intact Neurological: No New Focal Deficit Sepsis Event Note - Evaluation Sepsis Screening Result: No Definite Risk - Focused Exam Vital Signs: Vital Signs Temp Resp BP Pulse Ox 02/23/20 15:00 18 104/59 L 96 02/23/20 14:00 22 H 104/53 L 89 L 02/23/20 13:00 17 104/69 90 L 02/23/20 12:00 36.8 C 15 134/58 L 91 L 02/23/20 11:00 20 113/48 L 91 L 02/23/20 10:00 16 125/47 L 96 02/23/20 09:00 19 98/43 L 92 L 02/23/20 08:00 36.4 C 16 114/58 L 93 L 02/23/20 07:00 13 115/61 90 L 02/23/20 06:40 96 02/23/20 06:00 18 132/68 91 L 02/23/20 05:00 17 121/70 95 02/23/20 04:00 14 109/67 86 L 02/23/20 03:30 96 - Problem List Review Problem List Initiated/Reviewed/Updated: Yes - My Orders Last 24 Hours: My Active Orders 02/22/20 18:00 Insulin Aspart [NovoLOG] See Protocol SUBCUT TIDAC 02/22/20 21:00 Nystatin [Nystatin Crm] 1 gm TOP BID 02/23/20 13:26 Communication Order [RC] DAILY 02/23/20 13:30 Patient's Own Medication [Ptom] 1 each PO DAILY 02/24/20 05:11 CBC WITH AUTO DIFF [HEME] AM COMPREHENSIVE METABOLIC PN,CMP [CHEM] AM 02/24/20 09:00 Patient's Own Medication [Ptom] 1 each PO DAILY - Plan Plan:: 69 yo female admitted with acute on chronic hypercapnic respiratory failure. REspiratory failure: LEONILA, OHS, Pulmonary HTN, COPD, noncompliant with BIPAP, currently on 4 liters NC LEG edema/cellulitis: on lasix, Rocephin, Generalized weakness: PT consulted
[2020-02-23] MEDS: atorvaSTATin 40 MG Tab PO SCH (20:35)
[2020-02-24] MEDS: Heparin Sodium 5,000 Units/ML Vial SUBCUT SCH ×3 (01:08→17:48)
[2020-02-24] MEDS: Acetaminophen 325 MG Tab PO PRN ×4 (03:43→22:22)
[2020-02-24] MEDS: Albuterol/Ipratropium 3.0-0.5 MG/3 ML Neb Soln NEB SCH ×3 (06:15→17:24)
[2020-02-24] MEDS: Insulin Aspart 100 Units/ML 3 ML Pen SUBCUT SCH ×3 (06:32→17:48)
[2020-02-24 06:39] LABS: CARBON DIOXIDE,CO2 41.3 mmol/L (21.0-32.0); POTASSIUM,K 3.7 mmol/L (3.5-5.1)
[2020-02-24] MEDS: Furosemide 40 MG Tab PO SCH ×2 (10:16→18:04)
[2020-02-24] MEDS: Doxycycline 100 MG Cap PO SCH ×2 (10:16→20:54)
[2020-02-24] MEDS: Metoprolol Succinate 50 MG Tab.ER PO SCH ×2 (10:17→16:06)
[2020-02-24] MEDS: Aspirin 81 MG Tab.Chew PO SCH (10:21)
[2020-02-24] MEDS: Nystatin Crm 30 GM Tube TOP SCH ×2 (10:22→20:54)
[2020-02-24] MEDS: cefTRIAXone 1 GM in Premix Bag 1 BAG IV SCH (10:35)
--- NOTE | 2020-02-24 12:27 | PCM.PN ---
- General Info Date of Service: 02/24/20 - Review of Systems Systems Review Comment:: patient feeling better, leg pain improved - Patient Data Vitals - Most Recent: Last Vital Signs Temp 35.8 C L 02/24/20 11:16 Pulse 118 H 02/24/20 11:16 Resp 18 02/24/20 11:16 BP 126/66 02/24/20 11:16 Pulse Ox 92 L 02/24/20 11:16 Weight - Most Recent: 137.711 kg I&O - Last 24 Hours: Intake & Output 02/23/20 02/24/20 02/24/20 22:59 06:59 14:59 Intake Total 750 250 Balance 750 250 Lab Results Last 24 Hours: Laboratory Results - last 24 hr 02/23/20 02/23/20 02/24/20 Range/Units 11:21 16:30 05:30 WBC 12.17 H (4.0-11.0) K/uL RBC 4.21 L (4.30-5.90) M/uL Hgb 12.2 (12.0-16.0) g/dL Hct 42.9 (36.0-46.0) % MCV 101.9 H (80.0-98.0) fL MCH 29.0 (27.0-32.0) pg MCHC 28.4 L (31.0-37.0) g/dL RDW Std Deviation 55.9 (28.0-62.0) fl RDW Coeff of Robert 15 (11.0-15.0) % Plt Count 186 (150-400) K/uL MPV 11.10 (7.40-12.00) fL Neut % (Auto) 74.8 (48.0-80.0) % Lymph % (Auto) 11.1 L (16.0-40.0) % [place] % (Auto) 13.2 (0.0-15.0) % Eos % (Auto) 0.8 (0.0-7.0) % Baso % (Auto) 0.1 (0.0-1.5) % Neut # (Auto) 9.1 H (1.4-5.7) K/uL Lymph # (Auto) 1.4 (0.6-2.4) K/uL [place] # (Auto) 1.6 H (0.0-0.8) K/uL Eos # (Auto) 0.1 (0.0-0.7) K/uL Baso # (Auto) 0.0 (0.0-0.1) K/uL Nucleated RBC % 0.0 /100WBC Nucleated RBCs # 0 K/uL Sodium (136-145) mmol/L Potassium (3.5-5.1) mmol/L Chloride (98-107) mmol/L Carbon Dioxide (21.0-32.0) mmol/L BUN (7.0-18.0) mg/dL Creatinine (0.6-1.0) mg/dL Est Cr Clr Drug Dosing mL/min Estimated GFR (MDRD) ml/min Glucose (74-106) mg/dL POC Glucose 203 H 182 H (60-110) mg/dL Calcium (8.5-10.1) mg/dL Total Bilirubin (0.2-1.0) mg/dL AST (15-37) IU/L ALT (14-63) IU/L Alkaline Phosphatase (46-116) U/L Total Protein (6.4-8.2) g/dL Albumin (3.4-5.0) g/dL Globulin (2.6-4.0) g/dL Albumin/Globulin Ratio (0.9-1.6) 02/24/20 02/24/20 02/24/20 Range/Units 05:30 05:53 11:19 WBC (4.0-11.0) K/uL RBC (4.30-5.90) M/uL Hgb (12.0-16.0) g/dL Hct (36.0-46.0) % MCV (80.0-98.0) fL MCH (27.0-32.0) pg MCHC (31.0-37.0) g/dL RDW Std Deviation (28.0-62.0) fl RDW Coeff of Robetr (11.0-15.0) % Plt Count (150-400) K/uL MPV (7.40-12.00) fL Neut % (Auto) (48.0-80.0) % Lymph % (Auto) (16.0-40.0) % [place] % (Auto) (0.0-15.0) % Eos % (Auto) (0.0-7.0) % Baso % (Auto) (0.0-1.5) % Neut # (Auto) (1.4-5.7) K/uL Lymph # (Auto) (0.6-2.4) K/uL [place] # (Auto) (0.0-0.8) K/uL Eos # (Auto) (0.0-0.7) K/uL Baso # (Auto) (0.0-0.1) K/uL Nucleated RBC % /100WBC Nucleated RBCs # K/uL Sodium 142 (136-145) mmol/L Potassium 3.7 (3.5-5.1) mmol/L Chloride 100 (98-107) mmol/L Carbon Dioxide 41.3 H (21.0-32.0) mmol/L BUN 30 H (7.0-18.0) mg/dL Creatinine 1.4 H (0.6-1.0) mg/dL Est Cr Clr Drug Dosing 33.67 mL/min Estimated GFR (MDRD) 37.5 ml/min Glucose 150 H (74-106) mg/dL POC Glucose 143 H 163 H (60-110) mg/dL Calcium 8.4 L (8.5-10.1) mg/dL Total Bilirubin 0.4 (0.2-1.0) mg/dL AST 18 (15-37) IU/L ALT 21 (14-63) IU/L Alkaline Phosphatase 70 (46-116) U/L Total Protein 6.3 L (6.4-8.2) g/dL Albumin 2.7 L (3.4-5.0) g/dL Globulin 3.6 (2.6-4.0) g/dL Albumin/Globulin Ratio 0.8 L (0.9-1.6) Med Orders - Current: Current Medications Acetaminophen (Tylenol) 650 mg PO Q6H PRN PRN Reason: Pain Last Admin: 02/24/20 10:20 Dose: 650 mg Documented by: Albuterol/Ipratropium (Duoneb 3.0-0.5 Mg/3 Ml) 3 ml NEB Q6HRRT [facility] Last Admin: 02/24/20 11:28 Dose: 3 ml Documented by: Aspirin (Aspirin) 81 mg PO DAILY [facility] Last Admin: 02/24/20 10:21 Dose: Not Given Documented by: Atorvastatin Calcium (Lipitor) 40 mg PO BEDTIME [facility] Last Admin: 02/23/20 20:35 Dose: Not Given Documented by: Dextrose/Water (Dextrose 50% In Water) 50 ml IV ASDIRECTED PRN PRN Reason: Hypoglycemia Doxycycline Hyclate (Vibramycin) 100 mg PO BID [facility] Last Admin: 02/24/20 10:16 Dose: 100 mg Documented by: Fexofenadine HCl (Diamond) 180 mg PO DAILY [facility] Last Admin: 02/24/20 10:21 Dose: 180 mg Documented by: Furosemide (Lasix) 80 mg PO BIDDIURETIC [facility] Last Admin: 02/24/20 10:16 Dose: 80 mg Documented by: Glucagon (Glucagen) 1 mg IM ASDIRECTED PRN PRN Reason: Hypoglycemia Heparin Sodium (Porcine) (Heparin Sodium) 5,000 units SUBCUT Q8H [facility] Last Admin: 02/24/20 10:22 Dose: Not Given Documented by: Ceftriaxone Sodium/Dextrose 1 (gm/ Premix) 50 mls @ 100 mls/hr IV Q24H [facility] Last Admin: 02/24/20 10:35 Dose: 100 mls/hr Documented by: Insulin Aspart (Novolog) 0 unit SUBCUT TIDAC [facility]; Protocol Last Admin: 02/24/20 06:32 Dose: Not Given Documented by: Metoprolol Succinate (Toprol Xl) 50 mg PO DAILY [facility] Last Admin: 02/24/20 10:17 Dose: Not Given Documented by: Nystatin (Nystatin Crm) 1 gm TOP BID [facility] Last Admin: 02/24/20 10:22 Dose: 1 applic Documented by: Ketoconazole 200 Mg 1 each PO DAILY [facility] Last Admin: 02/24/20 10:25 Dose: 1 each Documented by: Ubidecarenone 100 Mg 1 each PO DAILY [facility] Last Admin: 02/24/20 10:27 Dose: Not Given Documented by: Discontinued Medications Albuterol/Ipratropium (Duoneb 3.0-0.5 Mg/3 Ml) 3 ml NEB Q4HRRT PRN PRN Reason: Wheezing Last Admin: 02/22/20 01:53 Dose: 3 ml Documented by: Albuterol/Ipratropium (Duoneb 3.0-0.5 Mg/3 Ml) 3 ml NEB Q6H [facility] Last Admin: 02/22/20 11:25 Dose: 3 ml Documented by: Fexofenadine HCl (Diamond) 180 mg PO DAILY [facility] Furosemide (Lasix) 40 mg IVPUSH NOW ONE Stop: 02/22/20 01:06 Last Admin: 02/22/20 02:11 Dose: Not Given Documented by: Furosemide (Lasix) Confirm Administered Dose 40 mg .ROUTE .STK-MED ONE Stop: 02/22/20 01:47 Last Admin: 02/22/20 02:13 Dose: Not Given Documented by: Sodium Chloride (Normal Saline) 1,000 mls @ 999 mls/hr IV BOLUS ONE Stop: 02/21/20 21:49 Last Admin: 02/21/20 21:23 Dose: Not Given Documented by: Sodium Chloride (Normal Saline) 1,000 mls @ 500 mls/hr IV STAT [facility] Insulin Aspart (Novolog) 0 unit SUBCUT ACBREAKFASTANDBED [facility]; Protocol Last Admin: 02/22/20 09:04 Dose: Not Given Documented by: Lorazepam (Ativan) 0.5 mg IVPUSH ONETIME ONE Stop: 02/21/20 22:20 Last Admin: 02/21/20 22:43 Dose: 0.5 mg Documented by: Lorazepam (Ativan) 0.5 mg IVPUSH ONETIME ONE Stop: 02/21/20 23:33 Last Admin: 02/21/20 23:35 Dose: 0.5 mg Documented by: Methylprednisolone Sodium Succinate (Solu-Medrol) 125 mg IM ONETIME ONE Stop: 02/22/20 01:06 Last Admin: 02/22/20 02:12 Dose: Not Given Documented by: Methylprednisolone Sodium Succinate (Solu-Medrol) 125 mg IVPUSH ONETIME ONE Stop: 02/22/20 02:08 Last Admin: 02/22/20 02:48 Dose: 125 mg Documented by: Nystatin (Nystop) 1 gm TOP TID [facility] Last Admin: 02/22/20 15:10 Dose: Not Given Documented by: Patient Own Medication (Ptom) 100 each PO DAILY [facility] Last Admin: 02/23/20 14:24 Dose: Not Given Documented by: - Exam General: Alert, Oriented Neck: Supple Lungs: Decreased Breath Sounds Cardiovascular: Irregular Rhythm, Tachycardia GI/Abdominal Exam: Normal Bowel Sounds, Soft, Non-Tender, No Distention Extremities: Normal Inspection, Non-Tender, No Pedal Edema Skin: Warm, Dry, Intact Neurological: No New Focal Deficit Sepsis Event Note - Evaluation Sepsis Screening Result: Sepsis Risk - Focused Exam Vital Signs: Vital Signs Temp Pulse Resp BP Pulse Ox 02/24/20 11:16 35.8 C L 118 H 18 126/66 92 L 02/24/20 07:32 36.6 C 111 H 18 119/66 92 L 02/24/20 04:31 36.7 C 105 H 22 H 113/57 L 90 L 02/24/20 00:29 35.9 C L 114 H 20 119/77 92 L - Problem List Review Problem List Initiated/Reviewed/Updated: Yes - My Orders Last 24 Hours: My Active Orders 02/23/20 13:26 Communication Order [RC] DAILY 02/23/20 13:30 Patient's Own Medication [Ptom] 1 each PO DAILY 02/23/20 16:25 Fexofenadine [Diamond] 180 mg PO DAILY 02/23/20 19:00 Transfer Patient (Change bed) [ADT] Routine Telemetry Monitoring [Cardiac Monitoring] [RC] Q8H 02/24/20 09:00 Patient's Own Medication [Ptom] 1 each PO DAILY 02/25/20 05:11 CBC WITH AUTO DIFF [HEME] AM COMPREHENSIVE METABOLIC PN,CMP [CHEM] AM - Plan Plan:: 69 yo female admitted with acute on chronic hypercapnic respiratory failure. Respiratory failure: LEONILA, OHS, Pulmonary HTN, COPD, currently on 4 liters NC, refusing BIPAP at night LEG edema/cellulitis: on lasix, Rocephin, A.fib: refusing metoprolol and heparin. Generalized weakness: PT consulted Dispo: pending placement
[2020-02-24] MEDS ORDERED: Metoprolol Succinate 50 MG Tab.ER ONE (15:34)
[2020-02-24] MEDS: atorvaSTATin 40 MG Tab PO SCH (20:55)
[2020-02-25] MEDS: Albuterol/Ipratropium 3.0-0.5 MG/3 ML Neb Soln NEB SCH ×3 (00:15→11:18)
[2020-02-25] MEDS: Heparin Sodium 5,000 Units/ML Vial SUBCUT SCH ×3 (01:30→17:51)
[2020-02-25] MEDS: Acetaminophen 325 MG Tab PO PRN ×4 (04:26→23:29)
[2020-02-25 06:31] LABS: POTASSIUM,K 4.2 mmol/L (3.5-5.1)
[2020-02-25] MEDS: Furosemide 40 MG Tab PO SCH ×2 (08:49→13:07)
[2020-02-25] MEDS: Doxycycline 100 MG Cap PO SCH ×2 (08:50→21:56)
[2020-02-25] MEDS: Aspirin 81 MG Tab.Chew PO SCH (08:50)
[2020-02-25] MEDS: Metoprolol Succinate 50 MG Tab.ER PO SCH (08:51)
[2020-02-25] MEDS: Nystatin Crm 30 GM Tube TOP SCH ×2 (08:52→21:59)
[2020-02-25] MEDS: Insulin Aspart 100 Units/ML 3 ML Pen SUBCUT SCH ×3 (10:31→17:50)
[2020-02-25] MEDS: cefTRIAXone 1 GM in Premix Bag 1 BAG IV SCH (10:47)
--- NOTE | 2020-02-25 11:48 | PCM.PN ---
- General Info Date of Service: 02/25/20 - Review of Systems Systems Review Comment:: feeling better, reports generalized weakness, fatigue, shortness of breath improving. - Patient Data Vitals - Most Recent: Last Vital Signs Temp 36.8 C 02/25/20 09:00 Pulse 95 02/25/20 09:00 Resp 20 02/25/20 09:00 BP 132/68 02/25/20 09:00 Pulse Ox 89 L 02/25/20 09:00 Weight - Most Recent: 137.711 kg I&O - Last 24 Hours: Intake & Output 02/24/20 02/25/20 02/25/20 22:59 06:59 14:59 Intake Total 1056 690 Output Total 650 Balance 406 690 Lab Results Last 24 Hours: Laboratory Results - last 24 hr 02/25/20 02/25/20 02/25/20 Range/Units 05:25 05:25 07:02 WBC 9.41 (4.0-11.0) K/uL RBC 4.31 (4.30-5.90) M/uL Hgb 12.6 (12.0-16.0) g/dL Hct 43.3 (36.0-46.0) % MCV 100.5 H (80.0-98.0) fL MCH 29.2 (27.0-32.0) pg MCHC 29.1 L (31.0-37.0) g/dL RDW Std Deviation 55.6 (28.0-62.0) fl RDW Coeff of Robetr 15 (11.0-15.0) % Plt Count 188 (150-400) K/uL MPV 10.90 (7.40-12.00) fL Neut % (Auto) 70.6 (48.0-80.0) % Lymph % (Auto) 14.1 L (16.0-40.0) % [place] % (Auto) 14.1 (0.0-15.0) % Eos % (Auto) 1.1 (0.0-7.0) % Baso % (Auto) 0.1 (0.0-1.5) % Neut # (Auto) 6.6 H (1.4-5.7) K/uL Lymph # (Auto) 1.3 (0.6-2.4) K/uL [place] # (Auto) 1.3 H (0.0-0.8) K/uL Eos # (Auto) 0.1 (0.0-0.7) K/uL Baso # (Auto) 0.0 (0.0-0.1) K/uL Nucleated RBC % 0.0 /100WBC Nucleated RBCs # 0 K/uL Sodium 141 (136-145) mmol/L Potassium 4.2 (3.5-5.1) mmol/L Chloride 101 (98-107) mmol/L Carbon Dioxide 41.0 H (21.0-32.0) mmol/L BUN 31 H (7.0-18.0) mg/dL Creatinine 1.4 H (0.6-1.0) mg/dL Est Cr Clr Drug Dosing 33.67 mL/min Estimated GFR (MDRD) 37.5 ml/min Glucose 147 H (74-106) mg/dL POC Glucose 158 H (60-110) mg/dL Calcium 8.5 (8.5-10.1) mg/dL Total Bilirubin 0.9 (0.2-1.0) mg/dL AST 25 (15-37) IU/L ALT 23 (14-63) IU/L Alkaline Phosphatase 77 (46-116) U/L Total Protein 6.5 (6.4-8.2) g/dL Albumin 2.8 L (3.4-5.0) g/dL Globulin 3.7 (2.6-4.0) g/dL Albumin/Globulin Ratio 0.8 L (0.9-1.6) Med Orders - Current: Current Medications Acetaminophen (Tylenol) 650 mg PO Q6H PRN PRN Reason: Pain Last Admin: 02/25/20 04:26 Dose: 325 mg Documented by: Albuterol/Ipratropium (Duoneb 3.0-0.5 Mg/3 Ml) 3 ml NEB Q6HRRT [facility] Last Admin: 02/25/20 11:18 Dose: Not Given Documented by: Aspirin (Aspirin) 81 mg PO DAILY [facility] Last Admin: 02/25/20 08:50 Dose: 81 mg Documented by: Atorvastatin Calcium (Lipitor) 40 mg PO BEDTIME [facility] Last Admin: 02/24/20 20:55 Dose: Not Given Documented by: Dextrose/Water (Dextrose 50% In Water) 50 ml IV ASDIRECTED PRN PRN Reason: Hypoglycemia Doxycycline Hyclate (Vibramycin) 100 mg PO BID [facility] Last Admin: 02/25/20 08:50 Dose: 100 mg Documented by: Fexofenadine HCl (Diamond) 180 mg PO DAILY [facility] Last Admin: 02/25/20 08:50 Dose: 180 mg Documented by: Furosemide (Lasix) 80 mg PO BIDDIURETIC [facility] Last Admin: 02/25/20 08:49 Dose: 80 mg Documented by: Glucagon (Glucagen) 1 mg IM ASDIRECTED PRN PRN Reason: Hypoglycemia Heparin Sodium (Porcine) (Heparin Sodium) 5,000 units SUBCUT Q8H [facility] Last Admin: 02/25/20 08:54 Dose: Not Given Documented by: Ceftriaxone Sodium/Dextrose 1 (gm/ Premix) 50 mls @ 100 mls/hr IV Q24H [facility] Last Admin: 02/25/20 10:47 Dose: 100 mls/hr Documented by: Insulin Aspart (Novolog) 0 unit SUBCUT TIDAC [facility]; Protocol Last Admin: 02/25/20 10:31 Dose: Not Given Documented by: Metoprolol Succinate (Toprol Xl) 50 mg PO DAILY [facility] Last Admin: 02/25/20 08:51 Dose: 50 mg Documented by: Nystatin (Nystatin Crm) 1 gm TOP BID [facility] Last Admin: 02/25/20 08:52 Dose: 1 applic Documented by: Ketoconazole 200 Mg 1 each PO DAILY [facility] Last Admin: 02/25/20 08:53 Dose: 1 each Documented by: Ubidecarenone 100 Mg 1 each PO DAILY [facility] Last Admin: 02/25/20 08:53 Dose: Not Given Documented by: Discontinued Medications Albuterol/Ipratropium (Duoneb 3.0-0.5 Mg/3 Ml) 3 ml NEB Q4HRRT PRN PRN Reason: Wheezing Last Admin: 02/22/20 01:53 Dose: 3 ml Documented by: Albuterol/Ipratropium (Duoneb 3.0-0.5 Mg/3 Ml) 3 ml NEB Q6H [facility] Last Admin: 02/22/20 11:25 Dose: 3 ml Documented by: Fexofenadine HCl (Diamond) 180 mg PO DAILY [facility] Furosemide (Lasix) 40 mg IVPUSH NOW ONE Stop: 02/22/20 01:06 Last Admin: 02/22/20 02:11 Dose: Not Given Documented by: Furosemide (Lasix) Confirm Administered Dose 40 mg .ROUTE .STK-MED ONE Stop: 02/22/20 01:47 Last Admin: 02/22/20 02:13 Dose: Not Given Documented by: Sodium Chloride (Normal Saline) 1,000 mls @ 999 mls/hr IV BOLUS ONE Stop: 02/21/20 21:49 Last Admin: 02/21/20 21:23 Dose: Not Given Documented by: Sodium Chloride (Normal Saline) 1,000 mls @ 500 mls/hr IV STAT [facility] Insulin Aspart (Novolog) 0 unit SUBCUT ACBREAKFASTANDBED [facility]; Protocol Last Admin: 02/22/20 09:04 Dose: Not Given Documented by: Lorazepam (Ativan) 0.5 mg IVPUSH ONETIME ONE Stop: 02/21/20 22:20 Last Admin: 02/21/20 22:43 Dose: 0.5 mg Documented by: Lorazepam (Ativan) 0.5 mg IVPUSH ONETIME ONE Stop: 02/21/20 23:33 Last Admin: 02/21/20 23:35 Dose: 0.5 mg Documented by: Methylprednisolone Sodium Succinate (Solu-Medrol) 125 mg IM ONETIME ONE Stop: 02/22/20 01:06 Last Admin: 02/22/20 02:12 Dose: Not Given Documented by: Methylprednisolone Sodium Succinate (Solu-Medrol) 125 mg IVPUSH ONETIME ONE Stop: 02/22/20 02:08 Last Admin: 02/22/20 02:48 Dose: 125 mg Documented by: Metoprolol Succinate (Toprol Xl) Confirm Administered Dose 50 mg .ROUTE .STK-MED ONE Stop: 02/24/20 15:35 Last Admin: 02/24/20 15:37 Dose: Not Given Documented by: Nystatin (Nystop) 1 gm TOP TID [facility] Last Admin: 02/22/20 15:10 Dose: Not Given Documented by: Patient Own Medication (Ptom) 100 each PO DAILY [facility] Last Admin: 02/23/20 14:24 Dose: Not Given Documented by: - Exam General: Alert, Oriented Lungs: Clear to Auscultation, Normal Respiratory Effort Cardiovascular: Regular Rate, Irregular Rhythm GI/Abdominal Exam: Normal Bowel Sounds, Soft, Non-Tender Extremities: Non-Tender, Pedal Edema (+2 edema) Neurological: No New Focal Deficit Sepsis Event Note - Evaluation Sepsis Screening Result: No Definite Risk - Focused Exam Vital Signs: Vital Signs Temp Pulse Pulse Resp BP BP Pulse Ox 02/25/20 09:00 36.8 C 95 20 132/68 89 L 02/25/20 08:51 98 110/70 02/25/20 05:02 36.2 C 100 20 124/58 L 89 L 02/25/20 01:39 36.6 C 103 H 21 H 119/66 88 L - Problem List Review Problem List Initiated/Reviewed/Updated: Yes - My Orders Last 24 Hours: My Active Orders 02/26/20 05:11 BASIC METABOLIC PANEL,BMP [CHEM] AM CBC WITH AUTO DIFF [HEME] AM - Plan Plan:: 69 yo female admitted with acute on chronic hypercapnic respiratory failure. Respiratory failure: LEONILA, OHS, Pulmonary HTN, COPD, currently on 4 liters NC, refusing BIPAP at night LEG edema/cellulitis: on lasix, Rocephin, A.fib: refusing metoprolol and heparin. Generalized weakness: PT consulted Dispo: consulted case managment for placement. patient is agreeable to SNF for rehab
[2020-02-25] MEDS ORDERED: Albuterol/Ipratropium 3.0-0.5 MG/3 ML Neb Soln NEB PRN (17:52)
[2020-02-25] MEDS: atorvaSTATin 40 MG Tab PO SCH ×2 (21:56→21:58)
[2020-02-26] MEDS: Heparin Sodium 5,000 Units/ML Vial SUBCUT SCH ×4 (02:33→17:23)
[2020-02-26] MEDS: Acetaminophen 325 MG Tab PO PRN ×3 (03:03→20:44)
[2020-02-26 06:44] LABS: CARBON DIOXIDE,CO2 37.3 mmol/L (21.0-32.0); POTASSIUM,K 4.2 mmol/L (3.5-5.1)
[2020-02-26] MEDS: Insulin Aspart 100 Units/ML 3 ML Pen SUBCUT SCH ×3 (07:15→18:38)
[2020-02-26] MEDS: Fluticasone Propionate Nasal Spray 16 GM Bottle NASBOTH PRN ×2 (07:16→13:25)
[2020-02-26] MEDS: Furosemide 40 MG Tab PO SCH ×2 (09:28→14:27)
[2020-02-26] MEDS: Metoprolol Succinate 50 MG Tab.ER PO SCH (09:29)
[2020-02-26] MEDS: Aspirin 81 MG Tab.Chew PO SCH (09:29)
[2020-02-26] MEDS: Doxycycline 100 MG Cap PO SCH ×2 (09:30)
[2020-02-26] MEDS: Nystatin Crm 30 GM Tube TOP SCH ×2 (09:42→20:45)
[2020-02-26] MEDS: cefTRIAXone 1 GM in Premix Bag 1 BAG IV SCH (09:48)
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
[2020-02-26] MEDS: atorvaSTATin 40 MG Tab PO SCH (20:59)
[2020-02-27] MEDS: Heparin Sodium 5,000 Units/ML Vial SUBCUT SCH ×3 (01:55→17:09)
[2020-02-27] MEDS: Insulin Aspart 100 Units/ML 3 ML Pen SUBCUT SCH ×3 (06:34→17:08)
[2020-02-27 07:39] LABS: CARBON DIOXIDE,CO2 38.5 mmol/L (21.0-32.0); POTASSIUM,K 4.6 mmol/L (3.5-5.1)
[2020-02-27] MEDS: Furosemide 40 MG Tab PO SCH ×2 (08:22→14:46)
[2020-02-27] MEDS: Aspirin 81 MG Tab.Chew PO SCH (08:23)
[2020-02-27] MEDS: cefTRIAXone 1 GM in Premix Bag 1 BAG IV SCH (10:29)
[2020-02-27] MEDS: Nystatin Crm 30 GM Tube TOP SCH ×2 (10:30→22:36)
--- NOTE | 2020-02-27 12:58 | PCM.PN ---
- General Info Date of Service: 02/27/20 Admission Dx/Problem (Free Text): Admission Diagnosis/Problem Admission Diagnosis/Problem Respiratory failure Subjective Update: seen at bedside, sitting by edge of the bed, no acute distress, states she feels she cannot breath,and has nightmares all night, states she hasn't made up her mind about rehab. Participated in PT, more willing to try BiPAP Functional Status: Reports: Pain Controlled, Tolerating Diet, Ambulating, Urinating - Review of Systems General: Denies: Fever, Weakness, Fatigue Pulmonary: Reports: Shortness of Breath, Wheezing. Denies: Pleuritic Chest Pain, Cough, Hemoptysis Cardiovascular: Denies: Chest Pain, Palpitations Gastrointestinal: Denies: Abdominal Pain, Constipation, Decreased Appetite Genitourinary: Denies: Dysuria, Frequency, Burning, Pain, Urgency Musculoskeletal: Denies: Neck Pain, Shoulder Pain, Arm Pain, Hand Pain Skin: Denies: Cyanosis, Jaundice, Mottled, Pallor, Diaphoresis Neurological: Denies: Confusion, Dizziness, Headache, Numbness - Patient Data Vitals - Most Recent: Last Vital Signs Temp 36.2 C 02/27/20 08:00 Pulse 87 02/27/20 08:00 Resp 20 02/27/20 08:00 BP 148/79 H 02/27/20 08:00 Pulse Ox 93 L 02/27/20 08:00 Weight - Most Recent: 137.711 kg I&O - Last 24 Hours: Intake & Output 02/26/20 02/27/20 02/27/20 22:59 06:59 14:59 Intake Total 480 400 Output Total 0 Balance 480 400 Lab Results Last 24 Hours: Laboratory Results - last 24 hr 02/26/20 02/27/20 02/27/20 Range/Units 17:48 05:49 06:30 WBC 10.37 (4.0-11.0) K/uL RBC 4.67 (4.30-5.90) M/uL Hgb 13.8 (12.0-16.0) g/dL Hct 46.9 H (36.0-46.0) % MCV 100.4 H (80.0-98.0) fL MCH 29.6 (27.0-32.0) pg MCHC 29.4 L (31.0-37.0) g/dL RDW Std Deviation 54.9 (28.0-62.0) fl RDW Coeff of Robert 15 (11.0-15.0) % Plt Count 232 (150-400) K/uL MPV 11.20 (7.40-12.00) fL Neut % (Auto) 71.2 (48.0-80.0) % Lymph % (Auto) 15.7 L (16.0-40.0) % [place] % (Auto) 12.2 (0.0-15.0) % Eos % (Auto) 0.7 (0.0-7.0) % Baso % (Auto) 0.2 (0.0-1.5) % Neut # (Auto) 7.4 H (1.4-5.7) K/uL Lymph # (Auto) 1.6 (0.6-2.4) K/uL [place] # (Auto) 1.3 H (0.0-0.8) K/uL Eos # (Auto) 0.1 (0.0-0.7) K/uL Baso # (Auto) 0.0 (0.0-0.1) K/uL Nucleated RBC % 0.0 /100WBC Nucleated RBCs # 0 K/uL Sodium (136-145) mmol/L Potassium (3.5-5.1) mmol/L Chloride (98-107) mmol/L Carbon Dioxide (21.0-32.0) mmol/L BUN (7.0-18.0) mg/dL Creatinine (0.6-1.0) mg/dL Est Cr Clr Drug Dosing mL/min Estimated GFR (MDRD) ml/min Glucose (74-106) mg/dL POC Glucose 174 H 142 H (60-110) mg/dL Calcium (8.5-10.1) mg/dL Phosphorus (2.6-4.7) mg/dL Magnesium (1.8-2.4) mg/dL 02/27/20 02/27/20 Range/Units 06:30 12:08 WBC (4.0-11.0) K/uL RBC (4.30-5.90) M/uL Hgb (12.0-16.0) g/dL Hct (36.0-46.0) % MCV (80.0-98.0) fL MCH (27.0-32.0) pg MCHC (31.0-37.0) g/dL RDW Std Deviation (28.0-62.0) fl RDW Coeff of Robert (11.0-15.0) % Plt Count (150-400) K/uL MPV (7.40-12.00) fL Neut % (Auto) (48.0-80.0) % Lymph % (Auto) (16.0-40.0) % [place] % (Auto) (0.0-15.0) % Eos % (Auto) (0.0-7.0) % Baso % (Auto) (0.0-1.5) % Neut # (Auto) (1.4-5.7) K/uL Lymph # (Auto) (0.6-2.4) K/uL [place] # (Auto) (0.0-0.8) K/uL Eos # (Auto) (0.0-0.7) K/uL Baso # (Auto) (0.0-0.1) K/uL Nucleated RBC % /100WBC Nucleated RBCs # K/uL Sodium 144 (136-145) mmol/L Potassium 4.6 (3.5-5.1) mmol/L Chloride 103 (98-107) mmol/L Carbon Dioxide 38.5 H (21.0-32.0) mmol/L BUN 34 H (7.0-18.0) mg/dL Creatinine 1.3 H (0.6-1.0) mg/dL Est Cr Clr Drug Dosing 36.26 mL/min Estimated GFR (MDRD) 40.9 ml/min Glucose 133 H (74-106) mg/dL POC Glucose 139 H (60-110) mg/dL Calcium 8.6 (8.5-10.1) mg/dL Phosphorus 4.6 (2.6-4.7) mg/dL Magnesium 2.0 (1.8-2.4) mg/dL Med Orders - Current: Current Medications Acetaminophen (Tylenol) 325 mg PO Q4H PRN PRN Reason: Pain Last Admin: 02/26/20 20:44 Dose: 325 mg Documented by: Albuterol/Ipratropium (Duoneb 3.0-0.5 Mg/3 Ml) 3 ml NEB Q6HRRT PRN PRN Reason: Dyspnea Last Admin: 02/25/20 19:16 Dose: 3 ml Documented by: Aspirin (Aspirin) 81 mg PO DAILY [facility] Last Admin: 02/27/20 08:23 Dose: 81 mg Documented by: Atorvastatin Calcium (Lipitor) 40 mg PO BEDTIME [facility] Last Admin: 02/26/20 20:59 Dose: Not Given Documented by: Dextrose/Water (Dextrose 50% In Water) 50 ml IV ASDIRECTED PRN PRN Reason: Hypoglycemia Fexofenadine HCl (Diamond) 180 mg PO DAILY [facility] Last Admin: 02/27/20 08:22 Dose: 180 mg Documented by: Fluticasone Propionate (Flonase) 0 gm NASBOTH Q6H PRN PRN Reason: Congestion Last Admin: 02/26/20 13:25 Dose: 1 spray Documented by: Furosemide (Lasix) 80 mg PO BIDDIURETIC [facility] Last Admin: 02/27/20 08:22 Dose: 80 mg Documented by: Glucagon (Glucagen) 1 mg IM ASDIRECTED PRN PRN Reason: Hypoglycemia Heparin Sodium (Porcine) (Heparin Sodium) 5,000 units SUBCUT Q8H [facility] Last Admin: 02/27/20 10:33 Dose: Not Given Documented by: Ceftriaxone Sodium/Dextrose 1 (gm/ Premix) 50 mls @ 100 mls/hr IV Q24H [facility] Last Admin: 02/27/20 10:29 Dose: 100 mls/hr Documented by: Insulin Aspart (Novolog) 0 unit SUBCUT TIDAC [facility]; Protocol Last Admin: 02/27/20 06:34 Dose: Not Given Documented by: Methylprednisolone Sodium Succinate (Solu-Medrol) 40 mg IVPUSH Q12H [facility] Metoprolol Succinate (Toprol Xl) 50 mg PO DAILY [facility] Last Admin: 02/26/20 09:29 Dose: 50 mg Documented by: Nystatin (Nystatin Crm) 1 gm TOP BID [facility] Last Admin: 02/27/20 10:30 Dose: 1 applic Documented by: Ketoconazole 200 Mg 1 each PO DAILY [facility] Last Admin: 02/27/20 08:24 Dose: 1 each Documented by: Ubidecarenone 100 Mg 1 each PO DAILY [facility] Last Admin: 02/27/20 08:24 Dose: 1 each Documented by: Discontinued Medications Acetaminophen (Tylenol) 650 mg PO Q6H PRN PRN Reason: Pain Last Admin: 02/25/20 13:07 Dose: 650 mg Documented by: Albuterol/Ipratropium (Duoneb 3.0-0.5 Mg/3 Ml) 3 ml NEB Q4HRRT PRN PRN Reason: Wheezing Last Admin: 02/22/20 01:53 Dose: 3 ml Documented by: Albuterol/Ipratropium (Duoneb 3.0-0.5 Mg/3 Ml) 3 ml NEB Q6H [facility] Last Admin: 02/22/20 11:25 Dose: 3 ml Documented by: Albuterol/Ipratropium (Duoneb 3.0-0.5 Mg/3 Ml) 3 ml NEB Q6HRRT [facility] Last Admin: 02/25/20 11:18 Dose: Not Given Documented by: Doxycycline Hyclate (Vibramycin) 100 mg PO BID [facility] Last Admin: 02/26/20 09:30 Dose: Not Given Documented by: Fexofenadine HCl (Diamond) 180 mg PO DAILY [facility] Furosemide (Lasix) 40 mg IVPUSH NOW ONE Stop: 02/22/20 01:06 Last Admin: 02/22/20 02:11 Dose: Not Given Documented by: Furosemide (Lasix) Confirm Administered Dose 40 mg .ROUTE .STK-MED ONE Stop: 02/22/20 01:47 Last Admin: 02/22/20 02:13 Dose: Not Given Documented by: Sodium Chloride (Normal Saline) 1,000 mls @ 999 mls/hr IV BOLUS ONE Stop: 02/21/20 21:49 Last Admin: 02/21/20 21:23 Dose: Not Given Documented by: Sodium Chloride (Normal Saline) 1,000 mls @ 500 mls/hr IV STAT [facility] Insulin Aspart (Novolog) 0 unit SUBCUT ACBREAKFASTANDBED [facility]; Protocol Last Admin: 02/22/20 09:04 Dose: Not Given Documented by: Lorazepam (Ativan) 0.5 mg IVPUSH ONETIME ONE Stop: 02/21/20 22:20 Last Admin: 02/21/20 22:43 Dose: 0.5 mg Documented by: Lorazepam (Ativan) 0.5 mg IVPUSH ONETIME ONE Stop: 10/22/20 23:33 Last Admin: 02/21/20 23:35 Dose: 0.5 mg Documented by: Methylprednisolone Sodium Succinate (Solu-Medrol) 125 mg IM ONETIME ONE Stop: 02/22/20 01:06 Last Admin: 02/22/20 02:12 Dose: Not Given Documented by: Methylprednisolone Sodium Succinate (Solu-Medrol) 125 mg IVPUSH ONETIME ONE Stop: 02/22/20 02:08 Last Admin: 02/22/20 02:48 Dose: 125 mg Documented by: Metoprolol Succinate (Toprol Xl) Confirm Administered Dose 50 mg .ROUTE .STK-MED ONE Stop: 02/24/20 15:35 Last Admin: 02/24/20 15:37 Dose: Not Given Documented by: Nystatin (Nystop) 1 gm TOP TID [facility] Last Admin: 02/22/20 15:10 Dose: Not Given Documented by: Patient Own Medication (Ptom) 100 each PO DAILY [facility] Last Admin: 02/23/20 14:24 Dose: Not Given Documented by: - Exam Quality Assessment: Supplemental Oxygen General: Alert, Oriented, Mild Distress Lungs: Decreased Breath Sounds, Rales, Wheezing Cardiovascular: Regular Rate, Irregular Rhythm GI/Abdominal Exam: Normal Bowel Sounds, Soft, Non-Tender Extremities: Normal Inspection, Normal Range of Motion, Non-Tender Sepsis Event Note - Evaluation Sepsis Screening Result: No Definite Risk - Focused Exam Vital Signs: Vital Signs Temp Pulse Pulse Resp BP Pulse Ox 02/27/20 08:00 36.2 C 87 20 148/79 H 93 L 02/27/20 04:00 36.4 C 62 20 134/100 H 91 L - Problem List & Annotations (1) CHF (congestive heart failure) SNOMED Code(s): 50124314 Code(s): I50.9 - HEART FAILURE, UNSPECIFIED Status: Acute Current Visit: Yes Qualifiers: Heart failure type: unspecified Heart failure chronicity: unspecified Qualified Code(s): I50.9 - Heart failure, unspecified (2) Hypercapnic respiratory failure SNOMED Code(s): 738829108 Code(s): J96.92 - RESPIRATORY FAILURE, UNSPECIFIED WITH HYPERCAPNIA Status: Acute Current Visit: Yes Qualifiers: Chronicity: acute on chronic Qualified Code(s): J96.22 - Acute and chronic respiratory failure with hypercapnia (3) Total self-care deficit SNOMED Code(s): 47784706 Code(s): R68.89 - OTHER GENERAL SYMPTOMS AND SIGNS Status: Acute Current Visit: Yes (4) Hypoxemia SNOMED Code(s): 930353045 Code(s): R09.02 - HYPOXEMIA Status: Acute Priority: High Current Visit: No (5) Diabetes mellitus SNOMED Code(s): 91053922 Code(s): E11.9 - TYPE 2 DIABETES MELLITUS WITHOUT COMPLICATIONS Status: Chronic Priority: High Current Visit: No Qualifiers: Diabetes mellitus type: type 2 Diabetes mellitus halfway insulin use: with halfway use Diabetes mellitus complication status: with unspecified complications (6) Hypertension SNOMED Code(s): 33590792 Code(s): I10 - ESSENTIAL (PRIMARY) HYPERTENSION Status: Chronic Priority: High Current Visit: No Qualifiers: Hypertension type: essential hypertension Qualified Code(s): I10 - Essential (primary) hypertension (7) Medical non-compliance SNOMED Code(s): 058129489 Code(s): Z91.19 - PATIENT'S NONCOMPLIANCE W OTH MEDICAL TREATMENT AND REGIMEN Status: Chronic Priority: High Current Visit: No (8) Morbidly obese SNOMED Code(s): 733443569 Code(s): E66.01 - MORBID (SEVERE) OBESITY DUE TO EXCESS CALORIES Status: Chronic Priority: Medium Current Visit: No - Problem List Review Problem List Initiated/Reviewed/Updated: Yes - My Orders Last 24 Hours: My Active Orders 02/27/20 13:00 methylPREDNISolone Sod Succ [Solu-MEDROL] 40 mg IVPUSH Q12H - Plan Plan:: 69 yo female admitted with acute on chronic hypercapnic respiratory failure. Respiratory failure: LEONILA, OHS, Pulmonary HTN, COPD, currently on 4 liters NC, willing to try bipap tonight, will start steroids, cont DuoNebs (patient refusing mostly) LEG edema/cellulitis: on lasix, Rocephin, A.fib: rate control, refusing metoprolol and heparin. Generalized weakness: PT consulted, refused PT yesterday Dispo: consulted case management for placement. patient is states "she will think about SNF after she finishes her ketoconazole course", participated in PT today
[2020-02-27] MEDS: methylPREDNISolone Sodium Succinate 40 MG/1 ML SDV IVPUSH SCH (13:14)
[2020-02-27] MEDS: Metoprolol Succinate 50 MG Tab.ER PO SCH (14:47)
[2020-02-27] MEDS: Albuterol/Ipratropium 4 GM Inhalation Spray INH SCH ×2 (16:50→17:14)
[2020-02-27] MEDS: atorvaSTATin 40 MG Tab PO SCH (21:39)
[2020-02-27] MEDS: Acetaminophen 325 MG Tab PO PRN (22:33)
[2020-02-28] MEDS: Albuterol/Ipratropium 4 GM Inhalation Spray INH SCH ×4 (01:10→17:27)
[2020-02-28] MEDS: Heparin Sodium 5,000 Units/ML Vial SUBCUT SCH ×3 (01:16→16:26)
[2020-02-28] MEDS: methylPREDNISolone Sodium Succinate 40 MG/1 ML SDV IVPUSH SCH ×2 (01:16→15:03)
[2020-02-28 06:46] LABS: CARBON DIOXIDE,CO2 38.7 mmol/L (21.0-32.0); POTASSIUM,K 4.5 mmol/L (3.5-5.1)
[2020-02-28] MEDS: Insulin Aspart 100 Units/ML 3 ML Pen SUBCUT SCH ×3 (09:39→19:41)
[2020-02-28] MEDS: Aspirin 81 MG Tab.Chew PO SCH (09:40)
[2020-02-28] MEDS: Furosemide 40 MG Tab PO SCH ×2 (09:40→15:03)
[2020-02-28] MEDS: Metoprolol Succinate 50 MG Tab.ER PO SCH ×2 (09:41→11:52)
[2020-02-28] MEDS: cefTRIAXone 1 GM in Premix Bag 1 BAG IV SCH (09:57)
[2020-02-28] MEDS ORDERED: Lactated Ringers 500 ML IV ONE (10:23)
--- NOTE | 2020-02-28 11:44 | PCM.PN ---
- General Info Date of Service: 02/28/20 Admission Dx/Problem (Free Text): Admission Diagnosis/Problem Admission Diagnosis/Problem Respiratory failure Subjective Update: seen at bedside, rapid response was called as patient was found to be hypoxic in 70s while she was on commode. Patient was switch from HF to NRB which improved oxygetaion to 88 and subsequently switched to BIPAP. BP was soft, IV 500 cc fluids bolus was given. Patient states "she took raisins for her high bp hence her BP is low". Wants to have coke. Reiterated to her the importance of being on the BIPAP for now. Agreeable to stay on BiPAP for now Functional Status: Reports: Tolerating Diet, Urinating - Review of Systems General: Denies: Fever, Weakness, Fatigue Pulmonary: Reports: Shortness of Breath. Denies: Pleuritic Chest Pain, Cough, Sputum Cardiovascular: Reports: Dyspnea on Exertion. Denies: Chest Pain, Palpitations, Orthopnea Gastrointestinal: Denies: Abdominal Pain, Constipation, Decreased Appetite Genitourinary: Denies: Dysuria, Frequency, Burning Musculoskeletal: Denies: Neck Pain, Shoulder Pain, Arm Pain Skin: Reports: Cyanosis. Denies: Jaundice, Mottled, Pallor, Diaphoresis Neurological: Denies: Confusion, Dizziness, Headache - Patient Data Vitals - Most Recent: Last Vital Signs Temp 36.2 C 02/28/20 09:00 Pulse 78 02/28/20 09:41 Resp 18 02/28/20 09:00 BP 94/67 02/28/20 10:18 Pulse Ox 88 L 02/28/20 09:00 Weight - Most Recent: 137.484 kg I&O - Last 24 Hours: Intake & Output 02/27/20 02/28/20 02/28/20 22:59 06:59 14:59 Intake Total 290 320 Output Total 583 Balance -293 320 Lab Results Last 24 Hours: Laboratory Results - last 24 hr 02/27/20 02/27/20 02/28/20 Range/Units 12:08 16:54 05:20 WBC 4.44 (4.0-11.0) K/uL RBC 4.71 (4.30-5.90) M/uL Hgb 13.7 (12.0-16.0) g/dL Hct 47.9 H (36.0-46.0) % MCV 101.7 H (80.0-98.0) fL MCH 29.1 (27.0-32.0) pg MCHC 28.6 L (31.0-37.0) g/dL RDW Std Deviation 55.0 (28.0-62.0) fl RDW Coeff of Robert 15 (11.0-15.0) % Plt Count 227 (150-400) K/uL MPV 10.70 (7.40-12.00) fL Neut % (Auto) 86.9 H (48.0-80.0) % Lymph % (Auto) 10.6 L (16.0-40.0) % [place] % (Auto) 2.5 (0.0-15.0) % Eos % (Auto) 0.0 (0.0-7.0) % Baso % (Auto) 0.0 (0.0-1.5) % Neut # (Auto) 3.9 (1.4-5.7) K/uL Lymph # (Auto) 0.5 L (0.6-2.4) K/uL [place] # (Auto) 0.1 (0.0-0.8) K/uL Eos # (Auto) 0.0 (0.0-0.7) K/uL Baso # (Auto) 0.0 (0.0-0.1) K/uL Nucleated RBC % 0.0 /100WBC Nucleated RBCs # 0 K/uL Sodium (136-145) mmol/L Potassium (3.5-5.1) mmol/L Chloride (98-107) mmol/L Carbon Dioxide (21.0-32.0) mmol/L BUN (7.0-18.0) mg/dL Creatinine (0.6-1.0) mg/dL Est Cr Clr Drug Dosing mL/min Estimated GFR (MDRD) ml/min Glucose (74-106) mg/dL POC Glucose 139 H 146 H (60-110) mg/dL Calcium (8.5-10.1) mg/dL Phosphorus (2.6-4.7) mg/dL Magnesium (1.8-2.4) mg/dL 02/28/20 02/28/20 Range/Units 05:20 05:46 WBC (4.0-11.0) K/uL RBC (4.30-5.90) M/uL Hgb (12.0-16.0) g/dL Hct (36.0-46.0) % MCV (80.0-98.0) fL MCH (27.0-32.0) pg MCHC (31.0-37.0) g/dL RDW Std Deviation (28.0-62.0) fl RDW Coeff of Robert (11.0-15.0) % Plt Count (150-400) K/uL MPV (7.40-12.00) fL Neut % (Auto) (48.0-80.0) % Lymph % (Auto) (16.0-40.0) % [place] % (Auto) (0.0-15.0) % Eos % (Auto) (0.0-7.0) % Baso % (Auto) (0.0-1.5) % Neut # (Auto) (1.4-5.7) K/uL Lymph # (Auto) (0.6-2.4) K/uL [place] # (Auto) (0.0-0.8) K/uL Eos # (Auto) (0.0-0.7) K/uL Baso # (Auto) (0.0-0.1) K/uL Nucleated RBC % /100WBC Nucleated RBCs # K/uL Sodium 146 H (136-145) mmol/L Potassium 4.5 (3.5-5.1) mmol/L Chloride 103 (98-107) mmol/L Carbon Dioxide 38.7 H (21.0-32.0) mmol/L BUN 36 H (7.0-18.0) mg/dL Creatinine 1.2 H (0.6-1.0) mg/dL Est Cr Clr Drug Dosing 39.28 mL/min Estimated GFR (MDRD) 44.8 ml/min Glucose 162 H (74-106) mg/dL POC Glucose 166 H (60-110) mg/dL Calcium 8.4 L (8.5-10.1) mg/dL Phosphorus 4.9 H (2.6-4.7) mg/dL Magnesium 2.0 (1.8-2.4) mg/dL Med Orders - Current: Current Medications Acetaminophen (Tylenol) 325 mg PO Q4H PRN PRN Reason: Pain Last Admin: 02/27/20 22:33 Dose: 325 mg Documented by: Albuterol/Ipratropium (Duoneb 3.0-0.5 Mg/3 Ml) 3 ml NEB Q6HRRT PRN PRN Reason: Dyspnea Last Admin: 02/25/20 19:16 Dose: 3 ml Documented by: Albuterol/Ipratropium (Combivent Respimat) 0 gm INH Q6HRRT JESSEE Last Admin: 02/28/20 08:17 Dose: 1 inhalation Documented by: Aspirin (Aspirin) 81 mg PO DAILY [facility] Last Admin: 02/28/20 09:40 Dose: 81 mg Documented by: Atorvastatin Calcium (Lipitor) 40 mg PO BEDTIME [facility] Last Admin: 02/27/20 21:39 Dose: Not Given Documented by: Dextrose/Water (Dextrose 50% In Water) 50 ml IV ASDIRECTED PRN PRN Reason: Hypoglycemia Fexofenadine HCl (Diamond) 180 mg PO DAILY [facility] Last Admin: 02/28/20 09:48 Dose: 180 mg Documented by: Fluticasone Propionate (Flonase) 0 gm NASBOTH Q6H PRN PRN Reason: Congestion Last Admin: 02/26/20 13:25 Dose: 1 spray Documented by: Furosemide (Lasix) 80 mg PO BIDDIURETIC [facility] Last Admin: 02/28/20 09:40 Dose: 80 mg Documented by: Glucagon (Glucagen) 1 mg IM ASDIRECTED PRN PRN Reason: Hypoglycemia Heparin Sodium (Porcine) (Heparin Sodium) 5,000 units SUBCUT Q8H [facility] Last Admin: 02/28/20 09:41 Dose: Not Given Documented by: Ceftriaxone Sodium/Dextrose 1 (gm/ Premix) 50 mls @ 100 mls/hr IV Q24H [facility] Last Admin: 02/28/20 09:57 Dose: 100 mls/hr Documented by: Insulin Aspart (Novolog) 0 unit SUBCUT TIDAC [facility]; Protocol Last Admin: 02/28/20 09:39 Dose: Not Given Documented by: Methylprednisolone Sodium Succinate (Solu-Medrol) 40 mg IVPUSH Q12H [facility] Last Admin: 02/28/20 01:16 Dose: 40 mg Documented by: Metoprolol Succinate (Toprol Xl) 50 mg PO DAILY [facility] Last Admin: 02/28/20 09:41 Dose: 50 mg Documented by: Nystatin (Nystatin Crm) 1 gm TOP BID [facility] Last Admin: 02/27/20 22:36 Dose: Not Given Documented by: Ketoconazole 200 Mg 1 each PO DAILY [facility] Last Admin: 02/28/20 09:43 Dose: 1 each Documented by: Ubidecarenone 100 Mg 1 each PO DAILY [facility] Last Admin: 02/28/20 09:48 Dose: 1 each Documented by: Discontinued Medications Acetaminophen (Tylenol) 650 mg PO Q6H PRN PRN Reason: Pain Last Admin: 02/25/20 13:07 Dose: 650 mg Documented by: Albuterol/Ipratropium (Duoneb 3.0-0.5 Mg/3 Ml) 3 ml NEB Q4HRRT PRN PRN Reason: Wheezing Last Admin: 02/22/20 01:53 Dose: 3 ml Documented by: Albuterol/Ipratropium (Duoneb 3.0-0.5 Mg/3 Ml) 3 ml NEB Q6H JESSEE Last Admin: 02/22/20 11:25 Dose: 3 ml Documented by: Albuterol/Ipratropium (Duoneb 3.0-0.5 Mg/3 Ml) 3 ml NEB Q6HRRT [facility] Last Admin: 02/25/20 11:18 Dose: Not Given Documented by: Doxycycline Hyclate (Vibramycin) 100 mg PO BID [facility] Last Admin: 02/26/20 09:30 Dose: Not Given Documented by: Fexofenadine HCl (Diamond) 180 mg PO DAILY [facility] Furosemide (Lasix) 40 mg IVPUSH NOW ONE Stop: 02/22/20 01:06 Last Admin: 02/22/20 02:11 Dose: Not Given Documented by: Furosemide (Lasix) Confirm Administered Dose 40 mg .ROUTE .STK-MED ONE Stop: 02/22/20 01:47 Last Admin: 02/22/20 02:13 Dose: Not Given Documented by: Sodium Chloride (Normal Saline) 1,000 mls @ 999 mls/hr IV BOLUS ONE Stop: 02/21/20 21:49 Last Admin: 02/21/20 21:23 Dose: Not Given Documented by: Sodium Chloride (Normal Saline) 1,000 mls @ 500 mls/hr IV STAT [facility] Lactated Ringer's (Ringers, Lactated) 500 mls @ 999 mls/hr IV .BOLUS ONE Stop: 02/28/20 10:53 Insulin Aspart (Novolog) 0 unit SUBCUT ACBREAKFASTANDBED [facility]; Protocol Last Admin: 02/22/20 09:04 Dose: Not Given Documented by: Lorazepam (Ativan) 0.5 mg IVPUSH ONETIME ONE Stop: 02/21/20 22:20 Last Admin: 02/21/20 22:43 Dose: 0.5 mg Documented by: Lorazepam (Ativan) 0.5 mg IVPUSH ONETIME ONE Stop: 02/21/20 23:33 Last Admin: 02/21/20 23:35 Dose: 0.5 mg Documented by: Methylprednisolone Sodium Succinate (Solu-Medrol) 125 mg IM ONETIME ONE Stop: 02/22/20 01:06 Last Admin: 02/22/20 02:12 Dose: Not Given Documented by: Methylprednisolone Sodium Succinate (Solu-Medrol) 125 mg IVPUSH ONETIME ONE Stop: 02/22/20 02:08 Last Admin: 02/22/20 02:48 Dose: 125 mg Documented by: Metoprolol Succinate (Toprol Xl) Confirm Administered Dose 50 mg .ROUTE .STK-MED ONE Stop: 02/24/20 15:35 Last Admin: 02/24/20 15:37 Dose: Not Given Documented by: Nystatin (Nystop) 1 gm TOP TID [facility] Last Admin: 02/22/20 15:10 Dose: Not Given Documented by: Patient Own Medication (Ptom) 100 each PO DAILY [facility] Last Admin: 02/23/20 14:24 Dose: Not Given Documented by: - Exam Quality Assessment: Supplemental Oxygen General: Alert, Oriented, Mild Distress Lungs: Clear to Auscultation, Decreased Breath Sounds. No: Wheezing Cardiovascular: Regular Rate, Irregular Rhythm. No: Regular Rhythm GI/Abdominal Exam: No: Normal Bowel Sounds, Soft, Non-Tender Extremities: No: Normal Inspection, Normal Range of Motion, Non-Tender Sepsis Event Note - Evaluation Sepsis Screening Result: No Definite Risk - Focused Exam Vital Signs: Vital Signs Temp Pulse Pulse Resp BP BP Pulse Ox 02/28/20 10:18 94/67 02/28/20 09:41 78 141/82 H 02/28/20 09:00 36.2 C 78 18 141/42 H 88 L 02/28/20 05:00 36.7 C 86 20 144/70 H 94 L - Problem List & Annotations (1) CHF (congestive heart failure) SNOMED Code(s): 16836881 Code(s): I50.9 - HEART FAILURE, UNSPECIFIED Status: Acute Current Visit: Yes Qualifiers: Heart failure type: unspecified Heart failure chronicity: unspecified Qualified Code(s): I50.9 - Heart failure, unspecified (2) Hypercapnic respiratory failure SNOMED Code(s): 267237458 Code(s): J96.92 - RESPIRATORY FAILURE, UNSPECIFIED WITH HYPERCAPNIA Status: Acute Current Visit: Yes Qualifiers: Chronicity: acute on chronic Qualified Code(s): J96.22 - Acute and chronic respiratory failure with hypercapnia (3) Total self-care deficit SNOMED Code(s): 51047415 Code(s): R68.89 - OTHER GENERAL SYMPTOMS AND SIGNS Status: Acute Current Visit: Yes (4) Hypoxemia SNOMED Code(s): 788493471 Code(s): R09.02 - HYPOXEMIA Status: Acute Priority: High Current Visit: No (5) Diabetes mellitus SNOMED Code(s): 66031952 Code(s): E11.9 - TYPE 2 DIABETES MELLITUS WITHOUT COMPLICATIONS Status: Chronic Priority: High Current Visit: No Qualifiers: Diabetes mellitus type: type 2 Diabetes mellitus slip dumper insulin use: with [place] use Diabetes mellitus complication status: with unspecified complications (6) Hypertension SNOMED Code(s): 55302810 Code(s): I10 - ESSENTIAL (PRIMARY) HYPERTENSION Status: Chronic Priority: High Current Visit: No Qualifiers: Hypertension type: essential hypertension Qualified Code(s): I10 - Essenti al (primary) hypertension (7) Medical non-compliance SNOMED Code(s): 894627705 Code(s): Z91.19 - PATIENT'S NONCOMPLIANCE W OTH MEDICAL TREATMENT AND REGIMEN Status: Chronic Priority: High Current Visit: No (8) Morbidly obese SNOMED Code(s): 585099472 Code(s): E66.01 - MORBID (SEVERE) OBESITY DUE TO EXCESS CALORIES Status: Chronic Priority: Medium Current Visit: No - Problem List Review Problem List Initiated/Reviewed/Updated: Yes - My Orders Last 24 Hours: My Active Orders 02/27/20 13:00 methylPREDNISolone Sod Succ [Solu-MEDROL] 40 mg IVPUSH Q12H 02/27/20 15:27 RT Post Treatment Assessment [RC] Click to Edit RT Pre-Treatment Assessment [RC] Click to Edit 02/27/20 15:30 Albuterol/Ipratropium [Combivent Respimat] See Dose Instructions INH Q6HRRT - Plan Plan:: 69 yo female admitted with acute on chronic hypercapnic respiratory failure. Respiratory failure: LEONILA, OHS, Pulmonary HTN, COPD, currently on BIPAP, Combivent added since patient refusing DuoNeb LEG edema/cellulitis: on Lasix, Rocephin, A.fib: rate control, refusing metoprolol often and heparin, states she takes natural supplements to for it. Generalized weakness: PT consulted, refused PT yesterday Dispo: consulted case management for placement. patient is states "she will think about SNF after she finishes her ketoconazole course" Very complicated situation given patient is competent to make her decisions and often refuses the medical treatment offered even after counselling several times. States she likes to heal her body naturally. Patient can have a very grave prognosis if she continues to do so. I have been able to get her to agree to some medications and BiPAP for now but i still think her overall prognosis is bad if she doesn't comply with her treatment options
[2020-02-28] MEDS: Nystatin Crm 30 GM Tube TOP SCH ×2 (11:53→21:28)
--- NOTE | 2020-02-28 16:47 | CR ---
INDICATION: Hypoxia TECHNIQUE: Chest 1 views COMPARISON: Single view chest February 21, 2020 FINDINGS: There is hyperinflation and chronic interstitial changes with increased interstitial markings likely representing pulmonary edema. There is blunting of the right greater than left lung bases which may represent developing infiltrates and/or associated pleural effusions. The cardiac silhouette remains moderately prominent, an underlying pericardial effusion cannot be excluded. There is no pneumothorax. The bony thorax is grossly intact. IMPRESSION: Increased interstitial markings from comparison exam with blunting of the right greater than left costophrenic angles which may represent developing pulmonary edema with effusions and associated atelectasis versus infiltrates Dictated by Fran Anguiano MD @ Feb 28 2020 4:44PM Signed by Dr. Fran Anguiano @ Feb 28 2020 4:45PM
[2020-02-28] MEDS: Acetaminophen 325 MG Tab PO PRN ×2 (18:45→22:34)
[2020-02-28] MEDS ORDERED: Furosemide 40 MG/4 ML VIAL IVPUSH ONE (20:56)
[2020-02-28] MEDS: atorvaSTATin 40 MG Tab PO SCH (21:10)
[2020-02-28] MEDS: Azithromycin 500 MG in Sodium Chloride 0.9% 250 ML IV SCH (21:18)
[2020-02-29] MEDS: Heparin Sodium 5,000 Units/ML Vial SUBCUT SCH ×3 (00:32→18:54)
[2020-02-29] MEDS: methylPREDNISolone Sodium Succinate 40 MG/1 ML SDV IVPUSH SCH ×2 (00:32→13:59)
[2020-02-29] MEDS: Albuterol/Ipratropium 4 GM Inhalation Spray INH SCH ×4 (00:32→17:38)
[2020-02-29] MEDS: Acetaminophen 325 MG Tab PO PRN ×4 (03:01→20:55)
[2020-02-29 05:48] LABS: CARBON DIOXIDE,CO2 40.1 mmol/L (21.0-32.0); POTASSIUM,K 4.6 mmol/L (3.5-5.1)
[2020-02-29] MEDS: Insulin Aspart 100 Units/ML 3 ML Pen SUBCUT SCH ×3 (06:34→18:54)
[2020-02-29] MEDS: Aspirin 81 MG Tab.Chew PO SCH (09:24)
[2020-02-29] MEDS: cefTRIAXone 1 GM in Premix Bag 1 BAG IV SCH (09:27)
[2020-02-29] MEDS: Furosemide 40 MG/4 ML VIAL IVPUSH SCH ×3 (09:35→20:52)
[2020-02-29] MEDS: Nystatin Crm 30 GM Tube TOP SCH ×2 (09:35→20:56)
[2020-02-29] MEDS: Metoprolol Succinate 50 MG Tab.ER PO SCH (09:37)
[2020-02-29] MEDS: Azithromycin 500 MG in Sodium Chloride 0.9% 250 ML IV SCH (10:16)
--- NOTE | 2020-02-29 12:12 | PCM.PN ---
- General Info Date of Service: 02/29/20 Admission Dx/Problem (Free Text): Admission Diagnosis/Problem Admission Diagnosis/Problem Respiratory failure Subjective Update: seen at bedside, on 5L NC, resting in bed, states she feels dizzy when sitting up Functional Status: Reports: Tolerating Diet, Urinating. Denies: Ambulating - Review of Systems General: Reports: Weakness. Denies: Fever, Fatigue, Malaise Pulmonary: Reports: Shortness of Breath. Denies: Pleuritic Chest Pain, Cough Gastrointestinal: Denies: Abdominal Pain, Constipation, Decreased Appetite Genitourinary: Denies: Dysuria, Frequency, Burning, Pain Musculoskeletal: Denies: Neck Pain, Shoulder Pain, Arm Pain Skin: Reports: Rash. Denies: Cyanosis Neurological: Reports: Dizziness. Denies: Confusion, Headache, Numbness, Paresthesia - Patient Data Vitals - Most Recent: Last Vital Signs Temp 35.6 C L 02/29/20 12:00 Pulse 82 02/29/20 12:00 Resp 22 H 02/29/20 12:00 BP 127/92 H 02/29/20 12:00 Pulse Ox 92 L 02/29/20 12:00 Weight - Most Recent: 137.484 kg I&O - Last 24 Hours: Intake & Output 02/28/20 02/29/20 02/29/20 22:59 06:59 14:59 Intake Total 1000 425 Balance 1000 425 Lab Results Last 24 Hours: Laboratory Results - last 24 hr 02/28/20 02/29/20 02/29/20 Range/Units 17:38 05:05 05:05 WBC 7.60 (4.0-11.0) K/uL RBC 4.35 (4.30-5.90) M/uL Hgb 12.8 (12.0-16.0) g/dL Hct 44.3 (36.0-46.0) % MCV 101.8 H (80.0-98.0) fL MCH 29.4 (27.0-32.0) pg MCHC 28.9 L (31.0-37.0) g/dL RDW Std Deviation 55.5 (28.0-62.0) fl RDW Coeff of Robert 15 (11.0-15.0) % Plt Count 228 (150-400) K/uL MPV 10.90 (7.40-12.00) fL Neut % (Auto) 88.7 H (48.0-80.0) % Lymph % (Auto) 7.0 L (16.0-40.0) % [place] % (Auto) 4.3 (0.0-15.0) % Eos % (Auto) 0.0 (0.0-7.0) % Baso % (Auto) 0.0 (0.0-1.5) % Neut # (Auto) 6.7 H (1.4-5.7) K/uL Lymph # (Auto) 0.5 L (0.6-2.4) K/uL [place] # (Auto) 0.3 (0.0-0.8) K/uL Eos # (Auto) 0.0 (0.0-0.7) K/uL Baso # (Auto) 0.0 (0.0-0.1) K/uL Nucleated RBC % 0.0 /100WBC Nucleated RBCs # 0 K/uL Sodium 145 (136-145) mmol/L Potassium 4.6 (3.5-5.1) mmol/L Chloride 104 (98-107) mmol/L Carbon Dioxide 40.1 H (21.0-32.0) mmol/L BUN 37 H (7.0-18.0) mg/dL Creatinine 1.5 H (0.6-1.0) mg/dL Est Cr Clr Drug Dosing 31.43 mL/min Estimated GFR (MDRD) 34.6 ml/min Glucose 271 H (74-106) mg/dL POC Glucose 223 H (60-110) mg/dL Calcium 8.1 L (8.5-10.1) mg/dL Phosphorus 3.9 (2.6-4.7) mg/dL Magnesium 1.9 (1.8-2.4) mg/dL 02/29/20 02/29/20 Range/Units 06:18 09:26 WBC (4.0-11.0) K/uL RBC (4.30-5.90) M/uL Hgb (12.0-16.0) g/dL Hct (36.0-46.0) % MCV (80.0-98.0) fL MCH (27.0-32.0) pg MCHC (31.0-37.0) g/dL RDW Std Deviation (28.0-62.0) fl RDW Coeff of Robert (11.0-15.0) % Plt Count (150-400) K/uL MPV (7.40-12.00) fL Neut % (Auto) (48.0-80.0) % Lymph % (Auto) (16.0-40.0) % [place] % (Auto) (0.0-15.0) % Eos % (Auto) (0.0-7.0) % Baso % (Auto) (0.0-1.5) % Neut # (Auto) (1.4-5.7) K/uL Lymph # (Auto) (0.6-2.4) K/uL [place] # (Auto) (0.0-0.8) K/uL Eos # (Auto) (0.0-0.7) K/uL Baso # (Auto) (0.0-0.1) K/uL Nucleated RBC % /100WBC Nucleated RBCs # K/uL Sodium (136-145) mmol/L Potassium (3.5-5.1) mmol/L Chloride (98-107) mmol/L Carbon Dioxide (21.0-32.0) mmol/L BUN (7.0-18.0) mg/dL Creatinine (0.6-1.0) mg/dL Est Cr Clr Drug Dosing mL/min Estimated GFR (MDRD) ml/min Glucose (74-106) mg/dL POC Glucose 236 H 252 H (60-110) mg/dL Calcium (8.5-10.1) mg/dL Phosphorus (2.6-4.7) mg/dL Magnesium (1.8-2.4) mg/dL Med Orders - Current: Current Medications Acetaminophen (Tylenol) 325 mg PO Q4H PRN PRN Reason: Pain Last Admin: 02/29/20 10:15 Dose: 325 mg Documented by: Albuterol/Ipratropium (Duoneb 3.0-0.5 Mg/3 Ml) 3 ml NEB Q6HRRT PRN PRN Reason: Dyspnea Last Admin: 02/25/20 19:16 Dose: 3 ml Documented by: Albuterol/Ipratropium (Combivent Respimat) 0 gm INH Q6HRRT [facility] Last Admin: 02/29/20 11:04 Dose: 1 inhalation Documented by: Aspirin (Aspirin) 81 mg PO DAILY [facility] Last Admin: 02/29/20 09:24 Dose: 81 mg Documented by: Atorvastatin Calcium (Lipitor) 40 mg PO BEDTIME [facility] Last Admin: 02/28/20 21:10 Dose: Not Given Documented by: Dextrose/Water (Dextrose 50% In Water) 50 ml IV ASDIRECTED PRN PRN Reason: Hypoglycemia Fexofenadine HCl (Diamond) 180 mg PO DAILY [facility] Last Admin: 02/29/20 10:15 Dose: 60 mg Documented by: Fluticasone Propionate (Flonase) 0 gm NASBOTH Q6H PRN PRN Reason: Congestion Last Admin: 02/26/20 13:25 Dose: 1 spray Documented by: Furosemide (Lasix) 80 mg IVPUSH BID [facility] Last Admin: 02/29/20 09:35 Dose: 80 mg Documented by: Glucagon (Glucagen) 1 mg IM ASDIRECTED PRN PRN Reason: Hypoglycemia Heparin Sodium (Porcine) (Heparin Sodium) 5,000 units SUBCUT Q8H [facility] Last Admin: 02/29/20 09:38 Dose: Not Given Documented by: Ceftriaxone Sodium/Dextrose 1 (gm/ Premix) 50 mls @ 100 mls/hr IV Q24H [facility] Last Admin: 02/29/20 09:27 Dose: 100 mls/hr Documented by: Azithromycin 500 mg/ Sodium (Chloride) 250 mls @ 250 mls/hr IV DAILY [facility] Last Admin: 02/29/20 10:16 Dose: 250 mls/hr Documented by: Insulin Aspart (Novolog) 0 unit SUBCUT TIDAC [facility]; Protocol Last Admin: 02/29/20 06:34 Dose: Not Given Documented by: Methylprednisolone Sodium Succinate (Solu-Medrol) 40 mg IVPUSH Q12H [facility] Last Admin: 02/29/20 00:32 Dose: 40 mg Documented by: Metoprolol Succinate (Toprol Xl) 50 mg PO DAILY [facility] Last Admin: 02/29/20 09:37 Dose: 50 mg Documented by: Nystatin (Nystatin Crm) 1 gm TOP BID [facility] Last Admin: 02/29/20 09:35 Dose: 1 applic Documented by: Ketoconazole 200 Mg 1 each PO DAILY [facility] Last Admin: 02/29/20 09:34 Dose: Not Given Documented by: Ubidecarenone 100 Mg 1 each PO DAILY [facility] Last Admin: 02/29/20 09:33 Dose: 1 each Documented by: Discontinued Medications Acetaminophen (Tylenol) 650 mg PO Q6H PRN PRN Reason: Pain Last Admin: 02/25/20 13:07 Dose: 650 mg Documented by: Albuterol/Ipratropium (Duoneb 3.0-0.5 Mg/3 Ml) 3 ml NEB Q4HRRT PRN PRN Reason: Wheezing Last Admin: 02/22/20 01:53 Dose: 3 ml Documented by: Albuterol/Ipratropium (Duoneb 3.0-0.5 Mg/3 Ml) 3 ml NEB Q6H JESSEE Last Admin: 02/22/20 11:25 Dose: 3 ml Documented by: Albuterol/Ipratropium (Duoneb 3.0-0.5 Mg/3 Ml) 3 ml NEB Q6HRRT [facility] Last Admin: 02/25/20 11:18 Dose: Not Given Documented by: Doxycycline Hyclate (Vibramycin) 100 mg PO BID [facility] Last Admin: 02/26/20 09:30 Dose: Not Given Documented by: Fexofenadine HCl (Diamond) 180 mg PO DAILY [facility] Furosemide (Lasix) 40 mg IVPUSH NOW ONE Stop: 02/22/20 01:06 Last Admin: 02/22/20 02:11 Dose: Not Given Documented by: Furosemide (Lasix) Confirm Administered Dose 40 mg .ROUTE .STK-MED ONE Stop: 02/22/20 01:47 Last Admin: 02/22/20 02:13 Dose: Not Given Documented by: Furosemide (Lasix) 80 mg PO BIDDIURETIC [facility] Last Admin: 02/28/20 15:03 Dose: 80 mg Documented by: Furosemide (Lasix) 40 mg IVPUSH NOW ONE Stop: 02/28/20 20:57 Last Admin: 02/28/20 21:07 Dose: 40 mg Documented by: Sodium Chloride (Normal Saline) 1,000 mls @ 999 mls/hr IV BOLUS ONE Stop: 02/21/20 21:49 Last Admin: 02/21/20 21:23 Dose: Not Given Documented by: Sodium Chloride (Normal Saline) 1,000 mls @ 500 mls/hr IV STAT [facility] Lactated Ringer's (Ringers, Lactated) 500 mls @ 999 mls/hr IV .BOLUS ONE Stop: 02/28/20 10:53 Last Admin: 02/28/20 11:53 Dose: 999 mls/hr Documented by: Insulin Aspart (Novolog) 0 unit SUBCUT ACBREAKFASTANDBED [facility]; Protocol Last Admin: 02/22/20 09:04 Dose: Not Given Documented by: Lorazepam (Ativan) 0.5 mg IVPUSH ONETIME ONE Stop: 02/21/20 22:20 Last Admin: 02/21/20 22:43 Dose: 0.5 mg Documented by: Lorazepam (Ativan) 0.5 mg IVPUSH ONETIME ONE Stop: 02/21/20 23:33 Last Admin: 02/21/20 23:35 Dose: 0.5 mg Documented by: Methylprednisolone Sodium Succinate (Solu-Medrol) 125 mg IM ONETIME ONE Stop: 02/22/20 01:06 Last Admin: 02/22/20 02:12 Dose: Not Given Documented by: Methylprednisolone Sodium Succinate (Solu-Medrol) 125 mg IVPUSH ONETIME ONE Stop: 02/22/20 02:08 Last Admin: 02/22/20 02:48 Dose: 125 mg Documented by: Metoprolol Succinate (Toprol Xl) Confirm Administered Dose 50 mg .ROUTE .STK-MED ONE Stop: 02/24/20 15:35 Last Admin: 02/24/20 15:37 Dose: Not Given Documented by: Nystatin (Nystop) 1 gm TOP TID [facility] Last Admin: 02/22/20 15:10 Dose: Not Given Documented by: Patient Own Medication (Ptom) 100 each PO DAILY [facility] Last Admin: 02/23/20 14:24 Dose: Not Given Documented by: - Exam Quality Assessment: Supplemental Oxygen General: Alert, Oriented, Mild Distress Lungs: Decreased Breath Sounds, Crackles. No: Wheezing Cardiovascular: Regular Rate, Irregular Rhythm. No: Regular Rhythm GI/Abdominal Exam: Normal Bowel Sounds, Soft, Non-Tender Extremities: Pedal Edema, Redness Sepsis Event Note - Evaluation Sepsis Screening Result: No Definite Risk - Focused Exam Vital Signs: Vital Signs Temp Pulse Pulse Pulse Resp BP BP 02/29/20 12:00 35.6 C L 82 22 H 127/92 H 10/30/20 11:22 02/29/20 09:37 102 H 147/73 H 02/29/20 09:21 36.2 C 102 H 17 147/73 H 02/29/20 03:00 37.0 C 109 H 18 123/92 H Pulse Ox 02/29/20 12:00 92 L 02/29/20 11:22 89 L 02/29/20 09:37 02/29/20 09:21 92 L 02/29/20 03:00 94 L - Problem List & Annotations (1) CHF (congestive heart failure) SNOMED Code(s): 28133936 Code(s): I50.9 - HEART FAILURE, UNSPECIFIED Status: Acute Current Visit: Yes Qualifiers: Heart failure type: unspecified Heart failure chronicity: unspecified Qualified Code(s): I50.9 - Heart failure, unspecified (2) Hypercapnic respiratory failure SNOMED Code(s): 609270518 Code(s): J96.92 - RESPIRATORY FAILURE, UNSPECIFIED WITH HYPERCAPNIA Status: Acute Current Visit: Yes Qualifiers: Chronicity: acute on chronic Qualified Code(s): J96.22 - Acute and chronic respiratory failure with hypercapnia (3) Total self-care deficit SNOMED Code(s): 28184816 Code(s): R68.89 - OTHER GENERAL SYMPTOMS AND SIGNS Status: Acute Current Visit: Yes (4) Hypoxemia SNOMED Code(s): 966621009 Code(s): R09.02 - HYPOXEMIA Status: Acute Priority: High Current Visit: No (5) Diabetes mellitus SNOMED Code(s): 15325329 Code(s): E11.9 - TYPE 2 DIABETES MELLITUS WITHOUT COMPLICATIONS Status: Chronic Priority: High Current Visit: No Qualifiers: Diabetes mellitus type: type 2 Diabetes mellitus chcf insulin use: with chcf use Diabetes mellitus complication status: with unspecified complications (6) Hypertension SNOMED Code(s): 33021017 Code(s): I10 - ESSENTIAL (PRIMARY) HYPERTENSION Status: Chronic Priority: High Current Visit: No Qualifiers: Hypertension type: essential hypertension Qualified Code(s): I10 - Essential (primary) hypertension (7) Medical non-compliance SNOMED Code(s): 856153324 Code(s): Z91.19 - PATIENT'S NONCOMPLIANCE W OTH MEDICAL TREATMENT AND REGIMEN Status: Chronic Priority: High Current Visit: No (8) Morbidly obese SNOMED Code(s): 405442970 Code(s): E66.01 - MORBID (SEVERE) OBESITY DUE TO EXCESS CALORIES Status: Chronic Priority: Medium Current Visit: No - Problem List Review Problem List Initiated/Reviewed/Updated: Yes - My Orders Last 24 Hours: My Active Orders 02/28/20 21:00 Azithromycin [Zithromax] 500 mg Sodium Chloride 0.9% [Normal Saline (AdvBag)] 250 ml IV DAILY Furosemide [Lasix] 80 mg IVPUSH BID - Plan Plan:: 69 yo female admitted with acute on chronic hypercapnic respiratory failure. Respiratory failure: LEONILA, OHS, Pulmonary HTN, COPD, currently on BIPAP at night, Combivent added since patient refusing DuoNeb, possible CHF, IV lasix started, azithromycin added for possible PNA LEG edema/cellulitis: on Lasix, Rocephin, A.fib: rate control, refusing metoprolol often and heparin, states she takes natural supplements such as garlic for it. Generalized weakness: PT consulted, declined PT, per PT patient is not participating Dispo: consulted case management for placement. patient is states "she will think about SNF after she finishes her ketoconazole course" GIOVANNY: Creatinine up today from yesterday, could be be sec to Lasix, will cont to trend Very complicated situation given patient is competent to make her decisions and often refuses the medical treatment offered even after counselling several times. States she likes to heal her body naturally. Patient can have a very grave prognosis if she continues to do so. I have been able to get her to agree to some medications and BiPAP for now but i still think her overall prognosis is bad if she doesn't comply with her treatment options.
[2020-02-29] MEDS: atorvaSTATin 40 MG Tab PO SCH (21:04)
[2020-03-01] MEDS: methylPREDNISolone Sodium Succinate 40 MG/1 ML SDV IVPUSH SCH ×2 (00:07→13:19)
[2020-03-01] MEDS: Albuterol/Ipratropium 4 GM Inhalation Spray INH SCH ×4 (00:08→19:05)
[2020-03-01] MEDS: Heparin Sodium 5,000 Units/ML Vial SUBCUT SCH ×3 (02:39→17:23)
[2020-03-01] MEDS: Acetaminophen 325 MG Tab PO PRN ×3 (03:01→21:20)
[2020-03-01 06:24] LABS: CARBON DIOXIDE,CO2 41.9 mmol/L (21.0-32.0); POTASSIUM,K 4.1 mmol/L (3.5-5.1)
[2020-03-01] MEDS: Insulin Aspart 100 Units/ML 3 ML Pen SUBCUT SCH ×3 (06:41→17:21)
[2020-03-01] MEDS: Furosemide 40 MG/4 ML VIAL IVPUSH SCH ×2 (08:52→21:38)
[2020-03-01] MEDS: Azithromycin 500 MG in Sodium Chloride 0.9% 250 ML IV SCH (09:00)
[2020-03-01] MEDS: Aspirin 81 MG Tab.Chew PO SCH (09:01)
[2020-03-01] MEDS: Metoprolol Succinate 50 MG Tab.ER PO SCH ×2 (09:04→09:18)
[2020-03-01] MEDS: cefTRIAXone 1 GM in Premix Bag 1 BAG IV SCH (10:06)
--- NOTE | 2020-03-01 12:43 | PCM.PN ---
- General Info Date of Service: 03/01/20 Admission Dx/Problem (Free Text): Admission Diagnosis/Problem Admission Diagnosis/Problem Respiratory failure Subjective Update: Seen at bedside, on 5L NC, patient having an argument with nursing regarding her using the commode, states she isn't doing well and feels dizziness Functional Status: Reports: Tolerating Diet, Urinating. Denies: Ambulating - Review of Systems General: Reports: Weakness. Denies: Fever, Fatigue, Malaise Pulmonary: Reports: Shortness of Breath. Denies: Pleuritic Chest Pain, Cough, Sputum Gastrointestinal: Denies: Abdominal Pain, Constipation, Decreased Appetite, Diarrhea Genitourinary: Denies: Dysuria, Frequency, Burning Musculoskeletal: Reports: Leg Pain. Denies: Neck Pain, Shoulder Pain, Arm Pain Skin: Denies: Cyanosis, Jaundice, Mottled Neurological: Reports: Dizziness. Denies: Confusion, Headache, Numbness - Patient Data Vitals - Most Recent: Last Vital Signs Temp 36.2 C 03/01/20 12:00 Pulse 98 03/01/20 12:00 Resp 18 03/01/20 12:00 BP 147/72 H 03/01/20 12:00 Pulse Ox 90 L 03/01/20 12:00 Weight - Most Recent: 137.484 kg I&O - Last 24 Hours: Intake & Output 02/29/20 03/01/20 03/01/20 22:59 06:59 14:59 Intake Total 800 720 Output Total 600 Balance 200 720 Lab Results Last 24 Hours: Laboratory Results - last 24 hr 02/29/20 02/29/20 03/01/20 Range/Units 12:22 18:25 00:15 WBC (4.0-11.0) K/uL RBC (4.30-5.90) M/uL Hgb (12.0-16.0) g/dL Hct (36.0-46.0) % MCV (80.0-98.0) fL MCH (27.0-32.0) pg MCHC (31.0-37.0) g/dL RDW Std Deviation (28.0-62.0) fl RDW Coeff of Robert (11.0-15.0) % Plt Count (150-400) K/uL MPV (7.40-12.00) fL Neut % (Auto) (48.0-80.0) % Lymph % (Auto) (16.0-40.0) % [place] % (Auto) (0.0-15.0) % Eos % (Auto) (0.0-7.0) % Baso % (Auto) (0.0-1.5) % Neut # (Auto) (1.4-5.7) K/uL Lymph # (Auto) (0.6-2.4) K/uL [place] # (Auto) (0.0-0.8) K/uL Eos # (Auto) (0.0-0.7) K/uL Baso # (Auto) (0.0-0.1) K/uL Nucleated RBC % /100WBC Nucleated RBCs # K/uL Sodium (136-145) mmol/L Potassium (3.5-5.1) mmol/L Chloride (98-107) mmol/L Carbon Dioxide (21.0-32.0) mmol/L BUN (7.0-18.0) mg/dL Creatinine (0.6-1.0) mg/dL Est Cr Clr Drug Dosing mL/min Estimated GFR (MDRD) ml/min Glucose (74-106) mg/dL POC Glucose 363 H 243 H 239 H (60-110) mg/dL Calcium (8.5-10.1) mg/dL Phosphorus (2.6-4.7) mg/dL Magnesium (1.8-2.4) mg/dL 03/01/20 03/01/20 03/01/20 Range/Units 05:35 05:35 06:26 WBC 9.18 (4.0-11.0) K/uL RBC 4.56 (4.30-5.90) M/uL Hgb 13.5 (12.0-16.0) g/dL Hct 46.3 H (36.0-46.0) % MCV 101.5 H (80.0-98.0) fL MCH 29.6 (27.0-32.0) pg MCHC 29.2 L (31.0-37.0) g/dL RDW Std Deviation 55.5 (28.0-62.0) fl RDW Coeff of Robert 15 (11.0-15.0) % Plt Count 226 (150-400) K/uL MPV 11.00 (7.40-12.00) fL Neut % (Auto) 91.2 H (48.0-80.0) % Lymph % (Auto) 4.7 L (16.0-40.0) % [place] % (Auto) 4.1 (0.0-15.0) % Eos % (Auto) 0.0 (0.0-7.0) % Baso % (Auto) 0.0 (0.0-1.5) % Neut # (Auto) 8.4 H (1.4-5.7) K/uL Lymph # (Auto) 0.4 L (0.6-2.4) K/uL [place] # (Auto) 0.4 (0.0-0.8) K/uL Eos # (Auto) 0.0 (0.0-0.7) K/uL Baso # (Auto) 0.0 (0.0-0.1) K/uL Nucleated RBC % 0.0 /100WBC Nucleated RBCs # 0 K/uL Sodium 143 (136-145) mmol/L Potassium 4.1 (3.5-5.1) mmol/L Chloride 102 (98-107) mmol/L Carbon Dioxide 41.9 H (21.0-32.0) mmol/L BUN 37 H (7.0-18.0) mg/dL Creatinine 1.2 H (0.6-1.0) mg/dL Est Cr Clr Drug Dosing 39.28 mL/min Estimated GFR (MDRD) 44.8 ml/min Glucose 240 H (74-106) mg/dL POC Glucose 234 H (60-110) mg/dL Calcium 8.1 L (8.5-10.1) mg/dL Phosphorus 4.3 (2.6-4.7) mg/dL Magnesium 1.9 (1.8-2.4) mg/dL 03/01/20 Range/Units 11:10 WBC (4.0-11.0) K/uL RBC (4.30-5.90) M/uL Hgb (12.0-16.0) g/dL Hct (36.0-46.0) % MCV (80.0-98.0) fL MCH (27.0-32.0) pg MCHC (31.0-37.0) g/dL RDW Std Deviation (28.0-62.0) fl RDW Coeff of Robert (11.0-15.0) % Plt Count (150-400) K/uL MPV (7.40-12.00) fL Neut % (Auto) (48.0-80.0) % Lymph % (Auto) (16.0-40.0) % [place] % (Auto) (0.0-15.0) % Eos % (Auto) (0.0-7.0) % Baso % (Auto) (0.0-1.5) % Neut # (Auto) (1.4-5.7) K/uL Lymph # (Auto) (0.6-2.4) K/uL [place] # (Auto) (0.0-0.8) K/uL Eos # (Auto) (0.0-0.7) K/uL Baso # (Auto) (0.0-0.1) K/uL Nucleated RBC % /100WBC Nucleated RBCs # K/uL Sodium (136-145) mmol/L Potassium (3.5-5.1) mmol/L Chloride (98-107) mmol/L Carbon Dioxide (21.0-32.0) mmol/L BUN (7.0-18.0) mg/dL Creatinine (0.6-1.0) mg/dL Est Cr Clr Drug Dosing mL/min Estimated GFR (MDRD) ml/min Glucose (74-106) mg/dL POC Glucose 361 H (60-110) mg/dL Calcium (8.5-10.1) mg/dL Phosphorus (2.6-4.7) mg/dL Magnesium (1.8-2.4) mg/dL Med Orders - Current: Current Medications Acetaminophen (Tylenol) 325 mg PO Q4H PRN PRN Reason: Pain Last Admin: 03/01/20 09:01 Dose: 325 mg Documented by: Albuterol/Ipratropium (Duoneb 3.0-0.5 Mg/3 Ml) 3 ml NEB Q6HRRT PRN PRN Reason: Dyspnea Last Admin: 02/25/20 19:16 Dose: 3 ml Documented by: Albuterol/Ipratropium (Combivent Respimat) 0 gm INH Q6HRRT [facility] Last Admin: 03/01/20 06:16 Dose: 1 inhalation Documented by: Aspirin (Aspirin) 81 mg PO DAILY [facility] Last Admin: 03/01/20 09:01 Dose: 81 mg Documented by: Atorvastatin Calcium (Lipitor) 40 mg PO BEDTIME [facility] Last Admin: 02/29/20 21:04 Dose: Not Given Documented by: Dextrose/Water (Dextrose 50% In Water) 50 ml IV ASDIRECTED PRN PRN Reason: Hypoglycemia Fexofenadine HCl (Diamond) 180 mg PO DAILY [facility] Last Admin: 03/01/20 09:03 Dose: 60 mg Documented by: Fluticasone Propionate (Flonase) 0 gm NASBOTH Q6H PRN PRN Reason: Congestion Last Admin: 02/26/20 13:25 Dose: 1 spray Documented by: Furosemide (Lasix) 80 mg IVPUSH BID [facility] Last Admin: 03/01/20 08:52 Dose: 80 mg Documented by: Glucagon (Glucagen) 1 mg IM ASDIRECTED PRN PRN Reason: Hypoglycemia Heparin Sodium (Porcine) (Heparin Sodium) 5,000 units SUBCUT Q8H [facility] Last Admin: 03/01/20 09:05 Dose: Not Given Documented by: Ceftriaxone Sodium/Dextrose 1 (gm/ Premix) 50 mls @ 100 mls/hr IV Q24H [facility] Last Admin: 03/01/20 10:06 Dose: 100 mls/hr Documented by: Azithromycin 500 mg/ Sodium (Chloride) 250 mls @ 250 mls/hr IV DAILY [facility] Last Admin: 03/01/20 09:00 Dose: 250 mls/hr Documented by: Insulin Aspart (Novolog) 0 unit SUBCUT TIDAC [facility]; Protocol Last Admin: 03/01/20 06:41 Dose: Not Given Documented by: Methylprednisolone Sodium Succinate (Solu-Medrol) 40 mg IVPUSH Q12H [facility] Last Admin: 03/01/20 00:07 Dose: 40 mg Documented by: Metoprolol Succinate (Toprol Xl) 50 mg PO DAILY [facility] Last Admin: 03/01/20 09:18 Dose: Not Given Documented by: Nystatin (Nystatin Crm) 1 gm TOP BID [facility] Last Admin: 02/29/20 20:56 Dose: 1 applic Documented by: Ubidecarenone 100 Mg 1 each PO DAILY [facility] Last Admin: 03/01/20 09:03 Dose: 1 each Documented by: Discontinued Medications Acetaminophen (Tylenol) 650 mg PO Q6H PRN PRN Reason: Pain Last Admin: 02/25/20 13:07 Dose: 650 mg Documented by: Albuterol/Ipratropium (Duoneb 3.0-0.5 Mg/3 Ml) 3 ml NEB Q4HRRT PRN PRN Reason: Wheezing Last Admin: 02/22/20 01:53 Dose: 3 ml Documented by: Albuterol/Ipratropium (Duoneb 3.0-0.5 Mg/3 Ml) 3 ml NEB Q6H [facility] Last Admin: 02/22/20 11:25 Dose: 3 ml Documented by: Albuterol/Ipratropium (Duoneb 3.0-0.5 Mg/3 Ml) 3 ml NEB Q6HRRT [facility] Last Admin: 02/25/20 11:18 Dose: Not Given Documented by: Doxycycline Hyclate (Vibramycin) 100 mg PO BID [facility] Last Admin: 02/26/20 09:30 Dose: Not Given Documented by: Fexofenadine HCl (Diamond) 180 mg PO DAILY [facility] Furosemide (Lasix) 40 mg IVPUSH NOW ONE Stop: 02/22/20 01:06 Last Admin: 02/22/20 02:11 Dose: Not Given Documented by: Furosemide (Lasix) Confirm Administered Dose 40 mg .ROUTE .STK-MED ONE Stop: 02/22/20 01:47 Last Admin: 02/22/20 02:13 Dose: Not Given Documented by: Furosemide (Lasix) 80 mg PO BIDDIURETIC [facility] Last Admin: 02/28/20 15:03 Dose: 80 mg Documented by: Furosemide (Lasix) 40 mg IVPUSH NOW ONE Stop: 02/28/20 20:57 Last Admin: 02/28/20 21:07 Dose: 40 mg Documented by: Sodium Chloride (Normal Saline) 1,000 mls @ 999 mls/hr IV BOLUS ONE Stop: 02/21/20 21:49 Last Admin: 02/21/20 21:23 Dose: Not Given Documented by: Sodium Chloride (Normal Saline) 1,000 mls @ 500 mls/hr IV STAT [facility] Lactated Ringer's (Ringers, Lactated) 500 mls @ 999 mls/hr IV .BOLUS ONE Stop: 02/28/20 10:53 Last Admin: 02/28/20 11:53 Dose: 999 mls/hr Documented by: Insulin Aspart (Novolog) 0 unit SUBCUT ACBREAKFASTANDBED [facility]; Protocol Last Admin: 02/22/20 09:04 Dose: Not Given Documented by: Lorazepam (Ativan) 0.5 mg IVPUSH ONETIME ONE Stop: 02/21/20 22:20 Last Admin: 02/21/20 22:43 Dose: 0.5 mg Documented by: Lorazepam (Ativan) 0.5 mg IVPUSH ONETIME ONE Stop: 02/21/20 23:33 Last Admin: 02/21/20 23:35 Dose: 0.5 mg Documented by: Methylprednisolone Sodium Succinate (Solu-Medrol) 125 mg IM ONETIME ONE Stop: 02/22/20 01:06 Last Admin: 02/22/20 02:12 Dose: Not Given Documented by: Methylprednisolone Sodium Succinate (Solu-Medrol) 125 mg IVPUSH ONETIME ONE Stop: 02/22/20 02:08 Last Admin: 02/22/20 02:48 Dose: 125 mg Documented by: Metoprolol Succinate (Toprol Xl) Confirm Administered Dose 50 mg .ROUTE .STK-MED ONE Stop: 02/24/20 15:35 Last Admin: 02/24/20 15:37 Dose: Not Given Documented by: Nystatin (Nystop) 1 gm TOP TID [facility] Last Admin: 02/22/20 15:10 Dose: Not Given Documented by: Ketoconazole 200 Mg 1 each PO DAILY [facility] Last Admin: 03/01/20 09:03 Dose: Not Given Documented by: Patient Own Medication (Ptom) 100 each PO DAILY [facility] Last Admin: 02/23/20 14:24 Dose: Not Given Documented by: - Exam Quality Assessment: Supplemental Oxygen General: Alert, Oriented, No Acute Distress Neck: Supple Lungs: Decreased Breath Sounds, Wheezing Cardiovascular: Regular Rate, Irregular Rhythm GI/Abdominal Exam: Normal Bowel Sounds, Soft, Non-Tender Extremities: Pedal Edema, Leg Pain (chronic), Limited Range of Motion, Redness, Other (chronic venous statis changes). No: Normal Inspection, Normal Range of Motion Skin: Rash Sepsis Event Note - Evaluation Sepsis Screening Result: No Definite Risk - Focused Exam Vital Signs: Vital Signs Temp Pulse Pulse Resp BP Pulse Ox 03/01/20 12:00 36.2 C 98 18 147/72 H 90 L 03/01/20 08:00 36.3 C 84 20 146/79 H 92 L 03/01/20 03:17 35.7 C L 77 18 145/68 H 97 - Problem List & Annotations (1) CHF (congestive heart failure) SNOMED Code(s): 44260563 Code(s): I50.9 - HEART FAILURE, UNSPECIFIED Status: Acute Current Visit: Yes Qualifiers: Heart failure type: unspecified Heart failure chronicity: unspecified Qualified Code(s): I50.9 - Heart failure, unspecified (2) Hypercapnic respiratory failure SNOMED Code(s): 558329039 Code(s): J96.92 - RESPIRATORY FAILURE, UNSPECIFIED WITH HYPERCAPNIA Status: Acute Current Visit: Yes Qualifiers: Chronicity: acute on chronic Qualified Code(s): J96.22 - Acute and chronic respiratory failure with hypercapnia (3) Total self-care deficit SNOMED Code(s): 74479600 Code(s): R68.89 - OTHER GENERAL SYMPTOMS AND SIGNS Status: Acute Current Visit: Yes (4) Hypoxemia SNOMED Code(s): 434946781 Code(s): R09.02 - HYPOXEMIA Status: Acute Priority: High Current Visit: No (5) Diabetes mellitus SNOMED Code(s): 27926792 Code(s): E11.9 - TYPE 2 DIABETES MELLITUS WITHOUT COMPLICATIONS Status: Chronic Priority: High Current Visit: No Qualifiers: Diabetes mellitus type: type 2 Diabetes mellitus [facility] insulin use: with [facility] use Diabetes mellitus complication status: with unspecified complications (6) Hypertension SNOMED Code(s): 38823165 Code(s): I10 - ESSENTIAL (PRIMARY) HYPERTENSION Status: Chronic Priority: High Current Visit: No Qualifiers: Hypertension type: essential hypertension Qualified Code(s): I10 - Essential (primary) hypertension (7) Medical non-compliance SNOMED Code(s): 632375559 Code(s): Z91.19 - PATIENT'S NONCOMPLIANCE W OTH MEDICAL TREATMENT AND REGIMEN Status: Chronic Priority: High Current Visit: No (8) Morbidly obese SNOMED Code(s): 851395697 Code(s): E66.01 - MORBID (SEVERE) OBESITY DUE TO EXCESS CALORIES Status: Chronic Priority: Medium Current Visit: No - Problem List Review Problem List Initiated/Reviewed/Updated: Yes - Plan Plan:: 69 yo female admitted with acute on chronic hypercapnic respiratory failure. on 5 L now Respiratory failure: LEONILA, OHS, Pulmonary HTN, COPD, currently on BIPAP at night, Combivent added since patient refusing DuoNeb, possible CHF, IV lasix started, azithromycin added for possible PNA, cont oxygenation via NC. LEG edema/cellulitis: on Lasix, Rocephin, A.fib: rate control, refusing metoprolol often and heparin, states she takes natural supplements such as garlic for it. Generalized weakness: PT consulted, declined PT, per PT patient is not participating Dispo: consulted case management for placement. patient is states "she will think about SNF after she finishes her ketoconazole course" GIOVANNY: Creatinine up today from yesterday, could be be sec to Lasix, will cont to trend Very complicated situation given patient is competent to make her decisions and often refuses the medical treatment offered even after counselling several times. States she likes to heal her body naturally. Patient can have a very grave prognosis if she continues to do so. I have been able to get her to agree to some medications and BiPAP for now but i still think her overall prognosis is bad if she doesn't comply with her treatment options. For Disposition, Patient states that "If they are able to find a placement for me she will probably go'". States she wants to talk to Madelyn from social work on Tuesday and see what her options are.
[2020-03-01] MEDS: Nystatin Crm 30 GM Tube TOP SCH ×2 (13:16→21:22)
--- NOTE | 2020-03-01 19:06 | PCM.SN.2 ---
- Free Text/Narrative Note: Per reports patient is quite resistant to PT, verbal aggression towards staff was reported, and refusal treatment such as insulin, anticoagulations, DUoNebs , BiPAP ( she has been using it more often in last 2 days). I spoke to patient in detail about it and she understands that she cannot be verbally abusive or aggre ssive. Still was concerned about obtaining garlic which she uses to "thin her blood". She states she is in touch with "Dilia from [facility]" who is helping her find help with her ADLS, she states she isnt interested in going to [facility] at this point. She also states she has severe nightmares last few days which she thought someone was kidnapping her, she also thinks she had hallucinations few days back which have resolved now. I have spoken to Dr Ervin, psychiatry to assess for possible underlying anxiety as well as her insight into her disease process and if she is competent to make her medical decisions. He had suggested to start patient on low dose anxiolytics and Risperdal which patient has declined. He will interview patient in AM. Patient is aware.
[2020-03-01] MEDS ORDERED: LORazepam 0.5 MG Tab PO SCH (21:00)
[2020-03-01] MEDS ORDERED: risperiDONE 0.25 MG Tab PO SCH (21:00)
[2020-03-01] MEDS: atorvaSTATin 40 MG Tab PO SCH (21:22)
[2020-03-02] MEDS: Heparin Sodium 5,000 Units/ML Vial SUBCUT SCH ×3 (01:20→17:49)
[2020-03-02] MEDS: methylPREDNISolone Sodium Succinate 40 MG/1 ML SDV IVPUSH SCH ×2 (01:20→12:54)
[2020-03-02] MEDS: Albuterol/Ipratropium 4 GM Inhalation Spray INH SCH ×5 (01:20→23:54)
[2020-03-02] MEDS: Acetaminophen 325 MG Tab PO PRN ×2 (01:21→05:29)
[2020-03-02 06:39] LABS: CARBON DIOXIDE,CO2 43.5 mmol/L (21.0-32.0); POTASSIUM,K 4.6 mmol/L (3.5-5.1)
[2020-03-02] MEDS: Insulin Aspart 100 Units/ML 3 ML Pen SUBCUT SCH ×3 (07:15→17:49)
[2020-03-02] MEDS: Furosemide 40 MG/4 ML VIAL IVPUSH SCH ×2 (08:59→21:06)
[2020-03-02] MEDS: Aspirin 81 MG Tab.Chew PO SCH (08:59)
[2020-03-02] MEDS: Nystatin Crm 30 GM Tube TOP SCH ×2 (09:01→21:07)
[2020-03-02] MEDS: Metoprolol Succinate 50 MG Tab.ER PO SCH (09:01)
[2020-03-02] MEDS: Azithromycin 500 MG in Sodium Chloride 0.9% 250 ML IV SCH (09:02)
[2020-03-02] MEDS: cefTRIAXone 1 GM in Premix Bag 1 BAG IV SCH (10:24)
--- NOTE | 2020-03-02 11:11 | CONS ---
DATE OF CONSULTATION: 03/02/2020 DATE OF : 1950 PRIMARY CARE PHYSICIAN: None PCP Site where the services are provided is [facility] in [place], [place]. Site where the services are provided is from our offices in [facility]. Length of service for this 60-minute inpatient telemedicine event is 60 minutes. IDENTIFICATION: The patient's is a 69-year-old female who was admitted to Inpatient MedSurg Unit at [facility] in [place], [place]. She is seen for psychiatric consultation per the request of staff attending, Dr. Hemphill and her treatment team. CHIEF COMPLAINT: "My feet weren't working." HISTORY OF PRESENT ILLNESS: The patient is a 69-year-old female who was admitted on February 19 to Inpatient MedSurg Unit for complications of COPD exacerbation and then also for treatment of atrial fibrillation. Staff is requesting a consult to assess for competency this morning as the patient has been difficult on the unit. Evidently, the patient is refusing to take the medications that are prescribed, and she is also going back and forth on whether she wants to go back to her place or go to a structured living situation as the inpatient team struggles to look for placement as the patient medically stabilizes. They are worried about the patient's ability to care for herself. On interview, the patient is alert and oriented x3. She states that she worries about her overall health, but she denies any problems with depression. She states she has some shakes and worries, and she has been sleeping great on the unit. She has been having issues with poor sleep initiation and poor sleep maintenance and also with some nightmares coupled with racing thoughts and ruminations during the day, but overall, she denies that she is clinically depressed, and she feels that the worries are warranted just because she is worried about her overall health. She denies any obsessive or compulsive behaviors. She does not want to take any kind of psychiatric medications at this point in time, but is open to some type of counseling such as [facility], if that is available, while she is inpatient and then counseling on the outside. She reports no illicit substance use or excessive alcohol is complicating the clinical picture, but she does state that she has been a smoker "since I was 19 years old," and she notes that she only stops smoking when she comes into the hospital, so that is an issue that certainly needs to be addressed for the patient going forward, in her estimation. MEDICATIONS: At the time of presentation, the patient is not on any psychiatric medications at admission or during her hospital stay. ALLERGIES: The patient states that she is allergic "to everything." But could not cite the specific allergy she has to particular medications. PAST MEDICAL HISTORY: 1. COPD exacerbation. 2. Atrial fibrillation. REVIEW OF SYSTEMS: Aside from pulmonary and cardiovascular, all other major organ systems are negative at this point in time for acute difficulties or complications. FAMILY PSYCHIATRIC AND CHEMICAL DEPENDENCY HISTORY: The patient states her father had a history of alcoholism, and some of her children had chemical dependency issues. PAST PSYCHIATRIC AND CHEMICAL DEPENDENCY HISTORY: The patient denies. She states she has been a smoker since 19 years of age. SOCIAL HISTORY: The patient was born and raised in [place], [place]. She states she has been twice and has 4 children, 2 from each marriage. 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 MENTAL STATUS EXAMINATION: The patient is a 69-year-old obese white female in no apparent distress. Speech is of regular rate and rhythm. The patient is cognitively oriented x3. Psychomotor activity is within normal limits. There are no abnormal motor movements or tics observed. Gait and station are not observed as the patient is seated on the side of the bed during the consult. Mood is anxious. Affect is also anxious appearing, but cooperative overall for the purposes of the inpatient consult. There is no behavioral or stated evidence of acute suicidal or homicidal ideation or acute psychotic, delusional, or paranoid symptoms. Thought processes are significant for some ruminations; however, there are no acute manic symptoms or loose associations evident. Judgment and insight appear unimpaired at this point in time. Motivation for help appears fair. VITAL SIGNS: 139/71, 98, 18, and 97.9 degrees. IMPRESSION: Marcellus I: 1. Anxiety disorder, not otherwise specified, F41.9. 2. Depression, not otherwise specified, F32.9. 3. Rule out major depressive disorder. 4. Rule out obsessive compulsive disorder. Marcellus II: No diagnosis at this time. Marcellus III: 1. Chronic obstructive pulmonary disease exacerbation. 2. History of atrial fibrillation complications, currently being treated. Marcellus IV: Severe. Marcellus V: 55 to 60. PLAN: 1. Recommend Ativan 0.25 mg b.i.d. p.r.n. for acute anxiety or panic while on unit. 2. Recommend Risperdal 0.5 mg at bedtime p.r.n. for racing thoughts or ruminations as well as for anxiety reduction. 3. The patient is apprised of benefits and side effects of her newly recommended psychiatric medication regimen. She acknowledges understanding of these facts and has no further questions by the end of the interview session. 4. All other medications as those prescribed by the patient's primary inpatient medical treatment team. 5. Medication compliance. 6. Smoking cessation. 7. Recommend pastoral guidance while the patient is on the inpatient unit if that resource is available and counseling for psychosocial issues when the patient is discharged back to the community whether on her own or to a structured living situation. 8. We will continue to follow up with the patient on an as-needed basis while she remains on Inpatient MedSurg Unit at [facility] in [place], [place]. 9. We will follow up with the patient sooner if any complications in the interim. 10.Crisis plan is in place. TAWANA / ALFONZO /[id number]
--- NOTE | 2020-03-02 12:07 | PCM.PN ---
- General Info Date of Service: 03/02/20 Admission Dx/Problem (Free Text): Admission Diagnosis/Problem Admission Diagnosis/Problem Respiratory failure Subjective Update: Seen at bedside, was on 4L NC, feeling SOB, states she had a nightamre and is having a "panick attack" declined [place]ton says it makes her heart go fast. received Combivent, oxygen raised to 5 L, sating 91%now. comfortable, Functional Status: Reports: Pain Controlled, Tolerating Diet, Urinating. Denies: Ambulating - Review of Systems General: Denies: Fever, Weakness, Fatigue, Malaise, Chills Pulmonary: Reports: Shortness of Breath, Cough, Sputum. Denies: Pleuritic Chest Pain, Hemoptysis Cardiovascular: Reports: Dyspnea on Exertion, Orthopnea. Denies: Chest Pain, Palpitations Gastrointestinal: Denies: Abdominal Pain, Constipation, Decreased Appetite Genitourinary: Denies: Dysuria, Frequency, Burning, Pain Musculoskeletal: Denies: Neck Pain, Shoulder Pain, Arm Pain, Hand Pain Skin: Reports: Rash - Patient Data Vitals - Most Recent: Last Vital Signs Temp 36.4 C 03/02/20 08:00 Pulse 95 03/02/20 08:00 Resp 20 03/02/20 08:00 BP 132/75 03/02/20 08:00 Pulse Ox 93 L 03/02/20 08:00 Weight - Most Recent: 137.484 kg I&O - Last 24 Hours: Intake & Output 03/01/20 03/02/20 03/02/20 23:59 06:59 14:59 Intake Total Output Total Balance Lab Results Last 24 Hours: Laboratory Results - last 24 hr 03/01/20 03/02/20 03/02/20 Range/Units 17:14 05:30 05:30 WBC 10.11 (4.0-11.0) K/uL RBC 4.69 (4.30-5.90) M/uL Hgb 13.9 (12.0-16.0) g/dL Hct 47.6 H (36.0-46.0) % MCV 101.5 H (80.0-98.0) fL MCH 29.6 (27.0-32.0) pg MCHC 29.2 L (31.0-37.0) g/dL RDW Std Deviation 55.6 (28.0-62.0) fl RDW Coeff of Robert 15 (11.0-15.0) % Plt Count 218 (150-400) K/uL MPV 10.90 (7.40-12.00) fL Neut % (Auto) 91.5 H (48.0-80.0) % Lymph % (Auto) 3.7 L (16.0-40.0) % Trigg % (Auto) 4.8 (0.0-15.0) % Eos % (Auto) 0.0 (0.0-7.0) % Baso % (Auto) 0.0 (0.0-1.5) % Neut # (Auto) 9.3 H (1.4-5.7) K/uL Lymph # (Auto) 0.4 L (0.6-2.4) K/uL Trigg # (Auto) 0.5 (0.0-0.8) K/uL Eos # (Auto) 0.0 (0.0-0.7) K/uL Baso # (Auto) 0.0 (0.0-0.1) K/uL Nucleated RBC % 0.0 /100WBC Nucleated RBCs # 0 K/uL Sodium 143 (136-145) mmol/L Potassium 4.6 (3.5-5.1) mmol/L Chloride 101 (98-107) mmol/L Carbon Dioxide 43.5 H (21.0-32.0) mmol/L BUN 38 H (7.0-18.0) mg/dL Creatinine 1.3 H (0.6-1.0) mg/dL Est Cr Clr Drug Dosing 36.26 mL/min Estimated GFR (MDRD) 40.9 ml/min Glucose 274 H (74-106) mg/dL POC Glucose 265 H (60-110) mg/dL Calcium 8.3 L (8.5-10.1) mg/dL Phosphorus 3.9 (2.6-4.7) mg/dL Magnesium 2.0 (1.8-2.4) mg/dL 03/02/20 03/02/20 Range/Units 06:26 11:59 WBC (4.0-11.0) K/uL RBC (4.30-5.90) M/uL Hgb (12.0-16.0) g/dL Hct (36.0-46.0) % MCV (80.0-98.0) fL MCH (27.0-32.0) pg MCHC (31.0-37.0) g/dL RDW Std Deviation (28.0-62.0) fl RDW Coeff of Robert (11.0-15.0) % Plt Count (150-400) K/uL MPV (7.40-12.00) fL Neut % (Auto) (48.0-80.0) % Lymph % (Auto) (16.0-40.0) % Trigg % (Auto) (0.0-15.0) % Eos % (Auto) (0.0-7.0) % Baso % (Auto) (0.0-1.5) % Neut # (Auto) (1.4-5.7) K/uL Lymph # (Auto) (0.6-2.4) K/uL Trigg # (Auto) (0.0-0.8) K/uL Eos # (Auto) (0.0-0.7) K/uL Baso # (Auto) (0.0-0.1) K/uL Nucleated RBC % /100WBC Nucleated RBCs # K/uL Sodium (136-145) mmol/L Potassium (3.5-5.1) mmol/L Chloride (98-107) mmol/L Carbon Dioxide (21.0-32.0) mmol/L BUN (7.0-18.0) mg/dL Creatinine (0.6-1.0) mg/dL Est Cr Clr Drug Dosing mL/min Estimated GFR (MDRD) ml/min Glucose (74-106) mg/dL POC Glucose 252 H 304 H (60-110) mg/dL Calcium (8.5-10.1) mg/dL Phosphorus (2.6-4.7) mg/dL Magnesium (1.8-2.4) mg/dL Samuel Results Last 24 Hours: 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 - Preliminary Sputum - Expectorated Med Orders - Current: Current Medications Acetaminophen (Tylenol) 325 mg PO Q4H PRN PRN Reason: Pain Last Admin: 03/02/20 05:29 Dose: 325 mg Documented by: Albuterol/Ipratropium (Duoneb 3.0-0.5 Mg/3 Ml) 3 ml NEB Q6HRRT PRN PRN Reason: Dyspnea Last Admin: 02/25/20 19:16 Dose: 3 ml Documented by: Albuterol/Ipratropium (Combivent Respimat) 0 gm INH Q6HRRT [facility] Last Admin: 03/02/20 11:31 Dose: 1 inhalation Documented by: Aspirin (Aspirin) 81 mg PO DAILY [facility] Last Admin: 03/02/20 08:59 Dose: 81 mg Documented by: Atorvastatin Calcium (Lipitor) 40 mg PO BEDTIME [facility] Last Admin: 03/01/20 21:22 Dose: Not Given Documented by: Dextrose/Water (Dextrose 50% In Water) 50 ml IV ASDIRECTED PRN PRN Reason: Hypoglycemia Fexofenadine HCl (Diamond) 180 mg PO DAILY [facility] Last Admin: 03/02/20 10:07 Dose: 60 mg Documented by: Fluticasone Propionate (Flonase) 0 gm NASBOTH Q6H PRN PRN Reason: Congestion Last Admin: 02/26/20 13:25 Dose: 1 spray Documented by: Furosemide (Lasix) 80 mg IVPUSH BID [facility] Last Admin: 03/02/20 08:59 Dose: 80 mg Documented by: Glucagon (Glucagen) 1 mg IM ASDIRECTED PRN PRN Reason: Hypoglycemia Heparin Sodium (Porcine) (Heparin Sodium) 5,000 units SUBCUT Q8H [facility] Last Admin: 03/02/20 09:59 Dose: Not Given Documented by: Ceftriaxone Sodium/Dextrose 1 (gm/ Premix) 50 mls @ 100 mls/hr IV Q24H [facility] Last Admin: 03/02/20 10:24 Dose: 100 mls/hr Documented by: Azithromycin 500 mg/ Sodium (Chloride) 250 mls @ 250 mls/hr IV DAILY [facility] Last Admin: 03/02/20 09:02 Dose: 250 mls/hr Documented by: Insulin Aspart (Novolog) 0 unit SUBCUT TIDAC [facility]; Protocol Last Admin: 03/02/20 07:15 Dose: Not Given Documented by: Methylprednisolone Sodium Succinate (Solu-Medrol) 40 mg IVPUSH Q12H [facility] Last Admin: 03/02/20 01:20 CDT Dose: 40 mg Documented by: Metoprolol Succinate (Toprol Xl) 50 mg PO DAILY [facility] Last Admin: 03/02/20 09:01 Dose: Not Given Documented by: Nystatin (Nystatin Crm) 1 gm TOP BID [facility] Last Admin: 03/02/20 09:01 Dose: 1 applic Documented by: Ubidecarenone 100 Mg 1 each PO DAILY [facility] Last Admin: 03/02/20 09:02 Dose: 1 each Documented by: Discontinued Medications Acetaminophen (Tylenol) 650 mg PO Q6H PRN PRN Reason: Pain Last Admin: 02/25/20 13:07 Dose: 650 mg Documented by: Albuterol/Ipratropium (Duoneb 3.0-0.5 Mg/3 Ml) 3 ml NEB Q4HRRT PRN PRN Reason: Wheezing Last Admin: 02/22/20 01:53 Dose: 3 ml Documented by: Albuterol/Ipratropium (Duoneb 3.0-0.5 Mg/3 Ml) 3 ml NEB Q6H [facility] Last Admin: 02/22/20 11:25 Dose: 3 ml Documented by: Albuterol/Ipratropium (Duoneb 3.0-0.5 Mg/3 Ml) 3 ml NEB Q6HRRT [facility] Last Admin: 02/25/20 11:18 Dose: Not Given Documented by: Doxycycline Hyclate (Vibramycin) 100 mg PO BID [facility] Last Admin: 02/26/20 09:30 Dose: Not Given Documented by: Fexofenadine HCl (Diamond) 180 mg PO DAILY [facility] Furosemide (Lasix) 40 mg IVPUSH NOW ONE Stop: 02/22/20 01:06 Last Admin: 02/22/20 02:11 Dose: Not Given Documented by: Furosemide (Lasix) Confirm Administered Dose 40 mg .ROUTE .STK-MED ONE Stop: 02/22/20 01:47 Last Admin: 02/22/20 02:13 Dose: Not Given Documented by: Furosemide (Lasix) 80 mg PO BIDDIURETIC [facility] Last Admin: 02/28/20 15:03 Dose: 80 mg Documented by: Furosemide (Lasix) 40 mg IVPUSH NOW ONE Stop: 02/28/20 20:57 Last Admin: 02/28/20 21:07 Dose: 40 mg Documented by: Sodium Chloride (Normal Saline) 1,000 mls @ 999 mls/hr IV BOLUS ONE Stop: 02/21/20 21:49 Last Admin: 02/21/20 21:23 Dose: Not Given Documented by: Sodium Chloride (Normal Saline) 1,000 mls @ 500 mls/hr IV STAT [facility] Lactated Ringer's (Ringers, Lactated) 500 mls @ 999 mls/hr IV .BOLUS ONE Stop: 02/28/20 10:53 Last Admin: 02/28/20 11:53 Dose: 999 mls/hr Documented by: Insulin Aspart (Novolog) 0 unit SUBCUT ACBREAKFASTANDBED [facility]; Protocol Last Admin: 02/22/20 09:04 Dose: Not Given Documented by: Lorazepam (Ativan) 0.5 mg IVPUSH ONETIME ONE Stop: 02/21/20 22:20 Last Admin: 02/21/20 22:43 Dose: 0.5 mg Documented by: Lorazepam (Ativan) 0.5 mg IVPUSH ONETIME ONE Stop: 02/21/20 23:33 Last Admin: 02/21/20 23:35 Dose: 0.5 mg Documented by: Lorazepam (Ativan) 0.25 mg PO BID [facility] Methylprednisolone Sodium Succinate (Solu-Medrol) 125 mg IM ONETIME ONE Stop: 02/22/20 01:06 Last Admin: 02/22/20 02:12 Dose: Not Given Documented by: Methylprednisolone Sodium Succinate (Solu-Medrol) 125 mg IVPUSH ONETIME ONE Stop: 02/22/20 02:08 Last Admin: 02/22/20 02:48 Dose: 125 mg Documented by: Metoprolol Succinate (Toprol Xl) Confirm Administered Dose 50 mg .ROUTE .STK-MED ONE Stop: 02/24/20 15:35 Last Admin: 02/24/20 15:37 Dose: Not Given Documented by: Nystatin (Nystop) 1 gm TOP TID [facility] Last Admin: 02/22/20 15:10 Dose: Not Given Documented by: Ketoconazole 200 Mg 1 each PO DAILY [facility] Last Admin: 03/01/20 09:03 Dose: Not Given Documented by: Patient Own Medication (Ptom) 100 each PO DAILY [facility] Last Admin: 02/23/20 14:24 Dose: Not Given Documented by: Risperidone (Risperidal) 0.5 mg PO BEDTIME JESSEE - Exam Quality Assessment: Supplemental Oxygen General: Alert, Oriented, Cooperative, Mild Distress Neck: Trachea Midline Lungs: Decreased Breath Sounds, Crackles. No: Rhonchi, Wheezing Cardiovascular: Irregular Rhythm. No: Regular Rate, Regular Rhythm GI/Abdominal Exam: Normal Bowel Sounds. No: Soft, Non-Tender Extremities: Pedal Edema, Leg Pain, Limited Range of Motion, Redness Sepsis Event Note - Evaluation Sepsis Screening Result: No Definite Risk - Focused Exam Vital Signs: Vital Signs Temp Pulse Resp BP Pulse Ox 03/02/20 08:00 36.4 C 95 20 132/75 93 L 03/02/20 04:00 36.6 C 98 18 139/71 94 L - Problem List & Annotations (1) CHF (congestive heart failure) SNOMED Code(s): 20445292 Code(s): I50.9 - HEART FAILURE, UNSPECIFIED Status: Acute Current Visit: Yes Qualifiers: Heart failure type: unspecified Heart failure chronicity: unspecified Qualified Code(s): I50.9 - Heart failure, unspecified (2) Hypercapnic respiratory failure SNOMED Code(s): 221364249 Code(s): J96.92 - RESPIRATORY FAILURE, UNSPECIFIED WITH HYPERCAPNIA Status: Acute Current Visit: Yes Qualifiers: Chronicity: acute on chronic Qualified Code(s): J96.22 - Acute and chronic respiratory failure with hypercapnia (3) Total self-care deficit SNOMED Code(s): 15194118 Code(s): R68.89 - OTHER GENERAL SYMPTOMS AND SIGNS Status: Acute Current Visit: Yes (4) Hypoxemia SNOMED Code(s): 273715950 Code(s): R09.02 - HYPOXEMIA Status: Acute Priority: High Current Visit: No (5) Diabetes mellitus SNOMED Code(s): 84704635 Code(s): E11.9 - TYPE 2 DIABETES MELLITUS WITHOUT COMPLICATIONS Status: Chronic Priority: High Current Visit: No Qualifiers: Diabetes mellitus type: type 2 Diabetes mellitus rn long term care insulin use: with halfway use Diabetes mellitus complication status: with unspecified complications (6) Hypertension SNOMED Code(s): 82367553 Code(s): I10 - ESSENTIAL (PRIMARY) HYPERTENSION Status: Chronic Priority: High Current Visit: No Qualifiers: Hypertension type: essential hypertension Qualified Code(s): I10 - Essential (primary) hypertension (7) Medical non-compliance SNOMED Code(s): 774847539 Code(s): Z91.19 - PATIENT'S NONCOMPLIANCE W OTH MEDICAL TREATMENT AND REGIMEN Status: Chronic Priority: High Current Visit: No (8) Morbidly obese SNOMED Code(s): 597230931 Code(s): E66.01 - MORBID (SEVERE) OBESITY DUE TO EXCESS CALORIES Status: Chronic Priority: Medium Current Visit: No - Problem List Review Problem List Initiated/Reviewed/Updated: Yes - My Orders Last 24 Hours: My Active Orders 03/02/20 01:10 CULTURE SPUTUM + SMEAR [RM] Routine - Plan Plan:: 69 yo female admitted with acute on chronic hypercapnic respiratory failure. on 5 L now Respiratory failure: LEONILA, OHS, Pulmonary HTN, COPD, currently on BIPAP at night, Combivent added since patient refusing DuoNeb, possible CHF, IV lasix started, azithromycin added for possible PNA, cont oxygenation via NC. LEG edema/cellulitis: on IV Lasix, Rocephin, A.fib: rate control, refusing metoprolol often and heparin, states she takes natural supplements such as garlic for it, i counselled her about importnace of taking these meds, she states she likes ot heal her body naturally, agreed to take insulin at one point, but has refused again today. Generalized weakness: PT consulted, per PT patient is not participating, i spoke to patient in detail abut importance of PT. Dispo: consulted case management for placement. patient is states she is in touch with "Dilia RODRÍGUEZ" for deposition, GIOVANNY: Creatinine up today from yesterday, could be be sec to Lasix, will cont to trend, Bicarb is trending up, patient is awake, possibly contraction alkalosis,patient is alert, currently on concern of acute hypercapnia, should she become altered will check ABG if needed. Very complicated situation given patient is competent to make her decisions and often refuses the medical treatment offered even after counselling several times. States she likes to heal her body naturally. Patient can have a very grave prognosis if she continues to do so. I have been able to get her to agree to some medications and BiPAP for now but i still think her overall prognosis is bad if she doesn't comply with her treatment options. For Disposition, f/u with [facility] and [facility]PS on Tuesday. Psych was consulted for her anxiety, non compliance and to asses for competence, per psych patient is competent to make her decisions. Advised spiritual care consult and PRN Dmitry and Maci
[2020-03-02] MEDS: atorvaSTATin 40 MG Tab PO SCH (21:06)
[2020-03-03] MEDS: Heparin Sodium 5,000 Units/ML Vial SUBCUT SCH ×3 (01:43→18:15)
[2020-03-03] MEDS: methylPREDNISolone Sodium Succinate 40 MG/1 ML SDV IVPUSH SCH (01:44)
[2020-03-03] MEDS: Acetaminophen 325 MG Tab PO PRN ×3 (02:10→18:28)
[2020-03-03] MEDS: Albuterol/Ipratropium 4 GM Inhalation Spray INH SCH ×3 (06:07→17:06)
[2020-03-03 06:21] LABS: CARBON DIOXIDE,CO2 42.9 mmol/L (21.0-32.0); POTASSIUM,K 4.3 mmol/L (3.5-5.1)
[2020-03-03] MEDS: Aspirin 81 MG Tab.Chew PO SCH (09:37)
[2020-03-03] MEDS: Metoprolol Succinate 50 MG Tab.ER PO SCH (09:40)
[2020-03-03] MEDS: Furosemide 40 MG/4 ML VIAL IVPUSH SCH ×2 (10:00→20:16)
[2020-03-03] MEDS: Nystatin Crm 30 GM Tube TOP SCH ×2 (10:00→20:20)
[2020-03-03] MEDS: Insulin Aspart 100 Units/ML 3 ML Pen SUBCUT SCH ×4 (10:02→19:39)
[2020-03-03] MEDS: Azithromycin 500 MG in Sodium Chloride 0.9% 250 ML IV SCH (10:03)
--- NOTE | 2020-03-03 10:08 | PCM.PN ---
- General Info Date of Service: 03/03/20 Admission Dx/Problem (Free Text): Admission Diagnosis/Problem Admission Diagnosis/Problem Respiratory failure Subjective Update: Complaining that she has lost her Tuesday, not sure what happened yesterday and is frustrated she can't remember. She denies chest pain. reports breathing is stable. No concerns this morning. Functional Status: Reports: Pain Controlled, Tolerating Diet, Urinating. Denies : Ambulating - Review of Systems General: Reports: Weakness (generalized), Fatigue, Malaise Pulmonary: Reports: Shortness of Breath, Cough. Denies: Sputum, Wheezing Cardiovascular: Reports: Dyspnea on Exertion, Edema (improving). Denies: Chest Pain, Lightheadedness Gastrointestinal: Reports: No Symptoms. Denies: Abdominal Pain, Nausea, Vomiting Genitourinary: Reports: No Symptoms. Denies: Dysuria, Frequency, Burning Skin: Reports: No Symptoms Neurological: Reports: No Symptoms Psychiatric: Reports: No Symptoms - Patient Data Vitals - Most Recent: Last Vital Signs Temp 97.2 F 03/03/20 04:50 Pulse 109 H 03/03/20 09:40 Resp 24 H 03/03/20 05:25 BP 143/99 H 03/03/20 09:40 Pulse Ox 94 L 03/03/20 05:25 Weight - Most Recent: 137.484 kg I&O - Last 24 Hours: Intake & Output 03/02/20 03/03/20 03/03/20 22:59 06:59 14:59 Intake Total 540 420 Output Total 1100 Balance -560 420 Lab Results Last 24 Hours: Laboratory Results - last 24 hr 03/02/20 03/02/20 03/03/20 Range/Units 11:59 17:39 05:30 WBC 11.19 H (4.0-11.0) K/uL RBC 4.90 (4.30-5.90) M/uL Hgb 14.4 (12.0-16.0) g/dL Hct 48.9 H (36.0-46.0) % MCV 99.8 H (80.0-98.0) fL MCH 29.4 (27.0-32.0) pg MCHC 29.4 L (31.0-37.0) g/dL RDW Std Deviation 55.2 (28.0-62.0) fl RDW Coeff of Robert 15 (11.0-15.0) % Plt Count 213 (150-400) K/uL MPV 11.00 (7.40-12.00) fL Neut % (Auto) 90.1 H (48.0-80.0) % Lymph % (Auto) 4.2 L (16.0-40.0) % Wilson % (Auto) 5.6 (0.0-15.0) % Eos % (Auto) 0.1 (0.0-7.0) % Baso % (Auto) 0.0 (0.0-1.5) % Neut # (Auto) 10.1 H (1.4-5.7) K/uL Lymph # (Auto) 0.5 L (0.6-2.4) K/uL Wilson # (Auto) 0.6 (0.0-0.8) K/uL Eos # (Auto) 0.0 (0.0-0.7) K/uL Baso # (Auto) 0.0 (0.0-0.1) K/uL Nucleated RBC % 0.0 /100WBC Nucleated RBCs # 0 K/uL Sodium (136-145) mmol/L Potassium (3.5-5.1) mmol/L Chloride (98-107) mmol/L Carbon Dioxide (21.0-32.0) mmol/L BUN (7.0-18.0) mg/dL Creatinine (0.6-1.0) mg/dL Est Cr Clr Drug Dosing mL/min Estimated GFR (MDRD) ml/min Glucose (74-106) mg/dL POC Glucose 304 H 277 H (60-110) mg/dL Calcium (8.5-10.1) mg/dL Phosphorus (2.6-4.7) mg/dL Magnesium (1.8-2.4) mg/dL 03/03/20 03/03/20 03/03/20 Range/Units 05:30 07:09 08:46 WBC (4.0-11.0) K/uL RBC (4.30-5.90) M/uL Hgb (12.0-16.0) g/dL Hct (36.0-46.0) % MCV (80.0-98.0) fL MCH (27.0-32.0) pg MCHC (31.0-37.0) g/dL RDW Std Deviation (28.0-62.0) fl RDW Coeff of Robert (11.0-15.0) % Plt Count (150-400) K/uL MPV (7.40-12.00) fL Neut % (Auto) (48.0-80.0) % Lymph % (Auto) (16.0-40.0) % Wilson % (Auto) (0.0-15.0) % Eos % (Auto) (0.0-7.0) % Baso % (Auto) (0.0-1.5) % Neut # (Auto) (1.4-5.7) K/uL Lymph # (Auto) (0.6-2.4) K/uL Wilson # (Auto) (0.0-0.8) K/uL Eos # (Auto) (0.0-0.7) K/uL Baso # (Auto) (0.0-0.1) K/uL Nucleated RBC % /100WBC Nucleated RBCs # K/uL Sodium 142 (136-145) mmol/L Potassium 4.3 (3.5-5.1) mmol/L Chloride 97 L (98-107) mmol/L Carbon Dioxide 42.9 H (21.0-32.0) mmol/L BUN 40 H (7.0-18.0) mg/dL Creatinine 1.3 H (0.6-1.0) mg/dL Est Cr Clr Drug Dosing 36.26 mL/min Estimated GFR (MDRD) 40.9 ml/min Glucose 338 H (74-106) mg/dL POC Glucose 302 H 341 H (60-110) mg/dL Calcium 8.2 L (8.5-10.1) mg/dL Phosphorus 3.3 (2.6-4.7) mg/dL Magnesium 2.0 (1.8-2.4) mg/dL Med Orders - Current: Current Medications Acetaminophen (Tylenol) 325 mg PO Q4H PRN PRN Reason: Pain Last Admin: 03/03/20 09:41 Dose: 325 mg Documented by: Albuterol/Ipratropium (Duoneb 3.0-0.5 Mg/3 Ml) 3 ml NEB Q6HRRT PRN PRN Reason: Dyspnea Last Admin: 02/25/20 19:16 Dose: 3 ml Documented by: Albuterol/Ipratropium (Combivent Respimat) [address] [facility] Last Admin: 03/03/20 06:07 Dose: 1 inhalation Documented by: Aspirin (Aspirin) [address] [facility] Last Admin: 03/03/20 09:37 Dose: 81 mg Documented by: Atorvastatin Calcium (Lipitor) [address] [facility] Last Admin: 03/02/20 21:06 Dose: Not Given Documented by: Dextrose/Water (Dextrose 50% In Water) 50 ml IV ASDIRECTED PRN PRN Reason: Hypoglycemia Fexofenadine HCl (Diamond) [address] [facility] Last Admin: 03/02/20 10:07 Dose: 60 mg Documented by: Fluticasone Propionate (Flonase) 0 gm NASBOTH Q6H PRN PRN Reason: Congestion Last Admin: 02/26/20 13:25 Dose: 1 spray Documented by: Furosemide (Lasix) [address] [facility] Last Admin: 03/03/20 10:00 Dose: 80 mg Documented by: Glucagon (Glucagen) 1 mg IM ASDIRECTED PRN PRN Reason: Hypoglycemia Heparin Sodium (Porcine) (Heparin Sodium) 5,[address] [facility] Last Admin: 03/03/20 10:06 Dose: Not Given Documented by: Ceftriaxone Sodium/Dextrose 1 (gm/ Premix) 50 mls @ 100 mls/hr IV Q24H [facility] Last Admin: 03/02/20 10:24 Dose: 100 mls/hr Documented by: Azithromycin 500 mg/ Sodium (Chloride) 250 mls @ 250 mls/hr IV DAILY [facility] Last Admin: 03/03/20 10:03 Dose: 250 mls/hr Documented by: Insulin Aspart (Novolog) [address] [facility]; Protocol Last Admin: 03/03/20 10:02 Dose: 4 units Documented by: Insulin Aspart (Novolog) [address] [facility]; Protocol Methylprednisolone Sodium Succinate (Solu-Medrol) [address] [facility] Last Admin: 03/03/20 01:44 Dose: 40 mg Documented by: Metoprolol Succinate (Toprol Xl) [address] [facility] Last Admin: 03/03/20 09:40 Dose: 50 mg Documented by: Nystatin (Nystatin Crm) [address] [facility] Last Admin: 03/03/20 10:00 Dose: 1 applic Documented by: Ubidecarenone 100 Mg [address] [facility] Last Admin: 03/02/20 09:02 Dose: 1 each Documented by: Discontinued Medications Acetaminophen (Tylenol) 650 mg PO Q6H PRN PRN Reason: Pain Last Admin: 02/25/20 13:07 Dose: 650 mg Documented by: Albuterol/Ipratropium (Duoneb 3.0-0.5 Mg/3 Ml) 3 ml NEB Q4HRRT PRN PRN Reason: Wheezing Last Admin: 02/22/20 01:53 Dose: 3 ml Documented by: Albuterol/Ipratropium (Duoneb 3.0-0.5 Mg/3 Ml) [address] [facility] Last Admin: 02/22/20 11:25 Dose: 3 ml Documented by: Albuterol/Ipratropium (Duoneb 3.0-0.5 Mg/3 Ml) [address] [facility] Last Admin: 02/25/20 11:18 Dose: Not Given Documented by: Doxycycline Hyclate (Vibramycin) [address] [facility] Last Admin: 02/26/20 09:30 Dose: Not Given Documented by: Fexofenadine HCl (Diamond) [address] [facility] Furosemide (Lasix) 40 mg IVPUSH NOW ONE Stop: 02/22/20 01:06 Last Admin: 02/22/20 02:11 Dose: Not Given Documented by: Furosemide (Lasix) Confirm Administered Dose 40 mg .ROUTE .STK-MED ONE Stop: 02/22/20 01:47 Last Admin: 02/22/20 02:13 Dose: Not Given Documented by: Furosemide (Lasix) [address] [facility] Last Admin: 02/28/20 15:03 Dose: 80 mg Documented by: Furosemide (Lasix) 40 mg IVPUSH NOW ONE Stop: 02/28/20 20:57 Last Admin: 02/28/20 21:07 Dose: 40 mg Documented by: Sodium Chloride (Normal Saline) 1,000 mls @ 999 mls/hr IV BOLUS ONE Stop: 02/21/20 21:49 Last Admin: 02/21/20 21:23 Dose: Not Given Documented by: Sodium Chloride (Normal Saline) 1,000 mls @ 500 mls/hr IV STAT [facility] Lactated Ringer's (Ringers, Lactated) 500 mls @ 999 mls/hr IV .BOLUS ONE Stop: 02/28/20 10:53 Last Admin: 02/28/20 11:53 Dose: 999 mls/hr Documented by: Insulin Aspart (Novolog) [address] [facility]; Protocol Last Admin: 02/22/20 09:04 Dose: Not Given Documented by: Lorazepam (Ativan) 0.5 mg IVPUSH ONETIME ONE Stop: 02/21/20 22:20 Last Admin: 02/21/20 22:43 Dose: 0.5 mg Documented by: Lorazepam (Ativan) 0.5 mg IVPUSH ONETIME ONE Stop: 02/21/20 23:33 Last Admin: 02/21/20 23:35 Dose: 0.5 mg Documented by: Lorazepam (Ativan) 0.[address] [facility] Methylprednisolone Sodium Succinate (Solu-Medrol) 125 mg IM ONETIME ONE Stop: 02/22/20 01:06 Last Admin: 02/22/20 02:12 Dose: Not Given Documented by: Methylprednisolone Sodium Succinate (Solu-Medrol) 125 mg IVPUSH ONETIME ONE Stop: 02/22/20 02:08 Last Admin: 02/22/20 02:48 Dose: 125 mg Documented by: Metoprolol Succinate (Toprol Xl) Confirm Administered Dose 50 mg .ROUTE .STK-MED ONE Stop: 02/24/20 15:35 Last Admin: 02/24/20 15:37 Dose: Not Given Documented by: Nystatin (Nystop) [address] [facility] Last Admin: 02/22/20 15:10 Dose: Not Given Documented by: Ketoconazole 200 Mg [address] [facility] Last Admin: 03/01/20 09:03 Dose: Not Given Documented by: Patient Own Medication (Ptom) [address] [facility] Last Admin: 02/23/20 14:24 Dose: Not Given Documented by: Risperidone (Risperidal) 0.5 mg PO BEDTIME [facility] - Exam Quality Assessment: Supplemental Oxygen, DVT Prophylaxis (SCSDs, refusing hepari n) General: Alert, Oriented, Cooperative Neck: Supple Lungs: Decreased Breath Sounds, Rales, Rhonchi. No: Normal Respiratory Effort (dyspnea) Sepsis Event Note - Evaluation Sepsis Screening Result: Severe Sepsis Risk - Focused Exam Vital Signs: Vital Signs Temp Pulse Pulse Resp BP BP Pulse Ox 03/03/20 09:40 109 H 143/99 H 03/03/20 05:25 98 24 H 94 L 03/03/20 04:50 97.2 F 95 22 H 166/91 H 92 L 03/02/20 23:51 97.2 F 105 H 24 H 144/99 H 94 L - Problem List & Annotations (1) Acute and chronic respiratory failure with hypercapnia SNOMED Code(s): 9118005109321 Code(s): J96.22 - ACUTE AND CHRONIC RESPIRATORY FAILURE WITH HYPERCAPNIA Status: Acute Current Visit: Yes (2) Acute and chronic respiratory failure with hypoxia SNOMED Code(s): 05556216, 251999729 Code(s): J96.21 - ACUTE AND CHRONIC RESPIRATORY FAILURE WITH HYPOXIA Status: Acute Current Visit: Yes (3) CHF (congestive heart failure) SNOMED Code(s): 14796711 Code(s): I50.9 - HEART FAILURE, UNSPECIFIED Status: Acute Current Visit: Yes Qualifiers: Heart failure type: unspecified Heart failure chronicity: acute on chronic Qualified Code(s): I50.9 - Heart failure, unspecified (4) Cellulitis SNOMED Code(s): 493925829 Code(s): L03.90 - CELLULITIS, UNSPECIFIED Status: Acute Current Visit: Yes (5) Atrial fibrillation SNOMED Code(s): 55506181 Code(s): I48.91 - UNSPECIFIED ATRIAL FIBRILLATION Status: Chronic Current Visit: Yes (6) Hospital-acquired pneumonia SNOMED Code(s): 866697637 Code(s): J18.9 - PNEUMONIA, UNSPECIFIED ORGANISM Status: Acute Current Visit: No (7) LEONILA (obstructive sleep apnea) SNOMED Code(s): 28970480 Code(s): G47.33 - OBSTRUCTIVE SLEEP APNEA (ADULT) (PEDIATRIC) Status: Chronic Current Visit: Yes (8) CHF (congestive heart failure) SNOMED Code(s): 03288163 Code(s): I50.9 - HEART FAILURE, UNSPECIFIED Status: Chronic Priority: High Current Visit: No Qualifiers: Heart failure type: combined systolic and diastolic Heart failure chronicity: acute on chronic Qualified Code(s): I50.43 - Acute on chronic combined systolic (congestive) and diastolic (congestive) heart failure (9) Diabetes mellitus SNOMED Code(s): 76542085 Code(s): E11.9 - TYPE 2 DIABETES MELLITUS WITHOUT COMPLICATIONS Status: Chronic Priority: High Current Visit: No Qualifiers: Diabetes mellitus type: type 2 Diabetes mellitus prison insulin use: with exterminator use Diabetes mellitus complication status: with unspecified complications (10) Hypertension SNOMED Code(s): 90334086 Code(s): I10 - ESSENTIAL (PRIMARY) HYPERTENSION Status: Chronic Priority: High Current Visit: No Qualifiers: Hypertension type: essential hypertension Qualified Code(s): I10 - Essential (primary) hypertension (11) Medical non-compliance SNOMED Code(s): 289131916 Code(s): Z91.19 - PATIENT'S NONCOMPLIANCE W OTH MEDICAL TREATMENT AND REGIMEN Status: Acute Priority: High Current Visit: No (12) Morbidly obese SNOMED Code(s): 432540284 Code(s): E66.01 - MORBID (SEVERE) OBESITY DUE TO EXCESS CALORIES Status: Chronic Priority: Medium Current Visit: No - Problem List Review Problem List Initiated/Reviewed/Updated: Yes - My Orders Last 24 Hours: My Active Orders 03/03/20 11:30 Insulin Aspart [NovoLOG] See Protocol SUBCUT TIDAC - Plan Plan:: 69 yo female admitted with acute on chronic hypercapnic,hypoxic respiratory failure. 1. Acute on chronic hypoxic hypercapnic respiratory failure/LEONILA/ [facility]/ Pulmonary HTN -Continues to use BiPAP at night -During the day she is on high flow nasal cannula 6 L keeping sats 88% on above. -Increase pulmonary toilet with I-S and flutter use. -Encouraged to get up and ambulating even if distances are small to begin with. -Continue azithromycin and Rocephin for possible community-acquired pneumonia. Will change azithromycin to p.o. to limit amount of fluid she is receiving. -Continue IV Lasix 80 mg IV twice daily for diuresis -Was seen and evaluated by telepsych over the weekend regarding continued refusal of medications. She was found competent to make decisions. 2. CHF: -Suspected -will order Echo, will be difficult because of body habitus -Would recommend outpatient echo with contrast -Continue diuresis with Lasix 80 mg IV twice daily -Strict I's and O's, daily weight, 2 L fluid restriction and low-salt diet -Encourage elevation of legs to help with peripheral edema. 3. A. fib - Continue Aspirin - Encouraged to take Metoprolol for rate control. - Refusing anticoagulation for stroke prevention. 4. Peripheral edema/cellulitis: -Reports significant improvement since admission. -+1 pitting edema bilaterally with chronic venous stasis changes and dry peeling skin -Open wound noted to left lateral [place] that is dry and healing 5. Generalized weakness -PT has discharged patient as she becomes quite aggressive and noncompliant. -Continue encourage getting out of bed with meals 3 times a day and ambulating as much as she can to increase endurance and conditioning VTE prophylaxis: Heparin, which she is refusing. SCDS and ambulation Dispo: 2 to 3 days, case management has been in contact with her nuisance animal damage control agent and Adult Protective Services. At this time no current plan for disposition. 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 We discussed she continues to have pulmonary edema or fluid within and around her lungs. This is not improving significantly due to her continued atrial fibrillation and not on treatment with metoprolol. She reports to just give her the medication and she will take it do not ask if she wanted then she will have a way to refuse it. I did bring up CODE STATUS. She continues to be full code. We discussed how she is refusing much of her treatments she continues to want to be full code even though refusing these treatments is making her prognosis even more grave. She continues to request full code.
[2020-03-03] MEDS: cefTRIAXone 1 GM in Premix Bag 1 BAG IV SCH (11:28)
[2020-03-03] MEDS: Azithromycin 250 MG Tab PO SCH (12:19)
[2020-03-03] MEDS: Fluticasone Propionate Nasal Spray 16 GM Bottle NASBOTH SCH ×2 (12:22→12:24)
[2020-03-03] MEDS: atorvaSTATin 40 MG Tab PO SCH (20:20)
[2020-03-04] MEDS: Albuterol/Ipratropium 4 GM Inhalation Spray INH SCH ×5 (00:54→17:28)
[2020-03-04] MEDS: Acetaminophen 325 MG Tab PO PRN ×4 (00:54→18:59)
[2020-03-04] MEDS: Heparin Sodium 5,000 Units/ML Vial SUBCUT SCH ×3 (00:55→17:27)
[2020-03-04 05:49] LABS: POTASSIUM,K 3.8 mmol/L (3.5-5.1)
[2020-03-04] MEDS: Insulin Aspart 100 Units/ML 3 ML Pen SUBCUT SCH ×3 (06:33→17:24)
[2020-03-04] MEDS: predniSONE 20 MG Tab PO SCH (08:02)
[2020-03-04] MEDS ORDERED: acetaZOLAMIDE 250 MG Tab PO ONE (09:25)
[2020-03-04] MEDS: Aspirin 81 MG Tab.Chew PO SCH (09:33)
[2020-03-04] MEDS: Metoprolol Succinate 50 MG Tab.ER PO SCH (09:34)
[2020-03-04] MEDS: Nystatin Crm 30 GM Tube TOP SCH ×2 (09:39→20:11)
[2020-03-04] MEDS: Fluticasone Propionate Nasal Spray 16 GM Bottle NASBOTH SCH (09:40)
[2020-03-04] MEDS: cefTRIAXone 1 GM in Premix Bag 1 BAG IV SCH (09:40)
[2020-03-04] MEDS: Furosemide 40 MG/4 ML VIAL IVPUSH SCH ×2 (09:43→20:04)
--- NOTE | 2020-03-04 11:13 | PCM.PN ---
- General Info Date of Service: 03/04/20 Admission Dx/Problem (Free Text): Admission Diagnosis/Problem Admission Diagnosis/Problem Respiratory failure Subjective Update: Kristin reports she is doing well this morning, kind of woke up upset, but having a better morning now. Denies chest pain, reports intermittent palpitations. reports she is sleeping better and eager to go home when she can. She discussed how she wants to go home when she is off oxygen. We discussed this is likely not realistic, as she was on oxygen prior to coming in, at 4 L NC. We discussed hopes of discharge home when medically stable, which is nearing soon. Functional Status: Reports: Pain Controlled, Tolerating Diet, Urinating. Denies: Ambulating - Review of Systems General: Reports: Weakness (generalized weakness), Fatigue. Denies: Malaise, Chills HEENT: Denies: Headaches, Sore Throat, Visual Changes Pulmonary: Reports: Shortness of Breath (intermittent and with activity) Cardiovascular: Reports: Palpitations, Dyspnea on Exertion, Edema. Denies: Chest Pain Gastrointestinal: Reports: No Symptoms. Denies: Abdominal Pain, Nausea, Vomiting Genitourinary: Reports: No Symptoms. Denies: Dysuria, Frequency, Burning Musculoskeletal: Reports: No Symptoms Skin: Reports: Dryness, Rash Neurological: Reports: No Symptoms Psychiatric: Reports: No Symptoms - Patient Data Vitals - Most Recent: Last Vital Signs Temp 97.2 F 03/04/20 07:00 Pulse 93 03/04/20 09:34 Resp 20 03/04/20 07:00 BP 143/93 H 03/04/20 09:34 Pulse Ox 93 L 03/04/20 07:00 Weight - Most Recent: 137.484 kg I&O - Last 24 Hours: Intake & Output 03/03/20 03/04/20 03/04/20 22:59 06:59 14:59 Intake Total 440 520 Balance 440 520 Lab Results Last 24 Hours: Laboratory Results - last 24 hr 03/03/20 03/03/20 03/03/20 Range/Units 12:57 17:08 19:00 WBC (4.0-11.0) K/uL RBC (4.30-5.90) M/uL Hgb (12.0-16.0) g/dL Hct (36.0-46.0) % MCV (80.0-98.0) fL MCH (27.0-32.0) pg MCHC (31.0-37.0) g/dL RDW Std Deviation (28.0-62.0) fl RDW Coeff of Robert (11.0-15.0) % Plt Count (150-400) K/uL MPV (7.40-12.00) fL Neut % (Auto) (48.0-80.0) % Lymph % (Auto) (16.0-40.0) % Sutter % (Auto) (0.0-15.0) % Eos % (Auto) (0.0-7.0) % Baso % (Auto) (0.0-1.5) % Neut # (Auto) (1.4-5.7) K/uL Lymph # (Auto) (0.6-2.4) K/uL Sutter # (Auto) (0.0-0.8) K/uL Eos # (Auto) (0.0-0.7) K/uL Baso # (Auto) (0.0-0.1) K/uL Nucleated RBC % /100WBC Nucleated RBCs # K/uL Sodium (136-145) mmol/L Potassium (3.5-5.1) mmol/L Chloride (98-107) mmol/L Carbon Dioxide (21.0-32.0) mmol/L BUN (7.0-18.0) mg/dL Creatinine (0.6-1.0) mg/dL Est Cr Clr Drug Dosing mL/min Estimated GFR (MDRD) ml/min Glucose (74-106) mg/dL POC Glucose 308 H 256 H (60-110) mg/dL Calcium (8.5-10.1) mg/dL Magnesium (1.8-2.4) mg/dL Urine Color YELLOW Urine Appearance CLEAR Urine pH 6.0 (5.0-8.0) Ur Specific [place] 1.020 (1.001-1.035) Urine Protein 30 H (NEGATIVE) mg/dL Urine Glucose (UA) NEGATIVE (NEGATIVE) mg/dL Urine Ketones NEGATIVE (NEGATIVE) mg/dL Urine Occult Blood TRACE-INTACT H (NEGATIVE) Urine Nitrite NEGATIVE (NEGATIVE) Urine Bilirubin NEGATIVE (NEGATIVE) Urine Urobilinogen 0.2 (<2.0) EU/dL Ur Leukocyte Esterase NEGATIVE (NEGATIVE) Urine RBC 1-2 (0-2/HPF) Urine WBC 0-1 (0-5/HPF) Ur Epithelial Cells RARE (NONE-FEW) Urine Bacteria RARE (NEGATIVE) 03/04/20 03/04/20 03/04/20 Range/Units 05:10 05:10 06:28 WBC 11.52 H (4.0-11.0) K/uL RBC 4.81 (4.30-5.90) M/uL Hgb 14.3 (12.0-16.0) g/dL Hct 48.2 H (36.0-46.0) % MCV 100.2 H (80.0-98.0) fL MCH 29.7 (27.0-32.0) pg MCHC 29.7 L (31.0-37.0) g/dL RDW Std Deviation 55.9 (28.0-62.0) fl RDW Coeff of Robert 15 (11.0-15.0) % Plt Count 188 (150-400) K/uL MPV 10.90 (7.40-12.00) fL Neut % (Auto) 77.2 (48.0-80.0) % Lymph % (Auto) 10.4 L (16.0-40.0) % Sutter % (Auto) 11.9 (0.0-15.0) % Eos % (Auto) 0.4 (0.0-7.0) % Baso % (Auto) 0.1 (0.0-1.5) % Neut # (Auto) 8.9 H (1.4-5.7) K/uL Lymph # (Auto) 1.2 (0.6-2.4) K/uL Sutter # (Auto) 1.4 H (0.0-0.8) K/uL Eos # (Auto) 0.1 (0.0-0.7) K/uL Baso # (Auto) 0.0 (0.0-0.1) K/uL Nucleated RBC % 0.0 /100WBC Nucleated RBCs # 0 K/uL Sodium 144 (136-145) mmol/L Potassium 3.8 (3.5-5.1) mmol/L Chloride 100 (98-107) mmol/L Carbon Dioxide 49.0 H (21.0-32.0) mmol/L BUN 38 H (7.0-18.0) mg/dL Creatinine 1.2 H (0.6-1.0) mg/dL Est Cr Clr Drug Dosing 39.28 mL/min Estimated GFR (MDRD) 44.8 ml/min Glucose 176 H (74-106) mg/dL POC Glucose 153 H (60-110) mg/dL Calcium 8.1 L (8.5-10.1) mg/dL Magnesium 2.0 (1.8-2.4) mg/dL Urine Color Urine Appearance Urine pH (5.0-8.0) Ur Specific [place] (1.001-1.035) Urine Protein (NEGATIVE) mg/dL Urine Glucose (UA) (NEGATIVE) mg/dL Urine Ketones (NEGATIVE) mg/dL Urine Occult Blood (NEGATIVE) Urine Nitrite (NEGATIVE) Urine Bilirubin (NEGATIVE) Urine Urobilinogen (<2.0) EU/dL Ur Leukocyte Esterase (NEGATIVE) Urine RBC (0-2/HPF) Urine WBC (0-5/HPF) Ur Epithelial Cells (NONE-FEW) Urine Bacteria (NEGATIVE) Samuel Results Last 24 Hours: Microbiology 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 Gram Stain - Final Sputum - Expectorated Sputum Culture - Final Normal Respiratory Ema Med Orders - Current: Current Medications Acetaminophen (Tylenol) 325 mg PO Q4H PRN PRN Reason: Pain Last Admin: 03/04/20 06:32 Dose: 325 mg Documented by: Albuterol/Ipratropium (Combivent Respimat) 0 gm INH Q6HRRT [facility] Last Admin: 03/04/20 05:42 Dose: 1 inhalation Documented by: Aspirin (Aspirin) 81 mg PO DAILY [facility] Last Admin: 03/04/20 09:33 Dose: 81 mg Documented by: Atorvastatin Calcium (Lipitor) 40 mg PO BEDTIME [facility] Last Admin: 03/03/20 20:20 Dose: Not Given Documented by: Azithromycin (Zithromax) 500 mg PO Q24H [facility] Last Admin: 03/03/20 12:19 Dose: 500 mg Documented by: Dextrose/Water (Dextrose 50% In Water) 50 ml IV ASDIRECTED PRN PRN Reason: Hypoglycemia Fexofenadine HCl (Diamond) 180 mg PO DAILY [facility] Last Admin: 03/04/20 09:43 Dose: Not Given Documented by: Fluticasone Propionate (Flonase) 0 gm NASBOTH DAILY [facility] Last Admin: 03/04/20 09:40 Dose: 1 spray Documented by: Furosemide (Lasix) 80 mg IVPUSH BID [facility] Last Admin: 03/04/20 09:43 Dose: 80 mg Documented by: Glucagon (Glucagen) 1 mg IM ASDIRECTED PRN PRN Reason: Hypoglycemia Heparin Sodium (Porcine) (Heparin Sodium) 5,000 units SUBCUT Q8H [facility] Last Admin: 03/04/20 09:43 Dose: 5,000 units Documented by: Ceftriaxone Sodium/Dextrose 1 (gm/ Premix) 50 mls @ 100 mls/hr IV Q24H [facility] Last Admin: 03/04/20 09:40 Dose: 100 mls/hr Documented by: Insulin Aspart (Novolog) 0 unit SUBCUT TIDAC [facility]; Protocol Last Admin: 03/04/20 06:33 Dose: Not Given Documented by: Metoprolol Succinate (Toprol Xl) 50 mg PO DAILY [facility] Last Admin: 03/04/20 09:34 Dose: 50 mg Documented by: Nystatin (Nystatin Crm) 1 gm TOP BID [facility] Last Admin: 03/04/20 09:39 Dose: 1 applic Documented by: Ubidecarenone 100 Mg 1 each PO DAILY [facility] Last Admin: 03/04/20 09:39 Dose: 1 each Documented by: Prednisone (Prednisone) 40 mg PO WITHBREAKFAST [facility] Last Admin: 03/04/20 08:02 Dose: 40 mg Documented by: Discontinued Medications Acetaminophen (Tylenol) 650 mg PO Q6H PRN PRN Reason: Pain Last Admin: 02/25/20 13:07 Dose: 650 mg Documented by: Acetazolamide (Diamox) 500 mg PO ONETIME ONE Stop: 03/04/20 09:26 Last Admin: 03/04/20 09:55 Dose: 500 mg Documented by: Albuterol/Ipratropium (Duoneb 3.0-0.5 Mg/3 Ml) 3 ml NEB Q4HRRT PRN PRN Reason: Wheezing Last Admin: 02/22/20 01:53 Dose: 3 ml Documented by: Albuterol/Ipratropium (Duoneb 3.0-0.5 Mg/3 Ml) 3 ml NEB Q6H [facility] Last Admin: 02/22/20 11:25 Dose: 3 ml Documented by: Albuterol/Ipratropium (Duoneb 3.0-0.5 Mg/3 Ml) 3 ml NEB Q6HRRT [facility] Last Admin: 02/25/20 11:18 Dose: Not Given Documented by: Albuterol/Ipratropium (Duoneb 3.0-0.5 Mg/3 Ml) 3 ml NEB Q6HRRT PRN PRN Reason: Dyspnea Last Admin: 02/25/20 19:16 Dose: 3 ml Documented by: Doxycycline Hyclate (Vibramycin) 100 mg PO BID [facility] Last Admin: 02/26/20 09:30 Dose: Not Given Documented by: Fexofenadine HCl (Diamond) 180 mg PO DAILY [facility] Fluticasone Propionate (Flonase) 0 gm NASBOTH Q6H PRN PRN Reason: Congestion Last Admin: 02/26/20 13:25 Dose: 1 spray Documented by: Furosemide (Lasix) 40 mg IVPUSH NOW ONE Stop: 02/22/20 01:06 Last Admin: 02/22/20 02:11 Dose: Not Given Documented by: Furosemide (Lasix) Confirm Administered Dose 40 mg .ROUTE .STK-MED ONE Stop: 02/22/20 01:47 Last Admin: 02/22/20 02:13 Dose: Not Given Documented by: Furosemide (Lasix) 80 mg PO BIDDIURETIC [facility] Last Admin: 02/28/20 15:03 Dose: 80 mg Documented by: Furosemide (Lasix) 40 mg IVPUSH NOW ONE Stop: 02/28/20 20:57 Last Admin: 02/28/20 21:07 Dose: 40 mg Documented by: Sodium Chloride (Normal Saline) 1,000 mls @ 999 mls/hr IV BOLUS ONE Stop: 02/21/20 21:49 Last Admin: 02/21/20 21:23 Dose: Not Given Documented by: Sodium Chloride (Normal Saline) 1,000 mls @ 500 mls/hr IV STAT [facility] Lactated Ringer's (Ringers, Lactated) 500 mls @ 999 mls/hr IV .BOLUS ONE Stop: 02/28/20 10:53 Last Admin: 02/28/20 11:53 Dose: 999 mls/hr Documented by: Azithromycin 500 mg/ Sodium (Chloride) 250 mls @ 250 mls/hr IV DAILY [facility] Last Admin: 03/03/20 10:03 Dose: 250 mls/hr Documented by: Insulin Aspart (Novolog) 0 unit SUBCUT ACBREAKFASTANDBED [facility]; Protocol Last Admin: 02/22/20 09:04 Dose: Not Given Documented by: Insulin Aspart (Novolog) 0 unit SUBCUT TIDAC [facility]; Protocol Last Admin: 03/03/20 19:39 Dose: Not Given Documented by: Lorazepam (Ativan) 0.5 mg IVPUSH ONETIME ONE Stop: 02/21/20 22:20 Last Admin: 02/21/20 22:43 Dose: 0.5 mg Documented by: Lorazepam (Ativan) 0.5 mg IVPUSH ONETIME ONE Stop: 02/21/20 23:33 Last Admin: 02/21/20 23:35 Dose: 0.5 mg Documented by: Lorazepam (Ativan) 0.25 mg PO BID [facility] Methylprednisolone Sodium Succinate (Solu-Medrol) 125 mg IM ONETIME ONE Stop: 02/22/20 01:06 Last Admin: 02/22/20 02:12 Dose: Not Given Documented by: Methylprednisolone Sodium Succinate (Solu-Medrol) 125 mg IVPUSH ONETIME ONE Stop: 02/22/20 02:08 Last Admin: 02/22/20 02:48 Dose: 125 mg Documented by: Methylprednisolone Sodium Succinate (Solu-Medrol) 40 mg IVPUSH Q12H [facility] Last Admin: 03/03/20 01:44 Dose: 40 mg Documented by: Metoprolol Succinate (Toprol Xl) Confirm Administered Dose 50 mg .ROUTE .STK-MED ONE Stop: 02/24/20 15:35 Last Admin: 02/24/20 15:37 Dose: Not Given Documented by: Nystatin (Nystop) 1 gm TOP TID [facility] Last Admin: 02/22/20 15:10 Dose: Not Given Documented by: Ketoconazole 200 Mg 1 each PO DAILY [facility] Last Admin: 03/01/20 09:03 Dose: Not Given Documented by: Patient Own Medication (Ptom) 100 each PO DAILY [facility] Last Admin: 02/23/20 14:24 Dose: Not Given Documented by: Risperidone (Risperidal) 0.5 mg PO BEDTIME [facility] - Exam Quality Assessment: Supplemental Oxygen. No: DVT Prophylaxis (refusing SCDs and heparin) General: Alert, Oriented, Cooperative Neck: Supple Lungs: Decreased Breath Sounds, Rhonchi (improved from yesterday), Other (dyspnea with exertion to sit up but uses pursed lip breathing to increase oxygen). No: Wheezing Cardiovascular: Regular Rate, No Murmurs, Irregular Rhythm GI/Abdominal Exam: Normal Bowel Sounds, Soft, Non-Tender, Other (large obese abdomen) Back Exam: Normal Inspection, Full Range of Motion Extremities: Normal Inspection, Normal Range of Motion, Non-Tender, Pedal Edema (+1 pitting bilaterally, improving.) Wound/Incisions: Healing Well, No Drainage, Erythema Improving, Other (chronic venous stasis changes. ) Psy/Mental Status: Alert, Normal Affect, Normal Mood Sepsis Event Note - Evaluation Sepsis Screening Result: No Definite Risk - Focused Exam Vital Signs: Vital Signs Temp Pulse Pulse Pulse Resp BP BP 03/04/20 09:34 93 143/93 H 03/04/20 07:00 97.2 F 81 20 138/87 03/04/20 03:00 97.2 F 83 19 152/89 H 03/03/20 23:55 97.0 F 85 22 H 138/72 Pulse Ox 03/04/20 09:34 03/04/20 07:00 93 L 03/04/20 03:00 95 03/03/20 23:55 96 - Problem List & Annotations (1) Acute and chronic respiratory failure with hypercapnia SNOMED Code(s): 2282355524332 Code(s): J96.22 - ACUTE AND CHRONIC RESPIRATORY FAILURE WITH HYPERCAPNIA Status: Acute Current Visit: Yes (2) Acute and chronic respiratory failure with hypoxia SNOMED Code(s): 91233938, 826945843 Code(s): J96.21 - ACUTE AND CHRONIC RESPIRATORY FAILURE WITH HYPOXIA Status: Acute Current Visit: Yes (3) CHF (congestive heart failure) SNOMED Code(s): 50527331 Code(s): I50.9 - HEART FAILURE, UNSPECIFIED Status: Acute Current Visit: Yes Qualifiers: Heart failure type: unspecified Heart failure chronicity: acute on chronic Qualified Code(s): I50.9 - Heart failure, unspecified (4) Cellulitis SNOMED Code(s): 322518454 Code(s): L03.90 - CELLULITIS, UNSPECIFIED Status: Acute Current Visit: Yes (5) Atrial fibrillation SNOMED Code(s): 67539884 Code(s): I48.91 - UNSPECIFIED ATRIAL FIBRILLATION Status: Chronic Current Visit: Yes (6) Hospital-acquired pneumonia SNOMED Code(s): 816649217 Code(s): J18.9 - PNEUMONIA, UNSPECIFIED ORGANISM Status: Acute Current Visit: No (7) LEONILA (obstructive sleep apnea) SNOMED Code(s): 22684790 Code(s): G47.33 - OBSTRUCTIVE SLEEP APNEA (ADULT) (PEDIATRIC) Status: Chronic Current Visit: Yes (8) CHF (congestive heart failure) SNOMED Code(s): 24079500 Code(s): I50.9 - HEART FAILURE, UNSPECIFIED Status: Chronic Priority: High Current Visit: No Qualifiers: Heart failure type: combined systolic and diastolic Heart failure chronicity: acute on chronic Qualified Code(s): I50.43 - Acute on chronic combined systolic (congestive) and diastolic (congestive) heart failure (9) Diabetes mellitus SNOMED Code(s): 05775929 Code(s): E11.9 - TYPE 2 DIABETES MELLITUS WITHOUT COMPLICATIONS Status: Chronic Priority: High Current Visit: No Qualifiers: Diabetes mellitus type: type 2 Diabetes mellitus shop assistant insulin use: with shop assistant use Diabetes mellitus complication status: with unspecified complications (10) Hypertension SNOMED Code(s): 24705898 Code(s): I10 - ESSENTIAL (PRIMARY) HYPERTENSION Status: Chronic Priority: High Current Visit: No Qualifiers: Hypertension type: essential hypertension Qualified Code(s): I10 - Essential (primary) hypertension (11) Medical non-compliance SNOMED Code(s): 780023307 Code(s): Z91.19 - PATIENT'S NONCOMPLIANCE W OTH MEDICAL TREATMENT AND REGIMEN Status: Acute Priority: High Current Visit: No (12) Morbidly obese SNOMED Code(s): 777999871 Code(s): E66.01 - MORBID (SEVERE) OBESITY DUE TO EXCESS CALORIES Status: Chronic Priority: Medium Current Visit: No - Problem List Review Problem List Initiated/Reviewed/Updated: Yes - My Orders Last 24 Hours: My Active Orders 03/03/20 11:30 Insulin Aspart [NovoLOG] See Protocol SUBCUT TIDAC 03/03/20 12:00 Azithromycin [Zithromax] 500 mg PO Q24H Fluticasone Propionate [Flonase] See Dose Instructions NASBOTH DAILY 03/03/20 12:14 Daily Weight [Height and Weight] [RC] DAILY 03/03/20 13:46 Echo Comp wo Cont [US] Urgent 03/03/20 13:55 RT Incentive Spirometry [RC] Q1HWA RT Flutter Valve Therapy [RT Acapella] [RESPCARE] Routine 03/04/20 08:00 predniSONE 40 mg PO WITHBREAKFAST 03/05/20 05:11 BASIC METABOLIC PANEL,BMP [CHEM] AM CBC WITH AUTO DIFF [HEME] AM MAGNESIUM [CHEM] AM 03/06/20 05:11 BASIC METABOLIC PANEL,BMP [CHEM] AM CBC WITH AUTO DIFF [HEME] AM MAGNESIUM [CHEM] AM - Plan Plan:: 69 yo female admitted with acute on chronic hypercapnic,hypoxic respiratory failure. 1. Acute on chronic hypoxic hypercapnic respiratory failure/LEONILA/ [facility]/ Pulmonary HTN -Continues to use BiPAP at night, tolerating well. Declines wanting sleep study, feels she doesn't need this. -During the day she is on high flow nasal cannula 5-6 L keeping sats 88% on above. Attempt to wean to home dosing -Increase pulmonary toilet with I-S and flutter use. -Encouraged to get up and ambulating even if distances are small to begin with. -Continue azithromycin and Rocephin for possible community-acquired pneumonia. -Continue IV Lasix 80 mg IV twice daily for diuresis 2. CHF: - Suspected -will order Echo, will be difficult because of body habitus -Would recommend outpatient echo with contrast -Continue diuresis with Lasix 80 mg IV twice daily - Bicarb continues to increase, likely mixed picture of chronic retention and contraction alkalosis from diuresis, will give x1 dose Acetazolamide 500 mg and recheck labs in am. -Strict I's and O's, daily weight, 2 L fluid restriction and low-salt diet -Encourage elevation of legs to help with peripheral edema. 3. A. fib - Continue Aspirin - Encouraged to take Metoprolol for rate control. - Refusing anticoagulation for stroke prevention. 4. Peripheral edema/cellulitis: - Improvement. -+1 pitting edema bilaterally with chronic venous stasis changes and dry peeling skin -Open wound noted to left lateral [place] that is dry and healing 5. Generalized weakness - Re-consult PT, patient more compliant with working with them today. - Continue encourage getting out of bed with meals 3 times a day and ambulating as much as she can to increase endurance and conditioning VTE prophylaxis: Heparin, which she is refusing. 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 Sandy, case manager spoke with [facility]. Kristin is able to get help from them, she has to supply bank statement, then she would qualify for assistnace with bathing, housework and help with medications. Had very jaime discussion this morning about oxygen use and why she is needing it. She feels she can come off it, which is unrealistic. Her goal should be to get back to 4 L NC baseline and take medications as prescribed to be medically stable and managed. She expressed she wants nothing to do with medication once she leaves here. Again, re-iterated that without medical treatment her situation and prognosis is very grave.
[2020-03-04] MEDS: Azithromycin 250 MG Tab PO SCH (11:56)
[2020-03-04] MEDS: atorvaSTATin 40 MG Tab PO SCH (20:04)
[2020-03-05] MEDS: Heparin Sodium 5,000 Units/ML Vial SUBCUT SCH ×3 (01:44→17:47)
[2020-03-05] MEDS: Albuterol/Ipratropium 4 GM Inhalation Spray INH SCH ×5 (01:45→23:47)
[2020-03-05] MEDS: Acetaminophen 325 MG Tab PO PRN ×5 (02:50→23:38)
[2020-03-05 05:58] LABS: CARBON DIOXIDE,CO2 39.7 mmol/L (21.0-32.0); POTASSIUM,K 3.7 mmol/L (3.5-5.1)
[2020-03-05] MEDS: Insulin Aspart 100 Units/ML 3 ML Pen SUBCUT SCH ×3 (08:41→18:16)
[2020-03-05] MEDS: Furosemide 40 MG/4 ML VIAL IVPUSH SCH ×2 (08:45→21:46)
[2020-03-05] MEDS: predniSONE 20 MG Tab PO SCH (08:46)
--- NOTE | 2020-03-05 08:47 | PCM.PN ---
- General Info Date of Service: 03/05/20 Admission Dx/Problem (Free Text): Admission Diagnosis/Problem Admission Diagnosis/Problem Respiratory failure Subjective Update: Sleeping this morning. Denies chest pain or SOB currently. Reports she is just tired this morning not ready to wake up. Reports she is nervous to start working with PT due to previous back surgeries and doesn't want to be pushed too hard. We discussed she MUST get moving, may need to start slow but to get her home we need to start making forward movement. She denies chest pain or SOB not. No other complaints. Functional Status: Reports: Pain Controlled, Tolerating Diet, Urinating. Denies: Ambulating - Review of Systems General: Reports: Weakness (generalized) HEENT: Reports: No Symptoms. Denies: Headaches Pulmonary: Reports: Shortness of Breath Cardiovascular: Reports: Dyspnea on Exertion, Edema (much improved) Gastrointestinal: Reports: No Symptoms. Denies: Abdominal Pain, Nausea, Vomiting Genitourinary: Reports: No Symptoms. Denies: Dysuria, Frequency Musculoskeletal: Reports: Back Pain (chronic) Skin: Reports: No Symptoms Neurological: Reports: No Symptoms. Denies: Confusion, Dizziness Psychiatric: Reports: No Symptoms. Denies: Confusion, Depression - Patient Data Vitals - Most Recent: Last Vital Signs Temp 96.8 F L 03/05/20 08:33 Pulse 78 03/05/20 08:33 Resp 20 03/05/20 08:33 BP 142/61 H 03/05/20 08:33 Pulse Ox 95 03/05/20 08:33 Weight - Most Recent: 131.496 kg I&O - Last 24 Hours: Intake & Output 03/04/20 03/05/20 03/05/20 22:59 06:59 14:59 Intake Total 540 400 Balance 540 400 Lab Results Last 24 Hours: Laboratory Results - last 24 hr 03/04/20 03/04/20 03/05/20 Range/Units 11:16 17:22 05:18 WBC 12.55 H (4.0-11.0) K/uL RBC 4.96 (4.30-5.90) M/uL Hgb 14.8 (12.0-16.0) g/dL Hct 49.2 H (36.0-46.0) % MCV 99.2 H (80.0-98.0) fL MCH 29.8 (27.0-32.0) pg MCHC 30.1 L (31.0-37.0) g/dL RDW Std Deviation 55.6 (28.0-62.0) fl RDW Coeff of Robert 15 (11.0-15.0) % Plt Count 177 (150-400) K/uL MPV 10.70 (7.40-12.00) fL Neut % (Auto) 76.9 (48.0-80.0) % Lymph % (Auto) 11.4 L (16.0-40.0) % Delta % (Auto) 11.1 (0.0-15.0) % Eos % (Auto) 0.5 (0.0-7.0) % Baso % (Auto) 0.1 (0.0-1.5) % Neut # (Auto) 9.7 H (1.4-5.7) K/uL Lymph # (Auto) 1.4 (0.6-2.4) K/uL Delta # (Auto) 1.4 H (0.0-0.8) K/uL Eos # (Auto) 0.1 (0.0-0.7) K/uL Baso # (Auto) 0.0 (0.0-0.1) K/uL Nucleated RBC % 0.0 /100WBC Nucleated RBCs # 0 K/uL Sodium (136-145) mmol/L Potassium (3.5-5.1) mmol/L Chloride (98-107) mmol/L Carbon Dioxide (21.0-32.0) mmol/L BUN (7.0-18.0) mg/dL Creatinine (0.6-1.0) mg/dL Est Cr Clr Drug Dosing mL/min Estimated GFR (MDRD) ml/min Glucose (74-106) mg/dL POC Glucose 231 H 310 H (60-110) mg/dL Calcium (8.5-10.1) mg/dL Magnesium (1.8-2.4) mg/dL 03/05/20 03/05/20 Range/Units 05:18 05:51 WBC (4.0-11.0) K/uL RBC (4.30-5.90) M/uL Hgb (12.0-16.0) g/dL Hct (36.0-46.0) % MCV (80.0-98.0) fL MCH (27.0-32.0) pg MCHC (31.0-37.0) g/dL RDW Std Deviation (28.0-62.0) fl RDW Coeff of Robert (11.0-15.0) % Plt Count (150-400) K/uL MPV (7.40-12.00) fL Neut % (Auto) (48.0-80.0) % Lymph % (Auto) (16.0-40.0) % Delta % (Auto) (0.0-15.0) % Eos % (Auto) (0.0-7.0) % Baso % (Auto) (0.0-1.5) % Neut # (Auto) (1.4-5.7) K/uL Lymph # (Auto) (0.6-2.4) K/uL Delta # (Auto) (0.0-0.8) K/uL Eos # (Auto) (0.0-0.7) K/uL Baso # (Auto) (0.0-0.1) K/uL Nucleated RBC % /100WBC Nucleated RBCs # K/uL Sodium 141 (136-145) mmol/L Potassium 3.7 (3.5-5.1) mmol/L Chloride 101 (98-107) mmol/L Carbon Dioxide 39.7 H (21.0-32.0) mmol/L BUN 39 H (7.0-18.0) mg/dL Creatinine 1.1 H (0.6-1.0) mg/dL Est Cr Clr Drug Dosing 42.85 mL/min Estimated GFR (MDRD) 49.5 ml/min Glucose 191 H (74-106) mg/dL POC Glucose 174 H (60-110) mg/dL Calcium 8.0 L (8.5-10.1) mg/dL Magnesium 2.2 (1.8-2.4) mg/dL Samuel Results Last 24 Hours: Microbiology 03/02/20 01:10 MARKETING SERVICES SPECIALIST Gram Stain - Final Sputum - Expectorated Sputum Culture - Final Normal Respiratory Ema Med Orders - Current: Current Medications Acetaminophen (Tylenol) 325 mg PO Q4H PRN PRN Reason: Pain Last Admin: 03/05/20 02:50 Dose: 325 mg Documented by: Albuterol/Ipratropium (Combivent Respimat) 0 gm INH Q6HRRT [facility] Last Admin: 03/05/20 06:25 Dose: 1 puff Documented by: Aspirin (Aspirin) 81 mg PO DAILY [facility] Last Admin: 03/04/20 09:33 Dose: 81 mg Documented by: Atorvastatin Calcium (Lipitor) 40 mg PO BEDTIME [facility] Last Admin: 03/04/20 20:04 Dose: 40 mg Documented by: Azithromycin (Zithromax) 500 mg PO Q24H [facility] Last Admin: 03/04/20 11:56 Dose: 500 mg Documented by: Dextrose/Water (Dextrose 50% In Water) 50 ml IV ASDIRECTED PRN PRN Reason: Hypoglycemia Fexofenadine HCl (Diamond) 180 mg PO DAILY [facility] Last Admin: 03/04/20 09:43 Dose: Not Given Documented by: Fluticasone Propionate (Flonase) 0 gm NASBOTH DAILY [facility] Last Admin: 03/04/20 09:40 Dose: 1 spray Documented by: Furosemide (Lasix) 80 mg IVPUSH BID [facility] Last Admin: 03/04/20 20:04 Dose: 80 mg Documented by: Glucagon (Glucagen) 1 mg IM ASDIRECTED PRN PRN Reason: Hypoglycemia Heparin Sodium (Porcine) (Heparin Sodium) 5,000 units SUBCUT Q8H [facility] Last Admin: 03/05/20 01:44 Dose: 5,000 units Documented by: Ceftriaxone Sodium/Dextrose 1 (gm/ Premix) 50 mls @ 100 mls/hr IV Q24H [facility] Last Admin: 03/04/20 09:40 Dose: 100 mls/hr Documented by: Insulin Aspart (Novolog) 0 unit SUBCUT TIDAC [facility]; Protocol Last Admin: 03/04/20 17:24 Dose: 8 units Documented by: Metoprolol Succinate (Toprol Xl) 50 mg PO DAILY [facility] Last Admin: 03/04/20 09:34 Dose: 50 mg Documented by: Nystatin (Nystatin Crm) 1 gm TOP BID [facility] Last Admin: 03/04/20 20:11 Dose: 1 applic Documented by: Ubidecarenone 100 Mg 1 each PO DAILY [facility] Last Admin: 03/04/20 09:39 Dose: 1 each Documented by: Prednisone (Prednisone) 40 mg PO WITHBREAKFAST [facility] Last Admin: 03/04/20 08:02 Dose: 40 mg Documented by: Discontinued Medications Acetaminophen (Tylenol) 650 mg PO Q6H PRN PRN Reason: Pain Last Admin: 02/25/20 13:07 Dose: 650 mg Documented by: Acetazolamide (Diamox) 500 mg PO ONETIME ONE Stop: 03/04/20 09:26 Last Admin: 03/04/20 09:55 Dose: 500 mg Documented by: Albuterol/Ipratropium (Duoneb 3.0-0.5 Mg/3 Ml) 3 ml NEB Q4HRRT PRN PRN Reason: Wheezing Last Admin: 02/22/20 01:53 Dose: 3 ml Documented by: Albuterol/Ipratropium (Duoneb 3.0-0.5 Mg/3 Ml) 3 ml NEB Q6H JESSEE Last Admin: 02/22/20 11:25 Dose: 3 ml Documented by: Albuterol/Ipratropium (Duoneb 3.0-0.5 Mg/3 Ml) 3 ml NEB Q6HRRT JESSEE Last Admin: 02/25/20 11:18 Dose: Not Given Documented by: Albuterol/Ipratropium (Duoneb 3.0-0.5 Mg/3 Ml) 3 ml NEB Q6HRRT PRN PRN Reason: Dyspnea Last Admin: 02/25/20 19:16 Dose: 3 ml Documented by: Doxycycline Hyclate (Vibramycin) 100 mg PO BID [facility] Last Admin: 02/26/20 09:30 Dose: Not Given Documented by: Fexofenadine HCl (Diamond) 180 mg PO DAILY [facility] Fluticasone Propionate (Flonase) 0 gm NASBOTH Q6H PRN PRN Reason: Congestion Last Admin: 02/26/20 13:25 Dose: 1 spray Documented by: Furosemide (Lasix) 40 mg IVPUSH NOW ONE Stop: 02/22/20 01:06 Last Admin: 02/22/20 02:11 Dose: Not Given Documented by: Furosemide (Lasix) Confirm Administered Dose 40 mg .ROUTE .STK-MED ONE Stop: 02/22/20 01:47 Last Admin: 02/22/20 02:13 Dose: Not Given Documented by: Furosemide (Lasix) 80 mg PO BIDDIURETIC [facility] Last Admin: 02/28/20 15:03 Dose: 80 mg Documented by: Furosemide (Lasix) 40 mg IVPUSH NOW ONE Stop: 02/28/20 20:57 Last Admin: 02/28/20 21:07 Dose: 40 mg Documented by: Sodium Chloride (Normal Saline) 1,000 mls @ 999 mls/hr IV BOLUS ONE Stop: 02/21/20 21:49 Last Admin: 02/21/20 21:23 Dose: Not Given Documented by: Sodium Chloride (Normal Saline) 1,000 mls @ 500 mls/hr IV STAT JESSEE Lactated Ringer's (Ringers, Lactated) 500 mls @ 999 mls/hr IV .BOLUS ONE Stop: 02/28/20 10:53 Last Admin: 02/28/20 11:53 Dose: 999 mls/hr Documented by: Azithromycin 500 mg/ Sodium (Chloride) 250 mls @ 250 mls/hr IV DAILY JESSEE Last Admin: 03/03/20 10:03 Dose: 250 mls/hr Documented by: Insulin Aspart (Novolog) 0 unit SUBCUT ACBREAKFASTANDBED [facility]; Protocol Last Admin: 02/22/20 09:04 Dose: Not Given Documented by: Insulin Aspart (Novolog) 0 unit SUBCUT TIDAC [facility]; Protocol Last Admin: 03/03/20 19:39 Dose: Not Given Documented by: Lorazepam (Ativan) 0.5 mg IVPUSH ONETIME ONE Stop: 02/21/20 22:20 Last Admin: 02/21/20 22:43 Dose: 0.5 mg Documented by: Lorazepam (Ativan) 0.5 mg IVPUSH ONETIME ONE Stop: 02/21/20 23:33 Last Admin: 02/21/20 23:35 Dose: 0.5 mg Documented by: Lorazepam (Ativan) 0.25 mg PO BID JESSEE Methylprednisolone Sodium Succinate (Solu-Medrol) 125 mg IM ONETIME ONE Stop: 02/22/20 01:06 Last Admin: 02/22/20 02:12 Dose: Not Given Documented by: Methylprednisolone Sodium Succinate (Solu-Medrol) 125 mg IVPUSH ONETIME ONE Stop: 02/22/20 02:08 Last Admin: 02/22/20 02:48 Dose: 125 mg Documented by: Methylprednisolone Sodium Succinate (Solu-Medrol) 40 mg IVPUSH Q12H [facility] Last Admin: 03/03/20 01:44 Dose: 40 mg Documented by: Metoprolol Succinate (Toprol Xl) Confirm Administered Dose 50 mg .ROUTE .STK-MED ONE Stop: 02/24/20 15:35 Last Admin: 02/24/20 15:37 Dose: Not Given Documented by: Nystatin (Nystop) 1 gm TOP TID [facility] Last Admin: 02/22/20 15:10 Dose: Not Given Documented by: Ketoconazole 200 Mg 1 each PO DAILY [facility] Last Admin: 03/01/20 09:03 Dose: Not Given Documented by: Patient Own Medication (Ptom) 100 each PO DAILY [facility] Last Admin: 02/23/20 14:24 Dose: Not Given Documented by: Risperidone (Risperidal) 0.5 mg PO BEDTIME JESSEE - Exam Quality Assessment: Supplemental Oxygen. No: DVT Prophylaxis (refusing) General: Alert, Oriented, Cooperative, No Acute Distress Lungs: Normal Respiratory Effort, Decreased Breath Sounds, Rales Cardiovascular: Regular Rate, No Murmurs, Irregular Rhythm. No: Tachycardia GI/Abdominal Exam: Normal Bowel Sounds, Soft, Other (obese abdomen) Extremities: Normal Inspection, Normal Range of Motion, Non-Tender, Pedal Edema (+1 and contnues to improve daily) Skin: Warm, Dry, Other (peeling skin to bilateral lower legs. ) Wound/Incisions: Healing Well, No Drainage, Erythema Improving Neurological: No New Focal Deficit Psy/Mental Status: Alert, Normal Affect, Normal Mood Sepsis Event Note - Evaluation Sepsis Screening Result: No Definite Risk - Focused Exam Vital Signs: Vital Signs Temp Pulse Resp BP Pulse Ox 03/05/20 08:33 96.8 F L 78 20 142/61 H 95 03/05/20 05:53 98.1 F 72 20 160/89 H 95 - Problem List & Annotations (1) Acute and chronic respiratory failure with hypercapnia SNOMED Code(s): 2125779767342 Code(s): J96.22 - ACUTE AND CHRONIC RESPIRATORY FAILURE WITH HYPERCAPNIA Status: Acute Current Visit: Yes (2) Acute and chronic respiratory failure with hypoxia SNOMED Code(s): 02573767, 923512520 Code(s): J96.21 - ACUTE AND CHRONIC RESPIRATORY FAILURE WITH HYPOXIA Status: Acute Current Visit: Yes (3) CHF (congestive heart failure) SNOMED Code(s): 65083661 Code(s): I50.9 - HEART FAILURE, UNSPECIFIED Status: Acute Current Visit: Yes Qualifiers: Heart failure type: unspecified Heart failure chronicity: acute on chronic Qualified Code(s): I50.9 - Heart failure, unspecified (4) Cellulitis SNOMED Code(s): 091464230 Code(s): L03.90 - CELLULITIS, UNSPECIFIED Status: Resolved Current Visit: Yes (5) Atrial fibrillation SNOMED Code(s): 41629338 Code(s): I48.91 - UNSPECIFIED ATRIAL FIBRILLATION Status: Chronic Current Visit: Yes (6) Hospital-acquired pneumonia SNOMED Code(s): 266359539 Code(s): J18.9 - PNEUMONIA, UNSPECIFIED ORGANISM Status: Resolved Current Visit: No (7) LEONILA (obstructive sleep apnea) SNOMED Code(s): 73244753 Code(s): G47.33 - OBSTRUCTIVE SLEEP APNEA (ADULT) (PEDIATRIC) Status: Chronic Current Visit: Yes (8) CHF (congestive heart failure) SNOMED Code(s): 90345188 Code(s): I50.9 - HEART FAILURE, UNSPECIFIED Status: Chronic Priority: High Current Visit: No Qualifiers: Heart failure type: combined systolic and diastolic Heart failure chronicity: acute on chronic Qualified Code(s): I50.43 - Acute on chronic combined systolic (congestive) and diastolic (congestive) heart failure (9) Diabetes mellitus SNOMED Code(s): 65507715 Code(s): E11.9 - TYPE 2 DIABETES MELLITUS WITHOUT COMPLICATIONS Status: Chronic Priority: High Current Visit: No Qualifiers: Diabetes mellitus type: type 2 Diabetes mellitus usp insulin use: with usp use Diabetes mellitus complication status: with unspecified complications (10) Hypertension SNOMED Code(s): 60153269 Code(s): I10 - ESSENTIAL (PRIMARY) HYPERTENSION Status: Chronic Priority: High Current Visit: No Qualifiers: Hypertension type: essential hypertension Qualified Code(s): I10 - Essential (primary) hypertension (11) Medical non-compliance SNOMED Code(s): 888282586 Code(s): Z91.19 - PATIENT'S NONCOMPLIANCE W OTH MEDICAL TREATMENT AND REGIMEN Status: Acute Priority: High Current Visit: No (12) Morbidly obese SNOMED Code(s): 820025036 Code(s): E66.01 - MORBID (SEVERE) OBESITY DUE TO EXCESS CALORIES Status: Chronic Priority: Medium Current Visit: No - Problem List Review Problem List Initiated/Reviewed/Updated: Yes - My Orders Last 24 Hours: My Active Orders 03/04/20 08:00 predniSONE 40 mg PO WITHBREAKFAST 03/04/20 11:18 Consult to Physical Therapy [PT Evaluation and Treatment] [CONS] Routine 03/06/20 05:11 BASIC METABOLIC PANEL,BMP [CHEM] AM CBC WITH AUTO DIFF [HEME] AM MAGNESIUM [CHEM] AM - Plan Plan:: 69 yo female admitted with acute on chronic hypercapnic,hypoxic respiratory failure. 1. Acute on chronic hypoxic hypercapnic respiratory failure/LEONILA/ [facility]/ Pulmonary HTN - Continues to use BiPAP at night, tolerating well. Declines wanting sleep study, feels she doesn't need this. - During the day she is on high flow nasal cannula 5 keeping sats 88% and above. Attempt to wean to home dosing of 4 L - Continue pulmonary toilet with IS and flutter use. - Encouraged to get up and ambulating even if distances are small to begin with. - Discontinue azithromycin and Rocephin, She has been fully treated with 7 days Azithromycin and 12 days Rocephin - Continue IV Lasix 80 mg IV twice daily for diuresis - Prednisone 40 mg daily x 3 more doses then start taper 2. CHF: - Suspected - Echo pending, will be difficult because of body habitus - Would recommend outpatient echo with contrast - Continue diuresis with Lasix 80 mg IV twice daily - Bicarb improved with Acetazolamide 500 mg, Bicarb back to near baseline high 30s - Strict I's and O's, daily weight, 2 L fluid restriction and low-salt diet - Encourage elevation of legs to help with peripheral edema. 3. A. fib - Continue Aspirin - Compliant with Metoprolol for rate control. - Refusing anticoagulation for stroke prevention. - Supplemented potassium to keep K above 4 and Mg stable 2.2 Goal: K+ 4.0 and Mg 2.0 4. Peripheral edema/cellulitis: - significant improvement today. -+1 pitting edema bilaterally with chronic venous stasis changes and dry peeling skin - Open wound noted to left lateral hidalgo that is dry and healing - DC antibiotics, she is fully treated for cellulitis 5. Generalized weakness - Re-consult PT, patient more compliant with working with them today. - Continue encourage getting out of bed with meals 3 times a day and ambulating as much as she can to increase endurance and conditioning VTE prophylaxis: Heparin, which she is refusing. SCDs and ambulation Dispo: 2 to 3 days, case management has been in contact with her rubber goods supervisor and Adult Protective Services. Sandy, business case analyst spoke with Faustino. Next available home assessment will be 03/14 for community and home based resources through human services.
[2020-03-05] MEDS: cefTRIAXone 1 GM in Premix Bag 1 BAG IV SCH (08:50)
[2020-03-05] MEDS: Aspirin 81 MG Tab.Chew PO SCH (08:55)
[2020-03-05] MEDS: Metoprolol Succinate 50 MG Tab.ER PO SCH (08:56)
[2020-03-05] MEDS ORDERED: Potassium Chloride 20 MEQ Tab.ER PO ONE (08:57)
[2020-03-05] MEDS: Nystatin Crm 30 GM Tube TOP SCH ×2 (09:00→21:46)
[2020-03-05] MEDS: Fluticasone Propionate Nasal Spray 16 GM Bottle NASBOTH SCH (09:00)
[2020-03-05] MEDS: hydrALAZINE 25 MG Tab PO SCH ×2 (13:07→21:46)
[2020-03-05] MEDS: Isosorbide Dinitrate 10 MG Tab PO SCH ×2 (13:07→17:46)
[2020-03-05] MEDS: atorvaSTATin 40 MG Tab PO SCH (21:46)
--- NOTE | 2020-03-05 23:47 | US ---
INDICATION: Left leg pain TECHNIQUE: Ultrasound venous duplex lower left extremity. Compression venous exam was performed using foss-scale, color Doppler, and spectral Doppler analysis. COMPARISON: Bilateral lower extremity ultrasound 02/22/2020 FINDINGS: Sonographic imaging demonstrates the left common femoral, deep femoral, superficial femoral, popliteal, posterior tibial and greater saphenous and the contralateral right common femoral veins to be fully compressible with normal color Doppler blood flow. IMPRESSION: Normal left lower extremity venous ultrasound, no sign of deep venous thrombosis. Dictated by Esteban Ware MD @ Mar 05 2020 11:44PM Signed by Dr. Esteban Ware @ Mar 05 2020 11:46PM
[2020-03-06] MEDS: Heparin Sodium 5,000 Units/ML Vial SUBCUT SCH ×3 (01:39→16:45)
[2020-03-06 05:41] LABS: CARBON DIOXIDE,CO2 40.3 mmol/L (21.0-32.0); POTASSIUM,K 3.8 mmol/L (3.5-5.1)
[2020-03-06] MEDS: Acetaminophen 325 MG Tab PO PRN ×4 (05:50→20:40)
[2020-03-06] MEDS: hydrALAZINE 25 MG Tab PO SCH ×3 (05:50→21:08)
[2020-03-06] MEDS: Albuterol/Ipratropium 4 GM Inhalation Spray INH SCH ×3 (06:03→17:00)
[2020-03-06] MEDS: Insulin Aspart 100 Units/ML 3 ML Pen SUBCUT SCH ×3 (07:37→17:36)
[2020-03-06] MEDS: Isosorbide Dinitrate 10 MG Tab PO SCH ×3 (08:00→17:38)
[2020-03-06] MEDS: predniSONE 20 MG Tab PO SCH (08:01)
[2020-03-06] MEDS: Metoprolol Succinate 50 MG Tab.ER PO SCH (08:02)
[2020-03-06] MEDS: Aspirin 81 MG Tab.Chew PO SCH (08:02)
[2020-03-06] MEDS: Nystatin Crm 30 GM Tube TOP SCH ×2 (08:25→21:10)
[2020-03-06] MEDS: Fluticasone Propionate Nasal Spray 16 GM Bottle NASBOTH SCH (08:26)
[2020-03-06] MEDS: Furosemide 40 MG/4 ML VIAL IVPUSH SCH (08:26)
--- NOTE | 2020-03-06 11:40 | PCM.PN ---
- General Info Date of Service: 03/06/20 Admission Dx/Problem (Free Text): Admission Diagnosis/Problem Admission Diagnosis/Problem Respiratory failure Subjective Update: Continues to do ok. Reporting leg pain after trying to get up yesterday. No chest pain or SOB. Concerned about going home when she doesn't have help set up yet. Spoke with her that she needs to arrange this as she is nearing medical stability and baseline ambulation. Functional Status: Reports: Pain Controlled, Tolerating Diet, Urinating. Denies: Ambulating - Review of Systems General: Reports: Weakness (generalized) HEENT: Reports: No Symptoms. Denies: Headaches, Sinus Congestion, Sore Throat, Visual Changes Pulmonary: Reports: Shortness of Breath. Denies: Cough, Sputum Cardiovascular: Reports: Dyspnea on Exertion, Edema. Denies: Chest Pain, Palpitations Gastrointestinal: Reports: No Symptoms. Denies: Abdominal Pain, Melena, Vomiting Genitourinary: Reports: No Symptoms. Denies: Dysuria, Frequency Musculoskeletal: Reports: No Symptoms Skin: Reports: No Symptoms Neurological: Reports: No Symptoms Psychiatric: Reports: No Symptoms - Patient Data Vitals - Most Recent: Last Vital Signs Temp 97 F 03/06/20 11:22 Pulse 85 03/06/20 11:22 Resp 23 H 03/06/20 11:22 BP 133/65 03/06/20 11:22 Pulse Ox 93 L 03/06/20 11:22 Weight - Most Recent: 131.496 kg I&O - Last 24 Hours: Intake & Output 03/05/20 03/06/20 03/06/20 22:59 06:59 14:59 Intake Total 680 650 Balance 680 650 Lab Results Last 24 Hours: Laboratory Results - last 24 hr 03/05/20 03/05/20 03/06/20 Range/Units 12:19 18:14 04:53 WBC 13.91 H (4.0-11.0) K/uL RBC 4.84 (4.30-5.90) M/uL Hgb 14.2 (12.0-16.0) g/dL Hct 48.0 H (36.0-46.0) % MCV 99.2 H (80.0-98.0) fL MCH 29.3 (27.0-32.0) pg MCHC 29.6 L (31.0-37.0) g/dL RDW Std Deviation 56.1 (28.0-62.0) fl RDW Coeff of Robert 16 H (11.0-15.0) % Plt Count 198 (150-400) K/uL MPV 11.30 (7.40-12.00) fL Neut % (Auto) 77.5 (48.0-80.0) % Lymph % (Auto) 10.9 L (16.0-40.0) % Stoddard % (Auto) 10.9 (0.0-15.0) % Eos % (Auto) 0.6 (0.0-7.0) % Baso % (Auto) 0.1 (0.0-1.5) % Neut # (Auto) 10.8 H (1.4-5.7) K/uL Lymph # (Auto) 1.5 (0.6-2.4) K/uL Stoddard # (Auto) 1.5 H (0.0-0.8) K/uL Eos # (Auto) 0.1 (0.0-0.7) K/uL Baso # (Auto) 0.0 (0.0-0.1) K/uL Nucleated RBC % 0.0 /100WBC Nucleated RBCs # 0 K/uL Sodium (136-145) mmol/L Potassium (3.5-5.1) mmol/L Chloride (98-107) mmol/L Carbon Dioxide (21.0-32.0) mmol/L BUN (7.0-18.0) mg/dL Creatinine (0.6-1.0) mg/dL Est Cr Clr Drug Dosing mL/min Estimated GFR (MDRD) ml/min Glucose (74-106) mg/dL POC Glucose 257 H 310 H (60-110) mg/dL Calcium (8.5-10.1) mg/dL Magnesium (1.8-2.4) mg/dL 03/06/20 03/06/20 03/06/20 Range/Units 04:53 06:26 10:32 WBC (4.0-11.0) K/uL RBC (4.30-5.90) M/uL Hgb (12.0-16.0) g/dL Hct (36.0-46.0) % MCV (80.0-98.0) fL MCH (27.0-32.0) pg MCHC (31.0-37.0) g/dL RDW Std Deviation (28.0-62.0) fl RDW Coeff of Robert (11.0-15.0) % Plt Count (150-400) K/uL MPV (7.40-12.00) fL Neut % (Auto) (48.0-80.0) % Lymph % (Auto) (16.0-40.0) % Stoddard % (Auto) (0.0-15.0) % Eos % (Auto) (0.0-7.0) % Baso % (Auto) (0.0-1.5) % Neut # (Auto) (1.4-5.7) K/uL Lymph # (Auto) (0.6-2.4) K/uL Stoddard # (Auto) (0.0-0.8) K/uL Eos # (Auto) (0.0-0.7) K/uL Baso # (Auto) (0.0-0.1) K/uL Nucleated RBC % /100WBC Nucleated RBCs # K/uL Sodium 143 (136-145) mmol/L Potassium 3.8 (3.5-5.1) mmol/L Chloride 103 (98-107) mmol/L Carbon Dioxide 40.3 H (21.0-32.0) mmol/L BUN 40 H (7.0-18.0) mg/dL Creatinine 1.2 H (0.6-1.0) mg/dL Est Cr Clr Drug Dosing 39.28 mL/min Estimated GFR (MDRD) 44.8 ml/min Glucose 204 H (74-106) mg/dL POC Glucose 255 H 166 H (60-110) mg/dL Calcium 8.2 L (8.5-10.1) mg/dL Magnesium 2.3 (1.8-2.4) mg/dL Med Orders - Current: Current Medications Acetaminophen (Tylenol) 325 mg PO Q4H PRN PRN Reason: Pain Last Admin: 03/06/20 09:43 Dose: 325 mg Documented by: Albuterol/Ipratropium (Combivent Respimat) 0 gm INH Q6HRRT JESSEE Last Admin: 03/06/20 11:16 Dose: 1 puff Documented by: Aspirin (Aspirin) 81 mg PO DAILY [facility] Last Admin: 03/06/20 08:02 Dose: 81 mg Documented by: Atorvastatin Calcium (Lipitor) 40 mg PO BEDTIME [facility] Last Admin: 03/05/20 21:46 Dose: 40 mg Documented by: Dextrose/Water (Dextrose 50% In Water) 50 ml IV ASDIRECTED PRN PRN Reason: Hypoglycemia Fexofenadine HCl (Diamond) 180 mg PO DAILY [facility] Last Admin: 03/06/20 08:03 Dose: 180 mg Documented by: Fluticasone Propionate (Flonase) 0 gm NASBOTH DAILY [facility] Last Admin: 03/06/20 08:26 Dose: 1 spray Documented by: Furosemide (Lasix) 80 mg IVPUSH BID [facility] Last Admin: 03/06/20 08:26 Dose: 80 mg Documented by: Glucagon (Glucagen) 1 mg IM ASDIRECTED PRN PRN Reason: Hypoglycemia Heparin Sodium (Porcine) (Heparin Sodium) 5,000 units SUBCUT Q8H [facility] Last Admin: 03/06/20 09:45 Dose: 5,000 units Documented by: Hydralazine HCl (Apresoline) 25 mg PO TID [facility] Last Admin: 03/06/20 05:50 Dose: 25 mg Documented by: Insulin Aspart (Novolog) 0 unit SUBCUT TIDAC [facility]; Protocol Last Admin: 03/06/20 07:37 Dose: 6 units Documented by: Isosorbide Dinitrate (Isordil) 20 mg PO TID@0800,1300,1800 [facility] Last Admin: 03/06/20 08:00 Dose: 20 mg Documented by: Metoprolol Succinate (Toprol Xl) 50 mg PO DAILY [facility] Last Admin: 03/06/20 08:02 Dose: 50 mg Documented by: Nystatin (Nystatin Crm) 1 gm TOP BID [facility] Last Admin: 03/06/20 08:25 Dose: 1 applic Documented by: Ubidecarenone 100 Mg 1 each PO DAILY [facility] Last Admin: 03/06/20 08:26 Dose: Not Given Documented by: Prednisone (Prednisone) 40 mg PO WITHBREAKFAST [facility] Last Admin: 03/06/20 08:01 Dose: 40 mg Documented by: Discontinued Medications Acetaminophen (Tylenol) 650 mg PO Q6H PRN PRN Reason: Pain Last Admin: 02/25/20 13:07 Dose: 650 mg Documented by: Acetazolamide (Diamox) 500 mg PO ONETIME ONE Stop: 03/04/20 09:26 Last Admin: 03/04/20 09:55 Dose: 500 mg Documented by: Albuterol/Ipratropium (Duoneb 3.0-0.5 Mg/3 Ml) 3 ml NEB Q4HRRT PRN PRN Reason: Wheezing Last Admin: 02/22/20 01:53 Dose: 3 ml Documented by: Albuterol/Ipratropium (Duoneb 3.0-0.5 Mg/3 Ml) 3 ml NEB Q6H JESSEE Last Admin: 02/22/20 11:25 Dose: 3 ml Documented by: Albuterol/Ipratropium (Duoneb 3.0-0.5 Mg/3 Ml) 3 ml NEB Q6HRRT JESSEE Last Admin: 02/25/20 11:18 Dose: Not Given Documented by: Albuterol/Ipratropium (Duoneb 3.0-0.5 Mg/3 Ml) 3 ml NEB Q6HRRT PRN PRN Reason: Dyspnea Last Admin: 02/25/20 19:16 Dose: 3 ml Documented by: Azithromycin (Zithromax) 500 mg PO Q24H [facility] Last Admin: 03/04/20 11:56 Dose: 500 mg Documented by: Doxycycline Hyclate (Vibramycin) 100 mg PO BID [facility] Last Admin: 02/26/20 09:30 Dose: Not Given Documented by: Fexofenadine HCl (Diamond) 180 mg PO DAILY [facility] Fluticasone Propionate (Flonase) 0 gm NASBOTH Q6H PRN PRN Reason: Congestion Last Admin: 02/26/20 13:25 Dose: 1 spray Documented by: Furosemide (Lasix) 40 mg IVPUSH NOW ONE Stop: 02/22/20 01:06 Last Admin: 02/22/20 02:11 Dose: Not Given Documented by: Furosemide (Lasix) Confirm Administered Dose 40 mg .ROUTE .STK-MED ONE Stop: 02/22/20 01:47 Last Admin: 02/22/20 02:13 Dose: Not Given Documented by: Furosemide (Lasix) 80 mg PO BIDDIURETIC JESSEE Last Admin: 02/28/20 15:03 Dose: 80 mg Documented by: Furosemide (Lasix) 40 mg IVPUSH NOW ONE Stop: 02/28/20 20:57 Last Admin: 02/28/20 21:07 Dose: 40 mg Documented by: Sodium Chloride (Normal Saline) 1,000 mls @ 999 mls/hr IV BOLUS ONE Stop: 02/21/20 21:49 Last Admin: 02/21/20 21:23 Dose: Not Given Documented by: Sodium Chloride (Normal Saline) 1,000 mls @ 500 mls/hr IV STAT [facility]SEE Ceftriaxone Sodium/Dextrose 1 (gm/ Premix) 50 mls @ 100 mls/hr IV Q24H [facility]ESSEE Last Admin: 03/05/20 08:50 Dose: 100 mls/hr Documented by: Lactated Ringer's (Ringers, Lactated) 500 mls @ 999 mls/hr IV .BOLUS ONE Stop: 02/28/20 10:53 Last Admin: 02/28/20 11:53 Dose: 999 mls/hr Documented by: Azithromycin 500 mg/ Sodium (Chloride) 250 mls @ 250 mls/hr IV DAILY [facility] Last Admin: 03/03/20 10:03 Dose: 250 mls/hr Documented by: Insulin Aspart (Novolog) 0 unit SUBCUT ACBREAKFASTANDBED [facility]; Protocol Last Admin: 02/22/20 09:04 Dose: Not Given Documented by: Insulin Aspart (Novolog) 0 unit SUBCUT TIDAC [facility]; Protocol Last Admin: 03/03/20 19:39 Dose: Not Given Documented by: Lorazepam (Ativan) 0.5 mg IVPUSH ONETIME ONE Stop: 02/21/20 22:20 Last Admin: 02/21/20 22:43 Dose: 0.5 mg Documented by: Lorazepam (Ativan) 0.5 mg IVPUSH ONETIME ONE Stop: 02/21/20 23:33 Last Admin: 02/21/20 23:35 Dose: 0.5 mg Documented by: Lorazepam (Ativan) 0.25 mg PO BID [facility] Methylprednisolone Sodium Succinate (Solu-Medrol) 125 mg IM ONETIME ONE Stop: 02/22/20 01:06 Last Admin: 02/22/20 02:12 Dose: Not Given Documented by: Methylprednisolone Sodium Succinate (Solu-Medrol) 125 mg IVPUSH ONETIME ONE Stop: 02/22/20 02:08 Last Admin: 02/22/20 02:48 Dose: 125 mg Documented by: Methylprednisolone Sodium Succinate (Solu-Medrol) 40 mg IVPUSH Q12H [facility] Last Admin: 03/03/20 01:44 Dose: 40 mg Documented by: Metoprolol Succinate (Toprol Xl) Confirm Administered Dose 50 mg .ROUTE .STK-MED ONE Stop: 02/24/20 15:35 Last Admin: 02/24/20 15:37 Dose: Not Given Documented by: Nystatin (Nystop) 1 gm TOP TID [facility] Last Admin: 02/22/20 15:10 Dose: Not Given Documented by: Ketoconazole 200 Mg 1 each PO DAILY [facility] Last Admin: 03/01/20 09:03 Dose: Not Given Documented by: Patient Own Medication (Ptom) 100 each PO DAILY [facility] Last Admin: 02/23/20 14:24 Dose: Not Given Documented by: Potassium Chloride (Klor-Con M20) 40 meq PO ONETIME ONE Stop: 03/05/20 08:58 Last Admin: 03/05/20 10:00 Dose: 40 meq Documented by: Risperidone (Risperidal) 0.5 mg PO BEDTIME [facility] - Exam General: Alert, Oriented, Cooperative, No Acute Distress Neck: Supple Lungs: No: Normal Respiratory Effort (dyspnea with) Cardiovascular: Regular Rate, Regular Rhythm GI/Abdominal Exam: Normal Bowel Sounds, Soft, Non-Tender Extremities: Normal Inspection, Normal Range of Motion, Pedal Edema (+1, significantly improved) Skin: Warm, Dry, Rash (improving) Neurological: No New Focal Deficit Psy/Mental Status: Alert, Normal Affect, Normal Mood Sepsis Event Note - Evaluation Sepsis Screening Result: No Definite Risk - Focused Exam Vital Signs: Vital Signs Temp Pulse Pulse Resp BP BP Pulse Ox 03/06/20 11:22 97 F 85 23 H 133/65 93 L 03/06/20 08:02 72 121/62 03/06/20 08:00 121/62 03/06/20 07:25 97.3 F 72 24 H 121/62 93 L 03/06/20 05:50 130/75 03/06/20 05:49 98.1 F 81 20 130/75 95 03/06/20 00:00 98.1 F 88 20 114/57 L 95 - Problem List & Annotations (1) Acute and chronic respiratory failure with hypercapnia SNOMED Code(s): 2340213249644 Code(s): J96.22 - ACUTE AND CHRONIC RESPIRATORY FAILURE WITH HYPERCAPNIA Status: Acute Current Visit: Yes (2) Acute and chronic respiratory failure with hypoxia SNOMED Code(s): 00291159, 603777358 Code(s): J96.21 - ACUTE AND CHRONIC RESPIRATORY FAILURE WITH HYPOXIA Status: Acute Current Visit: Yes (3) CHF (congestive heart failure) SNOMED Code(s): 45594679 Code(s): I50.9 - HEART FAILURE, UNSPECIFIED Status: Acute Current Visit: Yes Qualifiers: Heart failure type: unspecified Heart failure chronicity: acute on chronic Qualified Code(s): I50.9 - Heart failure, unspecified (4) Cellulitis SNOMED Code(s): 884268570 Code(s): L03.90 - CELLULITIS, UNSPECIFIED Status: Resolved Current Visit: Yes (5) Atrial fibrillation SNOMED Code(s): 21253204 Code(s): I48.91 - UNSPECIFIED ATRIAL FIBRILLATION Status: Chronic Current Visit: Yes (6) Hospital-acquired pneumonia SNOMED Code(s): 701363475 Code(s): J18.9 - PNEUMONIA, UNSPECIFIED ORGANISM Status: Resolved Current Visit: No (7) LEONILA (obstructive sleep apnea) SNOMED Code(s): 77037390 Code(s): G47.33 - OBSTRUCTIVE SLEEP APNEA (ADULT) (PEDIATRIC) Status: Chronic Current Visit: Yes (8) CHF (congestive heart failure) SNOMED Code(s): 50720244 Code(s): I50.9 - HEART FAILURE, UNSPECIFIED Status: Chronic Priority: High Current Visit: No Qualifiers: Heart failure type: combined systolic and diastolic Heart failure chronicity: acute on chronic Qualified Code(s): I50.43 - Acute on chronic combined systolic (congestive) and diastolic (congestive) heart failure (9) Diabetes mellitus SNOMED Code(s): 36365819 Code(s): E11.9 - TYPE 2 DIABETES MELLITUS WITHOUT COMPLICATIONS Status: Chronic Priority: High Current Visit: No Qualifiers: Diabetes mellitus type: type 2 Diabetes mellitus shelter insulin use: with terminal operator use Diabetes mellitus complication status: with unspecified complications (10) Hypertension SNOMED Code(s): 52576675 Code(s): I10 - ESSENTIAL (PRIMARY) HYPERTENSION Status: Chronic Priority: High Current Visit: No Qualifiers: Hypertension type: essential hypertension Qualified Code(s): I10 - Essential (primary) hypertension (11) Medical non-compliance SNOMED Code(s): 224560681 Code(s): Z91.19 - PATIENT'S NONCOMPLIANCE W OTH MEDICAL TREATMENT AND REGIMEN Status: Acute Priority: High Current Visit: No (12) Morbidly obese SNOMED Code(s): 459183686 Code(s): E66.01 - MORBID (SEVERE) OBESITY DUE TO EXCESS CALORIES Status: Chronic Priority: Medium Current Visit: No - Problem List Review Problem List Initiated/Reviewed/Updated: Yes - My Orders Last 24 Hours: My Active Orders 03/05/20 14:00 Isosorbide Dinitrate [Isordil] 20 mg PO TID@0800,1300,1800 hydrALAZINE [Apresoline] 25 mg PO TID - Plan Plan:: 69 yo female admitted with acute on chronic hypercapnic,hypoxic respiratory failure. 1. Acute on chronic hypoxic hypercapnic respiratory failure/LEONILA/ [facility]/ Pulmonary HTN - Continues to use BiPAP at night, tolerating well. Declines wanting sleep study, feels she doesn't need this. - Currently on 4 L NC keeping sats 88% and above, at baseline needs. - Continue pulmonary toilet with IS and flutter use. - Encouraged to get up and ambulating even if distances are small to begin with. - Start Lasix 40 mg PO BID - Prednisone 40 mg daily x 3 more doses then start taper 2. CHF: - ECHO revealed EF less than 20% with global severe hypokinesis left ventricle, although study very technically difficult. Previous echo showed EF 30% with mild to moderate hypokinesis of left ventricle -Due to systolic heart failure and intolerance to PAM and ARB, hydralazine in combination with the nitrate was started. Continue hydralazine 25 mg 3 times daily along with Isordil 20 mg 3 times daily -Discontinue IV Lasix start Lasix 40 mg p.o. twice daily - Bicarb near 40 today we will continue to monitor - Strict I's and O's, daily weight, 2 L fluid restriction and low-salt diet - Encourage elevation of legs to help with peripheral edema. 3. A. fib - Continue Aspirin - Compliant with Metoprolol for rate control. - Refusing anticoagulation for stroke prevention. - Supplemented potassium to keep K above 4 and Mg stable 2.2 Goal: K+ 4.0 and Mg 2.0 4. Peripheral edema/cellulitis: - significant improvement today. -+1 pitting edema bilaterally with chronic venous stasis changes and dry peeling skin - Open wound noted to left lateral [place] that is dry and healing - DC antibiotics, she is fully treated for cellulitis 5. Generalized weakness -Having increased lower extremity pain with increased movement likely due to deconditioning. She was encouraged she needs to be moving more as this pain will slowly improve as deconditioning improves -Repeat lower extremity Doppler of the left leg was completed negative for DVT - Re-consult PT, patient more compliant with working with them today. - Continue encourage getting out of bed with meals 3 times a day and ambulating as much as she can to increase endurance and conditioning VTE prophylaxis: Heparin, which she is refusing. SCDs and ambulation Dispo: 2 to 3 days, case management has been in contact with her two needle machine operator and Adult Protective Services. Sandy, rn case mgr spoke with Faustino. Next available home assessment will be 03/14 for community and home based resources through [facility].
--- NOTE | 2020-03-06 12:16 | ECHO ---
EXAM DATE: 02/21/20 PATIENT'S AGE: 69 The ECHO report has been scanned into [employer] and can be seen in this patient's EMR (Electronic Medical Record) under the REPORTS section. The report has also been scanned into PACS. MELODY
[2020-03-06] MEDS: Furosemide 40 MG Tab PO SCH (13:22)
[2020-03-06] MEDS: atorvaSTATin 40 MG Tab PO SCH (20:40)
[2020-03-07] MEDS: Albuterol/Ipratropium 4 GM Inhalation Spray INH SCH ×4 (00:21→17:12)
[2020-03-07] MEDS: Acetaminophen 325 MG Tab PO PRN ×6 (00:23→21:53)
[2020-03-07] MEDS: Heparin Sodium 5,000 Units/ML Vial SUBCUT SCH ×3 (00:23→17:30)
[2020-03-07 05:31] LABS: CARBON DIOXIDE,CO2 38.3 mmol/L (21.0-32.0)
[2020-03-07] MEDS: hydrALAZINE 25 MG Tab PO SCH ×3 (06:27→21:46)
[2020-03-07] MEDS: predniSONE 20 MG Tab PO SCH (08:11)
[2020-03-07] MEDS: Furosemide 40 MG Tab PO SCH ×2 (08:11→13:18)
[2020-03-07] MEDS: Isosorbide Dinitrate 10 MG Tab PO SCH ×3 (08:12→17:27)
[2020-03-07] MEDS: Metoprolol Succinate 50 MG Tab.ER PO SCH (08:17)
[2020-03-07] MEDS: Aspirin 81 MG Tab.Chew PO SCH (08:18)
[2020-03-07] MEDS: Nystatin Crm 30 GM Tube TOP SCH ×2 (08:37→21:47)
[2020-03-07] MEDS: Fluticasone Propionate Nasal Spray 16 GM Bottle NASBOTH SCH (08:37)
--- NOTE | 2020-03-07 09:26 | PCM.PN ---
- General Info Date of Service: 03/07/20 Admission Dx/Problem (Free Text): Admission Diagnosis/Problem Admission Diagnosis/Problem Respiratory failure Subjective Update: This morning she was eating breakfast in the bed question why she was not up sitting in the chair reports she is having a bowel movement. She was urged she needs to be getting to the commode. Reports that she cannot has not been able to stand on her left leg since 1989 and I not going to change that. She continues to be encouraged to move as this is what she needs to be doing to get home. She denies chest pain no shortness of breath. Reports left leg pain which has been chronic due to a back surgery in the . Reports that this gets worse when she walks. Functional Status: Reports: Pain Controlled, Tolerating Diet, Urinating. Denies: Ambulating - Review of Systems General: Reports: Weakness (Generalized) HEENT: Reports: No Symptoms. Denies: Headaches, Sore Throat, Visual Changes Pulmonary: Reports: Shortness of Breath. Denies: Cough, Sputum, Wheezing Cardiovascular: Reports: Dyspnea on Exertion (Significant with little movement), Edema (Much improved). Denies: Chest Pain, Palpitations Gastrointestinal: Reports: No Symptoms. Denies: Nausea, Vomiting Musculoskeletal: Reports: Leg Pain (Left leg pain which is chronic at baseline) Skin: Reports: No Symptoms Neurological: Reports: No Symptoms Psychiatric: Reports: No Symptoms - Patient Data Vitals - Most Recent: Last Vital Signs Temp 96.7 F L 03/07/20 08:00 Pulse 87 03/07/20 08:17 Resp 20 03/07/20 08:00 BP 130/67 03/07/20 08:17 Pulse Ox 90 L 03/07/20 08:00 Weight - Most Recent: 131.496 kg I&O - Last 24 Hours: Intake & Output 03/06/20 03/07/20 03/07/20 22:59 06:59 14:59 Intake Total 800 550 Output Total 500 Balance 800 50 Lab Results Last 24 Hours: Laboratory Results - last 24 hr 03/06/20 03/06/20 03/07/20 Range/Units 10:32 17:35 04:55 WBC 14.08 H (4.0-11.0) K/uL RBC 4.74 (4.30-5.90) M/uL Hgb 14.0 (12.0-16.0) g/dL Hct 46.4 H (36.0-46.0) % MCV 97.9 (80.0-98.0) fL MCH 29.5 (27.0-32.0) pg MCHC 30.2 L (31.0-37.0) g/dL RDW Std Deviation 56.3 (28.0-62.0) fl RDW Coeff of Robert 16 H (11.0-15.0) % Plt Count 200 (150-400) K/uL MPV 11.00 (7.40-12.00) fL Neut % (Auto) 76.5 (48.0-80.0) % Lymph % (Auto) 13.3 L (16.0-40.0) % [place] % (Auto) 9.5 (0.0-15.0) % Eos % (Auto) 0.6 (0.0-7.0) % Baso % (Auto) 0.1 (0.0-1.5) % Neut # (Auto) 10.8 H (1.4-5.7) K/uL Lymph # (Auto) 1.9 (0.6-2.4) K/uL [place] # (Auto) 1.3 H (0.0-0.8) K/uL Eos # (Auto) 0.1 (0.0-0.7) K/uL Baso # (Auto) 0.0 (0.0-0.1) K/uL Nucleated RBC % 0.0 /100WBC Nucleated RBCs # 0 K/uL Sodium (136-145) mmol/L Potassium (3.5-5.1) mmol/L Chloride (98-107) mmol/L Carbon Dioxide (21.0-32.0) mmol/L BUN (7.0-18.0) mg/dL Creatinine (0.6-1.0) mg/dL Est Cr Clr Drug Dosing mL/min Estimated GFR (MDRD) ml/min Glucose (74-106) mg/dL POC Glucose 166 H 350 H (60-110) mg/dL Calcium (8.5-10.1) mg/dL Magnesium (1.8-2.4) mg/dL 03/07/20 Range/Units 04:55 WBC (4.0-11.0) K/uL RBC (4.30-5.90) M/uL Hgb (12.0-16.0) g/dL Hct (36.0-46.0) % MCV (80.0-98.0) fL MCH (27.0-32.0) pg MCHC (31.0-37.0) g/dL RDW Std Deviation (28.0-62.0) fl RDW Coeff of Robert (11.0-15.0) % Plt Count (150-400) K/uL MPV (7.40-12.00) fL Neut % (Auto) (48.0-80.0) % Lymph % (Auto) (16.0-40.0) % [place] % (Auto) (0.0-15.0) % Eos % (Auto) (0.0-7.0) % Baso % (Auto) (0.0-1.5) % Neut # (Auto) (1.4-5.7) K/uL Lymph # (Auto) (0.6-2.4) K/uL [place] # (Auto) (0.0-0.8) K/uL Eos # (Auto) (0.0-0.7) K/uL Baso # (Auto) (0.0-0.1) K/uL Nucleated RBC % /100WBC Nucleated RBCs # K/uL Sodium 143 (136-145) mmol/L Potassium 4.0 (3.5-5.1) mmol/L Chloride 102 (98-107) mmol/L Carbon Dioxide 38.3 H (21.0-32.0) mmol/L BUN 37 H (7.0-18.0) mg/dL Creatinine 1.2 H (0.6-1.0) mg/dL Est Cr Clr Drug Dosing 39.57 mL/min Estimated GFR (MDRD) 44.8 ml/min Glucose 188 H (74-106) mg/dL POC Glucose (60-110) mg/dL Calcium 8.3 L (8.5-10.1) mg/dL Magnesium 2.2 (1.8-2.4) mg/dL Med Orders - Current: Current Medications Acetaminophen (Tylenol) 325 mg PO Q4H PRN PRN Reason: Pain Last Admin: 03/07/20 08:36 Dose: 325 mg Documented by: Albuterol/Ipratropium (Combivent Respimat) 0 gm INH Q6HRRT [facility] Last Admin: 03/07/20 06:01 Dose: Not Given Documented by: Aspirin (Aspirin) 81 mg PO DAILY [facility] Last Admin: 03/07/20 08:18 Dose: 81 mg Documented by: Atorvastatin Calcium (Lipitor) 40 mg PO BEDTIME [facility] Last Admin: 03/06/20 20:40 Dose: 40 mg Documented by: Dextrose/Water (Dextrose 50% In Water) 50 ml IV ASDIRECTED PRN PRN Reason: Hypoglycemia Fexofenadine HCl (Diamond) 180 mg PO DAILY [facility] Last Admin: 03/06/20 08:03 Dose: 180 mg Documented by: Fluticasone Propionate (Flonase) 0 gm NASBOTH DAILY [facility] Last Admin: 03/07/20 08:37 Dose: 1 spray Documented by: Furosemide (Lasix) 40 mg PO BIDDIURETIC [facility] Last Admin: 03/07/20 08:11 Dose: 40 mg Documented by: Glucagon (Glucagen) 1 mg IM ASDIRECTED PRN PRN Reason: Hypoglycemia Heparin Sodium (Porcine) (Heparin Sodium) 5,000 units SUBCUT Q8H [facility] Last Admin: 03/07/20 00:23 Dose: 5,000 units Documented by: Hydralazine HCl (Apresoline) 25 mg PO TID [facility] Last Admin: 03/07/20 06:27 Dose: Not Given Documented by: Insulin Aspart (Novolog) 0 unit SUBCUT TIDAC [facility]; Protocol Last Admin: 03/06/20 17:36 Dose: 10 units Documented by: Isosorbide Dinitrate (Isordil) 20 mg PO TID@0800,1300,1800 [facility] Last Admin: 03/07/20 08:12 Dose: 20 mg Documented by: Metoprolol Succinate (Toprol Xl) 50 mg PO DAILY [facility] Last Admin: 03/07/20 08:17 Dose: 50 mg Documented by: Nystatin (Nystatin Crm) 1 gm TOP BID [facility] Last Admin: 03/07/20 08:37 Dose: 1 applic Documented by: Ubidecarenone 100 Mg 1 each PO DAILY [facility] Last Admin: 03/07/20 08:37 Dose: 1 each Documented by: Prednisone (Prednisone) 30 mg PO WITHBREAKFAST [facility] Last Admin: 03/07/20 08:11 Dose: 30 mg Documented by: Discontinued Medications Acetaminophen (Tylenol) 650 mg PO Q6H PRN PRN Reason: Pain Last Admin: 02/25/20 13:07 Dose: 650 mg Documented by: Acetazolamide (Diamox) 500 mg PO ONETIME ONE Stop: 03/04/20 09:26 Last Admin: 03/04/20 09:55 Dose: 500 mg Documented by: Albuterol/Ipratropium (Duoneb 3.0-0.5 Mg/3 Ml) 3 ml NEB Q4HRRT PRN PRN Reason: Wheezing Last Admin: 02/22/20 01:53 Dose: 3 ml Documented by: Albuterol/Ipratropium (Duoneb 3.0-0.5 Mg/3 Ml) 3 ml NEB Q6H [facility]ESSEE Last Admin: 02/22/20 11:25 Dose: 3 ml Documented by: Albuterol/Ipratropium (Duoneb 3.0-0.5 Mg/3 Ml) 3 ml NEB Q6HRRT [facility] Last Admin: 02/25/20 11:18 Dose: Not Given Documented by: Albuterol/Ipratropium (Duoneb 3.0-0.5 Mg/3 Ml) 3 ml NEB Q6HRRT PRN PRN Reason: Dyspnea Last Admin: 02/25/20 19:16 Dose: 3 ml Documented by: Azithromycin (Zithromax) 500 mg PO Q24H [facility] Last Admin: 03/04/20 11:56 Dose: 500 mg Documented by: Doxycycline Hyclate (Vibramycin) 100 mg PO BID [facility] Last Admin: 02/26/20 09:30 Dose: Not Given Documented by: Fexofenadine HCl (Diamond) 180 mg PO DAILY [facility] Fluticasone Propionate (Flonase) 0 gm NASBOTH Q6H PRN PRN Reason: Congestion Last Admin: 02/26/20 13:25 Dose: 1 spray Documented by: Furosemide (Lasix) 40 mg IVPUSH NOW ONE Stop: 02/22/20 01:06 Last Admin: 02/22/20 02:11 Dose: Not Given Documented by: Furosemide (Lasix) Confirm Administered Dose 40 mg .ROUTE .STK-MED ONE Stop: 02/22/20 01:47 Last Admin: 02/22/20 02:13 Dose: Not Given Documented by: Furosemide (Lasix) 80 mg PO BIDDIURETIC JESSEE Last Admin: 02/28/20 15:03 Dose: 80 mg Documented by: Furosemide (Lasix) 40 mg IVPUSH NOW ONE Stop: 02/28/20 20:57 Last Admin: 02/28/20 21:07 Dose: 40 mg Documented by: Furosemide (Lasix) 80 mg IVPUSH BID JESSEE Last Admin: 03/06/20 08:26 Dose: 80 mg Documented by: Sodium Chloride (Normal Saline) 1,000 mls @ 999 mls/hr IV BOLUS ONE Stop: 02/21/20 21:49 Last Admin: 02/21/20 21:23 Dose: Not Given Documented by: Sodium Chloride (Normal Saline) 1,000 mls @ 500 mls/hr IV STAT [facility]ESSEE Ceftriaxone Sodium/Dextrose 1 (gm/ Premix) 50 mls @ 100 mls/hr IV Q24H [facility] Last Admin: 03/05/20 08:50 Dose: 100 mls/hr Documented by: Lactated Ringer's (Ringers, Lactated) 500 mls @ 999 mls/hr IV .BOLUS ONE Stop: 02/28/20 10:53 Last Admin: 02/28/20 11:53 Dose: 999 mls/hr Documented by: Azithromycin 500 mg/ Sodium (Chloride) 250 mls @ 250 mls/hr IV DAILY [facility] Last Admin: 03/03/20 10:03 Dose: 250 mls/hr Documented by: Insulin Aspart (Novolog) 0 unit SUBCUT ACBREAKFASTANDBED [facility]; Protocol Last Admin: 02/22/20 09:04 Dose: Not Given Documented by: Insulin Aspart (Novolog) 0 unit SUBCUT TIDAC [facility]; Protocol Last Admin: 03/03/20 19:39 Dose: Not Given Documented by: Lorazepam (Ativan) 0.5 mg IVPUSH ONETIME ONE Stop: 02/21/20 22:20 Last Admin: 02/21/20 22:43 Dose: 0.5 mg Documented by: Lorazepam (Ativan) 0.5 mg IVPUSH ONETIME ONE Stop: 02/21/20 23:33 Last Admin: 02/21/20 23:35 Dose: 0.5 mg Documented by: Lorazepam (Ativan) 0.25 mg PO BID [facility] Methylprednisolone Sodium Succinate (Solu-Medrol) 125 mg IM ONETIME ONE Stop: 02/22/20 01:06 Last Admin: 02/22/20 02:12 Dose: Not Given Documented by: Methylprednisolone Sodium Succinate (Solu-Medrol) 125 mg IVPUSH ONETIME ONE Stop: 02/22/20 02:08 Last Admin: 02/22/20 02:48 Dose: 125 mg Documented by: Methylprednisolone Sodium Succinate (Solu-Medrol) 40 mg IVPUSH Q12H [facility] Last Admin: 03/03/20 01:44 Dose: 40 mg Documented by: Metoprolol Succinate (Toprol Xl) Confirm Administered Dose 50 mg .ROUTE .STK-MED ONE Stop: 02/24/20 15:35 Last Admin: 02/24/20 15:37 Dose: Not Given Documented by: Nystatin (Nystop) 1 gm TOP TID [facility] Last Admin: 02/22/20 15:10 Dose: Not Given Documented by: Ketoconazole 200 Mg 1 each PO DAILY [facility] Last Admin: 03/01/20 09:03 Dose: Not Given Documented by: Patient Own Medication (Ptom) 100 each PO DAILY [facility] Last Admin: 02/23/20 14:24 Dose: Not Given Documented by: Potassium Chloride (Klor-Con M20) 40 meq PO ONETIME ONE Stop: 03/05/20 08:58 Last Admin: 03/05/20 10:00 Dose: 40 meq Documented by: Prednisone (Prednisone) 40 mg PO WITHBREAKFAST [facility] Last Admin: 03/06/20 08:01 Dose: 40 mg Documented by: Risperidone (Risperidal) 0.5 mg PO BEDTIME [facility] - Exam Quality Assessment: Supplemental Oxygen (4 L nasal cannula which is chronic and baseline), DVT Prophylaxis (Refusing SCDs intermittently excepting heparin) General: Alert, Oriented, Cooperative, No Acute Distress Lungs: Decreased Breath Sounds Cardiovascular: Regular Rate, Irregular Rhythm GI/Abdominal Exam: Normal Bowel Sounds, Soft, Non-Tender, Other (Obese abdomen) Extremities: Normal Inspection, Normal Range of Motion, Non-Tender, Pedal Edema (Significantly improved +1 nonpitting) Skin: Warm, Dry, Other (Chronic venous stasis changes bilaterally with dry flaking skin healing wounds that are dry bilaterally) Wound/Incisions: Healing Well, No Drainage Neurological: No New Focal Deficit Psy/Mental Status: Alert, Normal Affect, Normal Mood Sepsis Event Note - Evaluation Sepsis Screening Result: No Definite Risk - Focused Exam Vital Signs: Vital Signs Temp Pulse Pulse Resp BP BP Pulse Ox 03/07/20 08:17 87 130/67 03/07/20 08:12 130/67 03/07/20 08:00 96.7 F L 87 20 130/67 90 L 03/07/20 04:27 81 18 156/79 H 92 L 03/07/20 00:20 96.6 F L 82 17 119/47 L 92 L - Problem List & Annotations (1) Acute and chronic respiratory failure with hypercapnia SNOMED Code(s): 4374754290640 Code(s): J96.22 - ACUTE AND CHRONIC RESPIRATORY FAILURE WITH HYPERCAPNIA Status: Acute Current Visit: Yes (2) Acute and chronic respiratory failure with hypoxia SNOMED Code(s): 08368875, 812673491 Code(s): J96.21 - ACUTE AND CHRONIC RESPIRATORY FAILURE WITH HYPOXIA Status: Acute Current Visit: Yes (3) CHF (congestive heart failure) SNOMED Code(s): 59311006 Code(s): I50.9 - HEART FAILURE, UNSPECIFIED Status: Acute Current Visit: Yes Qualifiers: Heart failure type: unspecified Heart failure chronicity: acute on chronic Qualified Code(s): I50.9 - Heart failure, unspecified (4) Cellulitis SNOMED Code(s): 276157010 Code(s): L03.90 - CELLULITIS, UNSPECIFIED Status: Resolved Current Visit: Yes (5) Atrial fibrillation SNOMED Code(s): 70375133 Code(s): I48.91 - UNSPECIFIED ATRIAL FIBRILLATION Status: Chronic Current Visit: Yes (6) LEONILA (obstructive sleep apnea) SNOMED Code(s): 62740320 Code(s): G47.33 - OBSTRUCTIVE SLEEP APNEA (ADULT) (PEDIATRIC) Status: Chronic Current Visit: Yes (7) CHF (congestive heart failure) SNOMED Code(s): 37834232 Code(s): I50.9 - HEART FAILURE, UNSPECIFIED Status: Chronic Priority: High Current Visit: No Qualifiers: Heart failure type: combined systolic and diastolic Heart failure chronicity: acute on chronic Qualified Code(s): I50.43 - Acute on chronic combined systolic (congestive) and diastolic (congestive) heart failure (8) Diabetes mellitus SNOMED Code(s): 36013709 Code(s): E11.9 - TYPE 2 DIABETES MELLITUS WITHOUT COMPLICATIONS Status: Chronic Priority: High Current Visit: No Qualifiers: Diabetes mellitus type: type 2 Diabetes mellitus chcf insulin use: with long distance operator use Diabetes mellitus complication status: with unspecified complications (9) Hypertension SNOMED Code(s): 26903730 Code(s): I10 - ESSENTIAL (PRIMARY) HYPERTENSION Status: Chronic Priority: High Current Visit: No Qualifiers: Hypertension type: essential hypertension Qualified Code(s): I10 - Essential (primary) hypertension (10) Medical non-compliance SNOMED Code(s): 629785006 Code(s): Z91.19 - PATIENT'S NONCOMPLIANCE W OTH MEDICAL TREATMENT AND REGIMEN Status: Acute Priority: High Current Visit: No (11) Morbidly obese SNOMED Code(s): 752866037 Code(s): E66.01 - MORBID (SEVERE) OBESITY DUE TO EXCESS CALORIES Status: Chronic Priority: Medium Current Visit: No - Problem List Review Problem List Initiated/Reviewed/Updated: Yes - My Orders Last 24 Hours: My Active Orders 03/06/20 14:00 Furosemide [Lasix] 40 mg PO BIDDIURETIC 03/07/20 08:00 predniSONE 30 mg PO WITHBREAKFAST 03/08/20 05:11 BASIC METABOLIC PANEL,BMP [CHEM] AM CBC WITH AUTO DIFF [HEME] AM MAGNESIUM [CHEM] AM 03/09/20 05:11 BASIC METABOLIC PANEL,BMP [CHEM] AM CBC WITH AUTO DIFF [HEME] AM MAGNESIUM [CHEM] AM - Plan Plan:: 69 yo female admitted with acute on chronic hypercapnic,hypoxic respiratory failure. 1. Acute on chronic hypoxic hypercapnic respiratory failure/LEONILA/ [facility]/ Pulmonary HTN -Currently stable on baseline 4 L - Continues to use BiPAP at night, tolerating well. Declines wanting sleep study, feels she doesn't need this. - Continue pulmonary toilet with IS and flutter use. - Encouraged to get up to chair 3 times a day. -Continue Lasix 40 mg PO BID - Prednisone 30 mg starting today continue to taper 2. CHF: - ECHO revealed EF less than 20% with global severe hypokinesis left ventricle, although study very technically difficult. Previous echo showed EF 30% with mild to moderate hypokinesis of left ventricle -Continue hydralazine 25 mg 3 times daily along with Isordil 20 mg 3 times daily for HFrEF - Lasix 40 mg p.o. twice daily - Bicarb stabilized - Strict I's and O's, daily weight, 2 L fluid restriction and low-salt diet - Encourage elevation of legs to help with peripheral edema. 3. A. fib - Continue Aspirin -Continue metoprolol 50 mg XR for rate control. - Refusing anticoagulation for stroke prevention. 4. Generalized weakness -Continues to be noncompliant with activity refusing cares and refusing to get up to the chair or even commode to use the bathroom -PT was consulted felt she is at baseline -Demanding to have care at home when she gets discharged. Adult Protective Services and her pillowcase maker Sandy are working on this VTE prophylaxis: Heparin, which she is intermittently refusing. SCDs and ambulation Dispo: Plan will be discharged Tuesday may need ambulance transfer home due to no family or support person able to take her home.
[2020-03-07] MEDS: Insulin Aspart 100 Units/ML 3 ML Pen SUBCUT SCH ×3 (09:52→17:28)
[2020-03-07] MEDS: atorvaSTATin 40 MG Tab PO SCH (21:46)
[2020-03-08] MEDS: Heparin Sodium 5,000 Units/ML Vial SUBCUT SCH ×3 (00:58→17:59)
[2020-03-08] MEDS: Albuterol/Ipratropium 4 GM Inhalation Spray INH SCH ×5 (00:59→23:39)
[2020-03-08] MEDS: Acetaminophen 325 MG Tab PO PRN ×4 (04:49→21:49)
[2020-03-08] MEDS: hydrALAZINE 25 MG Tab PO SCH ×3 (06:35→21:21)
[2020-03-08] MEDS: Insulin Aspart 100 Units/ML 3 ML Pen SUBCUT SCH ×3 (06:36→17:51)
[2020-03-08 06:48] LABS: POTASSIUM,K 4.3 mmol/L (3.5-5.1)
[2020-03-08] MEDS ORDERED: Lidocaine 5% 700 MG Patch TOP PRN (09:00)
[2020-03-08] MEDS: predniSONE 20 MG Tab PO SCH (09:08)
[2020-03-08] MEDS: Aspirin 81 MG Tab.Chew PO SCH (09:09)
[2020-03-08] MEDS: Isosorbide Dinitrate 10 MG Tab PO SCH ×3 (09:09→17:53)
[2020-03-08] MEDS: Furosemide 40 MG Tab PO SCH ×2 (09:09→14:04)
[2020-03-08] MEDS: Nystatin Crm 30 GM Tube TOP SCH ×2 (09:15→21:22)
[2020-03-08] MEDS: Fluticasone Propionate Nasal Spray 16 GM Bottle NASBOTH SCH (09:16)
[2020-03-08] MEDS: Metoprolol Succinate 50 MG Tab.ER PO SCH (09:33)
--- NOTE | 2020-03-08 15:21 | PCM.PN ---
- General Info Date of Service: 03/08/20 - Review of Systems Systems Review Comment:: reports left hip pain and does not want to get out of bed today. - Patient Data Vitals - Most Recent: Last Vital Signs Temp 35.9 C L 03/08/20 11:54 Pulse 74 03/08/20 11:54 Resp 18 03/08/20 11:54 BP 146/67 H 03/08/20 14:04 Pulse Ox 93 L 03/08/20 11:54 Weight - Most Recent: 128 kg I&O - Last 24 Hours: Intake & Output 03/08/20 03/08/20 03/08/20 06:59 14:59 22:59 Intake Total 450 Balance 450 Lab Results Last 24 Hours: Laboratory Results - last 24 hr 03/07/20 03/08/20 03/08/20 Range/Units 17:00 05:23 05:23 WBC 13.83 H (4.0-11.0) K/uL RBC 4.75 (4.30-5.90) M/uL Hgb 14.1 (12.0-16.0) g/dL Hct 46.8 H (36.0-46.0) % MCV 98.5 H (80.0-98.0) fL MCH 29.7 (27.0-32.0) pg MCHC 30.1 L (31.0-37.0) g/dL RDW Std Deviation 57.4 (28.0-62.0) fl RDW Coeff of Robert 16 H (11.0-15.0) % Plt Count 209 (150-400) K/uL MPV 11.90 (7.40-12.00) fL Neut % (Auto) 74.9 (48.0-80.0) % Lymph % (Auto) 12.7 L (16.0-40.0) % [place] % (Auto) 11.9 (0.0-15.0) % Eos % (Auto) 0.4 (0.0-7.0) % Baso % (Auto) 0.1 (0.0-1.5) % Neut # (Auto) 10.4 H (1.4-5.7) K/uL Lymph # (Auto) 1.8 (0.6-2.4) K/uL [place] # (Auto) 1.7 H (0.0-0.8) K/uL Eos # (Auto) 0.1 (0.0-0.7) K/uL Baso # (Auto) 0.0 (0.0-0.1) K/uL Nucleated RBC % 0.0 /100WBC Nucleated RBCs # 0 K/uL Sodium 142 (136-145) mmol/L Potassium 4.3 (3.5-5.1) mmol/L Chloride 103 (98-107) mmol/L Carbon Dioxide 37.0 H (21.0-32.0) mmol/L BUN 35 H (7.0-18.0) mg/dL Creatinine 1.2 H (0.6-1.0) mg/dL Est Cr Clr Drug Dosing 39.57 mL/min Estimated GFR (MDRD) 44.8 ml/min Glucose 218 H (74-106) mg/dL POC Glucose 316 H (60-110) mg/dL Calcium 8.8 (8.5-10.1) mg/dL Magnesium 2.4 (1.8-2.4) mg/dL 03/08/20 03/08/20 Range/Units 06:30 12:47 WBC (4.0-11.0) K/uL RBC (4.30-5.90) M/uL Hgb (12.0-16.0) g/dL Hct (36.0-46.0) % MCV (80.0-98.0) fL MCH (27.0-32.0) pg MCHC (31.0-37.0) g/dL RDW Std Deviation (28.0-62.0) fl RDW Coeff of Robert (11.0-15.0) % Plt Count (150-400) K/uL MPV (7.40-12.00) fL Neut % (Auto) (48.0-80.0) % Lymph % (Auto) (16.0-40.0) % [place] % (Auto) (0.0-15.0) % Eos % (Auto) (0.0-7.0) % Baso % (Auto) (0.0-1.5) % Neut # (Auto) (1.4-5.7) K/uL Lymph # (Auto) (0.6-2.4) K/uL [place] # (Auto) (0.0-0.8) K/uL Eos # (Auto) (0.0-0.7) K/uL Baso # (Auto) (0.0-0.1) K/uL Nucleated RBC % /100WBC Nucleated RBCs # K/uL Sodium (136-145) mmol/L Potassium (3.5-5.1) mmol/L Chloride (98-107) mmol/L Carbon Dioxide (21.0-32.0) mmol/L BUN (7.0-18.0) mg/dL Creatinine (0.6-1.0) mg/dL Est Cr Clr Drug Dosing mL/min Estimated GFR (MDRD) ml/min Glucose (74-106) mg/dL POC Glucose 209 H 249 H (60-110) mg/dL Calcium (8.5-10.1) mg/dL Magnesium (1.8-2.4) mg/dL Med Orders - Current: Current Medications Acetaminophen (Tylenol) 325 mg PO Q4H PRN PRN Reason: Pain Last Admin: 03/08/20 09:32 Dose: 325 mg Documented by: Albuterol/Ipratropium (Combivent Respimat) 0 gm INH Q6HRRT [facility] Last Admin: 03/08/20 12:29 Dose: 1 puff Documented by: Aspirin (Aspirin) 81 mg PO DAILY [facility] Last Admin: 03/08/20 09:09 Dose: 81 mg Documented by: Atorvastatin Calcium (Lipitor) 40 mg PO BEDTIME [facility] Last Admin: 03/07/20 21:46 Dose: 40 mg Documented by: Dextrose/Water (Dextrose 50% In Water) 50 ml IV ASDIRECTED PRN PRN Reason: Hypoglycemia Fexofenadine HCl (Diamond) 180 mg PO DAILY [facility] Last Admin: 03/08/20 10:25 Dose: 60 mg Documented by: Fluticasone Propionate (Flonase) 0 gm NASBOTH DAILY [facility] Last Admin: 03/08/20 09:16 Dose: 1 spray Documented by: Furosemide (Lasix) 40 mg PO BIDDIURETIC [facility] Last Admin: 03/08/20 14:04 Dose: 40 mg Documented by: Glucagon (Glucagen) 1 mg IM ASDIRECTED PRN PRN Reason: Hypoglycemia Heparin Sodium (Porcine) (Heparin Sodium) 5,000 units SUBCUT Q8H [facility] Last Admin: 03/08/20 09:10 Dose: 5,000 units Documented by: Hydralazine HCl (Apresoline) 25 mg PO TID [facility] Last Admin: 03/08/20 14:04 Dose: 25 mg Documented by: Insulin Aspart (Novolog) 0 unit SUBCUT TIDAC [facility]; Protocol Last Admin: 03/08/20 14:06 Dose: 4 units Documented by: Isosorbide Dinitrate (Isordil) 20 mg PO TID@0800,1300,1800 [facility] Last Admin: 03/08/20 13:59 Dose: 20 mg Documented by: Lidocaine (Lidoderm 5%) 700 mg TOP DAILY PRN PRN Reason: Pain Last Admin: 03/08/20 10:15 Dose: 700 mg Documented by: Metoprolol Succinate (Toprol Xl) 50 mg PO DAILY [facility] Last Admin: 03/08/20 09:33 Dose: 50 mg Documented by: Miscellaneous Information (Remove Patch) 1 ea TRDERM Q12H PRN PRN Reason: Other Nystatin (Nystatin Crm) 1 gm TOP BID [facility] Last Admin: 03/08/20 09:15 Dose: 1 applic Documented by: Ubidecarenone 100 Mg 1 each PO DAILY [facility] Last Admin: 03/08/20 09:33 Dose: Not Given Documented by: Prednisone (Prednisone) 30 mg PO WITHBREAKFAST [facility] Last Admin: 03/08/20 09:08 Dose: 30 mg Documented by: Discontinued Medications Acetaminophen (Tylenol) 650 mg PO Q6H PRN PRN Reason: Pain Last Admin: 02/25/20 13:07 Dose: 650 mg Documented by: Acetazolamide (Diamox) 500 mg PO ONETIME ONE Stop: 03/04/20 09:26 Last Admin: 03/04/20 09:55 Dose: 500 mg Documented by: Albuterol/Ipratropium (Duoneb 3.0-0.5 Mg/3 Ml) 3 ml NEB Q4HRRT PRN PRN Reason: Wheezing Last Admin: 02/22/20 01:53 Dose: 3 ml Documented by: Albuterol/Ipratropium (Duoneb 3.0-0.5 Mg/3 Ml) 3 ml NEB Q6H [facility] Last Admin: 02/22/20 11:25 Dose: 3 ml Documented by: Albuterol/Ipratropium (Duoneb 3.0-0.5 Mg/3 Ml) 3 ml NEB Q6HRRT [facility] Last Admin: 02/25/20 11:18 Dose: Not Given Documented by: Albuterol/Ipratropium (Duoneb 3.0-0.5 Mg/3 Ml) 3 ml NEB Q6HRRT PRN PRN Reason: Dyspnea Last Admin: 02/25/20 19:16 Dose: 3 ml Documented by: Azithromycin (Zithromax) 500 mg PO Q24H [facility] Last Admin: 03/04/20 11:56 Dose: 500 mg Documented by: Doxycycline Hyclate (Vibramycin) 100 mg PO BID [facility] Last Admin: 02/26/20 09:30 Dose: Not Given Documented by: Fexofenadine HCl (Diamond) 180 mg PO DAILY [facility] Fluticasone Propionate (Flonase) 0 gm NASBOTH Q6H PRN PRN Reason: Congestion Last Admin: 02/26/20 13:25 Dose: 1 spray Documented by: Furosemide (Lasix) 40 mg IVPUSH NOW ONE Stop: 02/22/20 01:06 Last Admin: 02/22/20 02:11 Dose: Not Given Documented by: Furosemide (Lasix) Confirm Administered Dose 40 mg .ROUTE .STK-MED ONE Stop: 02/22/20 01:47 Last Admin: 02/22/20 02:13 Dose: Not Given Documented by: Furosemide (Lasix) 80 mg PO BIDDIURETIC [facility] Last Admin: 02/28/20 15:03 Dose: 80 mg Documented by: Furosemide (Lasix) 40 mg IVPUSH NOW ONE Stop: 02/28/20 20:57 Last Admin: 02/28/20 21:07 Dose: 40 mg Documented by: Furosemide (Lasix) 80 mg IVPUSH BID [facility] Last Admin: 03/06/20 08:26 Dose: 80 mg Documented by: Sodium Chloride (Normal Saline) 1,000 mls @ 999 mls/hr IV BOLUS ONE Stop: 02/21/20 21:49 Last Admin: 02/21/20 21:23 Dose: Not Given Documented by: Sodium Chloride (Normal Saline) 1,000 mls @ 500 mls/hr IV STAT [facility] Ceftriaxone Sodium/Dextrose 1 (gm/ Premix) 50 mls @ 100 mls/hr IV Q24H [facility] Last Admin: 03/05/20 08:50 Dose: 100 mls/hr Documented by: Lactated Ringer's (Ringers, Lactated) 500 mls @ 999 mls/hr IV .BOLUS ONE Stop: 02/28/20 10:53 Last Admin: 02/28/20 11:53 Dose: 999 mls/hr Documented by: Azithromycin 500 mg/ Sodium (Chloride) 250 mls @ 250 mls/hr IV DAILY [facility] Last Admin: 03/03/20 10:03 Dose: 250 mls/hr Documented by: Insulin Aspart (Novolog) 0 unit SUBCUT ACBREAKFASTANDBED [facility]; Protocol Last Admin: 02/22/20 09:04 Dose: Not Given Documented by: Insulin Aspart (Novolog) 0 unit SUBCUT TIDAC [facility]; Protocol Last Admin: 03/03/20 19:39 Dose: Not Given Documented by: Lorazepam (Ativan) 0.5 mg IVPUSH ONETIME ONE Stop: 02/21/20 22:20 Last Admin: 02/21/20 22:43 Dose: 0.5 mg Documented by: Lorazepam (Ativan) 0.5 mg IVPUSH ONETIME ONE Stop: 02/21/20 23:33 Last Admin: 02/21/20 23:35 Dose: 0.5 mg Documented by: Lorazepam (Ativan) 0.25 mg PO BID [facility] Methylprednisolone Sodium Succinate (Solu-Medrol) 125 mg IM ONETIME ONE Stop: 02/22/20 01:06 Last Admin: 02/22/20 02:12 Dose: Not Given Documented by: Methylprednisolone Sodium Succinate (Solu-Medrol) 125 mg IVPUSH ONETIME ONE Stop: 02/22/20 02:08 Last Admin: 02/22/20 02:48 Dose: 125 mg Documented by: Methylprednisolone Sodium Succinate (Solu-Medrol) 40 mg IVPUSH Q12H [facility] Last Admin: 03/03/20 01:44 Dose: 40 mg Documented by: Metoprolol Succinate (Toprol Xl) Confirm Administered Dose 50 mg .ROUTE .STK-MED ONE Stop: 02/24/20 15:35 Last Admin: 02/24/20 15:37 Dose: Not Given Documented by: Nystatin (Nystop) 1 gm TOP TID [facility] Last Admin: 02/22/20 15:10 Dose: Not Given Documented by: Ketoconazole 200 Mg 1 each PO DAILY [facility] Last Admin: 03/01/20 09:03 Dose: Not Given Documented by: Patient Own Medication (Ptom) 100 each PO DAILY [facility] Last Admin: 02/23/20 14:24 Dose: Not Given Documented by: Potassium Chloride (Klor-Con M20) 40 meq PO ONETIME ONE Stop: 03/05/20 08:58 Last Admin: 03/05/20 10:00 Dose: 40 meq Documented by: Prednisone (Prednisone) 40 mg PO WITHBREAKFAST [facility] Last Admin: 03/06/20 08:01 Dose: 40 mg Documented by: Risperidone (Risperidal) 0.5 mg PO BEDTIME [facility] - Exam General: Alert, Oriented Neck: Supple Lungs: Clear to Auscultation, Normal Respiratory Effort Cardiovascular: Regular Rate, Regular Rhythm GI/Abdominal Exam: Normal Bowel Sounds, Soft, Non-Tender Extremities: Non-Tender, No Pedal Edema. No: Joint Swelling, Leg Pain Skin: Warm, Dry, Intact Sepsis Event Note - Evaluation Sepsis Screening Result: No Definite Risk - Focused Exam Vital Signs: Vital Signs Temp Pulse Pulse Resp BP BP Pulse Ox 03/08/20 14:04 146/67 H 03/08/20 13:59 146/67 H 03/08/20 11:54 35.9 C L 74 18 146/67 H 93 L 03/08/20 09:33 85 140/79 03/08/20 09:09 140/79 03/08/20 08:00 36.3 C 73 18 140/79 93 L 03/08/20 06:35 148/81 H 03/08/20 04:40 36.4 C 78 16 148/81 H 90 L - Problem List Review Problem List Initiated/Reviewed/Updated: Yes - Plan Plan:: 69 yo female admitted with acute on chronic hypercapnic,hypoxic respiratory failure. 1. Acute on chronic hypoxic hypercapnic respiratory failure/[facility]/ [facility]/ Pulmonary HTN -Currently stable on baseline 4 L - Continues to use BiPAP at night, - Continue pulmonary toilet with IS and flutter use. - Encouraged to get up to chair 3 times a day. -Continue Lasix 40 mg PO BID - Prednisone 30 mg starting today continue to taper 2. CHF: - ECHO revealed EF less than 20% with global severe hypokinesis left ventricle, although study very technically difficult. Previous echo showed EF 30% with mild to moderate hypokinesis of left ventricle -Continue hydralazine 25 mg 3 times daily along with Isordil 20 mg 3 times daily for HFrEF - Lasix 40 mg p.o. twice daily - Strict I's and O's, daily weight, 2 L fluid restriction and low-salt diet - Encourage elevation of legs to help with peripheral edema. 3. A. fib - Continue Aspirin -Continue metoprolol 50 mg XR for rate control. - Refusing anticoagulation for stroke prevention. 4. Generalized weakness -Continues to be noncompliant with activity refusing cares and refusing to get u p to the chair or even commode to use the bathroom -PT was consulted felt she is at baseline -Demanding to have care at home when she gets discharged. Adult Protective Services and her project management analyst Sandy are working on this VTE prophylaxis: Heparin, which she is intermittently refusing. SCDs and ambulation Dispo: Plan will be discharged Tuesday may need ambulance transfer home due to no family or support person able to take her home.
[2020-03-08] MEDS: atorvaSTATin 40 MG Tab PO SCH (21:21)
[2020-03-09] MEDS: Heparin Sodium 5,000 Units/ML Vial SUBCUT SCH ×3 (00:14→17:55)
[2020-03-09] MEDS: Acetaminophen 325 MG Tab PO PRN ×4 (04:58→21:03)
[2020-03-09] MEDS: hydrALAZINE 25 MG Tab PO SCH ×3 (04:59→22:05)
[2020-03-09] MEDS: Albuterol/Ipratropium 4 GM Inhalation Spray INH SCH ×3 (05:50→18:36)
[2020-03-09] MEDS: Insulin Aspart 100 Units/ML 3 ML Pen SUBCUT SCH ×3 (06:49→18:00)
[2020-03-09 06:56] LABS: POTASSIUM,K 4.2 mmol/L (3.5-5.1)
[2020-03-09] MEDS: Isosorbide Dinitrate 10 MG Tab PO SCH ×3 (09:15→17:55)
[2020-03-09] MEDS: Furosemide 40 MG Tab PO SCH ×2 (09:15→13:30)
[2020-03-09] MEDS: Metoprolol Succinate 50 MG Tab.ER PO SCH (09:16)
[2020-03-09] MEDS: predniSONE 20 MG Tab PO SCH (09:16)
[2020-03-09] MEDS: Aspirin 81 MG Tab.Chew PO SCH (09:16)
[2020-03-09] MEDS: Nystatin Crm 30 GM Tube TOP SCH ×2 (09:23→21:04)
[2020-03-09] MEDS: Fluticasone Propionate Nasal Spray 16 GM Bottle NASBOTH SCH (09:23)
--- NOTE | 2020-03-09 15:15 | PCM.PN ---
- General Info Date of Service: 03/09/20 Admission Dx/Problem (Free Text): Admission Diagnosis/Problem Admission Diagnosis/Problem Respiratory failure Subjective Update: seen at bedside, sleeping comfortably, no complaints. - Review of Systems General: Denies: Fever, Weakness, Fatigue Pulmonary: Denies: Shortness of Breath, Pleuritic Chest Pain Cardiovascular: Denies: Chest Pain, Palpitations, Dyspnea on Exertion Gastrointestinal: Denies: Abdominal Pain, Constipation, Decreased Appetite Genitourinary: Denies: Dysuria, Frequency - Patient Data Vitals - Most Recent: Last Vital Signs Temp 36.5 C 03/09/20 11:32 Pulse 82 03/09/20 11:32 Resp 18 03/09/20 11:32 BP 138/67 03/09/20 13:30 Pulse Ox 92 L 03/09/20 11:32 Weight - Most Recent: 127 kg I&O - Last 24 Hours: Intake & Output 03/09/20 03/09/20 03/09/20 06:59 14:59 22:59 Intake Total 560 Balance 560 Lab Results Last 24 Hours: Laboratory Results - last 24 hr 03/08/20 03/09/20 03/09/20 Range/Units 17:44 05:40 05:40 WBC 9.84 (4.0-11.0) K/uL RBC 5.40 (4.30-5.90) M/uL Hgb 16.5 H (12.0-16.0) g/dL Hct 52.8 H (36.0-46.0) % MCV 97.8 (80.0-98.0) fL MCH 30.6 (27.0-32.0) pg MCHC 31.3 (31.0-37.0) g/dL RDW Std Deviation 58.0 (28.0-62.0) fl RDW Coeff of Robert 16 H (11.0-15.0) % Plt Count 133 L (150-400) K/uL MPV 11.70 (7.40-12.00) fL Neut % (Auto) 76.0 (48.0-80.0) % Lymph % (Auto) 11.9 L (16.0-40.0) % [place] % (Auto) 11.7 (0.0-15.0) % Eos % (Auto) 0.4 (0.0-7.0) % Baso % (Auto) 0.0 (0.0-1.5) % Neut # (Auto) 7.5 H (1.4-5.7) K/uL Lymph # (Auto) 1.2 (0.6-2.4) K/uL [place] # (Auto) 1.2 H (0.0-0.8) K/uL Eos # (Auto) 0.0 (0.0-0.7) K/uL Baso # (Auto) 0.0 (0.0-0.1) K/uL Nucleated RBC % 0.0 /100WBC Nucleated RBCs # 0 K/uL APTT (18.6-31.3) SEC Sodium 141 (136-145) mmol/L Potassium 4.2 (3.5-5.1) mmol/L Chloride 103 (98-107) mmol/L Carbon Dioxide 35.0 H (21.0-32.0) mmol/L BUN 30 H (7.0-18.0) mg/dL Creatinine 1.1 H (0.6-1.0) mg/dL Est Cr Clr Drug Dosing 43.17 mL/min Estimated GFR (MDRD) 49.5 ml/min Glucose 214 H (74-106) mg/dL POC Glucose 313 H (60-110) mg/dL Calcium 8.3 L (8.5-10.1) mg/dL Magnesium 2.2 (1.8-2.4) mg/dL 03/09/20 03/09/20 03/09/20 Range/Units 05:52 09:43 13:27 WBC (4.0-11.0) K/uL RBC (4.30-5.90) M/uL Hgb (12.0-16.0) g/dL Hct (36.0-46.0) % MCV (80.0-98.0) fL MCH (27.0-32.0) pg MCHC (31.0-37.0) g/dL RDW Std Deviation (28.0-62.0) fl RDW Coeff of Robert (11.0-15.0) % Plt Count (150-400) K/uL MPV (7.40-12.00) fL Neut % (Auto) (48.0-80.0) % Lymph % (Auto) (16.0-40.0) % [place] % (Auto) (0.0-15.0) % Eos % (Auto) (0.0-7.0) % Baso % (Auto) (0.0-1.5) % Neut # (Auto) (1.4-5.7) K/uL Lymph # (Auto) (0.6-2.4) K/uL [place] # (Auto) (0.0-0.8) K/uL Eos # (Auto) (0.0-0.7) K/uL Baso # (Auto) (0.0-0.1) K/uL Nucleated RBC % /100WBC Nucleated RBCs # K/uL APTT 22.5 (18.6-31.3) SEC Sodium (136-145) mmol/L Potassium (3.5-5.1) mmol/L Chloride (98-107) mmol/L Carbon Dioxide (21.0-32.0) mmol/L BUN (7.0-18.0) mg/dL Creatinine (0.6-1.0) mg/dL Est Cr Clr Drug Dosing mL/min Estimated GFR (MDRD) ml/min Glucose (74-106) mg/dL POC Glucose 216 H 317 H (60-110) mg/dL Calcium (8.5-10.1) mg/dL Magnesium (1.8-2.4) mg/dL Med Orders - Current: Current Medications Acetaminophen (Tylenol) 325 mg PO Q4H PRN PRN Reason: Pain Last Admin: 03/09/20 13:29 Dose: 325 mg Documented by: Albuterol/Ipratropium (Combivent Respimat) 0 gm INH Q6HRRT [facility] Last Admin: 03/09/20 11:34 Dose: 1 puff Documented by: Aspirin (Aspirin) 81 mg PO DAILY [facility] Last Admin: 03/09/20 09:16 Dose: 81 mg Documented by: Atorvastatin Calcium (Lipitor) 40 mg PO BEDTIME [facility] Last Admin: 03/08/20 21:21 Dose: 40 mg Documented by: Dextrose/Water (Dextrose 50% In Water) 50 ml IV ASDIRECTED PRN PRN Reason: Hypoglycemia Fexofenadine HCl (Diamond) 180 mg PO DAILY [facility] Last Admin: 03/09/20 09:17 Dose: 180 mg Documented by: Fluticasone Propionate (Flonase) 0 gm NASBOTH DAILY [facility] Last Admin: 03/09/20 09:23 Dose: 1 spray Documented by: Furosemide (Lasix) 40 mg PO BIDDIURETIC [facility] Last Admin: 03/09/20 13:30 Dose: 40 mg Documented by: Glucagon (Glucagen) 1 mg IM ASDIRECTED PRN PRN Reason: Hypoglycemia Heparin Sodium (Porcine) (Heparin Sodium) 5,000 units SUBCUT Q8H [facility] Last Admin: 03/09/20 10:34 Dose: 5,000 units Documented by: Hydralazine HCl (Apresoline) 25 mg PO TID [facility] Last Admin: 03/09/20 13:30 Dose: 25 mg Documented by: Insulin Aspart (Novolog) 0 unit SUBCUT TIDAC [facility]; Protocol Last Admin: 03/09/20 13:34 Dose: 8 units Documented by: Isosorbide Dinitrate (Isordil) 20 mg PO TID@0800,1300,1800 [facility] Last Admin: 03/09/20 13:30 Dose: 20 mg Documented by: Lidocaine (Lidoderm 5%) 700 mg TOP DAILY PRN PRN Reason: Pain Last Admin: 03/08/20 10:15 Dose: 700 mg Documented by: Metoprolol Succinate (Toprol Xl) 50 mg PO DAILY [facility] Last Admin: 03/09/20 09:16 Dose: 50 mg Documented by: Miscellaneous Information (Remove Patch) 1 ea TRDERM Q24H PRN PRN Reason: Other Nystatin (Nystatin Crm) 1 gm TOP BID [facility] Last Admin: 03/09/20 09:23 Dose: 1 applic Documented by: Ubidecarenone 100 Mg 1 each PO DAILY [facility] Last Admin: 03/09/20 09:24 Dose: Not Given Documented by: Prednisone (Prednisone) 30 mg PO WITHBREAKFAST [facility] Last Admin: 03/09/20 09:16 Dose: 30 mg Documented by: Discontinued Medications Acetaminophen (Tylenol) 650 mg PO Q6H PRN PRN Reason: Pain Last Admin: 02/25/20 13:07 Dose: 650 mg Documented by: Acetazolamide (Diamox) 500 mg PO ONETIME ONE Stop: 03/04/20 09:26 Last Admin: 03/04/20 09:55 Dose: 500 mg Documented by: Albuterol/Ipratropium (Duoneb 3.0-0.5 Mg/3 Ml) 3 ml NEB Q4HRRT PRN PRN Reason: Wheezing Last Admin: 02/22/20 01:53 Dose: 3 ml Documented by: Albuterol/Ipratropium (Duoneb 3.0-0.5 Mg/3 Ml) 3 ml NEB Q6H [facility] Last Admin: 02/22/20 11:25 Dose: 3 ml Documented by: Albuterol/Ipratropium (Duoneb 3.0-0.5 Mg/3 Ml) 3 ml NEB Q6HRRT [facility] Last Admin: 02/25/20 11:18 Dose: Not Given Documented by: Albuterol/Ipratropium (Duoneb 3.0-0.5 Mg/3 Ml) 3 ml NEB Q6HRRT PRN PRN Reason: Dyspnea Last Admin: 02/25/20 19:16 Dose: 3 ml Documented by: Azithromycin (Zithromax) 500 mg PO Q24H [facility] Last Admin: 03/04/20 11:56 Dose: 500 mg Documented by: Doxycycline Hyclate (Vibramycin) 100 mg PO BID [facility] Last Admin: 02/26/20 09:30 Dose: Not Given Documented by: Fexofenadine HCl (Diamond) 180 mg PO DAILY [facility] Fluticasone Propionate (Flonase) 0 gm NASBOTH Q6H PRN PRN Reason: Congestion Last Admin: 02/26/20 13:25 Dose: 1 spray Documented by: Furosemide (Lasix) 40 mg IVPUSH NOW ONE Stop: 02/22/20 01:06 Last Admin: 02/22/20 02:11 Dose: Not Given Documented by: Furosemide (Lasix) Confirm Administered Dose 40 mg .ROUTE .STK-MED ONE Stop: 02/22/20 01:47 Last Admin: 02/22/20 02:13 Dose: Not Given Documented by: Furosemide (Lasix) 80 mg PO BIDDIURETIC [facility] Last Admin: 02/28/20 15:03 Dose: 80 mg Documented by: Furosemide (Lasix) 40 mg IVPUSH NOW ONE Stop: 02/28/20 20:57 Last Admin: 02/28/20 21:07 Dose: 40 mg Documented by: Furosemide (Lasix) 80 mg IVPUSH BID [facility] Last Admin: 03/06/20 08:26 Dose: 80 mg Documented by: Sodium Chloride (Normal Saline) 1,000 mls @ 999 mls/hr IV BOLUS ONE Stop: 02/21/20 21:49 Last Admin: 02/21/20 21:23 Dose: Not Given Documented by: Sodium Chloride (Normal Saline) 1,000 mls @ 500 mls/hr IV STAT [facility] Ceftriaxone Sodium/Dextrose 1 (gm/ Premix) 50 mls @ 100 mls/hr IV Q24H [facility] Last Admin: 03/05/20 08:50 Dose: 100 mls/hr Documented by: Lactated Ringer's (Ringers, Lactated) 500 mls @ 999 mls/hr IV .BOLUS ONE Stop: 02/28/20 10:53 Last Admin: 02/28/20 11:53 Dose: 999 mls/hr Documented by: Azithromycin 500 mg/ Sodium (Chloride) 250 mls @ 250 mls/hr IV DAILY [facility] Last Admin: 03/03/20 10:03 Dose: 250 mls/hr Documented by: Insulin Aspart (Novolog) 0 unit SUBCUT ACBREAKFASTANDBED [facility]; Protocol Last Admin: 02/22/20 09:04 Dose: Not Given Documented by: Insulin Aspart (Novolog) 0 unit SUBCUT TIDAC [facility]; Protocol Last Admin: 03/03/20 19:39 Dose: Not Given Documented by: Lorazepam (Ativan) 0.5 mg IVPUSH ONETIME ONE Stop: 02/21/20 22:20 Last Admin: 02/21/20 22:43 Dose: 0.5 mg Documented by: Lorazepam (Ativan) 0.5 mg IVPUSH ONETIME ONE Stop: 02/21/20 23:33 Last Admin: 02/21/20 23:35 Dose: 0.5 mg Documented by: Lorazepam (Ativan) 0.25 mg PO BID [facility] Methylprednisolone Sodium Succinate (Solu-Medrol) 125 mg IM ONETIME ONE Stop: 02/22/20 01:06 Last Admin: 02/22/20 02:12 Dose: Not Given Documented by: Methylprednisolone Sodium Succinate (Solu-Medrol) 125 mg IVPUSH ONETIME ONE Stop: 02/22/20 02:08 Last Admin: 02/22/20 02:48 Dose: 125 mg Documented by: Methylprednisolone Sodium Succinate (Solu-Medrol) 40 mg IVPUSH Q12H [facility] Last Admin: 03/03/20 01:44 Dose: 40 mg Documented by: Metoprolol Succinate (Toprol Xl) Confirm Administered Dose 50 mg .ROUTE .STK-MED ONE Stop: 02/24/20 15:35 Last Admin: 02/24/20 15:37 Dose: Not Given Documented by: Miscellaneous Information (Remove Patch) 1 ea TRDERM Q12H PRN PRN Reason: Other Nystatin (Nystop) 1 gm TOP TID [facility] Last Admin: 02/22/20 15:10 Dose: Not Given Documented by: Ketoconazole 200 Mg 1 each PO DAILY [facility] Last Admin: 03/01/20 09:03 Dose: Not Given Documented by: Patient Own Medication (Ptom) 100 each PO DAILY [facility] Last Admin: 02/23/20 14:24 Dose: Not Given Documented by: Potassium Chloride (Klor-Con M20) 40 meq PO ONETIME ONE Stop: 03/05/20 08:58 Last Admin: 03/05/20 10:00 Dose: 40 meq Documented by: Prednisone (Prednisone) 40 mg PO WITHBREAKFAST [facility] Last Admin: 03/06/20 08:01 Dose: 40 mg Documented by: Risperidone (Risperidal) 0.5 mg PO BEDTIME [facility] - Exam Quality Assessment: Supplemental Oxygen General: Alert, Oriented Lungs: Normal Respiratory Effort, Decreased Breath Sounds Cardiovascular: Regular Rate, Irregular Rhythm GI/Abdominal Exam: Normal Bowel Sounds, Soft, Non-Tender Extremities: Pedal Edema (improved), Limited Range of Motion. No: Normal Range of Motion, Non-Tender Sepsis Event Note - Evaluation Sepsis Screening Result: No Definite Risk - Focused Exam Vital Signs: Vital Signs Temp Pulse Pulse Resp BP BP Pulse Ox 03/09/20 13:30 138/67 03/09/20 11:32 36.5 C 82 18 129/89 92 L 03/09/20 09:16 80 140/68 03/09/20 09:15 140/68 03/09/20 08:00 36.6 C 78 18 140/96 H 92 L 03/09/20 04:59 136/68 03/09/20 04:00 36.4 C 74 16 136/68 93 L - Problem List & Annotations (1) CHF (congestive heart failure) SNOMED Code(s): 60532700 Code(s): I50.9 - HEART FAILURE, UNSPECIFIED Status: Acute Current Visit: Yes Qualifiers: Heart failure type: unspecified Heart failure chronicity: acute on chronic Qualified Code(s): I50.9 - Heart failure, unspecified (2) Hypercapnic respiratory failure SNOMED Code(s): 827269556 Code(s): J96.92 - RESPIRATORY FAILURE, UNSPECIFIED WITH HYPERCAPNIA Status: Acute Current Visit: Yes Qualifiers: Chronicity: acute on chronic Qualified Code(s): J96.22 - Acute and chronic respiratory failure with hypercapnia (3) Total self-care deficit SNOMED Code(s): 45668120 Code(s): R68.89 - OTHER GENERAL SYMPTOMS AND SIGNS Status: Acute Current Visit: Yes (4) Hypoxemia SNOMED Code(s): 248385942 Code(s): R09.02 - HYPOXEMIA Status: Acute Priority: High Current Visit: No (5) Diabetes mellitus SNOMED Code(s): 69822535 Code(s): E11.9 - TYPE 2 DIABETES MELLITUS WITHOUT COMPLICATIONS Status: Chronic Priority: High Current Visit: No Qualifiers: Diabetes mellitus type: type 2 Diabetes mellitus fpc insulin use: with er rn use Diabetes mellitus complication status: with unspecified complications (6) Hypertension SNOMED Code(s): 83446329 Code(s): I10 - ESSENTIAL (PRIMARY) HYPERTENSION Status: Chronic Priority: High Current Visit: No Qualifiers: Hypertension type: essential hypertension Qualified Code(s): I10 - Essential (primary) hypertension (7) Medical non-compliance SNOMED Code(s): 255979388 Code(s): Z91.19 - PATIENT'S NONCOMPLIANCE W OTH MEDICAL TREATMENT AND REGIMEN Status: Acute Priority: High Current Visit: No (8) Morbidly obese SNOMED Code(s): 386867873 Code(s): E66.01 - MORBID (SEVERE) OBESITY DUE TO EXCESS CALORIES Status: Chronic Priority: Medium Current Visit: No - Problem List Review Problem List Initiated/Reviewed/Updated: Yes - Plan Plan:: 69 yo female admitted with acute on chronic hypercapnic,hypoxic respiratory failure. 1. Acute on chronic hypoxic hypercapnic respiratory failure/[facility]ONILA/ [facility]/ Pulmonary HTN -Currently stable on baseline 5 L, - Continues to use BiPAP at night, - Continue pulmonary toilet with IS and flutter use. - Encouraged to get up to chair 3 times a day. -Continue Lasix 40 mg PO BID - Prednisone 30 mg starting today continue to taper 2. CHF: - ECHO revealed EF less than 20% with global severe hypokinesis left ventricle, although study very technically difficult. Previous echo showed EF 30% with mild to moderate hypokinesis of left ventricle -Continue hydralazine 25 mg 3 times daily along with Isordil 20 mg 3 times daily for HFrEF - Lasix 40 mg p.o. twice daily - Strict I's and O's, daily weight, 2 L fluid restriction and low-salt diet - Encourage elevation of legs to help with peripheral edema. 3. A. fib - Continue Aspirin -Continue metoprolol 50 mg XR for rate control. - Refusing anticoagulation for stroke prevention. 4. Generalized weakness -Continues to be noncompliant with activity refusing cares and refusing to get up to the chair or even commode to use the bathroom -PT was consulted felt she is at baseline -Demanding to have care at home when she gets discharged. Adult Protective Services and her hydro generation manager Sandy are working on this VTE prophylaxis: Heparin, which she is intermittently refusing. SCDs and ambulation Dispo: Plan will be discharged Tuesday may need ambulance transfer home due to no family or support person able to take her home.
[2020-03-09] MEDS ORDERED: Lidocaine 5% 700 MG Patch TOP PRN (15:47)
[2020-03-09] MEDS: atorvaSTATin 40 MG Tab PO SCH (21:04)
[2020-03-10] MEDS: Albuterol/Ipratropium 4 GM Inhalation Spray INH SCH ×2 (00:15→06:00)
[2020-03-10] MEDS: Heparin Sodium 5,000 Units/ML Vial SUBCUT SCH ×2 (00:16→08:57)
[2020-03-10] MEDS: Acetaminophen 325 MG Tab PO PRN (02:04)
[2020-03-10] MEDS: hydrALAZINE 25 MG Tab PO SCH ×2 (05:25→14:38)
[2020-03-10 06:32] LABS: CARBON DIOXIDE,CO2 34.6 mmol/L (21.0-32.0); POTASSIUM,K 4.4 mmol/L (3.5-5.1)
[2020-03-10] MEDS: Insulin Aspart 100 Units/ML 3 ML Pen SUBCUT SCH ×2 (06:53→14:42)
[2020-03-10] MEDS: Furosemide 40 MG Tab PO SCH ×2 (08:52→14:42)
[2020-03-10] MEDS: predniSONE 20 MG Tab PO SCH (08:52)
[2020-03-10] MEDS: Isosorbide Dinitrate 10 MG Tab PO SCH ×2 (08:53→14:38)
[2020-03-10] MEDS: Nystatin Crm 30 GM Tube TOP SCH (08:55)
[2020-03-10] MEDS: Metoprolol Succinate 50 MG Tab.ER PO SCH (08:55)
[2020-03-10] MEDS: Aspirin 81 MG Tab.Chew PO SCH (08:55)
[2020-03-10] MEDS: Fluticasone Propionate Nasal Spray 16 GM Bottle NASBOTH SCH (08:57)
[2020-03-10 12:24] VITALS: PULSE 92
[2020-03-10 14:38] VITALS: BP 138/40
--- NOTE | 2020-03-10 15:19 | PCM.DCSUM1 ---
Discharge Summary - Hospital Course Brief History: 69 yo female with pmh of CHF with EF of 30%, COPD, DM, HTN, who presents to the ED with complaints of unable to take of herself. She was unable to due ADLS and was found to be disheveled with feces and urine caked on herself. She reported increase swelling. She was found to be hypercapnic on ABG. She refused BIPAP unless she was given ativan. She was transfered to the ICU. On my exam she is lethargic and difficult to arouse. Diagnosis: Stroke: No - Discharge Data Discharge Date: 03/10/20 Discharge Disposition: Home, W Home Health Agency 06 Condition: Fair - Referral to Home Health Date of Face to Face Encounter: 03/10/20 Reason for Homebound Status: Kristin is unable to ambulate per self. She has wheelchair at home to help with ambulation and transfer within her home. She is essentially homebound unable to leave the house without a caregiver to drive her anywhere. Primary Care Physician: PCP None Skilled Need: Kristin is in need of chcf care to monitor CHF symptoms including weight changes as well as hypoxia. She is also in need of medication management to help with administration that is appropriate to CHF. She is on home oxygen at 4 L. She is in need of physical therapy to evaluate and treat for deconditioning due to continued inability to ambulate. She is in need of occupational therapy to help evaluate for ADLs as well as home safety evaluation. - Discharge Diagnosis/Problem(s) (1) Acute and chronic respiratory failure with hypercapnia SNOMED Code(s): 1379336478749 ICD Code: J96.22 - ACUTE AND CHRONIC RESPIRATORY FAILURE WITH HYPERCAPNIA Status: Acute Current Visit: Yes (2) Acute and chronic respiratory failure with hypoxia SNOMED Code(s): 35481224, 198669522 ICD Code: J96.21 - ACUTE AND CHRONIC RESPIRATORY FAILURE WITH HYPOXIA Status: Acute Current Visit: Yes (3) CHF (congestive heart failure) SNOMED Code(s): 35876318 ICD Code: I50.9 - HEART FAILURE, UNSPECIFIED Status: Acute Current Visit: Yes Qualifiers: Heart failure type: unspecified Heart failure chronicity: acute on chronic Qualified Code(s): I50.9 - Heart failure, unspecified (4) Cellulitis SNOMED Code(s): 830811914 ICD Code: L03.90 - CELLULITIS, UNSPECIFIED Status: Resolved Current Visit: Yes (5) Atrial fibrillation SNOMED Code(s): 84444003 ICD Code: I48.91 - UNSPECIFIED ATRIAL FIBRILLATION Status: Chronic Current Visit: Yes (6) LEONILA (obstructive sleep apnea) SNOMED Code(s): 22605388 ICD Code: G47.33 - OBSTRUCTIVE SLEEP APNEA (ADULT) (PEDIATRIC) Status: Chronic Current Visit: Yes (7) CHF (congestive heart failure) SNOMED Code(s): 61228093 ICD Code: I50.9 - HEART FAILURE, UNSPECIFIED Status: Chronic Priority: High Current Visit: No Qualifiers: Heart failure type: combined systolic and diastolic Heart failure chronicity: acute on chronic Qualified Code(s): I50.43 - Acute on chronic combined systolic (congestive) and diastolic (congestive) heart failure (8) Diabetes mellitus SNOMED Code(s): 20544726 ICD Code: E11.9 - TYPE 2 DIABETES MELLITUS WITHOUT COMPLICATIONS Status: Chronic Priority: High Current Visit: No Qualifiers: Diabetes mellitus type: type 2 Diabetes mellitus program trainer insulin use: with correction use Diabetes mellitus complication status: with unspecified complications (9) Hypertension SNOMED Code(s): 92649540 ICD Code: I10 - ESSENTIAL (PRIMARY) HYPERTENSION Status: Chronic Priority: High Current Visit: No Qualifiers: Hypertension type: essential hypertension Qualified Code(s): I10 - Essential (primary) hypertension (10) Medical non-compliance SNOMED Code(s): 861250759 ICD Code: Z91.19 - PATIENT'S NONCOMPLIANCE W OTH MEDICAL TREATMENT AND REGIMEN Status: Acute Priority: High Current Visit: No (11) Morbidly obese SNOMED Code(s): 446363385 ICD Code: E66.01 - MORBID (SEVERE) OBESITY DUE TO EXCESS CALORIES Status: Chronic Priority: Medium Current Visit: No - Patient Summary/Data Consults: Consultations 02/22/20 11:43 Consult to Case Management/Sheet Ironworker [CONS] Routine 03/02/20 13:53 Consult to Spiritual Care [CONS] Routine 03/04/20 11:18 Consult to Physical Therapy [PT Evaluation and Treatment] [CONS] Routine Hospital Course: Admission diagnosis Acute on chronic hypercapnic hypoxic respiratory failure CHF COPD Cellulitis bilaterally Discharge diagnoses Acute on chronic hypercapnic hypoxic respiratory failure HFrEF Chronic oxygen LEONILA OHS Pulmonary hypertension Cellulitisfully treated Medical noncompliance Other PMH DM type II-which she is not treating Obesity Nonambulatory Self-care deficit A. fib refusing anticoagulation This 69-year-old female was admitted for acute on chronic hypercapnic hypoxic respiratory failure secondary to CHF and LEONILA. She was initially admitted to the ICU on BiPAP which she refused until given Ativan. She was quite lethargic and difficult to arouse on admission. She was treated with BiPAP as well as Lasix for diuresis. She was also treated with Rocephin for cellulitis of bilateral lower extremities. When she presented she was significantly unkempt with urine and stool noted to her legs. Venous Dopplers of her legs were completed which were negative. Acute on chronic hypercapnic hypoxic respiratory failure/LEONILA/OHS/pulmonary hypertension: She was diuresed heavily with Lasix 80 mg IV twice daily. She slowly improved. Echo was obtained which showed significantly reduced EF at less than 20% with global hypokinesis. She was slowly weaned off BiPAP and slowly weaned back down to 4 L nasal cannula continuous oxygen which is her baseline. She has hopes of never being on oxygen. She was counseled on findings of her echo and the grave prognosis that this diagnosis has. That she will always need to be on oxygen and it is unrealistic for her to be off oxygen. She has refused sleep studies or BiPAP at home stating she does not need them. After echo report was received she was started on hydralazine and Isordil for HFrEF she has tolerated this well and blood pressure has maintained well. She is intolerant to PAM or ARB. She is continued on metoprolol 50 mg XL daily for atrial fibrillation. She is to continue aspirin. She is refusing anticoagulation for stroke prevention. She is to follow-up with PCP for further care. Cellulitis has been fully treated with Rocephin. Legs look significantly better. Continue to elevate and apply nystatin cream. Generalized weakness: Non-ambulatory which she reports she only transfers to chair and back at home. At baseline. Has been very noncompliant with physical therapy and nursing care while in the hospital refusing cares and refusing physical therapy evaluation. DM type II: Refusing insulin care at home. Reports she will not take anything at home. We will send Metformin 500 mg twice daily to pharmacy. Noncompliance: Continues to state that she will likely not take medications at home as she feels this can be taken care of naturally. Wants nothing to do with oxygen and will get herself off of this at home as well. She has been purp osefully incontinent in her bed both of stool and urine to not get up and use the commode. While in the hospital she did have consultation with telemetry psych to evaluate her competency for making decisions. He felt that she was competent to make her own decisions. Case management and social work has been involved in her care extensively throughout her stay. She will be discharged home today with home health to help evaluate for needs at home with medication administration and heart failure management. She has been medically stable for days now. She has been very noncompliant and helping herself find care at home. Does not have Medicaid so was unable to go to chcf facility which she declines anyways. Denies having help at home though her echo technologist and [facility] Services that she does have care at home. They will help with her accessing more care through Adult Protective Services. She will be discharged home today via EMS she has no support person to bring her home. Her catalytic case operator Sandy as well as of Adult Protective Services has been notified of discharge and will work with her and getting care arranged at home. Prior to discharge home patient requested medications to be sent to [facility] instead of [facility]. Prescriptions to be faxed to [facility]. - Patient Instructions Diet: Heart Healthy Diet, Diabetic Diet Fluid Restriction: 2000 mL Activity: As Tolerated Driving: Do Not Drive Showering/Bathing: May Shower Notify Provider of: Fever, Increased Pain, Swelling and Redness, Drainage, Nausea and/or Vomiting Other/Special Instructions: Monitor weight daily. Report weights that have increased by 3 to 5 pounds in 2 to 3 days. Continue all medications prescribed to help with heart failure. Oxygen by nasal cannula at 4 L continuously - Discharge Plan *PRESCRIPTION DRUG MONITORING PROGRAM REVIEWED*: Not Applicable *COPY OF PRESCRIPTION DRUG MONITORING REPORT IN PATIENT KATTY: Not Applicable Prescriptions/Med Rec: hydrALAZINE [Apresoline] 25 mg PO TID #90 tablet metFORMIN [Glucophage] 500 mg PO BIDMEALS #60 tab Isosorbide Dinitrate [Isordil] 30 mg PO TID #90 tab Furosemide [Lasix] 40 mg PO BID #60 tab predniSONE [Prednisone] 10 - 20 mg PO DAILY #6 tab.ds.pk Metoprolol Succinate [Toprol XL 50mg] 50 mg PO DAILY 90 Days #30 tab.er Home Medications: Home Meds Fexofenadine [Diamond] 180 mg PO DAILY 06/11/19 [History] Aspirin 81 mg PO DAILY 90 Days #90 tab.chew 06/15/19 [Rx] atorvaSTATin [Lipitor] 40 mg PO BEDTIME 90 Days #90 tablet 06/15/19 [Rx] Albuterol [Ventolin HFA] 2 puff .XX QID PRN 02/22/20 [History] Ketoconazole 200 tab PO DAILY 02/22/20 [History] Lidocaine 5 gm TP TID PRN 02/22/20 [History] Ubidecarenone [Coq-10] 100 mg PO DAILY 02/23/20 [History] Acetaminophen [Tylenol] 325 mg PO Q4H PRN tablet 03/10/20 [Rx] Albuterol/Ipratropium [Combivent Respimat] 1 puff INH Q6HR PRN inhaler 03/10/20 [Rx] Fluticasone Propionate [Flonase] 1 spray NASBOTH DAILY #1 bottle 03/10/20 [Rx] Furosemide [Lasix] 40 mg PO BID #60 tab 03/10/20 [Rx] Isosorbide Dinitrate [Isordil] 30 mg PO TID #90 tab 03/10/20 [Rx] Metoprolol Succinate [Toprol XL 50mg] 50 mg PO DAILY 90 Days #30 tab.er 03/10/20 [Rx] Nystatin [Nystatin Crm] 1 gm TOP BID tube 03/10/20 [Rx] hydrALAZINE [Apresoline] 25 mg PO TID #90 tablet 03/10/20 [Rx] metFORMIN [Glucophage] 500 mg PO BIDMEALS #60 tab 03/10/20 [Rx] predniSONE [Prednisone] 10 - 20 mg PO DAILY #6 tab.ds.pk 03/10/20 [Rx] Oxygen Therapy Mode: Nasal Cannula Oxygen Flow Rate (L/min): 4 Maintain SPO2% less than: 90 Patient Handouts: Metoprolol tablets, Hydralazine; Isosorbide Dinitrate, ISDN tablet, Chronic Respiratory Failure, Heart Failure, Self Care, [id number], Living With Sleep Apnea, Heart Failure Action Plan, Sleep Apnea, Uabs-as-Evms, Type 2 Diabetes Mellitus, Self Care, Adult, Acute Respiratory Failure, Adult, Heart Failure, Diagnosis, [id number], Prednisone tablets, Heart Failure Medicines, Heart Failure and Exercise, Heart Failure Eating Plan Referrals: Chu Fonseca MD [Ordering Only Provider] - 03/19/20 10:30 am - Discharge Summary/Plan Comment DC Time >30 min.: No - Patient Data Vitals - Most Recent: Last Vital Signs Temp 97.5 F 03/10/20 11:00 Pulse 92 03/10/20 11:00 Resp 20 03/10/20 11:00 BP 138/40 L 03/10/20 14:38 Pulse Ox 91 L 03/10/20 11:00 Weight - Most Recent: 127 kg I&O - Last 24 hours: Intake & Output 03/10/20 03/10/20 03/10/20 06:59 14:59 22:59 Intake Total 600 Balance 600 Lab Results - Last 24 hrs: Laboratory Results - last 24 hr 03/09/20 03/10/20 03/10/20 Range/Units 17:26 05:25 05:25 WBC 10.57 (4.0-11.0) K/uL RBC 4.48 (4.30-5.90) M/uL Hgb 13.3 (12.0-16.0) g/dL Hct 44.3 (36.0-46.0) % MCV 98.9 H (80.0-98.0) fL MCH 29.7 (27.0-32.0) pg MCHC 30.0 L (31.0-37.0) g/dL RDW Std Deviation 58.4 (28.0-62.0) fl RDW Coeff of Robert 16 H (11.0-15.0) % Plt Count 180 (150-400) K/uL MPV 11.40 (7.40-12.00) fL Neut % (Auto) 75.3 (48.0-80.0) % Lymph % (Auto) 12.3 L (16.0-40.0) % Faulk % (Auto) 12.0 (0.0-15.0) % Eos % (Auto) 0.3 (0.0-7.0) % Baso % (Auto) 0.1 (0.0-1.5) % Neut # (Auto) 8.0 H (1.4-5.7) K/uL Lymph # (Auto) 1.3 (0.6-2.4) K/uL Faulk # (Auto) 1.3 H (0.0-0.8) K/uL Eos # (Auto) 0.0 (0.0-0.7) K/uL Baso # (Auto) 0.0 (0.0-0.1) K/uL Nucleated RBC % 0.0 /100WBC Nucleated RBCs # 0 K/uL Sodium 140 (136-145) mmol/L Potassium 4.4 (3.5-5.1) mmol/L Chloride 104 (98-107) mmol/L Carbon Dioxide 34.6 H (21.0-32.0) mmol/L BUN 33 H (7.0-18.0) mg/dL Creatinine 1.0 (0.6-1.0) mg/dL Est Cr Clr Drug Dosing 47.48 mL/min Estimated GFR (MDRD) 55.3 ml/min Glucose 192 H (74-106) mg/dL POC Glucose 273 H (60-110) mg/dL Calcium 8.3 L (8.5-10.1) mg/dL Phosphorus 4.2 (2.6-4.7) mg/dL Magnesium 2.2 (1.8-2.4) mg/dL 03/10/20 03/10/20 Range/Units 05:49 12:22 WBC (4.0-11.0) K/uL RBC (4.30-5.90) M/uL Hgb (12.0-16.0) g/dL Hct (36.0-46.0) % MCV (80.0-98.0) fL MCH (27.0-32.0) pg MCHC (31.0-37.0) g/dL RDW Std Deviation (28.0-62.0) fl RDW Coeff of Robert (11.0-15.0) % Plt Count (150-400) K/uL MPV (7.40-12.00) fL Neut % (Auto) (48.0-80.0) % Lymph % (Auto) (16.0-40.0) % Faulk % (Auto) (0.0-15.0) % Eos % (Auto) (0.0-7.0) % Baso % (Auto) (0.0-1.5) % Neut # (Auto) (1.4-5.7) K/uL Lymph # (Auto) (0.6-2.4) K/uL Faulk # (Auto) (0.0-0.8) K/uL Eos # (Auto) (0.0-0.7) K/uL Baso # (Auto) (0.0-0.1) K/uL Nucleated RBC % /100WBC Nucleated RBCs # K/uL Sodium (136-145) mmol/L Potassium (3.5-5.1) mmol/L Chloride (98-107) mmol/L Carbon Dioxide (21.0-32.0) mmol/L BUN (7.0-18.0) mg/dL Creatinine (0.6-1.0) mg/dL Est Cr Clr Drug Dosing mL/min Estimated GFR (MDRD) ml/min Glucose (74-106) mg/dL POC Glucose 201 H 254 H (60-110) mg/dL Calcium (8.5-10.1) mg/dL Phosphorus (2.6-4.7) mg/dL Magnesium (1.8-2.4) mg/dL Med Orders - Current: Current Medications Acetaminophen (Tylenol) 325 mg PO Q4H PRN PRN Reason: Pain Last Admin: 03/10/20 02:04 Dose: 325 mg Documented by: Albuterol/Ipratropium (Combivent Respimat) 0 gm INH Q6HRRT [facility] Last Admin: 03/10/20 06:00 Dose: 1 puff Documented by: Aspirin (Aspirin) 81 mg PO DAILY [facility] Last Admin: 03/10/20 08:55 Dose: 81 mg Documented by: Atorvastatin Calcium (Lipitor) 40 mg PO BEDTIME [facility] Last Admin: 03/09/20 21:04 Dose: 40 mg Documented by: Dextrose/Water (Dextrose 50% In Water) 50 ml IV ASDIRECTED PRN PRN Reason: Hypoglycemia Fexofenadine HCl (Diamond) 180 mg PO DAILY [facility] Last Admin: 11/09/20 08:54 Dose: 180 mg Documented by: Fluticasone Propionate (Flonase) 0 gm NASBOTH DAILY [facility] Last Admin: 03/10/20 08:57 Dose: 1 spray Documented by: Furosemide (Lasix) 40 mg PO BIDDIURETIC [facility] Last Admin: 03/10/20 14:42 Dose: Not Given Documented by: Glucagon (Glucagen) 1 mg IM ASDIRECTED PRN PRN Reason: Hypoglycemia Heparin Sodium (Porcine) (Heparin Sodium) 5,000 units SUBCUT Q8H [facility] Last Admin: 03/10/20 08:57 Dose: 5,000 units Documented by: Hydralazine HCl (Apresoline) 25 mg PO TID [facility] Last Admin: 03/10/20 14:38 Dose: 25 mg Documented by: Insulin Aspart (Novolog) 0 unit SUBCUT TIDAC [facility]; Protocol Last Admin: 03/10/20 14:42 Dose: Not Given Documented by: Isosorbide Dinitrate (Isordil) 20 mg PO TID@0800,1300,1800 [facility] Last Admin: 03/10/20 14:38 Dose: 20 mg Documented by: Lidocaine (Lidoderm 5%) 700 mg TOP DAILY PRN PRN Reason: Pain Last Admin: 03/09/20 16:03 Dose: 700 mg Documented by: Metoprolol Succinate (Toprol Xl) 50 mg PO DAILY [facility] Last Admin: 03/10/20 08:55 Dose: 50 mg Documented by: Nystatin (Nystatin Crm) 1 gm TOP BID [facility] Last Admin: 03/10/20 08:55 Dose: 1 applic Documented by: Ubidecarenone 100 Mg 1 each PO DAILY [facility] Last Admin: 03/10/20 08:57 Dose: 1 each Documented by: Prednisone (Prednisone) 30 mg PO WITHBREAKFAST [facility] Last Admin: 03/10/20 08:52 Dose: 30 mg Documented by: Discontinued Medications Acetaminophen (Tylenol) 650 mg PO Q6H PRN PRN Reason: Pain Last Admin: 02/25/20 13:07 Dose: 650 mg Documented by: Acetazolamide (Diamox) 500 mg PO ONETIME ONE Stop: 03/04/20 09:26 Last Admin: 03/04/20 09:55 Dose: 500 mg Documented by: Albuterol/Ipratropium (Duoneb 3.0-0.5 Mg/3 Ml) 3 ml NEB Q4HRRT PRN PRN Reason: Wheezing Last Admin: 02/22/20 01:53 Dose: 3 ml Documented by: Albuterol/Ipratropium (Duoneb 3.0-0.5 Mg/3 Ml) 3 ml NEB Q6H [facility] Last Admin: 02/22/20 11:25 Dose: 3 ml Documented by: Albuterol/Ipratropium (Duoneb 3.0-0.5 Mg/3 Ml) 3 ml NEB Q6HRRT [facility] Last Admin: 02/25/20 11:18 Dose: Not Given Documented by: Albuterol/Ipratropium (Duoneb 3.0-0.5 Mg/3 Ml) 3 ml NEB Q6HRRT PRN PRN Reason: Dyspnea Last Admin: 02/25/20 19:16 Dose: 3 ml Documented by: Azithromycin (Zithromax) 500 mg PO Q24H [facility] Last Admin: 03/04/20 11:56 Dose: 500 mg Documented by: Doxycycline Hyclate (Vibramycin) 100 mg PO BID [facility] Last Admin: 02/26/20 09:30 Dose: Not Given Documented by: Fexofenadine HCl (Diamond) 180 mg PO DAILY [facility] Fluticasone Propionate (Flonase) 0 gm NASBOTH Q6H PRN PRN Reason: Congestion Last Admin: 02/26/20 13:25 Dose: 1 spray Documented by: Furosemide (Lasix) 40 mg IVPUSH NOW ONE Stop: 02/22/20 01:06 Last Admin: 02/22/20 02:11 Dose: Not Given Documented by: Furosemide (Lasix) Confirm Administered Dose 40 mg .ROUTE .STK-MED ONE Stop: 02/22/20 01:47 Last Admin: 02/22/20 02:13 Dose: Not Given Documented by: Furosemide (Lasix) 80 mg PO BIDDIURETIC [facility] Last Admin: 02/28/20 15:03 Dose: 80 mg Documented by: Furosemide (Lasix) 40 mg IVPUSH NOW ONE Stop: 02/28/20 20:57 Last Admin: 02/28/20 21:07 Dose: 40 mg Documented by: Furosemide (Lasix) 80 mg IVPUSH BID [facility] Last Admin: 03/06/20 08:26 Dose: 80 mg Documented by: Sodium Chloride (Normal Saline) 1,000 mls @ 999 mls/hr IV BOLUS ONE Stop: 02/21/20 21:49 Last Admin: 02/21/20 21:23 Dose: Not Given Documented by: Sodium Chloride (Normal Saline) 1,000 mls @ 500 mls/hr IV STAT [facility] Ceftriaxone Sodium/Dextrose 1 (gm/ Premix) 50 mls @ 100 mls/hr IV Q24H [facility] Last Admin: 03/05/20 08:50 Dose: 100 mls/hr Documented by: Lactated Ringer's (Ringers, Lactated) 500 mls @ 999 mls/hr IV .BOLUS ONE Stop: 02/28/20 10:53 Last Admin: 02/28/20 11:53 Dose: 999 mls/hr Documented by: Azithromycin 500 mg/ Sodium (Chloride) 250 mls @ 250 mls/hr IV DAILY [facility] Last Admin: 03/03/20 10:03 Dose: 250 mls/hr Documented by: Insulin Aspart (Novolog) 0 unit SUBCUT ACBREAKFASTANDBED [facility]; Protocol Last Admin: 02/22/20 09:04 Dose: Not Given Documented by: Insulin Aspart (Novolog) 0 unit SUBCUT TIDAC [facility]; Protocol Last Admin: 03/03/20 19:39 Dose: Not Given Documented by: Lidocaine (Lidoderm 5%) 700 mg TOP DAILY PRN PRN Reason: Pain Last Admin: 03/08/20 10:15 Dose: 700 mg Documented by: Lorazepam (Ativan) 0.5 mg IVPUSH ONETIME ONE Stop: 02/21/20 22:20 Last Admin: 02/21/20 22:43 Dose: 0.5 mg Documented by: Lorazepam (Ativan) 0.5 mg IVPUSH ONETIME ONE Stop: 02/21/20 23:33 Last Admin: 02/21/20 23:35 Dose: 0.5 mg Documented by: Lorazepam (Ativan) 0.25 mg PO BID [facility] Methylprednisolone Sodium Succinate (Solu-Medrol) 125 mg IM ONETIME ONE Stop: 02/22/20 01:06 Last Admin: 02/22/20 02:12 Dose: Not Given Documented by: Methylprednisolone Sodium Succinate (Solu-Medrol) 125 mg IVPUSH ONETIME ONE Stop: 02/22/20 02:08 Last Admin: 02/22/20 02:48 Dose: 125 mg Documented by: Methylprednisolone Sodium Succinate (Solu-Medrol) 40 mg IVPUSH Q12H [facility] Last Admin: 03/03/20 01:44 Dose: 40 mg Documented by: Metoprolol Succinate (Toprol Xl) Confirm Administered Dose 50 mg .ROUTE .STK-MED ONE Stop: 02/24/20 15:35 Last Admin: 02/24/20 15:37 Dose: Not Given Documented by: Miscellaneous Information (Remove Patch) 1 ea TRDERM Q12H PRN PRN Reason: Other Miscellaneous Information (Remove Patch) 1 ea TRDERM Q24H PRN PRN Reason: Other Nystatin (Nystop) 1 gm TOP TID [facility] Last Admin: 02/22/20 15:10 Dose: Not Given Documented by: Ketoconazole 200 Mg 1 each PO DAILY [facility] Last Admin: 03/01/20 09:03 Dose: Not Given Documented by: Patient Own Medication (Ptom) 100 each PO DAILY [facility] Last Admin: 02/23/20 14:24 Dose: Not Given Documented by: Potassium Chloride (Klor-Con M20) 40 meq PO ONETIME ONE Stop: 03/05/20 08:58 Last Admin: 03/05/20 10:00 Dose: 40 meq Documented by: Prednisone (Prednisone) 40 mg PO WITHBREAKFAST [facility] Last Admin: 03/06/20 08:01 Dose: 40 mg Documented by: Risperidone (Risperidal) 0.5 mg PO BEDTIME [facility]
== END 2020-03-10 15:50 | disposition home health service (06) | DRG 291 ==
LOC: MW.ED 19:41 → MW.ICU 23:28 → MW.MS 02-23 18:33
PROVIDERS: ADMIT Internal Medicine; ATTEND Internal Medicine
PROC: 5A0945A Assistance with Respiratory Ventilation, 24-96 Consecutive Hours, High Flow/Velocity Cannula (ICD-10-PCS; principal; 2020-02-21)
DX: I11.0 Hypertensive heart disease with heart failure (principal); I50.9 Heart failure, unspecified; J96.22 Acute and chronic respiratory failure with hypercapnia; Z74.1 Need for assistance with personal care; J96.21 Acute and chronic respiratory failure with hypoxia; E87.2 Acidosis; N17.9 Acute kidney failure, unspecified; Z68.42 Body mass index [BMI] 45.0-49.9, adult; L03.116 Cellulitis of left lower limb; L03.115 Cellulitis of right lower limb; J44.1 Chronic obstructive pulmonary disease with (acute) exacerbation; F17.200 Nicotine dependence, unspecified, uncomplicated; I50.43 Acute on chronic combined systolic (congestive) and diastolic (congestive) heart failure; I48.91 Unspecified atrial fibrillation; G47.33 Obstructive sleep apnea (adult) (pediatric); E11.9 Type 2 diabetes mellitus without complications; Z88.2 Allergy status to sulfonamides; Z88.8 Allergy status to other drugs, medicaments and biological substances; Z91.19 Patient's noncompliance with other medical treatment and regimen; E66.01 Morbid (severe) obesity due to excess calories; I27.20 Pulmonary hypertension, unspecified; R32 Unspecified urinary incontinence; M54.9 Dorsalgia, unspecified; G89.29 Other chronic pain; I35.0 Nonrheumatic aortic (valve) stenosis; F32.9 Major depressive disorder, single episode, unspecified; Z20.828 Contact with and (suspected) exposure to other viral communicable diseases; F41.9 Anxiety disorder, unspecified; R68.89 Other general symptoms and signs; L53.9 Erythematous condition, unspecified; D75.1 Secondary polycythemia; Z90.711 Acquired absence of uterus with remaining cervical stump; Z72.0 Tobacco use; Z99.81 Dependence on supplemental oxygen; Z79.4 Long term (current) use of insulin; Z79.82 Long term (current) use of aspirin; Z79.51 Long term (current) use of inhaled steroids; Z79.52 Long term (current) use of systemic steroids; Z79.899 Other long term (current) drug therapy; Z91.02 Food additives allergy status; Z91.018 Allergy to other foods; Z91.012 Allergy to eggs; Z88.3 Allergy status to other anti-infective agents; Z91.040 Latex allergy status; Z88.1 Allergy status to other antibiotic agents; Z88.6 Allergy status to analgesic agent; Z91.09 Other allergy status, other than to drugs and biological substances; Z91.048 Other nonmedicinal substance allergy status; D72.829 Elevated white blood cell count, unspecified; T38.0X5A Adverse effect of glucocorticoids and synthetic analogues, initial encounter
CPT/HCPCS: 36415; 36600; 71045; 73590 ×2; 73620 ×2; 80053; 82550; 82803; 83605; 83690; 83880; 84484; 85025; 93005; 94660; 96374; 99285; J2060; U0002; 80048; 81001; 82962; 83735; 84100; 85730; 87070; 87205; 93306; 93970; 93970-26; 93971-26-LT; 93971-LT; 94640; 94664; 97110-GP; 97161-GP; 97162-GP; 97530-GP; 99221; 99232; 99233; 99238; A9270-GY; J0456; J0696; J1644; J1815-GY; J1940; J2920; J2930; J7050; J7120; J7620-GY

== ENCOUNTER 2020-03-12 14:59 | Emergency (ER) | payer MEDICARE, OTHER ==
--- NOTE | 2020-03-12 15:33 | EDM.PDOC ---
ED HPI GENERAL MEDICAL PROBLEM - General Chief Complaint: General Stated Complaint: EMS Time Seen by Provider: 03/12/20 15:03 Source of Information: Reports: Patient History Limitations: Reports: No Limitations - History of Present Illness INITIAL COMMENTS - FREE TEXT/NARRATIVE: Patient is a 69-year-old female with a past medical history of ingestive heart failure, diabetes, hypertension, morbid obesity, hypercapnic respiratory failure, A. fib presenting for inability to care for self at home. Of note patient was discharged from hospital 2 days ago after a prolonged stay for roughly 1 month. Patient had presented for the same last time. She states that she is unable to walk and unable to get to the bathroom so she keeps urinating and defecating on herself. She has not taken any of her medications. Patient was discharged from the hospital with home health services, Adult Protective Services. They are coming to her house tomorrow to do an assessment. It was attempted to place patient in a halfway during her last hospitalization, but patient declined and they were unable to get her into a halfway. Patient states she just wants to be in the hospital. - Related Data Allergies Allergy/AdvReac Type Severity Reaction Status Date / Time aspartame Allergy Other Verified 03/12/20 15:09 [From Nutrasweet Aspartame] banana Allergy Other Verified 03/12/20 15:09 egg Allergy Other Verified 03/12/20 15:09 fluconazole Allergy Burning Verified 03/12/20 15:09 formaldehyde Allergy Other Verified 03/12/20 15:09 latex Allergy Other Verified 03/12/20 15:09 levofloxacin [From Levaquin] Allergy Other Verified 03/12/20 15:09 lisinopril Allergy Other Verified 03/12/20 15:09 losartan Allergy Anaphylactic Verified 03/12/20 15:09 Shock morphine Allergy Other Verified 03/12/20 15:09 perfume Allergy Cough Verified 03/12/20 15:09 petrolatum,white Allergy Other Verified 03/12/20 15:09 [From Petroleum Jelly] petrolatum,white Allergy Other Verified 03/12/20 15:09 propoxyphene Allergy Other Verified 03/12/20 15:09 propoxyphene HCl Allergy Other Verified 03/12/20 15:09 [From Darvon] soy Allergy Other Verified 03/12/20 15:09 spironolactone Allergy Chest Verified 03/12/20 15:09 Presssure Sulfa (Sulfonamide Allergy Other Verified 03/12/20 15:09 Antibiotics) Home Meds: Home Meds Fexofenadine [Diamond] 180 mg PO DAILY 06/11/19 [History] Aspirin 81 mg PO DAILY 90 Days #90 tab.chew 06/15/19 [Rx] atorvaSTATin [Lipitor] 40 mg PO BEDTIME 90 Days #90 tablet 06/15/19 [Rx] Albuterol [Ventolin HFA] 2 puff .XX QID PRN 02/22/20 [History] Ketoconazole 200 tab PO DAILY 02/22/20 [History] Lidocaine 5 gm TP TID PRN 02/22/20 [History] Ubidecarenone [Coq-10] 100 mg PO DAILY 02/23/20 [History] Acetaminophen [Tylenol] 325 mg PO Q4H PRN tablet 03/10/20 [Rx] Albuterol/Ipratropium [Combivent Respimat] 1 puff INH Q6HR PRN inhaler 03/10/20 [Rx] Fluticasone Propionate [Flonase] 1 spray NASBOTH DAILY #1 bottle 03/10/20 [Rx] Furosemide [Lasix] 40 mg PO BID #60 tab 03/10/20 [Rx] Isosorbide Dinitrate [Isordil] 30 mg PO TID #90 tab 03/10/20 [Rx] Metoprolol Succinate [Toprol XL 50mg] 50 mg PO DAILY 90 Days #30 tab.er 03/10/20 [Rx] Nystatin [Nystatin Crm] 1 gm TOP BID tube 03/10/20 [Rx] hydrALAZINE [Apresoline] 25 mg PO TID #90 tablet 03/10/20 [Rx] metFORMIN [Glucophage] 500 mg PO BIDMEALS #60 tab 03/10/20 [Rx] predniSONE [Prednisone] 10 - 20 mg PO DAILY #6 tab.ds.pk 03/10/20 [Rx] Past Medical History HEENT History: Reports: None Cardiovascular History: Reports: Heart Failure, Hypertension Other Cardiovascular History: Rate controlled A-fib on telemetry Respiratory History: Reports: Bronchitis, Recurrent Gastrointestinal History: Reports: None Genitourinary History: Reports: Urinary Incontinence PHOTO BOOTH OPERATOR History: Reports: 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 History: Hidradenitis suppurativa Musculoskeletal History: Reports: Back Pain, Chronic Other Musculoskeletal History: Had Lumbar surgery Neurological History: Reports: None Psychiatric History: Reports: Depression Endocrine/Metabolic History: Reports: Diabetes, Type II, Other (See Below) Other Endocrine/Metabolic History: per prior record has DM II, patient denies that she is diabetic Dermatologic History: Reports: Other (See Below) Other Dermatologic History: bilateral Lower extremity edema - Infectious Disease History Infectious Disease History: Reports: None - Past Surgical History Head Surgeries/Procedures: Reports: None Cardiovascular Surgical History: Reports: Other (See Below), Vascular Surgery Female Surgical History: Reports: Section, Hysterectomy Other Oncologic Surgeries/Procedures: back surgery Social & Family History - Family History Family Medical History: No Pertinent Family History - Caffeine Use Caffeine Use: Reports: None, Soda ED ROS GENERAL - Review of Systems Review Of Systems: Comprehensive ROS is negative, except as noted in HPI. ED EXAM, GENERAL - Physical Exam Exam: See Below Exam Limited By: No Limitations General Appearance: Alert, WD/WN, No Apparent Distress, Other (unkempt, hirsutism) Throat/Mouth: Normal Voice, No Airway Compromise Head: Atraumatic, Normocephalic Neck: Normal Inspection Respiratory/Chest: No Respiratory Distress, No Accessory Muscle Use Cardiovascular: Normal Peripheral Pulses GI/Abdominal: Other (morbid obesity) Extremities: Normal Inspection Neurological: Alert, Oriented Psychiatric: Normal Affect Skin Exam: Warm, Dry, Intact Course - Vital Signs Last Recorded V/S: Last Vital Signs Temp 97.9 F 03/12/20 15:10 Pulse 93 03/12/20 15:10 Resp 18 03/12/20 15:10 BP 145/76 H 03/12/20 15:10 Pulse Ox 99 03/12/20 15:10 - Re-Assessments/Exams Free Text/Narrative Re-Assessment/Exam: 03/12/20 15:33 Will reach out to manager social for dispo recommendations 03/12/20 16:25 creative services producer unavailable. Will reach out to nursing solder making supervisor for dispo recs. Spoke with patient's admitting physician and PIPELINE GANG SUPERVISOR from hospitalization 2 days ago who note that she has manager social coming to her home tomorrow morning. Patient however states that "if you discharge me, I'll just call an ambulance and come right back here". 03/12/20 16:35 Spoke with nurse CORKY Dean who knwos patient well from prior hospitalization. We do not have room or services to offer patient here, and there is no medical reason for admission .She has home health services tomorrow. Departure - Departure Time of Disposition: 16:36 Disposition: Home, Self-Care 01 Condition: Good Clinical Impression: Weakness - Discharge Information Instructions: Weakness, [id number] Referrals: Chu Fonseca MD [Primary Care Provider] - Forms: ED Department Discharge Additional Instructions: You were evaluated in the emergency department, and it is determined that you do not have AN acute medical emergency. You need to follow-up with home health that will be at your house tomorrow morning. You need to start taking care of yourself. The following information is given to patients seen in the emergency department who are being discharged to home. This information is to outline your options for follow-up care. We provide all patients seen in our emergency department with a follow-up referral. The need for follow-up, as well as the timing and circumstances, are variable depending upon the specifics of your emergency department visit. If you don't have a primary care physician on staff, we will provide you with a referral. We always advise you to contact your personal physician following an emergency department visit to inform them of the circumstance of the visit and for follow-up with them and/or the need for any referrals to a consulting specialist. The emergency department will also refer you to a specialist when appropriate. This referral assures that you have the opportunity for follow-up care with a specialist. All of these measure are taken in an effort to provide you with optimal care, which includes your follow-up. Under all circumstances we always encourage you to contact your private physician who remains a resource for coordinating your care. When calling for follow-up care, please make the office aware that this follow-up is from your recent emergency room visit. If for any reason you are refused follow-up, please contact the [facility] Department at and asked to speak to the emergency department charge nurse. Please follow up with your primary care physician. If you do not have a primary care physician, see below: [facility] [address] [place] [id number] [facility] [address] [place] [address] Sepsis Event Note (ED) - Evaluation Sepsis Screening Result: No Definite Risk - Focused Exam Vital Signs: Vital Signs Temp Pulse Resp BP Pulse Ox 03/12/20 15:10 97.9 F 93 18 145/76 H 99
[2020-03-12 20:14] VITALS: BP 137/106; PULSE 95
== END 2020-03-12 17:50 | disposition home or self-care (01) ==
LOC: MW.ED 14:59
DX: R53.1 Weakness (principal); I11.0 Hypertensive heart disease with heart failure; I50.9 Heart failure, unspecified; E11.9 Type 2 diabetes mellitus without complications; E66.01 Morbid (severe) obesity due to excess calories; Z68.34 Body mass index [BMI] 34.0-34.9, adult; Z88.8 Allergy status to other drugs, medicaments and biological substances; Z91.018 Allergy to other foods; Z91.012 Allergy to eggs; Z88.1 Allergy status to other antibiotic agents; Z91.040 Latex allergy status; Z88.5 Allergy status to narcotic agent; Z91.048 Other nonmedicinal substance allergy status; Z88.2 Allergy status to sulfonamides; Z79.82 Long term (current) use of aspirin; Z79.899 Other long term (current) drug therapy; Z79.84 Long term (current) use of oral hypoglycemic drugs
CPT/HCPCS: 99282; 99284

== ENCOUNTER 2020-03-25 02:49 | Emergency (ER) | payer MEDICARE, OTHER ==
[2020-03-25] MEDS ORDERED: Sodium Chloride 0.9% 2.5 ML Syringe FLUSH PRN (02:55)
[2020-03-25] MEDS ORDERED: Sodium Chloride 0.9% 10 ML Syringe FLUSH PRN (02:55)
--- NOTE | 2020-03-25 03:02 | EDM.PDOC ---
ED HPI GENERAL MEDICAL PROBLEM - General Stated Complaint: TROUBLE BREATHING Time Seen by Provider: 03/25/20 02:53 Source of Information: Reports: Patient, EMS History Limitations: Reports: Altered Mental Status - History of Present Illness INITIAL COMMENTS - FREE TEXT/NARRATIVE: This is a morbidly obese 69-year-old female with history of CHF with EF 30%, COPD, lower extremity cellulitis, hypoxic/hypercapnic respiratory failure, HTN, DM, Afib, LEONILA, aortic stenosis, self-care deficit was brought in by ambulance for dyspnea. She called EMS for dyspnea and when EMS arrived they found her laying on her side in bed facing the wall. She was speaking 2 word sentences. She normally uses 3-4L nasal cannula and was noted to be satting at 79% when EMS arrived. She improved to 98% on 10L NRB. She lives alone in what EMS described as very poor conditions at home, she is wheelchair-bound. She has home health that comes in 4 times a day. She was admitted on 02/21 and discharged on 03/10/2020 hypercapnic respiratory failure. During that hospital stay, she underwent an ECHO on 03/03, ultrasound lower extremity venous Doppler on 03/05 was negative for DVT. She takes Lasix 40 mg twice daily. History and ROS limited secondary to decreased LOC. Past medical history: No additional pertinent history Past Surgical history: No additional pertinent history Social history: No additional pertinent history Family history: No additional pertinent history PHYSICAL EXAM General: slow to answer questions, somnolent, mild resp distress HEENT: dry mucous membrane Neck: supple, no meningismus, no Kernig or Brudzinski Cardiac: S1S2 RRR, 2+ pedal edema bilaterally Respiratory: bibasilar rales Abdomen: Soft, nontender, no rebound or guarding, nondistended, no pulsatile mass. Back: nontender Musculoskeletal: NVI distally, bilateral lower extremity cellulitis Neuro: No focal deficits - Related Data Allergies Allergy/AdvReac Type Severity Reaction Status Date / Time aspartame Allergy Other Verified 03/12/20 15:09 [From Nutrasweet Aspartame] banana Allergy Other Verified 03/12/20 15:09 egg Allergy Other Verified 03/12/20 15:09 fluconazole Allergy Burning Verified 03/12/20 15:09 formaldehyde Allergy Other Verified 03/12/20 15:09 latex Allergy Other Verified 03/12/20 15:09 levofloxacin [From Levaquin] Allergy Other Verified 03/12/20 15:09 lisinopril Allergy Other Verified 03/12/20 15:09 losartan Allergy Anaphylactic Verified 03/12/20 15:09 Shock morphine Allergy Other Verified 03/12/20 15:09 perfume Allergy Cough Verified 03/12/20 15:09 petrolatum,white Allergy Other Verified 03/12/20 15:09 [From Petroleum Jelly] petrolatum,white Allergy Other Verified 03/12/20 15:09 propoxyphene Allergy Other Verified 03/12/20 15:09 propoxyphene HCl Allergy Other Verified 03/12/20 15:09 [From Darvon] soy Allergy Other Verified 03/12/20 15:09 spironolactone Allergy Chest Verified 03/12/20 15:09 Presssure Sulfa (Sulfonamide Allergy Other Verified 03/12/20 15:09 Antibiotics) Home Meds: Home Meds Fexofenadine [Diamond] 180 mg PO DAILY 06/11/19 [History] Aspirin 81 mg PO DAILY 90 Days #90 tab.chew 06/15/19 [Rx] atorvaSTATin [Lipitor] 40 mg PO BEDTIME 90 Days #90 tablet 06/15/19 [Rx] Albuterol [Ventolin HFA] 2 puff .XX QID PRN 02/22/20 [History] Ketoconazole 200 tab PO DAILY 02/22/20 [History] Lidocaine 5 gm TP TID PRN 02/22/20 [History] Ubidecarenone [Coq-10] 100 mg PO DAILY 02/23/20 [History] Acetaminophen [Tylenol] 325 mg PO Q4H PRN tablet 03/10/20 [Rx] Albuterol/Ipratropium [Combivent Respimat] 1 puff INH Q6HR PRN inhaler 03/10/20 [Rx] Fluticasone Propionate [Flonase] 1 spray NASBOTH DAILY #1 bottle 03/10/20 [Rx] Furosemide [Lasix] 40 mg PO BID #60 tab 03/10/20 [Rx] Isosorbide Dinitrate [Isordil] 30 mg PO TID #90 tab 03/10/20 [Rx] Metoprolol Succinate [Toprol XL 50mg] 50 mg PO DAILY 90 Days #30 tab.er 03/10/20 [Rx] Nystatin [Nystatin Crm] 1 gm TOP BID tube 03/10/20 [Rx] hydrALAZINE [Apresoline] 25 mg PO TID #90 tablet 03/10/20 [Rx] metFORMIN [Glucophage] 500 mg PO BIDMEALS #60 tab 03/10/20 [Rx] predniSONE [Prednisone] 10 - 20 mg PO DAILY #6 tab.ds.pk 03/10/20 [Rx] Past Medical History HEENT History: Reports: None Cardiovascular History: Reports: Heart Failure, Hypertension Other Cardiovascular History: Rate controlled A-fib on telemetry Respiratory History: Reports: Bronchitis, Recurrent Gastrointestinal History: Reports: None Genitourinary History: Reports: Urinary Incontinence 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 History: Hidradenitis suppurativa Musculoskeletal History: Reports: Back Pain, Chronic Other Musculoskeletal History: Had Lumbar surgery Neurological History: Reports: None Psychiatric History: Reports: Depression Endocrine/Metabolic History: Reports: Diabetes, Type II, Other (See Below) Other Endocrine/Metabolic History: per prior record has DM II, patient denies that she is diabetic Dermatologic History: Reports: Other (See Below) Other Dermatologic History: bilateral Lower extremity edema - Infectious Disease History Infectious Disease History: Reports: None - Past Surgical History Head Surgeries/Procedures: Reports: None Cardiovascular Surgical History: Reports: Other (See Below), Vascular Surgery Female Surgical History: Reports: Section, Hysterectomy Other Oncologic Surgeries/Procedures: back surgery Social & Family History - Family History Family Medical History: No Pertinent Family History - Caffeine Use Caffeine Use: Reports: None, Soda ED ROS GENERAL - Review of Systems Review Of Systems: See Below (see dictation) ED EXAM, GENERAL - Physical Exam Exam: See Below (see dictation) #1 Interpretation EKG Interpretation Comments: Heart rate = 142 bpm, atrial fibrillation with RVR, normal QRS interval, no STEMI. EKG and rhythm strip interpreted by me at 0300 #2 Interpretation EKG Interpretation Comments: Heart rate = 115 bpm, atrial fibrillation with RVR, normal QRS interval, no STEMI. EKG and rhythm strip interpreted by me at 0333 Course - Vital Signs Last Recorded V/S: Last Vital Signs Temp 98.9 F 03/25/20 02:53 Pulse 86 03/25/20 04:35 Resp 30 H 03/25/20 04:35 BP 126/65 03/25/20 04:35 Pulse Ox 92 L 03/25/20 04:35 - Orders/Labs/Meds Orders: Active Orders 24 hr Category Date Time Status Cardiac Monitoring [RC] . DIRECTED Care 03/25/20 02:55 Active Cardiac Monitoring [RC] STAT Care 03/25/20 04:07 Active EKG Documentation Completion [RC] STAT Care 03/25/20 02:55 Active Insert Mcdaniel Catheter [Insert Urinary Catheter] [OM.PC] Care 03/25/20 04:45 Ordered Q24H Pulse Oximetry [RC] ASDIRECTED Care 03/25/20 02:55 Active RT BiPAP/CPAP [RC] ASDIRECTED Care 03/25/20 03:33 Active Urinary Catheter Assessment [RC] ASDIRECTED Care 03/25/20 04:34 Active CULTURE BLOOD [BC] Stat Lab 03/25/20 02:50 Received CULTURE BLOOD [BC] Stat Lab 03/25/20 03:21 Received PROCALCITONIN [REF] Stat Lab 03/25/20 02:50 Received Amiodarone In Dextrose,Iso-Osm [Nexterone in Dextrose Med 03/25/20 03:45 Active 360 MG/200 ML] 360 mg in 200 ml IV ASDIRECTED Heparin Sod,Pork In 0.45% Nacl [Heparin-1/2Ns 25,000 Med 03/25/20 04:15 Active Units/500] 25,000 unit in 500 ml IV TITRATE Sodium Chloride 0.9% [Saline Flush] Med 03/25/20 02:55 Active 10 ml FLUSH ASDIRECTED PRN Sodium Chloride 0.9% [Saline Flush] Med 03/25/20 02:55 Active 2.5 ml FLUSH ASDIRECTED PRN Blood Culture x2 Reflex Set [OM.PC] Stat Oth 03/25/20 02:55 Ordered Isolation [COMM] Routine Oth 03/25/20 02:58 Active Saline Lock Insert [OM.PC] Stat Oth 03/25/20 02:55 Ordered Medication Orders Amiodarone HCl/Dextrose (Nexterone In Dextrose 360 Mg/200 Ml) 360 mg in 200 mls @ 33.333 mls/hr IV ASDIRECTED JESSEE; Protocol Last Admin: 03/25/20 04:23 Dose: 1 mg/min, 33.333 mls/hr Documented by: BREWKRI Heparin Sodium/Sodium Chloride (Heparin-1/2ns 25,000 Units/500) 25,000 unit in 500 mls @ 19.62 mls/hr IV TITRATE JESSEE; Protocol Sodium Chloride (Saline Flush) 10 ml FLUSH ASDIRECTED PRN PRN Reason: Keep Vein Open Sodium Chloride (Saline Flush) 2.5 ml FLUSH ASDIRECTED PRN PRN Reason: Keep Vein Open Labs: Laboratory Tests 03/25/20 03/25/20 03/25/20 Range/Units 02:50 02:50 02:50 WBC 6.36 (4.0-11.0) K/uL RBC 4.82 (4.30-5.90) M/uL Hgb 14.4 (12.0-16.0) g/dL Hct 49.3 H (36.0-46.0) % MCV 102.3 H (80.0-98.0) fL MCH 29.9 (27.0-32.0) pg MCHC 29.2 L (31.0-37.0) g/dL RDW Std Deviation 62.2 H (28.0-62.0) fl RDW Coeff of Robert 17 H (11.0-15.0) % Plt Count 214 (150-400) K/uL MPV 10.60 (7.40-12.00) fL Neut % (Auto) 67.9 (48.0-80.0) % Lymph % (Auto) 17.9 (16.0-40.0) % [place] % (Auto) 13.5 (0.0-15.0) % Eos % (Auto) 0.5 (0.0-7.0) % Baso % (Auto) 0.2 (0.0-1.5) % Neut # (Auto) 4.3 (1.4-5.7) K/uL Lymph # (Auto) 1.1 (0.6-2.4) K/uL [place] # (Auto) 0.9 H (0.0-0.8) K/uL Eos # (Auto) 0.0 (0.0-0.7) K/uL Baso # (Auto) 0.0 (0.0-0.1) K/uL Nucleated RBC % 0.0 /100WBC Nucleated RBCs # 0 K/uL INR 1.25 ABG pH (7.35-7.45) ABG pCO2 (35-45) mmHG ABG pO2 (75-100) mmHG ABG HCO3 (22-26) mEq/L ABG Total CO2 ABG Base Excess (-2.0-2.0) Lactate 3.1 H* (0.20-2.00) mmol/L Sodium (136-145) mmol/L Potassium (3.5-5.1) mmol/L Chloride (98-107) mmol/L Carbon Dioxide (21.0-32.0) mmol/L BUN (7.0-18.0) mg/dL Creatinine (0.6-1.0) mg/dL Est Cr Clr Drug Dosing Estimated GFR (MDRD) ml/min Glucose (74-106) mg/dL Calcium (8.5-10.1) mg/dL Phosphorus (2.6-4.7) mg/dL Magnesium (1.8-2.4) mg/dL Ferritin (8-252) ng/mL Total Bilirubin (0.2-1.0) mg/dL AST (15-37) IU/L ALT (14-63) IU/L Alkaline Phosphatase (46-116) U/L Lactate Dehydrogenase (81-234) U/L Creatine Kinase (26-308) U/L Troponin I (0.000-0.056) ng/mL C-Reactive Protein (0.00-0.90) mg/dL B-Natriuretic Peptide (<100) PG/ML Total Protein (6.4-8.2) g/dL Albumin (3.4-5.0) g/dL Globulin (2.6-4.0) g/dL Albumin/Globulin Ratio (0.9-1.6) Urine Color Urine Appearance Urine pH (5.0-8.0) Ur Specific [place] (1.001-1.035) Urine Protein (NEGATIVE) mg/dL Urine Glucose (UA) (NEGATIVE) mg/dL Urine Ketones (NEGATIVE) mg/dL Urine Occult Blood (NEGATIVE) Urine Nitrite (NEGATIVE) Urine Bilirubin (NEGATIVE) Urine Ictotest Urine Urobilinogen (<2.0) EU/dL Ur Leukocyte Esterase (NEGATIVE) Urine RBC (0-2/HPF) Urine WBC (0-5/HPF) Ur Epithelial Cells (NONE-FEW) Amorphous Sediment (NEGATIVE) Urine Bacteria (NEGATIVE) Urine Mucus (NONE-MOD) SARS-CoV-2 RNA (KIMBERLY) (NEGATIVE) 03/25/20 03/25/20 03/25/20 Range/Units 02:50 02:50 02:50 WBC (4.0-11.0) K/uL RBC (4.30-5.90) M/uL Hgb (12.0-16.0) g/dL Hct (36.0-46.0) % MCV (80.0-98.0) fL MCH (27.0-32.0) pg MCHC (31.0-37.0) g/dL RDW Std Deviation (28.0-62.0) fl RDW Coeff of Robert (11.0-15.0) % Plt Count (150-400) K/uL MPV (7.40-12.00) fL Neut % (Auto) (48.0-80.0) % Lymph % (Auto) (16.0-40.0) % [place] % (Auto) (0.0-15.0) % Eos % (Auto) (0.0-7.0) % Baso % (Auto) (0.0-1.5) % Neut # (Auto) (1.4-5.7) K/uL Lymph # (Auto) (0.6-2.4) K/uL [place] # (Auto) (0.0-0.8) K/uL Eos # (Auto) (0.0-0.7) K/uL Baso # (Auto) (0.0-0.1) K/uL Nucleated RBC % /100WBC Nucleated RBCs # K/uL INR ABG pH (7.35-7.45) ABG pCO2 (35-45) mmHG ABG pO2 (75-100) mmHG ABG HCO3 (22-26) mEq/L ABG Total CO2 ABG Base Excess (-2.0-2.0) Lactate (0.20-2.00) mmol/L Sodium 143 (136-145) mmol/L Potassium 4.8 (3.5-5.1) mmol/L Chloride 102 (98-107) mmol/L Carbon Dioxide 37.2 H (21.0-32.0) mmol/L BUN 15 (7.0-18.0) mg/dL Creatinine 1.4 H (0.6-1.0) mg/dL Est Cr Clr Drug Dosing TNP Estimated GFR (MDRD) 37.5 ml/min Glucose 153 H (74-106) mg/dL Calcium 8.6 (8.5-10.1) mg/dL Phosphorus 3.9 (2.6-4.7) mg/dL Magnesium 2.0 (1.8-2.4) mg/dL Ferritin 685 H (8-252) ng/mL Total Bilirubin 0.8 (0.2-1.0) mg/dL AST 24 (15-37) IU/L ALT 17 (14-63) IU/L Alkaline Phosphatase 116 (46-116) U/L Lactate Dehydrogenase 328 H (81-234) U/L Creatine Kinase 36 (26-308) U/L Troponin I 0.071 H* (0.000-0.056) ng/mL C-Reactive Protein 7.60 H (0.00-0.90) mg/dL B-Natriuretic Peptide 476 H (<100) PG/ML Total Protein 6.7 (6.4-8.2) g/dL Albumin 3.0 L (3.4-5.0) g/dL Globulin 3.7 (2.6-4.0) g/dL Albumin/Globulin Ratio 0.8 L (0.9-1.6) Urine Color Urine Appearance Urine pH (5.0-8.0) Ur Specific [place] (1.001-1.035) Urine Protein (NEGATIVE) mg/dL Urine Glucose (UA) (NEGATIVE) mg/dL Urine Ketones (NEGATIVE) mg/dL Urine Occult Blood (NEGATIVE) Urine Nitrite (NEGATIVE) Urine Bilirubin (NEGATIVE) Urine Ictotest Urine Urobilinogen (<2.0) EU/dL Ur Leukocyte Esterase (NEGATIVE) Urine RBC (0-2/HPF) Urine WBC (0-5/HPF) Ur Epithelial Cells (NONE-FEW) Amorphous Sediment (NEGATIVE) Urine Bacteria (NEGATIVE) Urine Mucus (NONE-MOD) SARS-CoV-2 RNA (KIMBERLY) (NEGATIVE) 03/25/20 03/25/20 03/25/20 Range/Units 03:02 03:10 04:15 WBC (4.0-11.0) K/uL RBC (4.30-5.90) M/uL Hgb (12.0-16.0) g/dL Hct (36.0-46.0) % MCV (80.0-98.0) fL MCH (27.0-32.0) pg MCHC (31.0-37.0) g/dL RDW Std Deviation (28.0-62.0) fl RDW Coeff of Robert (11.0-15.0) % Plt Count (150-400) K/uL MPV (7.40-12.00) fL Neut % (Auto) (48.0-80.0) % Lymph % (Auto) (16.0-40.0) % [place] % (Auto) (0.0-15.0) % Eos % (Auto) (0.0-7.0) % Baso % (Auto) (0.0-1.5) % Neut # (Auto) (1.4-5.7) K/uL Lymph # (Auto) (0.6-2.4) K/uL [place] # (Auto) (0.0-0.8) K/uL Eos # (Auto) (0.0-0.7) K/uL Baso # (Auto) (0.0-0.1) K/uL Nucleated RBC % /100WBC Nucleated RBCs # K/uL INR ABG pH 7.250 L (7.35-7.45) ABG pCO2 91 H (35-45) mmHG ABG pO2 115 H (75-100) mmHG ABG HCO3 40 H (22-26) mEq/L ABG Total CO2 36.6 ABG Base Excess 8.7 H (-2.0-2.0) Lactate (0.20-2.00) mmol/L Sodium (136-145) mmol/L Potassium (3.5-5.1) mmol/L Chloride (98-107) mmol/L Carbon Dioxide (21.0-32.0) mmol/L BUN (7.0-18.0) mg/dL Creatinine (0.6-1.0) mg/dL Est Cr Clr Drug Dosing Estimated GFR (MDRD) ml/min Glucose (74-106) mg/dL Calcium (8.5-10.1) mg/dL Phosphorus (2.6-4.7) mg/dL Magnesium (1.8-2.4) mg/dL Ferritin (8-252) ng/mL Total Bilirubin (0.2-1.0) mg/dL AST (15-37) IU/L ALT (14-63) IU/L Alkaline Phosphatase (46-116) U/L Lactate Dehydrogenase (81-234) U/L Creatine Kinase (26-308) U/L Troponin I (0.000-0.056) ng/mL C-Reactive Protein (0.00-0.90) mg/dL B-Natriuretic Peptide (<100) PG/ML Total Protein (6.4-8.2) g/dL Albumin (3.4-5.0) g/dL Globulin (2.6-4.0) g/dL Albumin/Globulin Ratio (0.9-1.6) Urine Color DARK YELLOW Urine Appearance CLOUDY Urine pH 5.0 (5.0-8.0) Ur Specific [place] >= 1.030 (1.001-1.035) Urine Protein 100 H (NEGATIVE) mg/dL Urine Glucose (UA) NEGATIVE (NEGATIVE) mg/dL Urine Ketones TRACE H (NEGATIVE) mg/dL Urine Occult Blood NEGATIVE (NEGATIVE) Urine Nitrite POSITIVE H (NEGATIVE) Urine Bilirubin MODERATE H (NEGATIVE) Urine Ictotest POSITIVE Urine Urobilinogen 2.0 H (<2.0) EU/dL Ur Leukocyte Esterase NEGATIVE (NEGATIVE) Urine RBC NONE SEEN (0-2/HPF) Urine WBC 0-2 (0-5/HPF) Ur Epithelial Cells RARE (NONE-FEW) Amorphous Sediment FEW (NEGATIVE) Urine Bacteria 2+ H (NEGATIVE) Urine Mucus LIGHT (NONE-MOD) SARS-CoV-2 RNA (KIMBERLY) NEGATIVE (NEGATIVE) Meds: Medications Generic Name Dose Route Start Last Admin Trade Name Freq PRN Reason Stop Dose Admin Amiodarone HCl/Dextrose 360 mg in 200 mls @ 33.333 mls/hr 03/25/20 03:45 03/25/20 04:23 Nexterone In Dextrose 360 Mg/200 Ml IV 1 mg/min ASDIRECTED JESSEE 33.333 mls/hr Administration Protocol 1 MG/MIN Heparin Sodium/Sodium Chloride 25,000 unit in 500 mls @ 19.62 mls/hr 03/25/20 04:15 Heparin-1/2ns 25,000 Units/500 IV TITRATE JESSEE Protocol 9 UNITS/KG/HR Sodium Chloride 10 ml 03/25/20 02:55 Saline Flush FLUSH ASDIRECTED PRN Keep Vein Open Sodium Chloride 2.5 ml 03/25/20 02:55 Saline Flush FLUSH ASDIRECTED PRN Keep Vein Open Discontinued Medications Generic Name Dose Route Start Last Admin Trade Name Freq PRN Reason Stop Dose Admin Aspirin 325 mg 03/25/20 04:06 Aspirin PO 03/25/20 04:07 ONETIME ONE Diltiazem HCl 25 mg 03/25/20 03:13 03/25/20 03:25 Diltiazem IVPUSH 03/25/20 03:14 25 mg ONETIME ONE Administration Diltiazem HCl Confirm 03/25/20 03:17 03/25/20 03:30 Diltiazem Administered 03/25/20 03:18 Not Given Dose 25 mg .ROUTE .STK-MED ONE Heparin Sodium (Porcine) 4,000 units 03/25/20 04:07 03/25/20 04:57 Heparin Sodium IVPUSH 03/25/20 04:08 4,000 units BOLUS ONE Administration Protocol Vancomycin HCl 1.5 gm/ Premix 300 mls @ 300 mls/hr 03/25/20 03:16 03/25/20 03:45 IV 03/25/20 03:17 300 mls/hr ONETIME ONE Administration Amiodarone HCl 150 mg/ 103 mls @ 600 mls/hr 03/25/20 03:28 03/25/20 04:31 Dextrose/Water IV 03/25/20 03:38 Not Given .BOLUS ONE Amiodarone HCl/Dextrose 360 mg in 200 mls @ 33.333 mls/hr 03/25/20 03:30 Nexterone In Dextrose 360 Mg/200 Ml IV ASDIRECTED JESSEE Protocol 1 MG/MIN Amiodarone HCl 150 mg/ 103 mls @ 600 mls/hr 03/25/20 03:38 03/25/20 04:32 Dextrose/Water IV 03/25/20 03:48 Not Given .BOLUS ONE Amiodarone HCl/Dextrose Confirm 03/25/20 03:40 03/25/20 04:31 Nexterone In Dextrose 150 Mg/100 Ml Administered 03/25/20 03:41 Not Given Dose 100 mls @ as directed IV .STK-MED ONE Amiodarone HCl/Dextrose Confirm 03/25/20 03:55 03/25/20 04:31 Nexterone In Dextrose 360 Mg/200 Ml Administered 03/25/20 03:56 Not Given Dose 360 mg in 200 mls @ as directed .ROUTE .STK-MED ONE Amiodarone HCl 150 mg/ 103 mls @ 600 mls/hr 03/25/20 03:58 03/25/20 04:06 Dextrose/Water IV 03/25/20 04:08 600 mls/hr NOW STA Administration Cefepime HCl 1 gm/ Premix 50 mls @ 100 mls/hr 03/25/20 04:06 IV 03/25/20 04:35 ONETIME ONE Heparin Sodium/Sodium Chloride Confirm 03/25/20 04:51 Heparin-1/2ns 25,000 Units/500 Administered 03/25/20 04:52 Dose 25,000 unit in 500 mls @ as directed IV .STK-MED ONE - Re-Assessments/Exams Free Text/Narrative Re-Assessment/Exam: 03/25/20 03:10 weaned down to 6L NC, sating 96% on 6L, ABG ordered 03/25/20 03:14 vancomycin, cefepime ordered for bilateral LE cellulitis, 25mg IV cardizem ordered for AFib with RVR. 03/25/20 03:29 Heart rate improved to 83 bpm after cardizem, will repeat EKG 03/25/20 03:35 ABG demonstrated a PCO2 of 91, placing patient on BiPAP. 03/25/20 03:37 Repeat EKG demonstrated Afib with RVR, HR = 115, will place patient on amiodaron bolus and drip. 03/25/20 03:57 Patient tolerating BiPap 12/5 at 60%, started Aspirin 325mg PO and heparin bolus and drip for NSTEMI. Leona Morrissey on diversion. Case discussed with Dr. Markham (ICU) at [facility], will accept transfer. 03/25/20 04:51 I reassessed the patient, she is tolerating BiPAP. Her vitals are stable at this time. BP = 152/74, HR 84, MAP = 106 , shock index between 0.6, which is normal. MEDICAL DECISION MAKING: I reviewed the patients past medical records, lab and radiographic findings. I discussed the case with the patient. My differential diagnosis included: CHF, hypercapnia respiratory failure, A. fib with RVR, lower extremity cellulitis. Patient pCO2 = 91 on 6L NC, she was placed on BiPAP for hypercapnic respiratory failure. Troponin elevated at 0.07, placed on aspirin and heparin bolus and drip. For A. fib RVR improved transiently with Cardizem, she was switched to amiodarone bolus and drip given history of CHF with systolic heart failure with EF =30%. Patient's lower extremities demonstrated cellulitis, she was covered with vancomycin and cefepime, blood cultures were sent. COVID was negative. Departure - Departure Time of Disposition: 03:11 Disposition: DC/Tfer to Other 70 Condition: Fair Clinical Impression: Acute and chronic respiratory failure with hypercapnia, Ejection fraction < 50%, Medical non-compliance, Total self-care deficit, LEONILA (obstructive sleep apnea), Morbidly obese, Cellulitis of lower leg, Atrial fibrillation with rapid ventricular response, NSTEMI (non-ST elevated myocardial infarction), GIOVANNY (acute kidney injury) CHF (congestive heart failure) Qualifiers: Heart failure type: systolic Heart failure chronicity: acute on chronic Qualified Code(s): I50.23 - Acute on chronic systolic (congestive) heart failure - Discharge Information *PRESCRIPTION DRUG MONITORING PROGRAM REVIEWED*: Not Applicable *COPY OF PRESCRIPTION DRUG MONITORING REPORT IN PATIENT KATTY: Not Applicable Referrals: PCP,None [Primary Care Provider] - Critical Care Note - Critical Care Note Total Time (mins): 126 Comments: CRITCAL CARE: The high probability of sudden, clinically significant deterioration in the patient's condition required the highest level of my preparedness to intervene urgently. The services I provided to this patient were to treat and/or prevent clinically significant deterioration. Services included the following: chart data review, reviewing nursing notes and/or old charts, documentation time, partner management consultant collaboration regarding findings and treatment options, medication orders and management, direct patient care, vital sign assessments and ordering, interpreting and reviewing diagnostic studies/lab tests. Aggregate critical care time includes only time during which I was engaged in work directly related to the patient's care, as described above, whether at the bedside or elsewhere in the Emergency Department. It did not include time spent performing other reported procedures or the services of residents, students, nurses or physician assistants. Frequent interventions and/or frequent repeat evaluations were required as well as counseling and coordination of care regarding prognosis, treatments, and discussions with patient, staff and consultants. Critical Care (excluding other procedures): 126 minutes Sepsis Event Note (ED) - Focused Exam Vital Signs: Vital Signs Temp Pulse Resp BP Pulse Ox 03/25/20 04:35 86 30 H 126/65 92 L 03/25/20 04:16 94 30 H 131/59 L 91 L 03/25/20 03:56 93 29 H 114/74 91 L 03/25/20 03:36 94 33 H 145/74 H 92 L 03/25/20 03:21 137 H 32 H 93 L 03/25/20 02:53 98.9 F 132 H 28 H 125/86 97 - My Orders Last 24 Hours: My Active Orders 03/25/20 02:50 CULTURE BLOOD [BC] Stat PROCALCITONIN [REF] Stat 03/25/20 02:55 Cardiac Monitoring [RC] . DIRECTED EKG Documentation Completion [RC] STAT Pulse Oximetry [RC] ASDIRECTED Sodium Chloride 0.9% [Saline Flush] 10 ml FLUSH ASDIRECTED PRN Sodium Chloride 0.9% [Saline Flush] 2.5 ml FLUSH ASDIRECTED PRN Blood Culture x2 Reflex Set [OM.PC] Stat Saline Lock Insert [OM.PC] Stat 03/25/20 02:58 Isolation [COMM] Routine 03/25/20 03:21 CULTURE BLOOD [BC] Stat 03/25/20 03:33 RT BiPAP/CPAP [RC] ASDIRECTED 03/25/20 03:45 Amiodarone In Dextrose,Iso-Osm [Nexterone in Dextrose 360 MG/200 ML] 360 mg in 200 ml IV ASDIRECTED 03/25/20 04:07 Cardiac Monitoring [RC] STAT 03/25/20 04:15 Heparin Sod,Pork In 0.45% Nacl [Heparin-1/2Ns 25,000 Units/500] 25,000 unit in 500 ml IV TITRATE 03/25/20 04:34 Urinary Catheter Assessment [RC] ASDIRECTED 03/25/20 04:45 Insert Mcdaniel Catheter [Insert Urinary Catheter] [OM.PC] Q24H - Assessment/Plan Last 24 Hours: My Active Orders 03/25/20 02:50 CULTURE BLOOD [BC] Stat PROCALCITONIN [REF] Stat 03/25/20 02:55 Cardiac Monitoring [RC] . DIRECTED EKG Documentation Completion [RC] STAT Pulse Oximetry [RC] ASDIRECTED Sodium Chloride 0.9% [Saline Flush] 10 ml FLUSH ASDIRECTED PRN Sodium Chloride 0.9% [Saline Flush] 2.5 ml FLUSH ASDIRECTED PRN Blood Culture x2 Reflex Set [OM.PC] Stat Saline Lock Insert [OM.PC] Stat 03/25/20 02:58 Isolation [COMM] Routine 03/25/20 03:21 CULTURE BLOOD [BC] Stat 03/25/20 03:33 RT BiPAP/CPAP [RC] ASDIRECTED 03/25/20 03:45 Amiodarone In Dextrose,Iso-Osm [Nexterone in Dextrose 360 MG/200 ML] 360 mg in 200 ml IV ASDIRECTED 03/25/20 04:07 Cardiac Monitoring [RC] STAT 03/25/20 04:15 Heparin Sod,Pork In 0.45% Nacl [Heparin-1/2Ns 25,000 Units/500] 25,000 unit in 500 ml IV TITRATE 03/25/20 04:34 Urinary Catheter Assessment [RC] ASDIRECTED 03/25/20 04:45 Insert Mcdaniel Catheter [Insert Urinary Catheter] [OM.PC] Q24H
[2020-03-25] MEDS ORDERED: Diltiazem 25 MG/5 ML SDV IVPUSH ONE (03:13)
[2020-03-25] MEDS ORDERED: Diltiazem 25 MG/5 ML SDV ONE (03:17)
--- NOTE | 2020-03-25 03:19 | CR ---
INDICATION: Shortness of breath TECHNIQUE: Chest 1 view. COMPARISON: And/in FINDINGS: Cardiovascular and mediastinum: Stable cardiomegaly. Mediastinum is within normal limits. Lungs and pleural space: Lungs are clear. No sign of infiltrate or mass. No sign of pleural effusion. No pneumothorax. Bones and soft tissues: No significant findings. IMPRESSION: Stable cardiomegaly without significant congestive changes. Dictated by Danial Xie MD @ Mar 25 2020 3:16AM Signed by Dr. Danial Xie @ Mar 25 2020 3:17AM
[2020-03-25 03:23] LABS: BLOOD UREA NITROGEN,BUN 15 mg/dL (7.0-18.0); CARBON DIOXIDE,CO2 37.2 mmol/L (21.0-32.0); CHLORIDE,CL 102 mmol/L (98-107); GLUCOSE RANDOM 153 mg/dL (74-106); POTASSIUM,K 4.8 mmol/L (3.5-5.1); SODIUM,NA 143 mmol/L (136-145)
[2020-03-25] MEDS ORDERED: Amiodarone 150 MG in Dextrose 5% in Water 100 ML IV ONE ×4 (03:28→03:38)
[2020-03-25] MEDS ORDERED: Amiodarone 150 MG in Dextrose 5% in Water 100 ML IV STA ×2 (03:58)
[2020-03-25] MEDS ORDERED: Cefepime 1 GM in Premix Bag 1 BAG IV ONE (04:06)
[2020-03-25] MEDS ORDERED: Aspirin 325 MG Tab PO ONE (04:06)
[2020-03-25] MEDS ORDERED: Heparin Sodium 5,000 Units/ML Vial IVPUSH ONE (04:07)
[2020-03-25] MEDS ORDERED: Heparin Sod,Pork In 0.45% Nacl 25,000 UNIT/500 ML IV.SOLN IV SCH (04:15)
[2020-03-25] MEDS ORDERED: Heparin Sod,Pork In 0.45% Nacl 25,000 UNIT/500 ML IV.SOLN IV ONE (04:51)
[2020-03-25 06:26] VITALS: BP 154/82; PULSE 88
== END 2020-03-25 07:55 | disposition other institution (70) ==
LOC: MW.ED 02:49
DX: I11.0 Hypertensive heart disease with heart failure (principal); I50.23 Acute on chronic systolic (congestive) heart failure; J96.22 Acute and chronic respiratory failure with hypercapnia; I21.4 Non-ST elevation (NSTEMI) myocardial infarction; N17.9 Acute kidney failure, unspecified; G47.33 Obstructive sleep apnea (adult) (pediatric); L03.115 Cellulitis of right lower limb; L03.116 Cellulitis of left lower limb; I48.91 Unspecified atrial fibrillation; E11.9 Type 2 diabetes mellitus without complications; J44.9 Chronic obstructive pulmonary disease, unspecified; E66.01 Morbid (severe) obesity due to excess calories; Z88.8 Allergy status to other drugs, medicaments and biological substances; Z91.018 Allergy to other foods; Z91.012 Allergy to eggs; Z91.040 Latex allergy status; Z88.5 Allergy status to narcotic agent; Z91.048 Other nonmedicinal substance allergy status; Z88.2 Allergy status to sulfonamides; Z79.82 Long term (current) use of aspirin; Z79.899 Other long term (current) drug therapy; Z20.828 Contact with and (suspected) exposure to other viral communicable diseases
CPT/HCPCS: 36415; 36600; 51702; 71045; 80053; 81001; 82550; 82728; 82803; 83605; 83615; 83735; 83880; 84100; 84145; 84484; 85025; 85610; 85730; 86140; 87040; 87804; 93005; 94660; 96365; 96366; 96367; 96368; 96375; 99291; 99292; A9270; J0282; J0692; J1644; J3370; J3490; J7060; U0002; 93010